=== PATIENT | female | born 1955 | race Caucasian/White ===

== ENCOUNTER → 2020-08-14 07:38 | Outpatient (REF) | payer MEDICARE, OTHER, SELFPAY ==
--- NOTE | 2020-08-14 07:44 | CA_ITS ---
Acquisition Time: 2020-08-14 08:49:56 Total Exercise Time: 00:09:52 Test Indications: cp, sob Medications: see chart Protocol: MAGO Max HR: 112 BPM 72% of Pred: 155 BPM Max BP: 184/082 mmHG Max Work Load: 4.8 METS pt unable to copmlete the test as she was SOB and her hr wup to 71% after 4min 35 sec. Will change gher test to lexiscan. Referred By: Radha Scott Overread By: Wil Sandoval
== END ==
LOC: HO.CARD 07:38
PROVIDERS: Visit Provider Internal Medicine
DX: R07.9 Chest pain, unspecified (principal); I10 Essential (primary) hypertension; R06.02 Shortness of breath; E78.00 Pure hypercholesterolemia, unspecified
CPT/HCPCS: 93016; 93017; 93018

== ENCOUNTER 2020-08-18 08:10 | Outpatient (REF) | payer MEDICARE, OTHER, SELFPAY ==
[2020-08-18 09:16] LABS: MANUAL DIFF FLAG NO
[2020-08-18 09:20] LABS: Basophils Absolute Auto 0.1 X10*3/uL (0.0-0.2); Basophils Percent Auto 0.8 % (0-2); Eosinophils Absolute Auto 0.1 X10*3/uL (0.0-0.4); Hematocrit 41.1 % (37-47); Hemoglobin 13.8 g/dl (12.0-16.0); Imm Gran Abs Auto 0.01 X10*3/uL (0.00-0.03); Imm Gran Pct Auto 0.2 % (0.0-0.4); Lymphocytes Absolute Auto 2.3 X10*3/uL (1.2-4.9); Lymphocytes Percent Auto 38.5 % (20-40); Mean Corpuscular HGB Conc 33.6 g/dl (31.0-35.0); Mean Corpuscular Hemoglobin 30.8 pg (27.0-33.0); Mean Corpuscular Volume 91.7 fL (80-98); Mean Platelet Volume 9.7 fL (9.4-12.3); Monocytes Absolute Auto 0.6 X10*3/uL (0.1-1.2); Monocytes Percent Auto 10.1 % (2-11); Neutrophils Absolute Auto 2.9 X10*3/uL (2.0-8.3); Neutrophils Percent Auto 48.4 % (45-73); Platelet Count 310 X10*3/uL (160-400); Red Blood Count 4.48 X10*6/uL (4.20-5.50); Red Cell Distribution Width 13.5 % (11.0-16.0); White Blood Count 5.9 X10*3/uL (4.8-10.8)
[2020-08-18 09:46] LABS: Alanine Aminotransferase 17 U/L (0-31); Albumin Level 4.6 g/dL (3.5-5.0); Alkaline Phosphatase 115 U/L (39-117); Anion Gap 14 (12-20); Aspartate Amino Transferase 18 U/L (5-31); Bilirubin Total 0.5 mg/dL (0.0-1.0); Blood Urea Nitrogen 20 mg/dL (9-16); Calcium 9.5 mg/dL (8.4-10.2); Carbon Dioxide 27 mmol/L (22-29); Chloride 105 mmol/L (96-108); Cholesterol 189 mg/dL; Estimated Glomerular Filt Rate 52; Glucose Fasting 83 mg/dL (60-99); HDL Cholesterol 57 mg/dL; LDL Cholesterol Calculated 100 mg/dl; Potassium 4.8 mmol/L (3.3-5.1); Sodium 141 mmol/L (135-145); Total Protein 7.2 g/dL (6.5-8.0); Triglycerides 162 mg/dL; Uric Acid 8.3 mg/dL (2.4-5.7)
[2020-08-18 10:03] LABS: Erythrocyte Sedimentation Rate 11 MM/HR (0-20)
[2020-08-18 10:15] LABS: Free T4 (Free Thyroxine) 0.86 ng/dL (0.71-1.85); Thyroid Stimulating Hormone 1.11 uIU/mL (0.32-4.0)
[2020-08-19 09:32] LABS: NT-proBNP 29 pg/mL
== END 2020-08-18 08:11 | disposition home or self-care (01) ==
LOC: HO.RESP 08:10
PROVIDERS: PCP Internal Medicine; Visit Provider Internal Medicine
DX: R06.02 Shortness of breath (principal); I10 Essential (primary) hypertension; R53.83 Other fatigue; M10.9 Gout, unspecified
CPT/HCPCS: 36415; 80053; 80061; 83880; 84439; 84443; 84550; 85025; 85652; 86140; 94060; 94727; 94729

== ENCOUNTER → 2020-08-19 07:25 | Outpatient (REF) | payer MEDICARE, OTHER, SELFPAY ==
--- NOTE | ~2020-08-19 | NM_ITS ---
Lexiscan Myocardial perfusion study Indication: Chest pain, shortness of breath, assess for coronary disease and ischemia Technique: The patient was brought in for a Lexiscan perfusion study on 08/19/2020 and was injected 0.4 mg of Lexiscan intravenously. Within a minute of this injection 35 mCi of sestamibi was given intravenously. Images were obtained using the SPECT gamma camera interlaced with the gating device. Images were obtained in supine position. Resting perfusion study was performed on 08/20/2020. Patient was administered 35 mCi of sestamibi intravenously at rest. Images were then obtained in supine position. Total DLP 123mGy-cm. Images were processed with the software and compared side to side in short axis, horizontal long axis and vertical long axis views. Findings: Raw acquisition was reviewed. The stress perfusion study showed diminished tracer uptake along the distal part of anterior/anterolateral wall. With CT attenuation correction, there seems to be improvement and hence suggestive of soft tissue attenuation artifact. The gated study shows normal LV systolic function with calculated LVEF of > 70%. LV cavity is normal in size. The gated study shows normal wall thickening and contraction of segments. Resting study shows no significant perfusion abnormality. Gating at rest reveals normal wall motion with ejection fraction at 65%. The findings are consistent with reversible distal anterior/anterolateral defect that improves with CT attenuation and hence suggestive of soft tissue attenuation. Less likely to be from true ischemia. NM/NM willie perf SPECT rest & str Impression: 1. Myocardial perfusion imaging study shows reversible distal anterior/anterolateral defect suspected to be from soft tissue attenuation. Otherwise, no definitive ischemia or infarction. 2. Gated LVEF is 73% during stress and 65% during rest. 3. Transient ischemic dilatation not present. EKG component of the test reported separately.
--- NOTE | 2020-08-19 07:28 | CA_ITS ---
Transthoracic Echocardiogram Patient (Last, First, Middle): Martha Cottrell Louise Gender: Female Date of : 1955 Age: 64 Procedure Date: 08/19/2020 Procedure Type: Transthoracic Echocardiogram Location: OP Height: 152.4 cm Weight: 93.9 kg BSA: 1.89 m2 Heart Rate: bpm Ip/Mosaic Technician: GOOD Referring MD: Radha Scott MD Composing Room Supervisor: Russell Jensen MD Symptoms: SOB CHEST PAIN Study Quality: Fair ECG Rhythm: Sinus Conclusions: - 1. Normal LV systolic function with impaired relaxation filling pattern 2. Normal cardiac valvular Doppler 3. Normal RV systolic pressure 4. No pericardial effusion Findings Left Ventricle Normal left ventricular size and systolic function. There is mildly increased left ventricular wall thickness. The visually estimated ejection fraction is between 65-70%. Spectral Doppler is indicative of an impaired relaxation filling pattern. E/E prime ratio is <8, consistent with normal filling pressures. Right Ventricle Normal right ventricular cavity size and systolic function. Atria Both atria are normal in size. There is no evidence of interatrial shunt. Aortic Valve Normal aortic valve structure and function. There is no aortic valve stenosis. There is no aortic valve regurgitation. Mitral Valve Normal mitral valve structure and function. There is trace mitral valve regurgitation. There is no mitral valve stenosis. Pulmonic Valve The pulmonic valve is likely normal. Tricuspid Valve Normal tricuspid valve structure. There is trace tricuspid valve regurgitation. The right ventricular systolic pressure is normal. The right ventricular systolic pressure is 24 mmHg. Normal right atrial pressure. There is no evidence of pulmonary hypertension. Great Vessels All visible segments of the aorta are normal in size. The pulmonary artery was not well visualized. Venous The inferior vena cava is normal in size and collapses greater than 50% with inspiration. Pericardium/Pleural There is no evidence of pericardial effusion. Prior Study Comparison No prior study available for comparison. Measurements 2D Linear Measurements IVSd: 1.21 0.6-0.9/0.6-1.0 cm LVIDd: 3.86 3.9-5.3/4.2-5.9 cm LVIDd Index: 2.04 2.4-3.2/2.2-3.1 cm/m2 LVIDs: 2.60 2.0-3.6 cm LVPWd: 1.21 0.7-1.1 cm Ao Root: 3.40 2.1-3.5 cm LA Diam: 3.50 2.7-3.8/3.0-4.0 cm LAIDs Index: 1.85 1.5-2.3 cm/m2 LV Mass: 197.77 67-162/88-224 g LV Mass Index: 104.64 43-95/49-115 g/m2 LVOT Diam: 2.00 3.0+(-)1.3 cm 2D Systolic Function EF 4C: 71.40 >55% EF 2C: 56.60 >55% EF BiP: 65.90 >55% Mitral Valve MV Pk E: 0.58 MV PK A: 1.00 MV Decel Time: 155.00 E/A: 0.60 E'Lateral: 7.64 E'Medial: 7.06 E/E' Med: 8.20 E/E' Lat: 7.60 PHT: 45.00 MVA PHT: 4.89 Decel Yates: 3.76 Aortic Valve AoV Pk Mayo: 1.38 AoV Mn Mayo: 0.91 AoV VTI: 0.32 AoV Pk Grad: 8.00 Aov Mn Grad: 4.00 DADA Cont.VTI: 2.35 LVOT LVOT Pk Mayo: 1.03 LVOT Mn Mayo: 0.65 LVOT VTI: 0.24 LVOT Pk Grad: 4.00 LVOT Mn Grad: 2.00 LVOT Diam: 2.00 LVOT Area: 3.14 Diastolic Function MV Pk E: 0.58 MV Pk A: 1.00 E/A: 0.60 E'Medial: 7.06 E/E' Med: 8.20 E' Laterial: 7.64 E/E' Lat: 7.60 Tricuspid Valve TR Pk Mayo: 2.29 TR Pk Grad: 21.00 RA Press: 3.00 RVSP: 24.00 Great Vessels Aorta Ao Root-2D: 3.40 2.0-3.7 cm Pulmonary Valve PV Pk Mayo: 0.79 Peak PV Grad: 2.00 Updated in Other Vendor System with Status of Final Russell Jensen MD electronically signed on 08/19/2020 12:13:47 PM with status of Final
--- NOTE | 2020-08-19 07:31 | CA_ITS ---
Acquisition Time: 2020-08-19 08:30:21 Total Exercise Time: 00:02:00 Test Indications: htn Medications: see chart Protocol: LEXISCAN Max HR: 112 BPM 72% of Pred: 155 BPM Max BP: 116/074 mmHG Max Work Load: 1.0 METS Pharmacological stress test using Lexiscan while sitting and kicking her feet. Pt tolerated well. Denies any anginal sx. EKG without any arrhythmias, non-diagnostic for ischemia. Nuclear images to follow. Normotensive response to test . Test reviewed with Dr. Hernández. test changed to Lexiscan as pt was unable to walk on the treadmill Referred By: Radha Scott Overread By: Wil Sandoval
== END ==
LOC: HO.CARD 07:25
PROVIDERS: Visit Provider Internal Medicine
DX: R07.9 Chest pain, unspecified (principal); R06.02 Shortness of breath; I10 Essential (primary) hypertension; E78.00 Pure hypercholesterolemia, unspecified
CPT/HCPCS: 78452; 93016; 93017; 93018; 93306; A9500; J0280; J2785

== ENCOUNTER 2020-11-06 08:47 | Outpatient (REF) | payer MEDICARE, OTHER, SELFPAY ==
[2020-11-06 10:24] LABS: Blood Urea Nitrogen 16 mg/dL (9-16); Estimated Glomerular Filt Rate 58; Uric Acid 5.6 mg/dL (2.4-5.7)
== END 2020-11-06 08:48 | disposition home or self-care (01) ==
LOC: HO.LAB 08:47
PROVIDERS: PCP Internal Medicine; Visit Provider Internal Medicine
DX: M10.9 Gout, unspecified (principal); N18.2 Chronic kidney disease, stage 2 (mild)
CPT/HCPCS: 36415; 82565; 84520; 84550

== ENCOUNTER 2021-02-03 11:10 | Outpatient (REF) | payer MEDICARE, OTHER, SELFPAY ==
--- NOTE | ~2021-02-03 | XR_ITS ---
EXAMINATION: XR KNEE, LEFT CLINICAL INFORMATION: Pain and swelling. COMPARISON: 09/13/2018 TECHNIQUE: Four views of the left knee. FINDINGS: There is increasing lateral joint space loss. Joint space loss medially is now moderate to marked. Marginal osteophytes are noted. Tibial spine spurring is seen. Patellofemoral study demonstrates increasing degeneration in the patellofemoral joint. Trace effusion is noted. The patella appears well seated on the sunrise image. XR/XR knee LT 4V IMPRESSION: Increasing degenerative change in the left knee from previous. Now moderate to marked degeneration with joint space loss in the lateral compartment and ongoing increasing degeneration at the patellofemoral compartment.
== END 2021-02-03 11:11 | disposition home or self-care (01) ==
LOC: HO.XRAY 11:10
PROVIDERS: PCP Internal Medicine; Visit Provider Internal Medicine
DX: M25.562 Pain in left knee (principal); R60.0 Localized edema
CPT/HCPCS: 73564

== ENCOUNTER 2022-08-19 01:19 | Emergency (ER) | payer MEDICARE, OTHER, SELFPAY ==
--- NOTE | ~2022-08-19 | CT_ITS ---
EXAMINATION: CT ABDOMEN AND PELVIS WITHOUT CONTRAST CLINICAL INFORMATION: Diverticulitis COMPARISON: None TECHNIQUE: Multidetector volumetric imaging was performed from the superior aspect of the liver through the pubic symphysis. Sagittal and coronal reformatted images were obtained on the technologist's workstation. This CT examination was performed using dose optimization techniques as appropriate, variously including the following: *Automated exposure control *Adjustment of mA and/or kV according to patient size (this includes techniques or standardized protocols for targeted exams where dose is matched to indication/reason for exam; i.e. extremities or head) *Use of iterative reconstruction technique DLP: 978 mGy-cm FINDINGS: LUNG BASES: The visualized lung bases are unremarkable. LIVER, GALLBLADDER, AND BILIARY TREE: The liver is normal in size, shape, and attenuation. No focal hepatic lesion or biliary ductal dilatation is identified. The gallbladder is unremarkable with no evidence of radiopaque gallstones, gallbladder wall thickening, or obvious pericholecystic inflammatory changes. PANCREAS: Unremarkable. SPLEEN: Unremarkable. ADRENAL GLANDS: Unremarkable. KIDNEYS AND URETERS: No hydronephrosis or obstructing calculus bilaterally. BLADDER: Unremarkable. GASTROINTESTINAL TRACT: Small hiatal hernia. No evidence of bowel obstruction. There is a thick-walled appearance of the colon from the distal transverse to mid descending colon with surrounding inflammation, suspicious for colitis. Scattered diverticula are noted. The appendix is unremarkable. No free fluid or free air is seen. ABDOMINAL WALL: No significant hernia is appreciated. LYMPH NODES: Normal. VASCULAR: Moderate atherosclerotic calcifications. PELVIC VISCERA: Unremarkable. OSSEOUS STRUCTURES: Degenerative changes are noted in the spine. Status post right total hip arthroplasty. CT/CT abdomen pelvis wo IV con IMPRESSION: 1. Thick-walled appearance of the colon from the distal transverse to mid descending colon with surrounding inflammation, suspicious for colitis. 2. Small hiatal hernia.
--- NOTE | ~2022-08-19 | CT_ITS ---
EXAMINATION: CT HEAD WITHOUT CONTRAST (STROKE PROTOCOL) CLINICAL INFORMATION: Slurred speech COMPARISON: None TECHNIQUE: Contiguous axial imaging was performed from the skull base to vertex without intravenous administration of contrast. This CT examination was performed using dose optimization techniques as appropriate, variously including the following: *Automated exposure control *Adjustment of mA and/or kV according to patient size (this includes techniques or standardized protocols for targeted exams where dose is matched to indication/reason for exam; i.e. extremities or head) *Use of iterative reconstruction technique DLP: 926 mGy-cm FINDINGS: There is no intra or extra-axial fluid collection or hemorrhage, mass, or mass effect. Sulci and ventricles appear normal. Please note that this study was performed at 1:29 AM on 08/19/2022 and on the reading queue and presented to me for dictation 9:27 AM on 08/19/2022. CT/CT head for stroke IMPRESSION: No acute intracranial pathology.
[2022-08-19 05:27] VITALS: BP 133/80; PULSE 80; RESP 17; TEMP 36.4; O2SAT 98; BMI 42.2
[2022-08-19 05:40] VITALS: BP 145/77; PULSE 83; RESP 30; TEMP 36.6; O2SAT 95
--- NOTE | 2022-08-19 05:40 | MHC.EDTECH ---
pt had a purewick , vitals were taken .. pt was incontinent of stool x2 pt was cleaned up and a new purewick was applied.. pt used the commode . the purewick was removed EKG was done at 0159 during downtime
--- NOTE | 2022-08-19 05:43 | MHC.EDTECH ---
stool sample was sent to lab
--- NOTE | 2022-08-19 05:52 | ED.GENADULT ---
HPI - General Adult General Chief complaint: General Medical Time Seen by Provider: 08/19/22 05:50 Source: patient Mode of arrival: EMS Limitations: no limitations History of Present Illness HPI narrative: Patient with history of hypertension depression GERD otherwise healthy had [place] for 30 pills yesterday evening with stuffed shells woke up from the sleep for abdominal cramps not feeling good with increased nausea and discomfort was slow in speech and his called the EMS for evaluation as patient was very slow in speaking. On arrival of EMS patient was normal able to speak full sentences no expressive aphasia or dysarthria . On arrival to ER patient was at baseline without any focal deficit stroke protocol was activated for the slurred speech patient was feeling cold and very weak at home no diarrhea at home Related Data Previous Rx's Medication Instructions Recorded ciprofloxacin HCl 500 mg tablet 500 mg PO BID #20 tabs 08/19/22 (Cipro) metronidazole 500 mg tablet 500 mg PO TID #30 tabs 08/19/22 ondansetron 4 mg disintegrating 4 mg PO Q6-8H PRN nausea and 08/19/22 tablet vomiting #10 tabs Allergies Allergy/AdvReac Type Severity Reaction Status Date / Time codeine [CODEINE] AdvReac Mild NAUSEA & Unverified 03/13/20 15:06 VOMITING Review of Systems Review of Systems: Yes all other systems are reviewed and are negative [facility] Social History Social History Smoked in Last 30 Days: No Use of substances other than those prescribed or required for medical reasons: No Advance Directives: No Physical Exam ED Vital Signs: Vital Signs - 24 hr 08/19/22 05:27 08/19/22 05:40 Temperature 97.6 F 97.9 F Pulse Rate 80 83 Respiratory Rate 17 30 H Blood Pressure 133/80 145/77 H Pulse Oximetry 98 95 Oxygen Delivery Method Room Air Room Air BMI result Body Mass Index 42.2 Appearance: Alert. Oriented X3. Moderate distress. Feeling cold Eyes: PERRLA, No Nystagmus ENT: Pharynx normal. Oral Mucosa moist Neck: Normal inspection. Neck supple. CVS: Normal heart rate and rhythm. Pulses normal. Respiratory: No respiratory distress. Equal air entry bilateral, no wheezing/rales/rhonchi Abdomen: Soft and nontender. Bowel sounds are present, no mass palpable, no CVA tenderness Skin: Skin warm and dry. Normal skin color. Normal skin turgor. Extremities: No lower extremity edema. No calf tenderness Neuro: Oriented X 3. No motor deficit. No sensory deficit.No cerebellar signs , cranial nerves II-XII intact Medications Administered Discontinued Medications Generic Name Dose Route Start Last Admin Trade Name Joshuaq PRN Reason Stop Dose Admin Ceftriaxone Sodium 1 gm/ 50 mls @ 100 mls/hr 08/19/22 05:54 08/19/22 07:00 Sodium Chloride IV 08/19/22 06:23 Infused ONCE ONE Infusion Metronidazole 500 mg 08/19/22 05:52 08/19/22 06:23 Metronidazole 500 Mg Tablet PO 08/19/22 05:53 500 mg ONCE ONE Administration Medical Decision Making Medical Decision Making [facility] Narrative: Patient with acute gastroenteritis with severe nausea she will bring and had 3 bowel movements in the ER stool sample was sent negative for C diff. CT scan of the abdomen showed diffuse colitis WBC count were elevated lactic acid was normal patient was given IV Rocephin and IV fluids feeling much better now taking p.o. fluids will discharge patient home Cipro and Flagyl. Differential Diagnosis CVA/metabolic encephalopathy/bacteremia/gastroenteritis Lab Data [facility] Lab Attestation statement: I reviewed the patient's lab results. 08/19/22 03:22 Labs: Lab Results 08/19/22 08/19/22 08/19/22 Range/Units 03:22 03:22 03:22 WBC (4.8-10.8) X10*3/uL RBC (4.20-5.50) X10*6/uL Hgb (12.0-16.0) g/dl Hct (37.0-47.0) % MCV (80.0-98.0) fL MCH (27.0-33.0) pg MCHC (31.0-35.0) g/dl RDW (11.0-16.0) % Plt Count (160-400) X10*3/uL MPV (9.4-12.3) fL Immature Gran % (Auto) (0.0-0.4) % Neut % (Auto) (45-73) % Lymph % (Auto) (20-40) % [place] % (Auto) (2-11) % Eos % (Auto) (0-4) % Baso % (Auto) (0-2) % Lymph # (Auto) (1.2-4.9) X10*3/uL [place] # (Auto) (0.1-1.2) X10*3/uL Eos # (Auto) (0.0-0.4) X10*3/uL Baso # (Auto) (0.0-0.2) X10*3/uL Abs Immat Gran (auto) (0.00-0.03) X10*3/uL Absolute Neuts (auto) (2.0-8.3) x10*3/uL Absolute Nucleated RBC (0.0-0.012) X10*3/uL Nucleated RBC % (auto) (0.0-0.2) /100WBC PT (10.0-13.1) SEC INR (0.9-1.1) Sodium 140 (135-145) mmol/L Potassium 5.3 H (3.3-5.1) mmol/L Chloride 111 H (96-108) mmol/L Carbon Dioxide 15 L (22-29) mmol/L Anion Gap 19 (12-20) BUN 22 H (9-16) mg/dL Creatinine 1.14 (0.5-1.4) mg/dL Estim Creat Clear Calc 52.3 Estimated GFR 48 Random Glucose 119 H (60-115) mg/dL Lactic Acid 1.5 (0.5-2.0) mmol/L Calcium 9.8 (8.4-10.2) mg/dL Total Bilirubin 0.5 (0.0-1.0) mg/dL AST 31 D (5-31) U/L ALT 26 (0-31) U/L Alkaline Phosphatase 89 D (39-117) U/L Troponin I High Sens 3.1 (<3.5-17.0) ng/L Total Protein 7.3 (6.5-8.0) g/dL Albumin 4.2 (3.5-5.0) g/dL Urine Color Urine Appearance Urine pH (5.0-9.0) Ur Specific [place] (1.005-1.025) Urine Protein (Neg-Trace) mg/dL Urine Glucose (UA) (Negative) mg/dL Urine Ketones (Negative) mg/dL Urine Blood (Negative) Urine Nitrite (Negative) Ur Leukocyte Esterase (Negative) Urine RBC (0-2) /HPF Urine WBC (0-5) /HPF Ur Squamous Epith Cells (0-2) /HPF Urine Bacteria (None Seen) Hyaline Casts (0-2) /LPF C. difficile Tox B Gene (Negative) 08/19/22 08/19/22 08/19/22 Range/Units 03:22 03:22 04:20 WBC 15.2 H (4.8-10.8) X10*3/uL RBC 4.74 (4.20-5.50) X10*6/uL Hgb 15.0 (12.0-16.0) g/dl Hct 44.3 (37.0-47.0) % MCV 93.5 (80.0-98.0) fL MCH 31.6 (27.0-33.0) pg MCHC 33.9 (31.0-35.0) g/dl RDW 13.6 (11.0-16.0) % Plt Count 327 (160-400) X10*3/uL MPV 9.7 (9.4-12.3) fL Immature Gran % (Auto) 0.5 H (0.0-0.4) % Neut % (Auto) 81.6 H (45-73) % Lymph % (Auto) 12.5 L (20-40) % [place] % (Auto) 4.7 (2-11) % Eos % (Auto) 0.3 (0-4) % Baso % (Auto) 0.4 (0-2) % Lymph # (Auto) 1.9 (1.2-4.9) X10*3/uL [place] # (Auto) 0.7 (0.1-1.2) X10*3/uL Eos # (Auto) 0.0 (0.0-0.4) X10*3/uL Baso # (Auto) 0.1 (0.0-0.2) X10*3/uL Abs Immat Gran (auto) 0.08 H (0.00-0.03) X10*3/uL Absolute Neuts (auto) 12.4 H (2.0-8.3) x10*3/uL Absolute Nucleated RBC 0.000 (0.0-0.012) X10*3/uL Nucleated RBC % (auto) 0.0 (0.0-0.2) /100WBC PT 9.9 L (10.0-13.1) SEC INR 0.9 (0.9-1.1) Sodium (135-145) mmol/L Potassium (3.3-5.1) mmol/L Chloride (96-108) mmol/L Carbon Dioxide (22-29) mmol/L Anion Gap (12-20) BUN (9-16) mg/dL Creatinine (0.5-1.4) mg/dL Estim Creat Clear Calc Estimated GFR Random Glucose (60-115) mg/dL Lactic Acid (0.5-2.0) mmol/L Calcium (8.4-10.2) mg/dL Total Bilirubin (0.0-1.0) mg/dL AST (5-31) U/L ALT (0-31) U/L Alkaline Phosphatase (39-117) U/L Troponin I High Sens (<3.5-17.0) ng/L Total Protein (6.5-8.0) g/dL Albumin (3.5-5.0) g/dL Urine Color Urine Appearance Urine pH (5.0-9.0) Ur Specific [place] (1.005-1.025) Urine Protein (Neg-Trace) mg/dL Urine Glucose (UA) (Negative) mg/dL Urine Ketones (Negative) mg/dL Urine Blood (Negative) Urine Nitrite (Negative) Ur Leukocyte Esterase (Negative) Urine RBC (0-2) /HPF Urine WBC (0-5) /HPF Ur Squamous Epith Cells (0-2) /HPF Urine Bacteria (None Seen) Hyaline Casts (0-2) /LPF C. difficile Tox B Gene NEGATIVE (Negative) 08/19/22 Range/Units 06:26 WBC (4.8-10.8) X10*3/uL RBC (4.20-5.50) X10*6/uL Hgb (12.0-16.0) g/dl Hct (37.0-47.0) % MCV (80.0-98.0) fL MCH (27.0-33.0) pg MCHC (31.0-35.0) g/dl RDW (11.0-16.0) % Plt Count (160-400) X10*3/uL MPV (9.4-12.3) fL Immature Gran % (Auto) (0.0-0.4) % Neut % (Auto) (45-73) % Lymph % (Auto) (20-40) % [place] % (Auto) (2-11) % Eos % (Auto) (0-4) % Baso % (Auto) (0-2) % Lymph # (Auto) (1.2-4.9) X10*3/uL [place] # (Auto) (0.1-1.2) X10*3/uL Eos # (Auto) (0.0-0.4) X10*3/uL Baso # (Auto) (0.0-0.2) X10*3/uL Abs Immat Gran (auto) (0.00-0.03) X10*3/uL Absolute Neuts (auto) (2.0-8.3) x10*3/uL Absolute Nucleated RBC (0.0-0.012) X10*3/uL Nucleated RBC % (auto) (0.0-0.2) /100WBC PT (10.0-13.1) SEC INR (0.9-1.1) Sodium (135-145) mmol/L Potassium (3.3-5.1) mmol/L Chloride (96-108) mmol/L Carbon Dioxide (22-29) mmol/L Anion Gap (12-20) BUN (9-16) mg/dL Creatinine (0.5-1.4) mg/dL Estim Creat Clear Calc Estimated GFR Random Glucose (60-115) mg/dL Lactic Acid (0.5-2.0) mmol/L Calcium (8.4-10.2) mg/dL Total Bilirubin (0.0-1.0) mg/dL AST (5-31) U/L ALT (0-31) U/L Alkaline Phosphatase (39-117) U/L Troponin I High Sens (<3.5-17.0) ng/L Total Protein (6.5-8.0) g/dL Albumin (3.5-5.0) g/dL Urine Color Dark Yellow Urine Appearance Clear Urine pH 5.0 (5.0-9.0) Ur Specific [place] 1.020 (1.005-1.025) Urine Protein Trace (Neg-Trace) mg/dL Urine Glucose (UA) Negative (Negative) mg/dL Urine Ketones Negative (Negative) mg/dL Urine Blood Trace H (Negative) Urine Nitrite Negative (Negative) Ur Leukocyte Esterase Moderate (2+) H (Negative) Urine RBC 11-20 H (0-2) /HPF Urine WBC 6-10 (0-5) /HPF Ur Squamous Epith Cells 3-5 (0-2) /HPF Urine Bacteria 1+ (None Seen) Hyaline Casts 6-10 (0-2) /LPF C. difficile Tox B Gene (Negative) Discharge Plan Discharge Clinical Impression: Enteritis Patient Disposition: Home, Self-Care Instructions: Colitis (ED) Additional Instructions: Drink plenty of fluids Medicine for nausea advised Antibiotic as prescribed Report to ER if worsening of the pain/diarrhea Prescriptions: New metronidazole 500 mg tablet 500 mg PO TID Qty: 30 0RF ciprofloxacin HCl [Cipro] 500 mg tablet 500 mg PO BID Qty: 20 0RF ondansetron 4 mg tablet,disintegrating 4 mg PO Q6-8H PRN (Reason: nausea and vomiting) Qty: 10 0RF
[2022-08-19 06:11] LABS: Anion Gap 19 (12-20); Blood Urea Nitrogen 22 mg/dL (9-16); Carbon Dioxide 15 mmol/L (22-29); Chloride 111 mmol/L (96-108); Creatinine Clr Calc Pharmacy 52.3; Estimated Glomerular Filt Rate 48; Glucose Random 119 mg/dL (60-115); Potassium 5.3 mmol/L (3.3-5.1); Sodium 140 mmol/L (135-145)
[2022-08-19 06:12] LABS: Alanine Aminotransferase 26 U/L (0-31); Albumin Level 4.2 g/dL (3.5-5.0); Alkaline Phosphatase 89 U/L (39-117); Aspartate Amino Transferase 31 U/L (5-31); Bilirubin Total 0.5 mg/dL (0.0-1.0); Calcium 9.8 mg/dL (8.4-10.2); Total Protein 7.3 g/dL (6.5-8.0)
[2022-08-19 06:15] LABS: Lactic Acid 1.5 mmol/L (0.5-2.0); Troponin-I High Sensitivity 3.1 ng/L (<3.5-17.0)
[2022-08-19 06:17] LABS: Basophils Absolute Auto 0.1 X10*3/uL (0.0-0.2); Basophils Percent Auto 0.4 % (0-2); Eosinophils Percent Auto 0.3 % (0-4); Hematocrit 44.3 % (37.0-47.0); Imm Gran Abs Auto 0.08 X10*3/uL (0.00-0.03); Imm Gran Pct Auto 0.5 % (0.0-0.4); Lymphocytes Absolute Auto 1.9 X10*3/uL (1.2-4.9); Lymphocytes Percent Auto 12.5 % (20-40); MANUAL DIFF FLAG NO; Mean Corpuscular HGB Conc 33.9 g/dl (31.0-35.0); Mean Corpuscular Hemoglobin 31.6 pg (27.0-33.0); Mean Corpuscular Volume 93.5 fL (80.0-98.0); Mean Platelet Volume 9.7 fL (9.4-12.3); Monocytes Absolute Auto 0.7 X10*3/uL (0.1-1.2); Monocytes Percent Auto 4.7 % (2-11); Neutrophils Absolute Auto 12.4 x10*3/uL (2.0-8.3); Neutrophils Percent Auto 81.6 % (45-73); Platelet Count 327 X10*3/uL (160-400); Red Blood Count 4.74 X10*6/uL (4.20-5.50); Red Cell Distribution Width 13.6 % (11.0-16.0); White Blood Count 15.2 X10*3/uL (4.8-10.8)
[2022-08-19 06:18] LABS: INTERNATIONAL NORM RATIO 0.9 (0.9-1.1); Prothrombin Time 9.9 SEC (10.0-13.1)
[2022-08-19] MEDS: cefTRIAXone sodium 1 GM in 0.9 % Sodium Chloride 50 ML IV (06:23)
[2022-08-19] MEDS: metroNIDAZOLE 500 MG TABLET PO (06:23)
[2022-08-19 06:28] LABS: CDiff Gene PCR NEGATIVE (Negative)
[2022-08-19 06:40] LABS: Appearance Urine Clear; Color Urine Dark Yellow; Glucose Urine UA Negative (Negative); Leukocyte Esterase Urine Moderate (2+) (Negative); Nitrite Urine Negative (Negative); UMIC TRIGGER UACC YES; Urine Blood Trace (Negative); Urine Ketones Negative (Negative); Urine Protein Trace mg/dL (Neg-Trace)
[2022-08-19 06:49] LABS: Bacteria Urine 1+ (None Seen); UACC Culture Trigger YES
== END 2022-08-19 07:33 | disposition home or self-care (01) ==
PROVIDERS: Emergency Provider Internal Medicine
DX: K52.9 Noninfective gastroenteritis and colitis, unspecified (principal); K44.9 Diaphragmatic hernia without obstruction or gangrene; R10.9 Unspecified abdominal pain; R11.0 Nausea; D72.829 Elevated white blood cell count, unspecified; I10 Essential (primary) hypertension
CPT/HCPCS: 36415; 70450; 74176; 80053; 81001; 83605; 84484; 85025; 85610; 87040; 87086; 87493; 93005; 96365; 99284; J0696

== ENCOUNTER 2022-08-26 11:10 | Outpatient (REF) | payer MEDICARE, OTHER, SELFPAY ==
[2022-08-26 13:32] LABS: MANUAL DIFF FLAG NO
[2022-08-26 13:48] LABS: Basophils Absolute Auto 0.1 X10*3/uL (0.0-0.2); Basophils Percent Auto 0.7 % (0-2); Eosinophils Absolute Auto 0.1 X10*3/uL (0.0-0.4); Eosinophils Percent Auto 1.3 % (0-4); Hemoglobin 14.2 g/dl (12.0-16.0); Imm Gran Abs Auto 0.08 X10*3/uL (0.00-0.03); Imm Gran Pct Auto 0.9 % (0.0-0.4); Lymphocytes Absolute Auto 2.8 X10*3/uL (1.2-4.9); Lymphocytes Percent Auto 31.4 % (20-40); Mean Corpuscular HGB Conc 33.8 g/dl (31.0-35.0); Mean Corpuscular Hemoglobin 30.9 pg (27.0-33.0); Mean Corpuscular Volume 91.3 fL (80.0-98.0); Mean Platelet Volume 9.6 fL (9.4-12.3); Monocytes Percent Auto 10.6 % (2-11); Neutrophils Percent Auto 55.1 % (45-73); Platelet Count 415 X10*3/uL (160-400); Red Cell Distribution Width 13.5 % (11.0-16.0)
[2022-08-26 13:54] LABS: Alanine Aminotransferase 12 U/L (0-31); Albumin Level 4.2 g/dL (3.5-5.0); Alkaline Phosphatase 67 U/L (39-117); Anion Gap 15 (12-20); Aspartate Amino Transferase 16 U/L (5-31); Bilirubin Total 0.4 mg/dL (0.0-1.0); Blood Urea Nitrogen 13 mg/dL (9-16); Calcium 9.7 mg/dL (8.4-10.2); Carbon Dioxide 28 mmol/L (22-29); Chloride 101 mmol/L (96-108); Estimated Glomerular Filt Rate > 60; Glucose Fasting 92 mg/dL (60-99); Potassium 5.3 mmol/L (3.3-5.1); Sodium 139 mmol/L (135-145); Total Protein 6.7 g/dL (6.5-8.0)
== END 2022-08-26 11:11 | disposition home or self-care (01) ==
LOC: HO.WFDLDS 11:10
PROVIDERS: Visit Provider Family Medicine
DX: Z00.00 Encounter for general adult medical examination without abnormal findings (principal); R19.7 Diarrhea, unspecified
CPT/HCPCS: 36415; 80053; 85025

== ENCOUNTER 2022-08-27 12:08 | Outpatient (REF) | payer MEDICARE, OTHER, SELFPAY ==
[2022-08-27 14:06] LABS: CDiff Gene PCR NEGATIVE (Negative)
[2022-08-27 14:56] LABS: Adenovirus F 40/41 Not Detected (Not Detect.); Astrovirus Not Detected (Not Detect.); Campylobacter Not Detected (Not Detect.); Cryptosporidium Not Detected (Not Detect.); Cyclospora cayetanensis Not Detected (Not Detect.); E. coli EAEC Not Detected (Not Detect.); E. coli EPEC Not Detected (Not Detect.); E. coli ETEC Not Detected (Not Detect.); E. coli STEC Not Detected (Not Detect.); Entamoeba histolytica Not Detected (Not Detect.); Giardia lamblia Not Detected (Not Detect.); Norovirus GI/GII Not Detected (Not Detect.); Plesiomonas shigelloides Not Detected (Not Detect.); Rotavirus A Not Detected (Not Detect.); Salmonella Not Detected (Not Detect.); Sapovirus Not Detected (Not Detect.); Shigella sp./EIEC Not Detected (Not Detect.); Vibrio Not Detected (Not Detect.); Vibrio Cholerae Not Detected (Not Detect.); Yersinia enterocolitica Not Detected (Not Detect.)
== END 2022-08-27 12:09 | disposition home or self-care (01) ==
LOC: HO.LNP 12:08
PROVIDERS: Visit Provider Family Medicine
DX: R19.7 Diarrhea, unspecified (principal)
CPT/HCPCS: 87177; 87209; 87493; 87507

== ENCOUNTER 2022-09-24 08:22 | Day surgery (SDC) | payer MEDICARE, OTHER, SELFPAY ==
--- NOTE | 2022-09-23 10:05 | HO.ANESPROP2 ---
HPI - Anesthesia Eval Consult details Narrative: 67yo F for Upper Endoscopy and Colonoscopy PMFSH Active Problems Active Problems: All Active Problems (Updated 09/23/22 @ 08:01 by Arabella Huffman RN) Diarrhea (Acute) Abdominal pain (Acute) Past Medical History Medical History CKD (chronic kidney disease) stage 3, GFR 30-59 ml/min Colitis Depression Diverticulitis Elevated cholesterol GERD (gastroesophageal reflux disease) History of angina HTN (hypertension) Hx of squamous cell carcinoma Sleep apnea TIA (transient ischemic attack) Surgical History Surgical History History of carpal tunnel release of both wrists History of hysteroscopy Hx of colonoscopy Hx of esophagogastroduodenoscopy Hx of rotator cuff surgery Hx of squamous cell carcinoma excision Hx of total hip arthroplasty Social History Social History Patient Tobacco Use Status: Former Tobacco user Quit Date: 05/1999 Use of substances other than those prescribed or required for medical reasons: No Are you DNR?: No Advance Directives: No Advance Directives Information Provided: Yes Meds Allergies Allergy/AdvReac Type Severity Reaction Status Date / Time codeine [CODEINE] AdvReac Mild NAUSEA & Verified 08/26/22 10:41 VOMITING Home Medications Medication Instructions Recorded Confirmed Last Taken Type atorvastatin 10 mg tablet 10 mg PO DAILY 08/26/22 Unknown History bupropion HCl 150 mg 24 hr tablet, 150 mg PO DAILY 08/26/22 Unknown History extended release duloxetine 60 mg capsule,delayed 60 mg PO DAILY 08/26/22 Unknown History release famotidine 20 mg tablet 20 mg PO BEDTIME 08/26/22 Unknown History isosorbide mononitrate 60 mg 60 mg PO QAM 08/26/22 Unknown History tablet,extended release 24 hr lisinopril 20 mg tablet 20 mg PO BID 08/26/22 09/24/22 07:30 History melatonin 5 mg capsule mg PO BEDTIME PRN insomnia 08/26/22 Unknown History pantoprazole 40 mg tablet,delayed 40 mg PO DAILY 08/26/22 Unknown History release Exam Exam Date and Time: September 23, 2022 1005 Pertinent Lab Results Pertinent Lab Results: Laboratory Tests 08/26/22 08/26/22 11:15 11:15 WBC 9.0 Hgb 14.2 Hct 42.0 Plt Count 415 H D Sodium 139 Potassium 5.3 H Chloride 101 Carbon Dioxide 28 BUN 13 Creatinine 0.90 Narrative Narrative: EKG 07/2022 Vent. Rate : 075 BPM ? ? Atrial Rate : 075 BPM ?? P-R Int : 150 ms? QRS Dur : 126 ms ? ? QT Int : 426 ms ? ? ? P-R-T Axes : 038 -12 036 degrees ?? QTc Int : 475 ms ? Normal sinus rhythm Right bundle branch block Abnormal ECG When compared with ECG of 14-JUN-2016 12:02, Right bundle branch block is now Present Assessment and Plan Assessment Anesthesia Assessment: Chart Reviewed
--- OUTSIDE RECORDS SUMMARY | 2022-09-24 08:24 | XMS_ITS | Continuity of Care Document ---
Author Name Unknown Organization [facility] ter Address [address] [place] [address]- Care Team Providers Care Numerical Control Lathe Operator Name Role Phone Radha Scott MD Primary Care Physician [phone] Encounter [facility] Date(s): 08/21/19 - 08/21/[address] [address]- [facility] Discharge Disposition: A-D/C Home Attending Physician: Genesis Menjivar MD Admitting Physician: Genesis Mejnivar MD Referring Physician: Genesis Menjivar MD Allergies, Adverse Reactions, Alerts Substance Reaction Severity Status codeine N/V Active Medications acetaminophen 325 mg oral tablet 650 mg, By Mouth, Every 6 hours, Refills 0, Maintenance, 01/19/19 10:16:33 EDT Start Date: 01/19/19 Status: Ordered ALPRAZolam 0.5 mg oral tablet TAKE 1 TABLET BY MOUTH EVERY 8 TO 12 HOURS NEEDED FOR ANXIETY Start Date: 01/05/19 Status: Ordered atorvastatin 10 mg oral tablet 1 tablet = 10 mg, By Mouth, Daily, # 30 tablet, 0 Refills, Maintenance Start Date: 01/05/19 Status: Ordered BuPROpion = 150 mg, By Mouth, Daily, 0 Refills, Maintenance Start Date: 10/11/09 Status: Ordered duloxetine 60 mg oral enteric coated capsule 1 capsule = 60 mg, By Mouth, Daily, # 30 capsule, 0 Refills, Maintenance, 01/05/19 14:42:04 EDT, ECCapsule Start Date: 01/05/19 Status: Ordered Isosorbide Mononitrate = 30 mg, By Mouth, 0 Refills, Maintenance, 10/11/09 17:19:11 EDT Start Date: 10/11/09 Status: Ordered Lisinopril = 20 mg, By Mouth, Daily, 0 Refills, Maintenance, 10/11/09 17:19:23 EDT Start Date: 10/11/09 Status: Ordered Protonix 40 mg oral granule = 40 mg, By Mouth, Daily, 0 Refills, Maintenance Start Date: 10/11/09 Status: Ordered Vital Signs Most recent to oldest [Reference Range]: 1 2 3 Height 154.5 cm (08/21/19 6:50 AM) 155 cm (08/13/19 4:33 PM) Weight 102.8 kg (08/21/19 6:50 AM) 100 kg (08/13/19 4:33 PM) Oxygen Saturation [94-100 %] 95 % (08/21/19 8:45 AM) 100 % (08/21/19 8:30 AM) 100 % (08/21/19 8:15 AM) Pulse Rate [55-90 bpm] 82 bpm (08/21/19 6:50 AM) Body Mass Index [18.5-24.99] 43.07 *>HHI* (08/21/19 6:50 AM) 41.62 *>HHI* (08/13/19 4:33 PM) Blood Pressure [90-138/55-84 mm Hg] 136/71mm Hg (08/21/19 8:45 AM) 139/67mm Hg *H* (08/21/19 8:30 AM) 142/79mm Hg *H* (08/21/19 8:15 AM) Respiratory Rate [16-30 br/min] 14 br/min *L* (08/21/19 8:45 AM) 21 br/min (08/21/19 8:30 AM) 17 br/min (08/21/19 8:15 AM) Temperature [96.8-100.4 DegF] 98.0 DegF (08/21/19 9:15 AM) 99.3 DegF (08/21/19 8:00 AM) 98.3 DegF (08/21/19 6:50 AM) Liters per Minute 2 L/min (08/21/19 8:30 AM) 4 L/min (08/21/19 8:15 AM) 5 L/min (08/21/19 8:00 AM) Mode of Delivery (Oxygen) Room air (08/21/19 8:45 AM) Shovel mask (08/21/19 8:30 AM) Shovel mask (08/21/19 8:15 AM) Blood pressure sites Arm, left (08/21/19 8:45 AM) Arm, left (08/21/19 8:30 AM) Arm, left (08/21/19 8:15 AM) Temperature Route Temporal (08/21/19 9:15 AM) Temporal (08/21/19 8:00 AM) Temporal (08/21/19 6:50 AM) Dry Weight 102.8 kg (08/21/19 6:50 AM) 100 kg (08/13/19 4:33 PM) Weight Obtained Via Standing scale (08/21/19 6:50 AM) Dry Weight Obtained Via Standing scale (08/21/19 6:50 AM) Patient/family stated (08/13/19 4:33 PM) Social History Social History Type Response Smoking Status Former smoker; Tobac co user in household: No entered on: 09/21/16 Sex
--- OUTSIDE RECORDS SUMMARY | 2022-09-24 08:24 | XMS_ITS | Continuity of Care Document ---
Author Name Unknown Organization [facility] Address [address] [place] [address] [address] [place] [address]- Care Team Providers Care Groover And Turner Name Role Phone Tyler TORO, Radha Primary Care Physician [phone] Encounter [facility] Date(s): 03/11/21 - 04/10/21 [facility] [address] [place], [place] [address] Attending Physician: Rayna King Admitting Physician: Rayna King Referring Physician: AdmtrRayna Allergies, Adverse Reactions, Alerts Substance Reaction Severity Status NKA Active Medications acetaminophen 325 mg oral tablet 650 mg, By Mouth, Every 6 hours, Refills 0, Maintenance, 01/19/19 10:16:33 EDT Start Date: 01/19/19 Status: Ordered Advil 200 mg oral tablet 2 tablet = 400 mg, By Mouth, Every 4 hours, PRN for fever, # 120 tablet, 0 Refills, Maintenance, 11/05/19 6:44:00 EDT, Tablet Start Date: 11/05/19 Status: Ordered Allopurinol Refills 0, Maintenance, 03/11/21 10:20:00 EDT, Partial fill upon patient request if the prescription is for a schedule II opioid drug. Start Date: 03/11/21 Status: Ordered Alprazolam By Mouth, Refills 0, Maintenance, 03/11/21 10:20:00 EDT, Partial fill upon patient request if the prescription is for a schedule II opioid drug. Start Date: 03/11/21 Status: Ordered ALPRAZolam 0.5 mg oral tablet TAKE 1 TABLET BY MOUTH EVERY 8 TO 12 HOURS NEEDED FOR ANXIETY Start Date: 01/05/19 Status: Ordered Anoro Ellipta Inhalation, Daily, 0 Refills, Maintenance, 03/11/21 10:20:00 EDT, Partial fill upon patient requestif the prescription is for a schedule II opioid drug. Start Date: 03/11/21 Status: Ordered atorvastatin 10 mg oral tablet [...] EDT, ECCapsule Start Date: 01/05/19 Status: Ordered Famotidine 0 Refills, Maintenance, 03/11/21 10:20:00 EDT, Partial fill upon patient request if the prescription is for a schedule II opioid drug. Start Date: 03/11/21 Status: Ordered Isosorbide Mononitrate = 30 mg, By Mouth, 0 Refills, Maintenance, 10/11/09 17:19:11 EDT Start Date: 10/11/09 Status: Ordered Lisinopril = 20 mg, By Mouth, Daily, 0 Refills, Maintenance, 10/11/09 17:19:23 EDT Start Date: 10/11/09 Status: Ordered Pantoprazole Daily, 0 Refills, Maintenance, 03/11/21 10:21:00 EDT Start Date: 03/11/21 Status: Ordered Protonix 40 mg oral granule = 40 mg, By Mouth, Daily, 0 Refills, Maintenance Start Date: 10/11/09 Status: Ordered Social History Social History Type Response Smoking Status Former smoker; Tobac co user in household: No entered on: 09/21/16 Sex
--- OUTSIDE RECORDS SUMMARY | 2022-09-24 08:24 | XMS_ITS | Continuity of Care Document ---
Author Name Unknown Organization [facility] [place] Address [address] [place] [address] [address] [place] [address]- Care Team Providers Care Wet Wheeler Name Role Phone Tyler TORO, Radha Primary Care Physician [id number] Date[facility]11[facility] 03/18[facility] [address] [place] [address] Drive [address] [place] [address]- Attending Physician: Titus Choudhury MD Referring Physician: Radha Scott MD Allergies, Adverse Reactions, Alerts Substance Reaction [...] Most recent to oldest [Reference Range]: 1 Height 154.94 cm (03/11/21 10:15 AM) Weight 96 kg (03/11/21 10:15 AM) Body Mass Index [18.5-24.99] 39.99 *>HHI* (03/11/21 10:15 AM) Temperature [96.8-100.4 DegF] 97.6 DegF (03/11/21 10:15 AM) Dry Weight 96 kg (03/11/21 10:15 AM) Social History Social History Type Response Smoking Status Former smoker; Tobac co user in household: No entered on: 09/21/16 Sex
--- OUTSIDE RECORDS SUMMARY | 2022-09-24 08:24 | XMS_ITS | Continuity of Care Document ---
Author Name Unknown Organization [facility] ter Address [address] [place] [id number]- Care Team Providers Care Health Care Administrator Name Role Phone Tyler TORO, Radha Primary Care Physician [place] [facility] [place] 09/05/19 - 09/05/[address] [address]- [facility] Attending Physician: Kei Dickerson MD Allergies, Adverse Reactions, Alerts Substance Reaction [...]
--- OUTSIDE RECORDS SUMMARY | 2022-09-24 08:24 | XMS_ITS | Continuity of Care Document ---
Author Name Unknown Organization [facility] [place] Address [address] [place] [address]- Care Team Providers Care Pediatric Anesthesiologist Name Role Phone Letha Peguero MD Primary Care Physician Encounter 01/05/22 - 01/12/22 [facility] [address], [address] [place] [address]- [place] Attending Physician: Letha Peguero MD Admitting Physician: Letha Peguero MD Referring Physician: Letha Peguero MD Allergies, Adverse Reactions, Alerts No Known Allergies Immunizations Given and Recorded Vaccine Date Status Refusal Reason SARS-CoV-2 (COVID-19) mRNA BNT-162b2 vac 09/25/20 Given SARS-CoV-2 (COVID-19) mRNA BNT-162b2 vac 09/04/20 Given Medications acetaminophen 325 mg oral tablet 650 mg, By Mouth, Every 6 hours, Refills 0, Maintenance, 01/19/19 10:16:33 EDT Start Date: 01/19/19 Status: Ordered Allopurinol 100 mg, By Mouth, Daily, Refills 0, Maintenance, 03/11/21 10:20:00 EDT, Partial [...] 12 HOURS NEEDED FOR ANXIETY Start Date: 7/12/19 Status: Ordered Anoro Ellipta Inhalation, Daily, 0 Refills, Maintenance, 03/11/21 10:20:00 EDT, Partial fill upon patient requestif the prescription is for a schedule II opioid drug. Start Date: 03/11/21 Status: Ordered atorvastatin 10 mg oral tablet 1 tablet = 10 mg, By Mouth, Daily, # 90 tablet, 1 Refills, Maintenance, 12/18/21 11:15:00 EDT, Tablet, [id number], Partial fill upon patient request if the prescription is for a schedule II opioid drug., 154.94, cm, 03/11/21 10:15:00 EDT, Heig... Start Date: 12/18/21 Stop Date: 06/16/22 Status: Ordered buPROPion 150 mg/24 hours (XL) oral tablet, extended release 1 tablet = 150 mg, By Mouth, Daily, # 90 tablet, 1 Refills, Maintenance, 12/18/21 11:16:00 EDT, XL Tablet, [id number], Partial fill upon patient request if the prescription is for a schedule II opioid drug., 1 tablet By Mouth Daily,x90 days, 1... Start Date: 12/18/21 Stop Date: 06/16/22 Status: Ordered duloxetine 60 mg oral enteric coated capsule 1 capsule = 60 mg, By Mouth, Daily, # 90 capsule, 1 Refills, Maintenance, 12/18/21 11:16:00 EDT, Capsule, [id number], Partial fill upon patient request if the prescription is for a schedule II opioid drug., 154.94, cm, 03/11/21 10:15:00 EDT, H... Start Date: 12/18/21 Stop Date: 06/16/22 Status: Ordered famotidine 20 mg oral tablet 20 mg, 1, tablet, By Mouth, Daily at bedtime, # 90 tablet, Refills 1, Tot. Refills 1, Maintenance, 12/18/21 11:16:00 EDT, Route to Pharmacy Electronically, [id number], Partial fill upon patient request if the prescription is for a schedule II... Start Date: 12/18/21 Stop Date: 06/16/22 Status: Ordered Isosorbide Mononitrate = 30 mg, By Mouth, 0 Refills, Maintenance, 10/11/09 17:19:11 EDT Start Date: 10/11/09 Status: Ordered isosorbide mononitrate 60 mg oral tablet, extended release 60 mg, 1, tablet, By Mouth, Daily in AM, # 90 tablet, Refills 1, Tot. Refills 1, Maintenance, 12/18/21 11:18:00 EDT, Route to Pharmacy Electronically, [facility] #[id number], Partial fill upon patient request if the prescription is for a schedule II opioi... Start Date: 12/18/21 Status: Ordered lisinopril 20 mg oral tablet 20 mg, 1, tablet, By Mouth, 2 times a day, # 180 tablet, Refills 1, Tot. Refills 1, Maintenance, 12/21/21 10:42:00 EDT, Route to Pharmacy Electronically, [facility]/pharmacy #[id number], Partial fill upon patientrequest if the prescription is for a schedule II op... Start Date: 12/21/21 Stop Date: 06/19/22 Status: Ordered melatonin 5 mg oral tablet 1 tablet = 5 mg, By Mouth, Daily at bedtime, PRN for insomnia, for 30 days, # 30 tablet, 1 Refills,Acute 02/16/22 11:22:00 EDT, 12/18/21 11:22:00 EDT, Tablet, [facility]/pharmacy #[id number], Partial fill upon patient request if the prescription is for a schedule... Start Date: 12/18/21 Stop Date: 02/16/22 Status: Ordered pantoprazole 40 mg oral delayed release tablet 1 tablet = 40 mg, By Mouth, Daily, # 90 tablet, 1 Refills, Maintenance, 12/18/21 11:20:00 EDT, EC Tablet, 154.94, cm, 03/11/21 10:15:00 EDT, Height, 96, kg, 03/11/21 10:15:00 EDT, Dry Weight Start Date: 12/18/21 Stop Date: 06/16/22 Status: Ordered Protonix 40 mg oral granule = 40 mg, By Mouth, Daily, 0 Refills, Maintenance Start Date: 10/11/09 Status: Ordered Problem List Condition Effective Dates Status Health Status Inform ant Chronic obstructive pulmonar y disease (COPD)(Confirmed) Active Depression(Confirmed) Active GERD (gastroesophageal reflu x disease)(Confirmed) Active Hyperlipidemia(Confirmed) Active HTN (hypertension)(Confirmed) Active Hyperuricemia(Confirmed) Active Knee osteoarthritis(Confirmed) Active Results Radiology Reports * Exam Date Time Procedure Performing Provider Status 01/05/22 1:56 PM Dexa Bone Density (Axial) Kay Rivera arshMelissa Moreno (Verified) Notes: (Dexa Bone Density (Axial)) Reason For Exam: Post Menopausal RESULT: DEXA BONE DENSITY (AXIAL) Bone Density Report Name: PIPPA WEAVER Age: 66 Sex: Female Ethnicity: White Date of : 1955 Indication: POSTMENOPAUSAL. Referring Provider: LETHA PEGUERO Study: Bone densitometry was performed. Exam Date: January 05, 2022 Accession number: [id number] Bone Density: Region BMD T-score Z-score Classification AP Spine (L1-L4) 0.981 -0.6 1.3 Normal Femoral Neck (Left) 0.606 -2.2 -0.5 Osteopenia Total Hip (Left) 0.820 -1.0 0.4 Normal World Health Organization criteria for BMD impression classify patients as: Normal (T-score at or above -1.0), Osteopenia (T-score between -1.0 and -2.5), or Osteoporosis (T-score at or below -2.5). 10-year Fracture Risk(1): Major Osteoporotic Fracture 18% Hip Fracture 2.6% Reported Risk Factors: [place] (), Neck BMD=0.606, BMI=40.7, parental fracture (1) FRAX(R) Version 3.08. Fracture probability calculated for an untreated patient. Fracture probability may be lower if the patient has received treatment. Previous Exams: Region Exam Age BMD T-score BMD Change BMD Change Date g/cm2 vs Baseline vs Previous Total Hip(Left) 01/05/2022 66 0.820 -1.0 -0.096(-10.5%) -0.096(-10.5%) 11/24/2012 57 0.917 -0.2 Femoral Neck(Left) 01/05/2022 66 0.606 -2.2 -0.138(-18.6%) -0.138(-18.6%) 11/24/2012 57 0.744 -0.9 *Denotes significance at 95% confidence level, LSC for Total Hip = 0.027 g/cm2 or 0.029 g/cm2 for different scan types Clinical Information Provided by Patient: Parent has had a hip fracture Has the following medical conditions: Asthma or Emphysema, Cancer Patient maximum height was 63 Menopause Age: 48 Onset of menses at age 11 Number of children 3 Impression: The patient has osteopenia as determined by WHO criteria. Reported by: Bo Prince MD on 01/12/2022 12:12:00 PM. Dictated By: Bo Prince MD Dictated Date/Time: 01/12/22 12:13 p Reviewed By: Bo Prince MD Signed By: Bo Prince MD Signed Date/Time: 01/12/22 12:13 pm Transcribed By: GOSIA Transcribed Date/Time: 01/12/22 12:13 pm Social History Social History Type Response Tobacco Other: Used to smoke 3 packs per day since age 19. Sex Female
--- OUTSIDE RECORDS SUMMARY | 2022-09-24 08:24 | XMS_ITS | Continuity of Care Document ---
Author Name Unknown Organization [facility] [place] [address] [place] [address]- Care Team Providers Care Private Branch Exchange Service Advisor Name Role Phone Sarai Peguero MD Primary Care Physician Encounter 08/06/22 - 08/13/22 [facility] [address], [address] [place] [address]- [place] Attending Physician: Sarai Peguero MD Admitting Physician: Sarai Peguero MD Referring Physician: Sarai Peguero MD Allergies, Adverse Reactions, Alerts No [...] Status: Ordered atorvastatin 10 mg oral tablet See Instructions, TAKE 1 TABLET BY MOUTH EVERY DAY, # 90 tablet, 1 Refills, Maintenance, 07/11/22 12:53:00 EST, [id number], 153.5, cm, 05/07/22 16:03:00 EST, Height, 96, kg, 03/11/21 10:15:00 EDT, Dry Weight Start Date: 07/11/22 Status: Ordered buPROPion 150 mg/24 hours (XL) [...] Status: Ordered famotidine 20 mg oral tablet 1, tablet, By Mouth, Daily at bedtime, # 90 tablet, Refills 0, Maintenance, 08/04/22 15:13:00 EST, Route to Pharmacy Electronically, [id number], 153.5, cm, 05/07/22 16:03:00 EST, Height, 96, kg,03/11/21 10:15:00 EDT, Dry Weight Start Date: 08/04/22 Status: Ordered fexofenadine 180 mg oral tablet 1 tablet = 180 mg, By Mouth, Daily, # 30 tablet, 1 Refills, Maintenance, 05/31/22 13:55:00 EST, Tablet, [facility]/pharmacy #[id number], Partial fill upon patient request if the prescription is for a schedule II opioid drug., 153.5, cm, 05/07/22 16:03:00 EST, Heig... Start Date: 05/31/22 Status: Ordered Isosorbide Mononitrate = 30 mg, By Mouth, 0 Refills, Maintenance, 10/11/09 17:19:11 EDT Start Date: 10/11/09 Status: Ordered isosorbide mononitrate 60 mg oral tablet, extended release 60 mg, 1, tablet, By Mouth, Daily in AM, # 90 tablet, Refills 1, Tot. Refills 1, Maintenance, 12/18/21 11:18:00 EDT, [id number] Partial fill upon patient request if the prescription is for a schedule II opioi... Start Date: 12/18/21 Status: Ordered lisinopril 20 mg oral tablet 20 mg, 1, tablet, By Mouth, 2 times a day, # 180 tablet, Refills 1, Tot. Refills 1, Maintenance, 12/21/21 10:42:00 EDT, Route to Pharmacy Electronically, [facility]/pharmacy #[id number], Partial fill upon patientrequest if the prescription is for a schedule II op... Start Date: 12/21/21 Stop Date: 06/19/22 Status: Ordered lisinopril 20 mg oral tablet See Instructions, TAKE 1 TABLET BY MOUTH TWICE A DAY, # 180 tablet, Refills 1, Tot. Refills 1, Maintenance, 07/13/22 9:20:00 EST, Instructions Replace Required Details, Route to Pharmacy Electronically, [id number], 153.5, cm, 05/07/22 16:03:00 ES... Start Date: 07/13/22 Status: Ordered Melatonin 5 mg oral tablet 1 tablet = 5 mg, By Mouth, Daily at bedtime, 0 Refills, Maintenance, 05/07/22 16:20:00 EST, Partialfill upon patient request if the prescription is for a schedule II opioid drug. Start Date: 05/07/22 Status: Ordered pantoprazole 40 mg oral delayed release tablet 1 tablet, By Mouth, Daily, # 90 tablet, 0 Refills, Maintenance, 08/04/22 15:13:00 EST, 153.5, cm, 05/07/22 16:03:00 EST, Height, 96, kg, 03/11/21 10:15:00 EDT, Dry Weight Start Date: 08/04/22 Status: Ordered Problem List Condition Confirmation Course Effective Dates Status H ealth Status Informant Acute sinusitis Confirmed Active Chronic obstructive pulmonary disease (COPD) Confirmed Active Depression Confirmed Active GERD (gastroesophageal reflux disease) Confirmed Active Hyperlipidemia Confirmed Active HTN (hypertension) Confirmed Active Hyperuricemia Confirmed Active Knee osteoarthritis Confirmed Active Severe obesity Confirmed Active Results Radiology Reports * Exam Date Time Procedure Performing Provider Status 08/06/22 10:01 AM MM Digital Mammo Screening Lainey Newman; Auth (Verified) Notes: (MM Digital Mammo Screening) Reason For Exam: Z12.31 ROUTINE SCREENING RESULT: MM Digital Mammo Screening PROCEDURE: MM Digital Mammo Screening INDICATION: Screening for breast cancer. No known palpable abnormalities. COMPARISON: Multiple prior studies dating back to 10/14/2016. TECHNIQUE: Full-field digital CC and MLO 3D tomosynthesis images of both breasts were acquired. Computer-aided detection (CAD) was utilized in the interpretation of this study. DENSITY: The breast tissue contains scattered areas of fibroglandular density. FINDINGS: No suspicious masses, suspicious microcalcifications, or areas of architectural distortion are seen in either breast to suggest malignancy. IMPRESSION: No mammographic evidence of malignancy. RECOMMENDATION: Annual mammographic screening BI-RADS: 1 (Negative) Lay letter mailed to patient . I have personally reviewed the images and I agree with this report. WSN: [id number] Ordering Physician: Sarai Peguero Dictated By: Matthew Ortiz DO Dictated Date/Time: 08/06/22 11:49 am Reviewed By: Nathan Tyler MD Signed By: Nathan Tyler MD Signed Date/Time: 08/06/22 11:54 am Transcribed By: GOSIA Artificial Leather Calender Operator Date/Time: 08/06/22 11:17 am Birads: Social History Social History Type Response Tobacco Other: Used to smoke 3 packs per day since age 19, quit 22 years ago. Sex Female MG Breast Screening * [facility] , CIS S: TRANSCRIBE Matthew Ortiz DO: SIGN Nathan Tyler MD: VERIFY Event Display: Result: Authored Date: [id number] PROCEDURE: MM Digital Mammo Screening INDICATION: Screening for breast cancer. No known palpable abnormalities. COMPARISON: Multiple prior studies dating back to 10/14/2016. TECHNIQUE: Full-field digital CC and MLO 3D tomosynthesis images of both breasts were acquired. Computer-aided detection (CAD) was utilized in the interpretation of this study. DENSITY: The breast tissue contains scattered areas of fibroglandular density. FINDINGS: No suspicious masses, suspicious microcalcifications, or areas of architectural distortion are seen in either breast to suggest malignancy. IMPRESSION: No mammographic evidence of malignancy. RECOMMENDATION: Annual mammographic screening BI-RADS: 1 (Negative) Lay letter mailed to patient . I have personally reviewed the images and I agree with this report. WSN: [id number] Ordering Physician: Sarai Peguero Dictated By: Matthew Ortzi DO Dictated Date/Time: 08/06/22 11:49 am Reviewed By: Nathan Tyler MD Signed By: Nathan Tyler MD Signed Date/Time: 08/06/22 11:54 am Transcribed By: GOSIA Artificial Leather Calender Operator Date/Time: 08/06/22 11:17 am Birads: Patient Care team information Care Team Personnel Name: Sarai Peguero MD Position: S Primary Care Physician Member Role: PCP Address: Address: [address] [place] [address], [address] [place] [address]- Care Team Related Persons Name: JORY WEAVER Address: [address] [place] [address] Name: MEGAN WEAVER Address: [address] [place] [address]
[2022-09-24 08:35] VITALS: BMI 40.7
[2022-09-24 08:50] VITALS: BP 116/56; PULSE 85; RESP 16; TEMP 36.3; O2SAT 96
[2022-09-24] MEDS: Lactated Ringers 1,000 ML 100 ML IVCONT (08:57)
--- NOTE | 2022-09-24 09:22 | P.HPSUR_ITS ---
Pre-Procedural Eval Section A Date of Service: 09/24/22 Section B Chief Complaint: reflux disease, screening Details of Present Illness: see H&P no changes Relevant Family History (Specify if Yes): No Relevant Social History: None Present Medications: see Short Stay Collaborative assessment Medical History: No relevant PMH History of Previous Operations: No relevant previous surgery Allergies: Allergies Allergy/AdvReac Type Severity Reaction Status Date / Time codeine [CODEINE] AdvReac Mild NAUSEA & Verified 08/26/22 10:41 VOMITING Review of Systems Sugical H&P ROS: Negative: Constitution, Cardiovascular, Respiratory, Neuro logical, Psychiatric, Hem-Onc, Allergic/Immunologic, Gastrointestinal, Genitourinary, Musculoskeletal, Integumentary, Endocrine and Eyes/Ears/Nose/Throat Exam Surgical H&P Exam: Normal: HEENT, Normal: Heart, Normal: Lungs, Normal: Extremities, Normal: Abdomen, Normal: Skin and Normal: Neurological Plan Diagnosis/Plan: Unchanged I have reviewed the history and physical and performed a pertinent physical examination on my patient. No changes have occurred unless specified. Time Spent With Patient Time: Total time managing care of this patient today ____ minutes.
--- NOTE | 2022-09-24 09:25 | P.CONAN_ITS ---
FORMERLY [facility], [facility] Active Problems Active Problems: All Active Problems (Updated 09/24/22 @ 08:32 by Arabella Huffman RN) Diarrhea (Acute) Abdominal pain (Acute) Past Medical History Medical History CKD (chronic kidney disease) stage 3, GFR 30-59 ml/min Colitis Depression Diverticulitis Elevated cholesterol GERD (gastroesophageal reflux disease) History of angina HTN (hypertension) Hx of squamous cell carcinoma Sleep apnea TIA (transient ischemic attack) Surgical History Surgical History History of carpal tunnel release of both wrists History of hysteroscopy Hx of colonoscopy Hx of esophagogastroduodenoscopy Hx of rotator cuff surgery Hx of squamous cell carcinoma excision Hx of total hip arthroplasty History of Problems with Anesthesia: No Social History Social History Patient Tobacco Use Status: Former Tobacco user Quit Date: 05/1999 Use of substances other than those prescribed or required for medical reasons: No Are you DNR?: No Advance Directives: No Advance Directives Information Provided: Yes Meds Allergies Allergy/AdvReac Type Severity Reaction Status Date / Time codeine [CODEINE] AdvReac Mild NAUSEA & Verified 08/26/22 10:41 VOMITING Active Medications: Current Medications Lactated Ringer's (Lr) 1,000 mls @ 100 mls/hr IVCONT .Q10H MIRLANDE Last Admin: 09/24/22 08:57 Dose: 100 mls/hr Home Medications Medication Instructions Recorded Confirmed Last Taken Type atorvastatin 10 mg tablet 10 mg PO DAILY 08/26/22 Unknown History bupropion HCl 150 mg 24 hr tablet, 150 mg PO DAILY 08/26/22 Unknown History extended release duloxetine 60 mg capsule,delayed 60 mg PO DAILY 08/26/22 Unknown History release famotidine 20 mg tablet 20 mg PO BEDTIME 08/26/22 Unknown History isosorbide mononitrate 60 mg 60 mg PO QAM 08/26/22 Unknown History tablet,extended release 24 hr lisinopril 20 mg tablet 20 mg PO BID 08/26/22 09/24/22 07:30 History melatonin 5 mg capsule mg PO BEDTIME PRN insomnia 08/26/22 Unknown History pantoprazole 40 mg tablet,delayed 40 mg PO DAILY 08/26/22 Unknown History release Exam Exam Date and Time: September 24, 2022 0925 Height,Weight and Vital Signs: Height 5 ft 0.5 in Weight 96.162 kg Last Vital Signs Temp 97.3 F 09/24/22 08:50 Pulse 85 09/24/22 08:50 Resp 16 09/24/22 08:50 BP 116/56 L 09/24/22 08:50 Pulse Ox 96 09/24/22 08:50 O2 Del Method Room Air 09/24/22 08:50 Airway Mallampati Class: II TM Dist: >3cm Neck ROM: Full Heart: RRR Lungs: Cta Assessment and Plan Final Anesthetic Review History of Problems with Anesthesia: No NPO: Yes ASA Class: III Final Preanesthetic Review: Meds/Allgs Chart Reviewed, Consent Obtained/Reviewed and Anes Risks/Benef Reviewed Patient Risk: Intermediate Procedure Risk: Low Anesthetic Plan Anesthetic Plan: MAC: Disposition: Standard PACU and Inp. Admit - IMC
--- NOTE | 2022-09-24 09:55 | HO.ANESPROP2 ---
REPLACED BY [facility] Active Problems Active Problems: All Active Problems (Updated 09/24/22 @ 08:32 by Arabella Huffman RN) Diarrhea (Acute) Abdominal pain (Acute) Past Medical History Medical History CKD (chronic kidney disease) stage 3, GFR 30-59 ml/min Colitis Depression Diverticulitis Elevated cholesterol GERD (gastroesophageal reflux disease) History of angina HTN (hypertension) Hx of squamous cell carcinoma Sleep apnea TIA (transient ischemic attack) Surgical History Surgical History History of carpal tunnel release of both wrists History of hysteroscopy Hx of colonoscopy Hx of esophagogastroduodenoscopy Hx of rotator cuff surgery Hx of squamous cell carcinoma excision Hx of total hip arthroplasty History of Problems with Anesthesia: No Social History Social History Patient Tobacco Use Status: Former Tobacco user Quit Date: 05/1999 Use of substances other than those prescribed or required for medical reasons: No Are you DNR?: No Advance Directives: No Advance Directives Information Provided: Yes Meds Allergies Allergy/AdvReac Type Severity Reaction Status Date / Time codeine [CODEINE] AdvReac Mild NAUSEA & Verified 08/26/22 10:41 VOMITING Active Medications: Current Medications Lactated Ringer's (Lr) 1,000 mls @ 100 mls/hr IVCONT .Q10H MIRLANDE Last Admin: 09/24/22 08:57 Dose: 100 mls/hr Home Medications Medication Instructions Recorded Confirmed Last Taken Type atorvastatin 10 mg tablet 10 mg PO DAILY 08/26/22 Unknown History bupropion HCl 150 mg 24 hr tablet, 150 mg PO DAILY 08/26/22 Unknown History extended release duloxetine 60 mg capsule,delayed 60 mg PO DAILY 08/26/22 Unknown History release famotidine 20 mg tablet 20 mg PO BEDTIME 08/26/22 Unknown History isosorbide mononitrate 60 mg 60 mg PO QAM 08/26/22 Unknown History tablet,extended release 24 hr lisinopril 20 mg tablet 20 mg PO BID 08/26/22 09/24/22 07:30 History melatonin 5 mg capsule mg PO BEDTIME PRN insomnia 08/26/22 Unknown History pantoprazole 40 mg tablet,delayed 40 mg PO DAILY 08/26/22 Unknown History release Exam Exam Date and Time: September 24, 2022 0955 Height,Weight and Vital Signs: Height 5 ft 0.5 in Weight 96.162 kg Last Vital Signs Temp 97.3 F 09/24/22 08:50 Pulse 85 09/24/22 08:50 Resp 16 09/24/22 08:50 BP 116/56 L 09/24/22 08:50 Pulse Ox 96 09/24/22 08:50 O2 Del Method Room Air 09/24/22 08:50 Airway Mallampati Class: II TM Dist: >3cm Neck ROM: Full Heart: RRR Lungs: CTA Assessment and Plan Final Anesthetic Review History of Problems with Anesthesia: No NPO: Yes ASA Class: III Final Preanesthetic Review: Meds/Allgs Chart Reviewed, Consent Obtained/Reviewed and Anes Risks/Benef Reviewed Patient Risk: Intermediate Procedure Risk: Low Anesthetic Plan Anesthetic Plan: MAC: Disposition: Standard PACU
[2022-09-24 10:25] VITALS: BP 97/59; PULSE 75; RESP 16; TEMP 36.3; O2SAT 98
--- NOTE | 2022-09-24 10:30 | PM.OP ---
Brief Operative Note Date of Service: 09/24/22 Pre-op diagnosis: gerd screening Post-op diagnosis: same Procedure: egd colonoscopy Surgeon: Amando Alba Anesthesia: MAC Was an Panel Edge Painter used for this Procedure?: No Estimated blood loss (mL): 3 Pathology: other Condition: stable Disposition: PACU
[2022-09-24 10:40] VITALS: BP 112/76; PULSE 85; RESP 16; O2SAT 99
[2022-09-24 10:54] VITALS: BP 140/68; PULSE 83; RESP 16; TEMP 36.3; O2SAT 98
--- NOTE | 2022-09-24 10:55 | HO.POSTANES ---
Post Anesthesia Evaluation Post Anesthesia Evaluation Vital Signs: Vital Signs Temp Pulse Resp BP Pulse Ox O2 Del Method 09/24/22 10:40 85 16 112/76 99 Room Air 09/24/22 10:25 97.4 F 75 16 97/59 L 98 Room Air 09/24/22 08:50 97.3 F 85 16 116/56 L 96 Room Air Anesthesia: Monitored Mental Status: Awake Pain Control: Satisfactory Nausea/Vomiting: None Hydration: Adequate Anesthesia-Related Issues: No Anes. Related Issues
--- NOTE | 2022-09-24 21:04 | OP_ITS ---
DATE OF SERVICE: 09/24/2022 SURGEON: Amando Alba MD INDICATIONS: 1. Gastroesophageal reflux disease. 2. Colon cancer screening. PREOPERATIVE DIAGNOSIS: POSTOPERATIVE DIAGNOSIS: PROCEDURE PERFORMED: Upper endoscopy with biopsy, colonoscopy to the terminal ileum with biopsy and snare polypectomy. ESTIMATED BLOOD LOSS: COMPLICATIONS: ANESTHESIA: ASSISTANTS: SPECIMENS: MEDICATIONS: Monitored anesthesia care. DESCRIPTION OF PROCEDURE: A history and physical performed. The risks and benefits of the procedure were explained to the patient. Informed consent was obtained. The patient was placed in the left lateral decubitus position. The Olympus video gastroscope was introduced into the esophagus, stomach, and duodenum. Examination was performed and the scope was removed. She was repositioned for colonoscopy. A digital rectal exam was performed and was found to be normal. The Olympus pediatric video colonoscope was introduced into the rectum and advanced to the cecum without difficulty. The cecum was identified by transillumination, palpation, and identification of ileocecal valve. Examination was performed. The scope was removed. She tolerated the procedure well and was returned to the Recovery room in stable condition. FINDINGS: Upper endoscopy: Esophagus: The esophagus was normal. There was no esophagitis. Biopsies were obtained from the EG junction. Stomach: The stomach showed multiple benign-appearing polyps in the fundus and body, consistent with fundic colon polyps. The largest measured about 12 mm. Biopsies were obtained from 2 of these and from the antrum. Duodenum: The bulb and second portion were normal. Colonoscopy: The terminal ileum was examined and appeared normal. The visualized colonic mucosa was normal. There was some liquid stool which was washed and suctioned as best possible. This limited the sensitivity examination for detection of small polyps in the right colon just above the ileocecal valve, where two less than 10 mm polyps which were biopsied and removed with a cold snare. Between 55 and approximately 40 cm, there was a focal area of colitis, suspicious for underlying ischemic colitis based on its location. There were ulceration and edema as well as loss of vascular pattern. Biopsies were obtained from the abnormal mucosa at 50 cm. There was mild sigmoid diverticulosis. The remainder of the colonic mucosa appeared within normal limits. Retroflexed examination showed moderately large internal hemorrhoids. IMPRESSION: 1. Gastroesophageal reflux disease. 2. Gastric polyps. 3. Colon polyps. 4. Colitis. RECOMMENDATION: Follow up the biopsy results. MD FANTA Molina/EVANGELINA / [id number]
== END 2022-09-24 11:43 | disposition home or self-care (01) ==
PROVIDERS: Visit Provider Internal Medicine Gastroenterology
PROC: (CPT 45385; principal; 2022-09-24 09:30)
DX: Z12.11 Encounter for screening for malignant neoplasm of colon (principal); Z86.010 Personal history of colon polyps; D12.2 Benign neoplasm of ascending colon; K52.9 Noninfective gastroenteritis and colitis, unspecified; K21.9 Gastro-esophageal reflux disease without esophagitis; K31.7 Polyp of stomach and duodenum; E78.00 Pure hypercholesterolemia, unspecified; I10 Essential (primary) hypertension; G47.33 Obstructive sleep apnea (adult) (pediatric); F32.A Depression, unspecified; Z79.899 Other long term (current) drug therapy; Z88.0 Allergy status to penicillin; Z86.73 Personal history of transient ischemic attack (TIA), and cerebral infarction without residual deficits; Z85.828 Personal history of other malignant neoplasm of skin; Z87.891 Personal history of nicotine dependence
CPT/HCPCS: 45385; 45380; 43239; 88305; 88342

== ENCOUNTER 2023-01-25 14:48 | Outpatient (AMB) | payer MEDICARE, OTHER, SELFPAY ==
--- NOTE | 2023-01-25 14:51 | A.OFFPC_ITS ---
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 Accompanied by: Self / Same As Patient Allergies codeine [CODEINE] Adverse Reaction (Mild, Verified 01/25/23 14:53) NAUSEA & VOMITING Tobacco use date assessed: 01/25/23 Fall risk assessment: No Falls in past year Last assessed Fall Risk: 01/25/23 Dental Screening Dental Screen Date: 01/25/23 Did you have a dental visit in the last 12 months?: Yes Did you have a dental problem in the last 6 months where you did not have access to dental care?: No Was dental information given to patient?: Patient has dentist 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 Diverticulitis, Colitis, GERD Hiatal Hernia, Ulcers, Diarrhea. Sees Dr Alba, OA Knees SurgHx: R Hip Arthroplasty, L Rotator Cuff. Squamous Cell CA removal R tate. FHx: Mom: DM, Cardiac Valve disease. Dad: pGF: Cancer - unknown origin mGF: Heart Disease & DM. Uncle: Leukemia SocHx: Quit 1998, EtOH Rare ly 1 , [facility] Medical History CKD (chronic kidney disease) stage 3, GFR 30-59 ml/min Colitis Depression Diverticulitis Elevated cholesterol GERD (gastroesophageal reflux disease) History of angina HTN (hypertension) Hx of squamous cell carcinoma Sleep apnea TIA (transient ischemic attack) Surgical History History of carpal tunnel release of both wrists History of hysteroscopy Hx of colonoscopy Hx of esophagogastroduodenoscopy Hx of rotator cuff surgery Hx of squamous cell carcinoma excision Hx of total hip arthroplasty Family History (Updated 01/25/23 @ 14:57 by Miko Jimenez [facility]) Father Rheumatic fever Heart attack Stroke Mother Heart problem Social History (Updated 01/25/23 @ 14:57 by Miko Jimenez [facility]) Housing: House Alcohol intake: never Patient Tobacco Use Status: Former Tobacco user Quit Date: 05/1999 e-Cigarette/Vaping Use: Never Used Use of substances other than those prescribed or required for medical reasons: No service: No Current occupational status: retired Current occupational exposures/hazards: No Cognitive needs: No Hearing needs: No Vision needs: Yes Questionnaire PHQ-9 Over the last 2 weeks, how often have you been bothered by any of the following problems? 1. Little interest or pleasure in doing things: several days 2. Feeling down, depressed, or hopeless: more than half the days 3. Trouble falling or staying asleep, or sleeping too much: more than half the days 4. Feeling tired or having little energy: nearly every day 5. Poor appetite or overeating: nearly every day 6. Feeling bad about yourself - or that you are a failure or have let yourself or your family down: several days 7. Trouble concentrating on things, such as reading the newspaper or watching television: more than half the days 8. Moving or speaking so slowly that other people could have noticed. Or the opposite - being so fidgety or restless that you have been moving around a lot more than usual: not at all 9. Thoughts that you would be better off or of hurting yourself in some way: not at all Total score: 14 Depression Screening Interpretation: Positive 03541 - PHQ-9 Billing: Yes Source: Developed by Drs. Kendrick Galeano, Lucia Stone, Mateusz Montalvo and colleagues, with an educational angie from [employer]. AUDIT C Alcohol Use Questionnaire (AUDIT-C) 1. How often do you have a drink containing alcohol?: Never 3. How often do you have six or more drinks on one occasion?: Never Total Score: 0 Score Reviewed/Action Taken: Yes JENELLE-7 AMB Questionnaire JENELLE-7 Date JENELLE - 7 assessed: 01/25/23 Feeling nervous, anxious, or on edge: 3 = Nearly every day Not being able to stop or control worryin = Nearly every day Worrying too much about different things: 3 = Nearly every day Trouble relaxin = More than half the days Being so restless that it is hard to sit still: 1 = Several days Becoming easily annoyed or irritable: 1 = Several days Feeling afraid as if something awful might happen: 0 = Not at all Total JENELLE-7 score (0-4 normal; 5-9 mild; 10-14 moderate; 15-21 severe): 13 Source: Developed by Drs. Kendrick Galeano, Lucia Stone, Mateusz Montalvo and colleagues, with an educational angie from [employer]. JENELLE-7 Assessment Billing JENELLE-7 Assessment Tool: JENELLE-7 Assessment 85108 Physical exam (Primary Care) Vital Signs: Last Vital Signs Pulse 111 H 01/25/23 14:53 BP 122/74 01/25/23 14:53 Pulse Ox 98 01/25/23 14:53 BMI result Body Mass Index 41.8 Tobacco/Smoking Status: Tobacco use Status Tobacco use date assessed 01/25/23 01/25/23 14:57 Patient Tobacco Use Status Former Tobacco user 01/25/23 14:57 e-Cigarette/Vaping Use Never Used 01/25/23 14:57 PHQ-9: PHQ-9 Score PHQ-9: Total score 14 01/25/23 15:36 Depression Screening Interpretation: Positive Assessment and Plan Assessment & Plan (1) Essential hypertension: Code(s): I10 - Essential (primary) hypertension Plan: Blood pressure is controlled Continue current medication regimen (2) Anxiety and depression: Code(s): F41.9 - Anxiety disorder, unspecified; F32.A - Depression, unspecified Plan: She is on a regimen of duloxetine and bupropion Numerous stressors Will have nurse navigator refer her for therapy (3) Colitis: Code(s): K52.9 - Noninfective gastroenteritis and colitis, unspecified Plan: 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 Panel Fast Today Z00.00 - Encounter for general adult medical examination without abnormal findings Lipid Panel Today Z00.00 - Encounter for general adult medical examination without abnormal findings TSH reflex Free T4 Today Z00.00 - Encounter for general adult medical examination without abnormal findings Microalbumin, Random (w Creat) Today I10 - Essential (primary) hypertension Complete Blood Count Auto Diff Today Z00.00 - Encounter for general adult medical examination without abnormal findings UA and rflx microscopic Today Z00.00 - Encounter for general adult medical examination without abnormal findings Coding Level of Care Code New Pt Level 3 (94404) Diagnoses Essential hypertension I10 Anxiety and depression F41.9; F32.A Colitis K52.9 Hyperlipidemia E78.5 Osteoarthritis of left knee M17.12 Additional Codes JENELLE-7 Assessment Billing - JENELLE-7 Assessment Tool: JENELLE-7 Assessment [id number] ([id number])
[2023-01-25 14:53] VITALS: BP 122/74; PULSE 111; O2SAT 98; BMI 41.8
== END 2023-01-25 16:04 | disposition home or self-care (01) ==
PROVIDERS: Visit Provider Family Medicine
DX: I10 Essential (primary) hypertension (principal); F41.9 Anxiety disorder, unspecified; F32.A Depression, unspecified; K52.9 Noninfective gastroenteritis and colitis, unspecified; E78.5 Hyperlipidemia, unspecified; M17.12 Unilateral primary osteoarthritis, left knee
CPT/HCPCS: 96127; 99213

== ENCOUNTER 2023-02-15 08:22 | Outpatient (REF) | payer MEDICARE, OTHER, SELFPAY ==
[2023-02-15 11:10] LABS: MANUAL DIFF FLAG NO
[2023-02-15 11:26] LABS: Basophils Percent Auto 0.7 % (0-2); Eosinophils Absolute Auto 0.3 X10*3/uL (0.0-0.4); Eosinophils Percent Auto 4.5 % (0-4); Hematocrit 39.3 % (37.0-47.0); Hemoglobin 12.8 g/dl (12.0-16.0); Imm Gran Abs Auto 0.01 X10*3/uL (0.00-0.03); Imm Gran Pct Auto 0.2 % (0.0-0.4); Lymphocytes Absolute Auto 2.3 X10*3/uL (1.2-4.9); Mean Corpuscular HGB Conc 32.6 g/dl (31.0-35.0); Mean Corpuscular Hemoglobin 30.7 pg (27.0-33.0); Mean Corpuscular Volume 94.2 fL (80.0-98.0); Mean Platelet Volume 10.4 fL (9.4-12.3); Monocytes Absolute Auto 0.6 X10*3/uL (0.1-1.2); Monocytes Percent Auto 9.9 % (2-11); Neutrophils Absolute Auto 2.4 x10*3/uL (2.0-8.3); Neutrophils Percent Auto 43.7 % (45-73); Platelet Count 289 X10*3/uL (160-400); Red Blood Count 4.17 X10*6/uL (4.20-5.50); Red Cell Distribution Width 13.6 % (11.0-16.0); White Blood Count 5.6 X10*3/uL (4.8-10.8)
[2023-02-15 11:54] LABS: Alanine Aminotransferase 17 U/L (0-31); Albumin Level 4.3 g/dL (3.5-5.0); Alkaline Phosphatase 80 U/L (39-117); Anion Gap 12 (12-20); Aspartate Amino Transferase 19 U/L (5-31); Bilirubin Total 0.3 mg/dL (0.0-1.0); Blood Urea Nitrogen 15 mg/dL (9-16); Calcium 9.8 mg/dL (8.4-10.2); Carbon Dioxide 27 mmol/L (22-29); Chloride 107 mmol/L (96-108); Cholesterol 180 mg/dL (<200); Estimated Glomerular Filt Rate > 60; Glucose Fasting 77 mg/dL (60-99); HDL Cholesterol 51 mg/dL (>40); LDL Cholesterol Calculated 96 mg/dL (<100); Potassium 4.4 mmol/L (3.3-5.1); Sodium 142 mmol/L (135-145); Total Protein 7.1 g/dL (6.5-8.0); Triglycerides 165 mg/dL (<150)
[2023-02-15 12:01] LABS: Appearance Urine Clear; Color Urine Yellow; Glucose Urine UA Negative (Negative); Leukocyte Esterase Urine Small (1+) (Negative); Nitrite Urine Negative (Negative); PH 5.5 (5.0-9.0); UMIC TRIGGER UA YES; Urine Blood Negative (Negative); Urine Ketones Negative (Negative); Urine Protein Negative (Neg-Trace)
[2023-02-15 12:07] LABS: Bacteria Urine None Seen (None Seen); Hyaline Casts Urine 0-2 /LPF (0-2); RBC Urine 0-2 /HPF (0-2)
[2023-02-15 12:12] LABS: TSH reflex Free T4 1.24 uIU/mL (0.32-4.0)
[2023-02-15 12:22] LABS: Creatinine Urine 106.12 mg/dL; Microalbum/Creatinine Ratio Ur 8.4 ug/mg cr (<30)
== END 2023-02-15 08:23 | disposition home or self-care (01) ==
LOC: HO.WFDLDS 08:22
PROVIDERS: Visit Provider Family Medicine
DX: Z00.00 Encounter for general adult medical examination without abnormal findings (principal); I10 Essential (primary) hypertension
CPT/HCPCS: 36415; 80053; 80061; 81001; 81003; 82043; 84443; 85025

== ENCOUNTER 2023-04-08 10:45 | Outpatient (AMB) | payer MEDICARE, OTHER, SELFPAY ==
[2023-04-08 11:00] VITALS: BP 124/76; PULSE 77; RESP 13; TEMP 36.4; O2SAT 98; BMI 41.8
--- NOTE | 2023-04-08 11:00 | MHC.PC.OV ---
Vital Signs 04/08/23 11:00 Height 5 ft 1 in Weight 221 lb 2 oz BMI 41.8 BP 124/76 Blood Pressure Location Lt brachial Position Sitting Respiration 13 Pulse 77 Pulse Source Pulse Oximeter Temp 97.5 F Temp Source Temporal Artery Scan Pulse Oximetry (%) 98 Oxygen Delivery Method Room Air Intake Visit Reasons: Extended exam with f/u labs and health maint. Intake Note: Patient would like to get ears checked. 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 HPI Details 67 y/o female presents for an extended exam with f/u labs and health maintenance. Labs were drawn 02/15/23. Reviewed labs with pt. Triglycerides 165. TC 180. LDL 96. HDL 51. She is on artovastatin 10mg daily. Blood pressure today 124/76. She is on lisinopril 20mg b.i.d. [facility] [place] Medical History Colitis CKD (chronic kidney disease) stage 3, GFR 30-59 ml/min Sleep apnea TIA (transient ischemic attack) Hx of squamous cell carcinoma HTN (hypertension) Elevated cholesterol Depression History of angina Diverticulitis GERD (gastroesophageal reflux disease) Surgical History History of knee replacement procedure of left knee Hx of squamous cell carcinoma excision Hx of total hip arthroplasty History of hysteroscopy History of carpal tunnel release of both wrists Hx of rotator cuff surgery Hx of colonoscopy Hx of esophagogastroduodenoscopy Family History Father Rheumatic fever Heart attack Stroke Mother Heart problem Social History Housing: House Alcohol intake: never Patient Tobacco Use Status: Former Tobacco user Quit Date: 05/1999 e-Cigarette/Vaping Use: Never Used service: No Current occupational status: retired Current occupational exposures/hazards: No Cognitive needs: No Hearing needs: No Vision needs: Yes Questionnaire JENELLE-7 AMB Questionnaire JENELLE-7 Date JENELLE - 7 assessed: 01/25/23 Source: Developed by Drs. Kendrick Galeano, Lucia Stone, Mateusz Montalvo and colleagues, with an educational angie from [employer]. Review of Systems Const Denies chills, Denies fatigue, Denies fever(s), Denies headache(s) and Denies weakness Eyes Denies change in vision ENT Denies dizziness, Denies headache(s), Denies hearing loss, Denies nasal congestion, Denies sinus pain, Denies sinus pressure and Denies sore throat Card Denies chest pain, Denies lightheadedness, Denies dyspnea and Denies other (palpitations) Resp Denies cough, Denies dyspnea and Denies wheezing GI Denies abdominal pain, Denies melena, Denies hematochezia, Denies change in bowel habits, Denies dyspepsia and Denies nausea Denies hematuria and Denies dysuria Musc Denies abnormal gait, Denies myalgias, Denies arthralgias, Denies numbness and Denies tingling Skin/Breast Denies rash, Denies unusual bruising and Denies wounds Neuro Denies abnormal gait, Denies dizziness, Denies headache(s), Denies memory loss, Denies numbness, Denies Sensory deficit (Neuro), Denies tingling and Denies weakness Psych Reports anxiety, Reports depression and Denies memory loss Endo Denies cold intolerance, Denies fatigue, Denies heat intolerance, Denies polydipsia and Denies polyuria Ruben/Lymph Denies easy bleeding and Denies easy bruising Aller/Immun Denies wheezing Physical exam (Primary Care) Vital Signs: Last Vital Signs Temp 97.5 F 04/08/23 11:00 Pulse 77 04/08/23 11:00 Resp 13 04/08/23 11:00 BP 124/76 04/08/23 11:00 Pulse Ox 98 04/08/23 11:00 Oxygen Delivery Method Room Air 04/08/23 11:00 BMI result Body Mass Index 41.8 Tobacco/Smoking Status: Tobacco use Status Tobacco use date assessed 01/25/23 04/08/23 11:11 Patient Tobacco Use Status Former Tobacco user 04/08/23 11:11 e-Cigarette/Vaping Use Never Used 04/08/23 11:11 Const General: no acute distress, well developed, alert and awake Nutritional Appearance: obese morbidly obese Orientation/consciousness: patient oriented x3 HENMT Head: Yes normocephalic and Yes atraumatic Ears: hearing grossly normal bilaterally and TM's normal bilaterally General nose exam: Normal external nose present and Normal nares present Mouth: Normal oral and palatal mucosa present and moist mucous membranes Teeth and gingiva: dentition normal Throat: Yes posterior oropharynx normal Eyes General: appearance normal, both eyes and all related structures Pupils: Equal, round and reactive pupils present and Pupil accommodation reflex normal EOM: EOMs intact bilaterally Neck Neck: Yes normal visual inspection, Yes no lymphadenopathy and Yes trachea midline Thyroid: Thyroid normal Carotids: no bruits Lymphatic: no lymphadenopathy noted Chest Chest palpation & inspection: normal inspection of the chest Resp Effort & Inspection: normal respiratory effort Auscultation: clear to auscultation bilaterally Cardio Rate: regular rate Rhythm: regular rhythm Heart sounds: S1 normal heart sound present, S2 normal heart sound present, no gallops, no murmurs and no rubs Bruits: no abdominal aortic bruits and no carotid bruits GI Palpation (GI): No Abdominal aortic bruit present, Soft to palpation, nontender, No hepatosplenomegaly present and No Rebound tenderness present Auscultation: normal bowel sounds General: Yes no CVA tenderness Back/Spine/Pelvis Back: no CVA tenderness Cervical Spine: cervical ROM normal and No Cervical spine tenderness Thoracic/Lumbar Spine: thoraco-lumbar ROM normal, No pain with thoraco-lumbar ROM, No thoracic spinal tenderness and No lumbar spinal tenderness Skin Lesions: no lesions Rashes: no rashes Trauma: no lacerations or abrasions Wounds: no wounds Nails: normal Neuro General: patient oriented x3 Cranial nerves: Yes Equal, round and reactive pupils present Cognition (Neuro): normal cognition Gait exam (Neuro): Normal gait present Motor exam (neuro): 5/5 motor strength present throughout Sensory Exam: No Sensory deficit (Neuro) Deep tendon reflexes (DTR's): Right patellar reflex intensity grade: 2+ and Left patellar reflex intensity grade: 2+ Extrem General: Yes normal to inspection and No edema Psych Appearance: grossly normal Affect: normal affect Attitude: cooperative Thought process: Normal thought process present Assessment and Plan Assessment & Plan (1) Hyperlipidemia: Code(s): E78.5 - Hyperlipidemia, unspecified Plan: Mildly?elevated?triglycerides.??Otherwise?lipids?are?well?controlled. Continue?atorvastatin?and?continue?diet?lower?in?saturated?fats?and?cholesterol (2) Essential hypertension: Code(s): I10 - Essential (primary) hypertension Plan: Blood?pressure?is?controlled.??Goal?is?less?than?140/90 Continue?current?medication?regimen (3) Screening for colon cancer: Code(s): Z12.11 - Encounter for screening for malignant neoplasm of colon Plan: Recent?colonoscopy?with??Parth?and?he?recommended?a?follow-up?in?about?4?years.??She?is?up-to-date Follow-up?with?Gastroenterology?as?recommended (4) Anxiety and depression: Code(s): F41.9 - Anxiety disorder, unspecified; F32.A - Depression, unspecified Plan: Ongoing?and?worsened?anxiety?depression. Now?has?a?therapist?but?has?only?just?begun?with?her. She?is?on?duloxetine?and?bupropion. Increased?duloxetine?from?60?mg?daily?to?6?mg?b.i.d.?today Ask?the?nurse?navigator?to?evaluate?for?any?other?services?as?she?is?dealing?with?high?stressors eg ?has?early-onset?dementia (5) Screening for osteoporosis: Code(s): Z13.820 - Encounter for screening for osteoporosis Plan: Due?for?bone Density?test?- ordered (6) Breast cancer screening by mammogram: Code(s): Z12.31 - Encounter for screening mammogram for malignant neoplasm of breast Plan: Mammogram?at?[facility] Will?request?report (7) Adult general medical exam: Code(s): Z00.00 - Encounter for general adult medical examination without abnormal findings Plan: 67-year-old?female?presents?for?an?extended?exam (8) Osteoporosis: Code(s): M81.0 - Age-related osteoporosis without current pathological fracture Plan: Check?bone?density Orders: Orders XR DEXA axial skeleton Today M81.0 - Age-related osteoporosis without current pathological fracture Referrals Nurse Navigator Referral F32.A - Depression, unspecified, F41.9 - Anxiety disorder, unspecified Medications: Changed From duloxetine 60 mg PO DAILY 90 days 90 caps 2RF To duloxetine 60 mg PO BID 90 days 180 caps 2RF Coding Level of Care Code Est Pt Level 4 (56749) Diagnoses Hyperlipidemia E78.5 Essential hypertension I10 Screening for colon cancer Z12.11 Anxiety and depression F41.9; F32.A Screening for osteoporosis Z13.820 Breast cancer screening by mammogram Z12.31 Adult general medical exam Z00.00 Osteoporosis M81.0
== END 2023-04-08 12:21 | disposition home or self-care (01) ==
PROVIDERS: PCP Family Medicine; Visit Provider Family Medicine
DX: E78.5 Hyperlipidemia, unspecified (principal); I10 Essential (primary) hypertension; Z12.11 Encounter for screening for malignant neoplasm of colon; F41.9 Anxiety disorder, unspecified; F32.A Depression, unspecified; Z13.820 Encounter for screening for osteoporosis; Z12.31 Encounter for screening mammogram for malignant neoplasm of breast; Z00.00 Encounter for general adult medical examination without abnormal findings; M81.0 Age-related osteoporosis without current pathological fracture
CPT/HCPCS: 99214

== ENCOUNTER 2023-04-26 13:10 | Outpatient (REF) | payer MEDICARE, OTHER, SELFPAY ==
--- NOTE | ~2023-04-26 | MM_ITS ---
EXAMINATION: BONE DENSITOMETRY CLINICAL INDICATION: Osteoporosis without current pathological fracture. COMPARISON: This is the patient's baseline examination. TECHNIQUE: Using a [employer] DXA System (software version: 13.1) manufactured by [employer], dual-energy x-ray absorptiometry was performed of the lumbar spine and left hip. The images are of good technical quality. Summary results are attached. FINDINGS: LEFT FEMUR, NECK: BMD 0.681 g/cm2, Z-score -1.7, T-score -2.6, osteoporosis. LEFT FEMUR, TOTAL: BMD 0.758 g/cm2, Z-score -1.4, T-score -2.0, osteopenia. AP SPINE L1-L4: BMD 1.099 g/cm2, Z-score -0.2, T-score -0.7, normal. IDENTIFIED RISK FACTORS: Menopause, family history (parent hip fracture), secondary osteoporosis (intestinal or bowel disease). HISTORY OF FRACTURE: None listed. MEDICATIONS: None listed. MM/XR DEXA axial skeleton IMPRESSION: 1. DIAGNOSIS: Osteoporosis based on the lowest T-score value of -2.6 in the femoral neck applying World Health Organization criteria. 2. 10-YEAR FRACTURE RISK PREDICTION, FRAX: According to the guidelines, FRAX calculation should only be performed on patients in the osteopenia bone density category. Therefore, FRAX was not performed on this patient. 3. Treatment Recommendations: NOF guidelines recommend consideration for treatment in postmenopausal women and men age 50 and older presenting with the following: -A hip or vertebral (clinical or morphometric) fracture. -T-score less than or equal to -2.5 at the femoral neck or spine after appropriate evaluation to exclude secondary causes. -Low bone mass at the hip or spine and a 10-year fracture probability by FRAX of greater than or equal to 3% for hip fracture or greater than or equal to 20% for major osteoporotic fracture based on the [place] adapted WHO algorithm. 4. Other Recommendations: All treatment decisions require clinical judgment and consideration of individual patient factors, including patient preferences, comorbidities, previous drug use, risk factors not captured in the FRAX model (e.g. frailty, falls, vitamin D deficiency, increased bone turnover, interval significant decline in bone density) and possible under or overestimation of fracture risk by FRAX. Additional medical evaluation for secondary cause of low bone mineral density may be appropriate. FUTURE SCAN RECOMMENDATION: People with diagnosed cases of osteoporosis or at high risk for fracture should have regular bone mineral density tests. For patients eligible for Medicare, routine testing is allowed once every 2 years. The testing frequency can be increased to one year for patients who have rapidly progressing disease, those who are receiving or discontinuing medical therapy to restore bone mass, or have additional risk factors.
== END 2023-04-26 13:11 | disposition home or self-care (01) ==
LOC: HO.MAMMO 13:10
PROVIDERS: PCP Family Medicine; Visit Provider Family Medicine
DX: Z13.820 Encounter for screening for osteoporosis (principal); M81.0 Age-related osteoporosis without current pathological fracture; Z78.0 Asymptomatic menopausal state
CPT/HCPCS: 77080

== ENCOUNTER 2023-05-11 10:10 | Outpatient (AMB) | payer MEDICARE, OTHER, SELFPAY ==
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
[2023-05-11 10:23] VITALS: BP 126/76; PULSE 94; O2SAT 98; BMI 41.2
== END 2023-05-11 10:56 | disposition home or self-care (01) ==
PROVIDERS: PCP Family Medicine; Visit Provider Family Medicine
DX: F41.9 Anxiety disorder, unspecified (principal); F32.A Depression, unspecified
CPT/HCPCS: 96127; 99213

== ENCOUNTER 2023-06-15 09:26 | Outpatient (AMB) | payer MEDICARE, OTHER, SELFPAY ==
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
[2023-06-15 09:39] VITALS: BP 120/72; PULSE 64; O2SAT 97; BMI 41.4
== END 2023-06-15 10:42 | disposition home or self-care (01) ==
PROVIDERS: PCP Family Medicine; Visit Provider Family Medicine
DX: F41.9 Anxiety disorder, unspecified (principal); F32.A Depression, unspecified
CPT/HCPCS: 96127; 99213

== ENCOUNTER 2023-08-11 11:24 | Outpatient (AMB) | payer MEDICARE, OTHER, SELFPAY ==
--- NOTE | 2023-08-11 11:26 | A.OFFPC_ITS ---
Vital Signs 08/11/23 11:27 Height 5 ft 1 in Weight 221 lb 2 oz BMI 41.8 BP 126/78 Blood Pressure Location Lt brachial Position Sitting Pulse 106 H Pulse Source Pulse Oximeter Pulse Oximetry (%) 97 Oxygen Delivery Method Room Air Intake Visit Reasons: ? sinus infection Intake Note: Pt presents to the office today for c/o sinus pressure, ear pain, and chest tightness. She also states she feels more run down than normal. Pt states she has been taking COVID tests every other day for a week due to her mother being in a mcc and all of those tests have come back negative. Allergies codeine [CODEINE] Adverse Reaction (Mild, Verified 08/11/23 11:29) NAUSEA & VOMITING Tobacco use date assessed: 08/11/23 Dental Screening Dental Screen Date: 08/11/23 Did you have a dental visit in the last 12 months?: Yes Did you have a dental problem in the last 6 months where you did not have access to dental care?: No Was dental information given to patient?: Patient has dentist HPI ? sinus infection HPI Details 67 y/o female presents today with ? sinu s infection. She has c/o sinus pressure, ear pain and chest tightness and also feels more run down than normal. She reports recent covid tests have tested negative. [facility] Medical History Golfers elbow Colitis CKD (chronic kidney disease) stage 3, GFR 30-59 ml/min Sleep apnea TIA (transient ischemic attack) Hx of squamous cell carcinoma HTN (hypertension) Elevated cholesterol Depression History of angina Diverticulitis GERD (gastroesophageal reflux disease) Surgical History History of knee replacement procedure of left knee Hx of squamous cell carcinoma excision Hx of total hip arthroplasty History of hysteroscopy History of carpal tunnel release of both wrists Hx of rotator cuff surgery Hx of colonoscopy Hx of esophagogastroduodenoscopy Family History Father Rheumatic fever Heart attack Stroke Mother Heart problem Social History Housing: House Alcohol intake: never Patient Tobacco Use Status: Former Tobacco user Quit Date: 05/1999 e-Cigarette/Vaping Use: Never Used service: No Current occupational status: retired Current occupational exposures/hazards: No Cognitive needs: No Hearing needs: No Vision needs: Yes Questionnaire JENELLE-7 AMB Questionnaire JENELLE-7 Date JENELLE - 7 assessed: 06/15/23 Source: Developed by Drs. Kendrick Galeano, Lucia Stone, Mateusz Montalvo and colleagues, with an educational angie from [employer]. Review of Systems Const Denies chills, Denies fatigue, Denies fever(s), Denies headache(s) and Denies weakness ENT Denies dizziness and Denies headache(s) Card Denies chest pain, Denies lightheadedness, Denies dyspnea and Denies other (Palpitations) Resp Denies cough, Denies dyspnea, Denies wheezing and Denies other ( shortness of breath) Musc Denies numbness and Denies tingling Neuro Denies dizziness, Denies headache(s), Denies numbness, Denies tingling, Denies paresthesias and Denies weakness Psych Denies anxiety and Denies depression Endo Denies fatigue Aller/Immun Denies wheezing Physical exam (Primary Care) Vital Signs: Last Vital Signs Pulse 106 H 08/11/23 11:27 BP 126/78 08/11/23 11:27 Pulse Ox 97 08/11/23 11:27 Oxygen Delivery Method Room Air 08/11/23 11:27 BMI result Body Mass Index 41.8 Tobacco/Smoking Status: Tobacco use Status Tobacco use date assessed 08/11/23 08/11/23 11:33 Patient Tobacco Use Status Former Tobacco user 08/11/23 11:27 e-Cigarette/Vaping Use Never Used 08/11/23 11:27 Const General: no acute distress and well developed Nutritional Appearance: well nourished Orientation/consciousness: patient oriented x3 HENMT Other: Moderately severe nasal congestion, inflammation, discharge, decreased maxillary transillumination, L v R Head: Yes normocephalic and Yes atraumatic Eyes General: appearance normal, both eyes and all related structures Pupils: Equal, round and reactive pupils present EOM: EOMs intact bilaterally Resp Effort & Inspection: normal respiratory effort Auscultation: clear to auscultation bilaterally Cardio Rate: regular rate Rhythm: regular rhythm Heart sounds: S1 normal heart sound present, S2 normal heart sound present, no gallops, no murmurs and no rubs Neuro General: patient oriented x3 and gait normal Cranial nerves: Yes Equal, round and reactive pupils present Psych Affect: normal affect Assessment and Plan Assessment & Plan (1) Sinusitis: Code(s): J32.9 - Chronic sinusitis, unspecified Plan: Likely?bacterial?sinusitis?and?possible?otitis?media Start?Augmentin Can?not?rule?out?underlying?viral?illness?so?checking?COVID/flu/RSV (2) Chest congestion: Code(s): R09.89 - Other specified symptoms and signs involving the circulatory and respiratory systems Plan: As?above,?ruling?out?COVID/flu/RSV Likely?reactive?secondary?to?upper?respiratory?infection Treating?underlying?cause Orders: Orders SARS-CoV2/FLU/RSV Today R09.89 - Other specified symptoms and signs involving the circulatory and respiratory systems Medications: New amoxicillin-pot clavulanate 500-125 mg (Augmentin) 1 tab PO Q12H 20 tabs 0RF 10 days Coding Level of Care Code Est Pt Level 3 (83485) Diagnoses Sinusitis J32.9 Chest congestion R09.89
[2023-08-11 11:27] VITALS: BP 126/78; PULSE 106; O2SAT 97; BMI 41.8
== END 2023-08-11 12:38 | disposition home or self-care (01) ==
PROVIDERS: PCP Family Medicine; Visit Provider Family Medicine
DX: J32.9 Chronic sinusitis, unspecified (principal); R09.89 Other specified symptoms and signs involving the circulatory and respiratory systems
CPT/HCPCS: 99213

== ENCOUNTER 2023-08-11 12:38 | Outpatient (REF) | payer MEDICARE, OTHER, SELFPAY ==
[2023-08-11 15:25] LABS: Influenza A PCR NEGATIVE (Negative); Influenza B PCR NEGATIVE (Negative); Resp Syncy Virus RNA Qual PCR NEGATIVE (Negative); SARS COV2 PCR INHOUSE NEGATIVE (Negative)
== END 2023-08-11 12:39 | disposition home or self-care (01) ==
LOC: HO.LAB 12:38
PROVIDERS: Visit Provider Family Medicine
DX: R09.89 Other specified symptoms and signs involving the circulatory and respiratory systems (principal); Z11.52 Encounter for screening for COVID-19; Z20.828 Contact with and (suspected) exposure to other viral communicable diseases
CPT/HCPCS: 0241U

== ENCOUNTER 2023-09-21 09:25 | Outpatient (AMB) | payer MEDICARE, OTHER, SELFPAY ==
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
[2023-09-21 09:33] VITALS: BP 138/78; PULSE 80; O2SAT 100; BMI 42.0
== END 2023-09-21 10:16 | disposition home or self-care (01) ==
PROVIDERS: PCP Family Medicine; Visit Provider Family Medicine
DX: I10 Essential (primary) hypertension (principal); F41.9 Anxiety disorder, unspecified; F32.A Depression, unspecified
CPT/HCPCS: 99213

== ENCOUNTER 2023-12-14 13:33 | Outpatient (AMB) | payer MEDICARE, OTHER, SELFPAY ==
--- NOTE | 2023-12-14 13:46 | A.OFFPC_ITS ---
Vital Signs 12/14/23 13:49 Height 5 ft 1 in Weight 222 lb 4 oz BMI 42.0 BP 116/72 Blood Pressure Location Lt brachial Position Sitting Respiration 16 Pulse 89 Pulse Source Pulse Oximeter Pulse Oximetry (%) 97 Oxygen Delivery Method Room Air Intake Visit Reasons: Right Reverse Total Shoulder [facility] Intake Note: Preop with [facility] Allergies codeine [CODEINE] Adverse Reaction (Mild, Verified 12/14/23 13:46) NAUSEA & VOMITING Tobacco use date assessed: 09/21/23 Dental Screening Dental Screen Date: 09/21/23 HPI Right Reverse Total Shoulder [facility] HPI Details Patient?presents?for?preoperative?clearance?prior?right shoulder?surgery Procedure: right?reverse?total?shoulder?surgery Date: 01/04/2024 Surgeon: IRENE Lyman Anesthesia:??General Cardiac?Hx: R BBB Pulmonary?Hx: None Prior?Surgical?Complications: None Prior?Anesthesia?Complications: Pt says she was told she was difficult to [facility]. Coag?Issues: None Functional?[place]: ?Patient?is?able?to?walk 2 city blocks 1 flt of stairs PFSH Medical History Golfers elbow Colitis CKD (chronic kidney disease) stage 3, GFR 30-59 ml/min Sleep apnea TIA (transient ischemic attack) Hx of squamous cell carcinoma HTN (hypertension) Elevated cholesterol Depression History of angina Diverticulitis GERD (gastroesophageal reflux disease) Surgical History History of knee replacement procedure of left knee Hx of squamous cell carcinoma excision Hx of total hip arthroplasty History of hysteroscopy History of carpal tunnel release of both wrists Hx of rotator cuff surgery Hx of colonoscopy Hx of esophagogastroduodenoscopy Family History Father Rheumatic fever Heart attack Stroke Mother Heart problem Social History Housing: House Alcohol intake: never Patient Tobacco Use Status: Former Tobacco user e-Cigarette/Vaping Use: Never Used service: No Current occupational status: retired Current occupational exposures/hazards: No Cognitive needs: No Hearing needs: No Vision needs: Yes Questionnaire Thrive Questionnaire Date Thrive assessed: 09/21/23 JENELLE-7 AMB Questionnaire JENELLE-7 Date JENELLE - 7 assessed: 09/21/23 Source: Developed by Drs. Kendrick Galeano, Lucia Stone, Mateusz Montalvo and colleagues, with an educational angie from [employer]. Review of Systems Const Denies chills, Denies fatigue, Denies fever(s), Denies headache(s) and Denies weakness ENT Denies dizziness and Denies headache(s) Card Denies chest pain, Denies lightheadedness, Denies dyspnea and Denies other (Palpitations) Resp Denies cough, Denies dyspnea, Denies wheezing and Denies other ( shortness of breath) Musc Denies numbness and Denies tingling Neuro Denies dizziness, Denies headache(s), Denies numbness, Denies tingling, Denies paresthesias and Denies weakness Psych Denies anxiety and Denies depression Endo Denies fatigue Aller/Immun Denies wheezing Physical exam (Primary Care) Vital Signs: Last Vital Signs Pulse 89 12/14/23 13:49 Resp 16 12/14/23 13:49 BP 116/72 12/14/23 13:49 Pulse Ox 97 12/14/23 13:49 Oxygen Delivery Method Room Air 12/14/23 13:49 BMI result Body Mass Index 42.0 Tobacco/Smoking Status: Tobacco use Status Tobacco use date assessed 09/21/23 12/14/23 13:47 Patient Tobacco Use Status Former Tobacco user 12/14/23 13:47 e-Cigarette/Vaping Use Never Used 12/14/23 13:47 Thrive Assessment: Date of Thrive Assessment Date Thrive assessed 09/21/23 12/14/23 13:47 Const General: no acute distress and well developed Nutritional Appearance: well nourished Orientation/consciousness: patient oriented x3 HENMT Head: Yes normocephalic and Yes atraumatic Eyes General: appearance normal, both eyes and all related structures Pupils: Equal, round and reactive pupils present EOM: EOMs intact bilaterally Resp Effort & Inspection: normal respiratory effort Auscultation: clear to auscultation bilaterally Cardio Rate: regular rate Rhythm: regular rhythm Heart sounds: S1 normal heart sound present, S2 normal heart sound present, no gallops, no murmurs and no rubs Neuro General: patient oriented x3 and gait normal Cranial nerves: Yes Equal, round and reactive pupils present Psych Affect: normal affect Assessment and Plan Assessment & Plan (1) Pre-op evaluation: Code(s): Z01.818 - Encounter for other preprocedural examination Plan: 68-year-old?female?presents?for?preoperative?clearance?prior?to?right?should er?surgery History?of?right?bundle?branch?block?and hyperlipidemia?but?no?diagnosis?of?coronary?artery?disease. Cardiac?exam?and?auscultation?today?is?normal. ?Hypertension?is?well?controlled. EKG?shows?sinus?bradycardia?with?nonspecific?ST?and?T- wave?changes.??No?ischemia?or?infarction. No?pulmonary?disease No?history?of?surgical?complications. She?notes?she?has?had?some?difficulties?with?intubation?and?anesthesia- advised?she?discuss?with?anesthesiologist No?coagulopathies Fair?functional?reserve Intermediate?risk?patient?for?intermediate?risk?procedure. Patient?is?currently?optimized ?no?contraindications?to?proceeding?with?proposed?procedure Coding Level of Care Code Est Pt Level 3 (61085) Diagnoses Pre-op evaluation Z01.818
[2023-12-14 13:49] VITALS: BP 116/72; PULSE 89; RESP 16; O2SAT 97; BMI 42.0
== END 2023-12-14 15:34 | disposition home or self-care (01) ==
PROVIDERS: PCP Family Medicine; Visit Provider Family Medicine
DX: Z01.818 Encounter for other preprocedural examination (principal)
CPT/HCPCS: 93000; 99213

== ENCOUNTER 2023-12-21 09:21 | Outpatient (AMB) | payer MEDICARE, OTHER, SELFPAY ==
[2023-12-21 09:32] VITALS: BP 118/62; PULSE 86; O2SAT 97; BMI 41.8
--- NOTE | 2023-12-21 09:32 | MHC.PC.OV ---
Vital Signs 12/21/23 09:32 Height 5 ft 1 in Weight 221 lb 8 oz BMI 41.8 BP 118/62 Blood Pressure Location Lt brachial Position Sitting Pulse 86 Pulse Source Pulse Oximeter Pulse Oximetry (%) 97 Oxygen Delivery Method Room Air Intake Visit Reasons: f/u hypertension Intake Note: Patient is here to follow up on hypertension today, and CPAP machine, and she complains of dry mouth. Allergies codeine [CODEINE] Adverse Reaction (Mild, Verified 12/21/23 09:35) NAUSEA & VOMITING Medication List - Last Reconciled 12/21/23 by Stephan Max MD alendronate 70 mg PO QWEEK 28 days atorvastatin 10 mg PO DAILY 90 days bupropion HCl SR 200 mg PO DAILY 90 days duloxetine 60 mg PO BID 90 days famotidine 20 mg PO BEDTIME 90 days isosorbide mononitrate ER 60 mg PO QAM 90 days lisinopril 20 mg PO BID 90 days melatonin 5 mg PO BEDTIME PRN 30 days pantoprazole 40 mg PO DAILY 90 days psyllium husk (Metamucil) 1.2 grams PO DAILY Tobacco use date assessed: 12/21/23 Fall risk assessment: No Falls in past year Last assessed Fall Risk: 12/21/23 Dental Screening Dental Screen Date: 09/21/23 HPI f/u hypertension HPI Details 68 y/o female presents to f/u hypertension. Blood pressure today 118/62. She is on lisinopril 20mg b.i.d., isosorbide. She is on bupropion 200mg, duloxetine for her mood. She has complaints of a dry mouth. She drinks about 48 ounces of water a day. [facility] Medical History Golfers elbow Colitis CKD (chronic kidney disease) stage 3, GFR 30-59 ml/min Sleep apnea TIA (transient ischemic attack) Hx of squamous cell carcinoma HTN (hypertension) Elevated cholesterol Depression History of angina Diverticulitis GERD (gastroesophageal reflux disease) Surgical History History of knee replacement procedure of left knee Hx of squamous cell carcinoma excision Hx of total hip arthroplasty History of hysteroscopy History of carpal tunnel release of both wrists Hx of rotator cuff surgery Hx of colonoscopy Hx of esophagogastroduodenoscopy Family History Father Rheumatic fever Heart attack Stroke Mother Heart problem Social History Housing: House Alcohol intake: never Patient Tobacco Use Status: Former Tobacco user e-Cigarette/Vaping Use: Never Used service: No Current occupational status: retired Current occupational exposures/hazards: No Cognitive needs: No Hearing needs: No Vision needs: Yes Questionnaire Thrive Questionnaire Date Thrive assessed: 09/21/23 JENELLE-7 AMB Questionnaire JENELLE-7 Date JENELLE - 7 assessed: 09/21/23 Source: Developed by Drs. Kendrick Galeano, Lucia Stone, Mateusz Montalvo and colleagues, with an educational angie from [employer]. Review of Systems Const Denies chills, Denies fatigue, Denies fever(s), Denies headache(s) and Denies weakness ENT Denies dizziness and Denies headache(s) Card Denies chest pain, Denies lightheadedness, Denies dyspnea and Denies other (Palpitations) Resp Denies cough, Denies dyspnea, Denies wheezing and Denies other ( shortness of breath) Musc Denies numbness and Denies tingling Neuro Denies dizziness, Denies headache(s), Denies numbness, Denies tingling, Denies paresthesias and Denies weakness Psych Denies anxiety and Denies depression Endo Denies fatigue Aller/Immun Denies wheezing Physical exam (Primary Care) Vital Signs: Last Vital Signs Pulse 86 12/21/23 09:32 BP 118/62 12/21/23 09:32 Pulse Ox 97 12/21/23 09:32 Oxygen Delivery Method Room Air 12/21/23 09:32 BMI result Body Mass Index 41.8 Tobacco/Smoking Status: Tobacco use Status Tobacco use date assessed 12/21/23 12/21/23 09:40 Patient Tobacco Use Status Former Tobacco user 12/21/23 09:40 e-Cigarette/Vaping Use Never Used 12/21/23 09:40 Thrive Assessment: Date of Thrive Assessment Date Thrive assessed 09/21/23 12/21/23 09:40 Const General: no acute distress and well developed Nutritional Appearance: well nourished Orientation/consciousness: patient oriented x3 [facility] Head: Yes normocephalic and Yes atraumatic Eyes General: appearance normal, both eyes and all related structures Pupils: Equal, round and reactive pupils present EOM: EOMs intact bilaterally Resp Effort & Inspection: normal respiratory effort Auscultation: clear to auscultation bilaterally Cardio Rate: regular rate Rhythm: regular rhythm Heart sounds: S1 normal heart sound present, S2 normal heart sound present, no gallops, no murmurs and no rubs Neuro General: patient oriented x3 and gait normal Cranial nerves: Yes Equal, round and reactive pupils present Psych Affect: normal affect Assessment and Plan Assessment & Plan (1) Essential hypertension: Code(s): I10 - Essential (primary) hypertension Plan: Blood?pressure?is?controlled. Goal?is?less?than?140/90 Has?not?taken?her?medication?today?but?has?been?steady?with?this?previously. No?changes?advised?today?but?will?follow (2) Anxiety and depression: Code(s): F41.9 - Anxiety disorder, unspecified; F32.A - Depression, unspecified Plan: Stable Still?has?stressors?of?taking?care?of?her?mother?and? Has?a?therapist Continue?current?medications. Has?concerns?regarding?dry?mouth?but?she?does?not?feel?this?is?associated?with?these?medications. (3) Sleep apnea: Comment: cpap Code(s): G47.30 - Sleep apnea, unspecified Plan: Longstanding?sleep?apnea?and?her?CPAP?machine?seems?to to?be?near?the?end?of?its?working?life?span Needs?new?CPAP.??Referred?to?Sleep?Medicine (4) Dry mouth: Code(s): R68.2 - Dry mouth, unspecified Plan: Increase?hydration Sour?candy Discuss?with?dentist If?still?having?difficulties?we?may?want?to?consider?that?her?medications?for?anxiety?and?depression?could?cause?dry?mouth.??Patient?does?not?feel?that?this?is?the?underlying?cause?however. She?would?like?to?investigate?for?diabetes?and?she?has?had?elevated?blood?sugar?in?the?past.??Checking?labs. Orders: Orders Hemoglobin A1c Today R73.01 - Impaired fasting glucose Comprehensive [place]. Panel Fast Today R68.2 - Dry mouth, unspecified, Z00.00 - Encounter for general adult medical examination without abnormal findings Referrals Sleep Medicine Referral G47.30 - Sleep apnea, unspecified Coding Level of Care Code Est Pt Level 4 (82018) Diagnoses Essential hypertension I10 Anxiety and depression F41.9; F32.A Sleep apnea G47.30 Dry mouth R68.2
== END 2023-12-21 10:35 | disposition home or self-care (01) ==
PROVIDERS: PCP Family Medicine; Visit Provider Family Medicine
DX: I10 Essential (primary) hypertension (principal); F41.9 Anxiety disorder, unspecified; F32.A Depression, unspecified; G47.30 Sleep apnea, unspecified; R68.2 Dry mouth, unspecified
CPT/HCPCS: 99214

== ENCOUNTER 2023-12-21 10:39 | Outpatient (REF) | payer MEDICARE, OTHER, SELFPAY ==
[2023-12-21 14:25] LABS: Estimated Average Glucose 111 mg/dL; Hemoglobin A1c % 5.5 % (<6.0)
[2023-12-21 14:43] LABS: Alanine Aminotransferase 14 U/L (0-31); Albumin Level 4.5 g/dL (3.5-5.0); Alkaline Phosphatase 77 U/L (39-117); Anion Gap 14 (12-20); Aspartate Amino Transferase 18 U/L (5-31); Bilirubin Total 0.3 mg/dL (0.0-1.0); Blood Urea Nitrogen 16 mg/dL (9-16); Carbon Dioxide 23 mmol/L (22-29); Chloride 108 mmol/L (96-108); Estimated Glomerular Filt Rate 49; Glucose Fasting 81 mg/dL (60-99); Potassium 4.6 mmol/L (3.3-5.1); Sodium 140 mmol/L (135-145); Total Protein 7.5 g/dL (6.5-8.0)
== END 2023-12-21 10:40 | disposition home or self-care (01) ==
LOC: HO.WFDLDS 10:39
PROVIDERS: Visit Provider Family Medicine
DX: Z00.00 Encounter for general adult medical examination without abnormal findings (principal); R73.01 Impaired fasting glucose; R68.2 Dry mouth, unspecified
CPT/HCPCS: 36415; 80053; 83036

== ENCOUNTER 2024-03-19 12:51 | Outpatient (AMB) | payer MEDICARE, OTHER, SELFPAY ==
[2024-03-19 13:03] VITALS: BP 130/70; PULSE 79; BMI 42.0
--- NOTE | 2024-03-19 13:03 | MHC.OFFVIS ---
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: No Accompanied by: Self / Same As Patient Allergies codeine [CODEINE] Adverse Reaction (Mild, Verified 12/21/23 09:35) NAUSEA & VOMITING Medication List - Last Reconciled 03/19/24 by Gaudencio Hoover MD alendronate 70 mg PO QWEEK 28 days atorvastatin 10 mg PO DAILY 90 days bupropion HCl SR 200 mg PO DAILY 90 days duloxetine 60 mg PO BID 90 days famotidine 20 mg PO BEDTIME 90 days isosorbide mononitrate ER 60 mg PO QAM 90 days lisinopril 20 mg PO BID 90 days melatonin 5 mg PO BEDTIME PRN 30 days pantoprazole 40 mg PO DAILY 90 days psyllium husk (Metamucil) 1.2 grams PO DAILY HPI Comments Details: Pleasant 68 year female who is here for 1st office visit. She recently went in the hospital for outpatient procedure went ECG was noted to have T-wave changes. Reviewing the EKGs she had new right bundle-branch block with V1 V2 T-wave inversion. She has no chest discomfort but has chronic dyspnea on exertion but she is noticing that she is getting more short of breath with activity. She was a smoker but quit in . She has hypertension, hyperlipidemia and strong family history of coronary artery disease. She previously had a stress test in 2020 which was felt to be abnormal due to breast artifact. Blood pressure is well controlled. EKGs repeated in the office and is showing right bundle-branch block with T-wave inversion in V1 and V2. [facility] Medical History (Updated 03/19/24 @ 13:41 by Gaudencio Hoover MD) Golfers elbow Colitis CKD (chronic kidney disease) stage 3, GFR 30-59 ml/min Sleep apnea TIA (transient ischemic attack) Hx of squamous cell carcinoma HTN (hypertension) Elevated cholesterol Depression History of angina Diverticulitis GERD (gastroesophageal reflux disease) Surgical History History of knee replacement procedure of left knee Hx of squamous cell carcinoma excision Hx of total hip arthroplasty History of hysteroscopy History of carpal tunnel release of both wrists Hx of rotator cuff surgery Hx of colonoscopy Hx of esophagogastroduodenoscopy Family History Father Rheumatic fever Heart attack Stroke Mother Heart problem Social History Housing: House Alcohol intake: never Patient Tobacco Use Status: Former Tobacco user e-Cigarette/Vaping Use: Never Used service: No Current occupational status: retired Current occupational exposures/hazards: No Cognitive needs: No Hearing needs: No Vision needs: Yes Review of Systems Const Denies chills, Denies fatigue, Denies fever(s), Denies frequent falls, Denies weakness, Denies weight gain and Denies weight loss ENT Denies dizziness Card Denies chest pain, Reports diaphoresis, Denies leg edema, Denies lightheadedness, Denies palpitations, Denies dyspnea, Denies dyspnea on exertion and Denies orthopnea Resp Denies cough, Denies dyspnea and Denies dyspnea on exertion GI Denies bloating and Denies change in bowel habits Musc Denies muscle weakness, Denies numbness and Denies tingling Neuro Denies dizziness, Denies frequent falls, Denies numbness, Denies tingling and Denies weakness Endo Denies fatigue and Denies palpitations Physical Exam Vital Signs: BMI result Body Mass Index 42.0 GENERAL APPEARANCE: in no acute distress, pleasant. NECK: no carotid bruit, no jugular venous distention. SKIN: no suspicious lesions, warm and dry. HEART: no murmurs, regular rate and rhythm. LUNGS: clear to auscultation bilaterally. ABDOMEN: soft, nontender. EXTREMITIES: no edema. PERIPHERAL PULSES: equal. NEUROLOGIC: No gross deficits, AAO X 3 Office Procedures EKG Details: Sinus rhythm 79 beats per minute, normal axis, right bundle-branch block, QRS duration 138 milliseconds, QTC 474 milliseconds. [id number], Complete Assessment & Plan Assessment & Plan (1) Essential hypertension: Code(s): I10 - Essential (primary) hypertension Category: Medical (2) RBBB: Code(s): I45.10 - Unspecified right bundle-branch block Category: Medical (3) AVALOS (dyspnea on exertion): Code(s): R06.09 - Other forms of dyspnea Category: Medical Plan Very pleasant 68 year female who is here for 1st office visit. She has new right bundle-branch block with precordial T-wave inversions in V1 and V2. I think these changes are related right bundle-branch block. We will check echocardiogram to assess LV function regional wall motion abnormality. Given chronic dyspnea, hypertension and strong family history of coronary artery disease, I have advised her to do an exercise stress test. We will arrange a modified Efrain protocol treadmill stress test. If she is unable to exercise then we will change to Lexiscan. Follow-up after the above testing. Thank you for allowing me to participate in the care of your patient. Please feel free to contact me if you have any questions. Orders: Orders CA echo transthorac w con Today I45.10 - Unspecified right bundle-branch block CA stress test Today R06.09 - Other forms of dyspnea NM cardiolite stress test Today R06.09 - Other forms of dyspnea Coding Level of Care Code New Pt Level 4 (28091) Diagnoses Essential hypertension I10 RBBB I45.10 AVALOS (dyspnea on exertion) R06.09 CPT Codes EKG - CPT: 22651-[id number], Complete ([id number])
== END 2024-03-19 13:43 | disposition home or self-care (01) ==
PROVIDERS: PCP Family Medicine; Visit Provider Internal Medicine Cardiovascular Disease
DX: I10 Essential (primary) hypertension (principal); I45.10 Unspecified right bundle-branch block; R06.09 Other forms of dyspnea
CPT/HCPCS: 93010; 99204

== ENCOUNTER → 2024-03-19 12:51 | Outpatient (BNVA) | payer MEDICARE, MEDICAID, OTHER, SELFPAY | PROVIDERS: PCP Family Medicine; Visit Provider Internal Medicine Cardiovascular Disease | DX: I10 Essential (primary) hypertension (principal); I45.10 Unspecified right bundle-branch block; R06.09 Other forms of dyspnea; E78.5 Hyperlipidemia, unspecified; Z82.49 Family history of ischemic heart disease and other diseases of the circulatory system | CPT/HCPCS: 93005; 99202 ==

== ENCOUNTER → 2024-04-18 09:39 | Outpatient (REF) | payer MEDICARE, OTHER, SELFPAY ==
--- NOTE | 2024-04-18 09:42 | CA_ITS ---
Transthoracic Echocardiogram Patient (Last, First, Middle): Martha Cottrell Louise Gender: Female Date of : 1955 Age: 68 Procedure Date: 04/18/2024 Procedure Type: Transthoracic Echocardiogram Location: OP Height: 154.94 cm Weight: 100.25 kg BSA: 1.97 m2 Heart Rate: 81 bpm BP: 132 / 68 mmHg Chief Lock Operator: SB Referring MD: Gaudencio Hoover MD Enamel Shader: Gaudencio Hoover MD Symptoms: I45.10 - Unspecified right bundle-branch block Study Quality: Fair ECG Rhythm: Sinus Conclusions: - Normal left ventricular size and systolic function. The visually estimated ejection fraction is between 60-65%. There is no evidence of regional wall motion abnormalities. - Normal right ventricular cavity size. - There is borderline right ventricular systolic function. Findings Procedure Information Contrast agent, definity, is being given per protocol without apparent complications. Left Ventricle Normal left ventricular size and systolic function. The visually estimated ejection fraction is between 60-65%. There is no evidence of regional wall motion abnormalities. Diastolic function is normal for age. There is mild septal asymmetric hypertrophy. Right Ventricle Normal right ventricular cavity size. There is borderline right ventricular systolic function. Atria The left atrium is normal in size. Aortic Valve The aortic valve was not well visualized. There is no aortic valve stenosis. There is no aortic valve regurgitation. Mitral Valve The mitral valve appears normal. There is trace mitral valve regurgitation. There is no mitral valve stenosis. Pulmonic Valve The pulmonic valve is likely normal. Tricuspid Valve Normal tricuspid valve structure. There is no tricuspid valve regurgitation. Tricuspid regurgitation envelope is inadequate for calculation of right ventricular systolic pressure. Normal right atrial pressure. Venous The inferior vena cava is normal in size and collapses greater than 50% with inspiration. Pericardium/Pleural There is no evidence of pericardial effusion. Prior Study Comparison No significant change compared to prior study. Measurements 2D Linear Measurements IVSd: 1.15 0.6-0.9/0.6-1.0 cm LVIDd: 4.93 3.9-5.3/4.2-5.9 cm LVIDd Index: 2.50 2.4-3.2/2.2-3.1 cm/m2 LVIDs: 2.89 2.0-3.6 cm LVPWd: 0.75 0.7-1.1 cm LA Diam: 3.80 2.7-3.8/3.0-4.0 cm LAIDs Index: 1.93 1.5-2.3 cm/m2 LV Mass: 207.18 67-162/88-224 g LV Mass Index: 105.17 43-95/49-115 g/m2 LVOT Diam: 2.00 3.0+(-)1.3 cm 2D Systolic Function EF 4C: 67.50 >55% EF 2C: 68.60 >55% EF BiP: 68.70 >55% Mitral Valve MV Pk E: 0.54 MV PK A: 0.89 MV Decel Time: 257.00 E/A: 0.60 E'Lateral: 6.53 E'Medial: 5.55 E/E' Med: 9.70 E/E' Lat: 8.30 PHT: 75.00 MVA PHT: 2.93 Decel Ector: 2.10 Aortic Valve AoV Pk Mayo: 1.28 AoV Pk Grad: 7.00 DADA: 2.42 LVOT LVOT Pk Mayo: 1.01 LVOT Mn Mayo: 0.71 LVOT VTI: 0.17 LVOT Pk Grad: 4.00 LVOT Mn Grad: 2.00 LVOT Diam: 2.00 LVOT Area: 3.14 Diastolic Function MV Pk E: 0.54 MV Pk A: 0.89 E/A: 0.60 E'Medial: 5.55 E/E' Med: 9.70 E' Laterial: 6.53 E/E' Lat: 8.30 Right Ventricle TAPSE (mm): 12.60 TVS' Mayo: 9.46 Tricuspid Valve RA Press: 3.00 Great Vessels Aorta Sinus of Valsalva: 3.30 2.0-3.5 cm Ao Asc: 3.80 2.1-3.4 cm Pulmonary Valve PV Pk Mayo: 0.76 Peak PV Grad: 2.00 Updated in Other Vendor System with Status of Final Gaudencio Hoover MD electronically signed on 04/20/2024 9:44:38 PM with status of Final
== END ==
LOC: HO.CARD 09:39
PROVIDERS: PCP Family Medicine; Visit Provider Internal Medicine Cardiovascular Disease
DX: I45.10 Unspecified right bundle-branch block (principal)
CPT/HCPCS: 93306; Q9957

== ENCOUNTER → 2024-04-18 09:42 | Outpatient (BNV) | payer MEDICARE, OTHER, SELFPAY | PROVIDERS: PCP Family Medicine; Visit Provider Internal Medicine Cardiovascular Disease | DX: I42.2 Other hypertrophic cardiomyopathy (principal) | CPT/HCPCS: 93306 ==

== ENCOUNTER → 2024-04-19 15:44 | Outpatient (BNVA) | payer MEDICARE, MEDICAID, OTHER, SELFPAY | PROVIDERS: PCP Family Medicine; Visit Provider Family Medicine | DX: Z00.01 Encounter for general adult medical examination with abnormal findings (principal); I10 Essential (primary) hypertension; R06.09 Other forms of dyspnea; F41.9 Anxiety disorder, unspecified; F32.A Depression, unspecified; E66.01 Morbid (severe) obesity due to excess calories; Z68.41 Body mass index [BMI] 40.0-44.9, adult; Z71.3 Dietary counseling and surveillance | CPT/HCPCS: 96127; 99212 ==

== ENCOUNTER → 2024-04-19 15:44 | Outpatient (AMB) | payer MEDICARE, OTHER, SELFPAY ==
--- NOTE | 2024-04-19 16:02 | A.OFFPC_ITS ---
Vital Signs 04/19/24 16:05 Height 5 ft 1 in Weight 220 lb 4 oz BMI 41.6 BP 116/58 L Blood Pressure Location Lt brachial Position Sitting Respiration 14 Pulse 99 Pulse Source Pulse Oximeter Temp 99.5 F Temp Source Temporal Artery Scan Pulse Oximetry (%) 99 Oxygen Delivery Method Room Air Intake Visit Reasons: annual physical-follow up labs/health maintenance Intake Note: CPE Is last menstrual period known: No Post menopausal: Yes Patient : No Allergies codeine [CODEINE] Adverse Reaction (Mild, Verified 04/19/24 16:04) NAUSEA & VOMITING Medication List - Last Reconciled 04/19/24 by Stephan Max MD alendronate 70 mg PO QWEEK 28 days atorvastatin 10 mg PO DAILY 90 days bupropion HCl SR 200 mg PO DAILY 90 days duloxetine 60 mg PO BID 90 days famotidine 20 mg PO BEDTIME 90 days isosorbide mononitrate ER 60 mg PO QAM 90 days lisinopril 20 mg PO BID 90 days melatonin 5 mg PO BEDTIME PRN 30 days pantoprazole 40 mg PO DAILY 90 days psyllium husk (Metamucil) 1.2 grams PO DAILY Tobacco use date assessed: 04/19/24 Fall risk assessment: No Falls in past year Last assessed Fall Risk: 04/19/24 Dental Screening Dental Screen Date: 04/19/24 Did you have a dental visit in the last 12 months?: Yes Did you have a dental problem in the last 6 months where you did not have access to dental care?: No Was dental information given to patient?: Patient has dentist HPI annual physical-follow up labs/health maintenance HPI Details 68 y/o female presents for an extended e xam with f/u labs and health maintenance. Following anxiety/depression. No recent labs to review. PHQ-9 6, JENELLE-7 6 today. Notes she feels her mood is okay with some good days, some bad days. Had seen Cardiology 03/19/24 for dyspnea. Per note, has RBBB with precordial T-wave inversions in V1 and V2. They plan to check echocardiogram to assess LV function regional wall motion abnormality. Had advised her to do an exercise stress test. [facility] Medical History (Updated 04/19/24 @ 17:24 by Rajeev Harris) Golfers elbow Colitis CKD (chronic kidney disease) stage 3, GFR 30-59 ml/min Sleep apnea TIA (transient ischemic attack) Hx of squamous cell carcinoma HTN (hypertension) Elevated cholesterol Depression History of angina Diverticulitis GERD (gastroesophageal reflux disease) Surgical History History of knee replacement procedure of left knee Hx of squamous cell carcinoma excision Hx of total hip arthroplasty History of hysteroscopy History of carpal tunnel release of both wrists Hx of rotator cuff surgery Hx of colonoscopy Hx of esophagogastroduodenoscopy Family History Father Rheumatic fever Heart attack Stroke Mother Heart problem Social History Housing: House Alcohol intake: never Patient Tobacco Use Status: Former Tobacco user e-Cigarette/Vaping Use: Never Used Second Hand Smoke Exposure: No Patient : No service: No Current occupational status: retired Current occupational exposures/hazards: No Cognitive needs: No Hearing needs: No Vision needs: Yes Questionnaire PHQ-9 Over the last 2 weeks, how often have you been bothered by any of the following problems? 1. Little interest or pleasure in doing things: several days 2. Feeling down, depressed, or hopeless: several days 3. Trouble falling or staying asleep, or sleeping too much: several days 4. Feeling tired or having little energy: several days 5. Poor appetite or overeating: several days 6. Feeling bad about yourself - or that you are a failure or have let yourself or your family down: not at all 7. Trouble concentrating on things, such as reading the newspaper or watching television: several days 8. Moving or speaking so slowly that other people could have noticed. Or the opposite - being so fidgety or restless that you have been moving around a lot more than usual: not at all 9. Thoughts that you would be better off or of hurting yourself in some way: not at all Total score: 6 Depression Screening Interpretation: Positive Depression Screening Done: Yes 46640 - PHQ-9 Billing: Yes Source: Developed by Drs. Kendrick Galeano, Lucia Stone, Mateusz Montalvo and colleagues, with an educational angie from [employer]. Thrive Questionnaire Date Thrive assessed: 04/19/24 I am a: Patient What is your living situation today?: I have a steady place to live Within the past 12 months, did the food you bought not last and you didn't have the money to get more?: Never true Within the past 12 months, did you worry whether your food would run out before you got money to buy more?: Never true Do you have trouble paying for medicines?: No Do you have trouble getting transportation to medical appointments?: No Do you have trouble paying your heating and electricity bill?: Yes Do you have trouble taking care of your child, family member or friend?: Yes Do you have trouble with day-to-day activities such as bathing, preparing meals, shopping, managing finances, etc.?: No Are you currently unemployed and looking for a job?: No Are you interested in more education?: No Please select the resources that you would like help with: None Currently or been in a relationship where the following occur: No concerns reported THRIVE Score: 1 AUDIT C Alcohol Use Questionnaire (AUDIT-C) 1. How often do you have a drink containing alcohol?: Monthly or less 2. How many drinks containing alcohol do you have on a typical day when you are drinking?: 1 or 2 3. How often do you have six or more drinks on one occasion?: Never Total Score: 1 JENELLE-7 AMB Questionnaire JENELLE-7 Date JENELLE - 7 assessed: 04/19/24 Feeling nervous, anxious, or on edge: 1 = Several days Not being able to stop or control worryin = Several days Worrying too much about different things: 1 = Several days Trouble relaxin = Several days Being so restless that it is hard to sit still: 0 = Not at all Becoming easily annoyed or irritable: 1 = Several days Feeling afraid as if something awful might happen: 1 = Several days Total JENELLE-7 score (0-4 normal; 5-9 mild; 10-14 moderate; 15-21 severe): 6 Source: Developed by Drs. Kendrick Galeano, Lucia Stone, Mateusz Montalvo and colleagues, with an educational angie from [employer]. JENELLE-7 Assessment Billing JENELLE-7 Assessment Tool: JENELLE-7 Assessment 36179 Review of Systems Const Denies chills, Denies fatigue, Denies fever(s), Denies headache(s) and Denies weakness Eyes Denies change in vision ENT Denies dizziness, Denies headache(s), Denies hearing loss, Denies nasal congestion, Denies sinus pain, Denies sinus pressure and Denies sore throat Card Denies chest pain, Denies lightheadedness, Denies dyspnea and Denies other (palpitations) Resp Denies cough, Denies dyspnea and Denies wheezing GI Denies abdominal pain, Denies melena, Denies hematochezia, Denies change in bowel habits, Denies dyspepsia and Denies nausea Denies hematuria and Denies dysuria Musc Denies abnormal gait, Denies myalgias, Denies arthralgias, Denies numbness and Denies tingling Skin/Breast Denies rash, Denies unusual bruising and Denies wounds Neuro Denies abnormal gait, Denies dizziness, Denies headache(s), Denies memory loss, Denies numbness, Denies Sensory deficit (Neuro), Denies tingling and Denies weakness Psych Denies anxiety, Denies depression and Denies memory loss Endo Denies cold intolerance, Denies fatigue, Denies heat intolerance, Denies polydipsia and Denies polyuria Ruben/Lymph Denies easy bleeding and Denies easy bruising Aller/Immun Denies wheezing Physical exam (Primary Care) Vital Signs: Last Vital Signs Temp 99.5 F 04/19/24 16:05 Pulse 99 04/19/24 16:05 Resp 14 04/19/24 16:05 BP 116/58 L 04/19/24 16:05 Pulse Ox 99 04/19/24 16:05 Oxygen Delivery Method Room Air 04/19/24 16:05 BMI result Body Mass Index 41.6 Tobacco/Smoking Status: Tobacco use Status Tobacco use date assessed 04/19/24 04/19/24 16:09 Patient Tobacco Use Status Former Tobacco user 04/19/24 16:09 e-Cigarette/Vaping Use Never Used 04/19/24 16:09 PHQ-9: PHQ-9 Score PHQ-9: Total score 6 04/19/24 17:31 Depression Screening Interpretation: Positive Thrive Assessment: Date of Thrive Assessment Date Thrive assessed 04/19/24 04/19/24 16:09 Currently or been in a relationship where the following occur: No concerns reported Const General: no acute distress, well developed, alert and awake Nutritional Appearance: well nourished and obese morbidly obese Orientation/consciousness: patient oriented x3 [facility] Head: Yes normocephalic and Yes atraumatic Ears: hearing grossly normal bilaterally and TM's normal bilaterally General nose exam: Normal external nose present and Normal nares present Mouth: Normal oral and palatal mucosa present and moist mucous membranes Teeth and gingiva: dentition normal Throat: Yes posterior oropharynx normal Eyes General: appearance normal, both eyes and all related structures Pupils: Equal, round and reactive pupils present and Pupil accommodation reflex normal EOM: EOMs intact bilaterally Neck Neck: Yes normal visual inspection, Yes no lymphadenopathy and Yes trachea midline Thyroid: Thyroid normal Carotids: no bruits Lymphatic: no lymphadenopathy noted Chest Chest palpation & inspection: normal inspection of the chest Resp Effort & Inspection: normal respiratory effort Auscultation: clear to auscultation bilaterally Cardio Rate: regular rate Rhythm: regular rhythm Heart sounds: S1 normal heart sound present, S2 normal heart sound present, no gallops, no murmurs and no rubs Bruits: no abdominal aortic bruits and no carotid bruits GI Palpation (GI): No Abdominal aortic bruit present, Soft to palpation, nontender, No hepatosplenomegaly present and No Rebound tenderness present Auscultation: normal bowel sounds General: Yes no CVA tenderness Back/Spine/Pelvis Back: no CVA tenderness Cervical Spine: cervical ROM normal and No Cervical spine tenderness Thoracic/Lumbar Spine: thoraco-lumbar ROM normal, No pain with thoraco-lumbar ROM, No thoracic spinal tenderness and No lumbar spinal tenderness Skin Lesions: no lesions Rashes: no rashes Trauma: no lacerations or abrasions Wounds: no wounds Nails: normal Neuro General: patient oriented x3 Cranial nerves: Yes Equal, round and reactive pupils present Cognition (Neuro): normal cognition Gait exam (Neuro): Normal gait present Motor exam (neuro): 5/5 motor strength present throughout Sensory Exam: No Sensory deficit (Neuro) Deep tendon reflexes (DTR's): Right patellar reflex intensity grade: 2+ and Left patellar reflex intensity grade: 2+ Extrem General: Yes normal to inspection and No edema Psych Appearance: grossly normal Affect: normal affect Attitude: cooperative Thought process: Normal thought process present Coding Level of Care Code Est Pt Level 4 (82472) Diagnoses Essential hypertension I10 AVALOS (dyspnea on exertion) R06.09 Anxiety and depression F41.9; F32.A Morbid obesity E66.01 Screening for colon cancer Z12.11 Breast cancer screening by mammogram Z12.31 Screening for osteoporosis Z13.820 Adult general medical exam Z00.00 Additional Codes JENELLE-7 Assessment Billing - JENELLE-7 Assessment Tool: JENELLE-7 Assessment 24897 ([id number]) Assessment & Plan Assessment & Plan (1) Essential hypertension: Code(s): I10 - Essential (primary) hypertension Category: Medical Plan: Pressure?is?controlled.??Goal?is?less?than?130/80 Continue?current?medication (2) AVALOS (dyspnea on exertion): Code(s): R06.09 - Other forms of dyspnea Category: Medical Plan: Dyspnea?on?exertion?and?EKG?showed?right?bundle-branch?block?and?inverted?T-wave s?in?V1?and?V2 She?has?workup?with?Cardiology?including?echocardiogram?and?nuclear?stress?test Follow-up?with?Cardiology?as?recommended (3) Anxiety and depression: Code(s): F41.9 - Anxiety disorder, unspecified; F32.A - Depression, unspecified Category: Medical Plan: She?is?on?duloxetine?and?bupropion Stable Continue?current?medication?regimen (4) Morbid obesity: Code(s): E66.01 - Morbid (severe) obesity due to excess calories Category: Medical Plan: Patient's??is?diabetic?and?she?wants?to?know?if?she?can?work?on?the?same? diet Reviewed?lab?work?including?renal?function Okay?for?her?to?work?on?a?diabetic?diet?as?well (5) Screening for colon cancer: Code(s): Z12.11 - Encounter for screening for malignant neoplasm of colon Category: Medical Plan: Followed?by??Parth?and?has?upcoming?appointment Up-to-date (6) Breast cancer screening by mammogram: Code(s): Z12.31 - Encounter for screening mammogram for malignant neoplasm of breast Category: Medical Plan: Last?mammogram?was?2?years?ago?and?negative Mammogram?ordered (7) Screening for osteoporosis: Code(s): Z13.820 - Encounter for screening for osteoporosis Category: Medical Plan: Bone?density?in?late?2022?showed?osteoporosis. She?has?been?prescribed?alendronate?and?was?using?it?but?has?stopped?due?to?forg etting - will?resume?this?medication Up-to-date?with?bone?density?testing?and?will?repeat?in?late?2024 (8) Adult general medical exam: Code(s): Z00.00 - Encounter for general adult medical examination without abnormal findings Category: Medical Plan: 68-year-old?female?presents?for?an?extended?exam Encouraged?healthy?diet?with?active?lifestyle?and?plenty?of?exercise She?will?get?her?labs?drawn?and?we?can?follow-up?on?these?by?telemedicine?in?a?f ew?weeks Orders: Orders MM tomosynthesis screening BI 04/19/24 Z12.31 - Encounter for screening ma mmogram for malignant neoplasm of breast
[2024-04-19 16:05] VITALS: BP 116/58; PULSE 99; RESP 14; TEMP 37.5; O2SAT 99; BMI 41.6
== END ==
PROVIDERS: PCP Family Medicine; Visit Provider Family Medicine
DX: I10 Essential (primary) hypertension (principal); E66.01 Morbid (severe) obesity due to excess calories; Z68.41 Body mass index [BMI] 40.0-44.9, adult; R06.09 Other forms of dyspnea; F41.9 Anxiety disorder, unspecified; F32.A Depression, unspecified; Z12.11 Encounter for screening for malignant neoplasm of colon; Z12.31 Encounter for screening mammogram for malignant neoplasm of breast; Z13.820 Encounter for screening for osteoporosis

== ENCOUNTER 2024-04-24 09:30 | Outpatient (REF) | payer MEDICARE, MEDICAID, OTHER, SELFPAY ==
[2024-04-24 11:30] LABS: MANUAL DIFF FLAG NO
[2024-04-24 11:53] LABS: Basophils Absolute Auto 0.1 X10*3/uL (0.0-0.2); Eosinophils Absolute Auto 0.1 X10*3/uL (0.0-0.4); Eosinophils Percent Auto 2.3 % (0-4); Hematocrit 37.9 % (37.0-47.0); Hemoglobin 12.6 g/dl (12.0-16.0); Imm Gran Abs Auto 0.02 X10*3/uL (0.00-0.03); Imm Gran Pct Auto 0.4 % (0.0-0.4); Lymphocytes Absolute Auto 1.8 X10*3/uL (1.2-4.9); Lymphocytes Percent Auto 35.2 % (20-40); Mean Corpuscular HGB Conc 33.2 g/dl (31.0-35.0); Mean Corpuscular Hemoglobin 30.9 pg (27.0-33.0); Mean Corpuscular Volume 92.9 fL (80.0-98.0); Monocytes Absolute Auto 0.5 X10*3/uL (0.1-1.2); Monocytes Percent Auto 10.4 % (2-11); Neutrophils Absolute Auto 2.6 x10*3/uL (2.0-8.3); Neutrophils Percent Auto 50.7 % (45-73); Platelet Count 317 X10*3/uL (160-400); Red Blood Count 4.08 X10*6/uL (4.20-5.50); Red Cell Distribution Width 13.2 % (11.0-16.0); White Blood Count 5.1 X10*3/uL (4.8-10.8)
[2024-04-24 12:55] LABS: Alanine Aminotransferase 18 U/L (0-31); Albumin Level 3.9 g/dL (3.5-5.0); Alkaline Phosphatase 78 U/L (39-117); Anion Gap 10 (12-20); Aspartate Amino Transferase 30 U/L (5-31); Bilirubin Total 0.3 mg/dL (0.0-1.0); Blood Urea Nitrogen 12 mg/dL (9-16); Carbon Dioxide 29 mmol/L (22-29); Chloride 107 mmol/L (96-108); Cholesterol 170 mg/dL (<200); Estimated Glomerular Filt Rate 52; Glucose Fasting 86 mg/dL (60-99); HDL Cholesterol 53 mg/dL (>40); LDL Cholesterol Calculated 88 mg/dL (<100); Potassium 4.4 mmol/L (3.3-5.1); Sodium 142 mmol/L (135-145); Total Protein 6.7 g/dL (6.5-8.0); Triglycerides 148 mg/dL (<150)
[2024-04-24 12:59] LABS: TSH reflex Free T4 0.87 uIU/mL (0.32-4.0)
== END 2024-04-24 09:31 | disposition home or self-care (01) ==
LOC: HO.WFDLDS 09:30
PROVIDERS: Visit Provider Family Medicine
DX: Z00.00 Encounter for general adult medical examination without abnormal findings (principal)
CPT/HCPCS: 36415; 80053; 80061; 84443; 85025

== ENCOUNTER 2024-05-09 11:13 | Outpatient (REF) | payer MEDICARE, OTHER, SELFPAY ==
--- NOTE | ~2024-05-09 | MM_ITS ---
EXAMINATION: MM SCREENING DIGITAL BREAST TOMOSYNTHESIS, BILATERAL CLINICAL INFORMATION: Screening. Asymptomatic. COMPARISON: Mammography: Comparison is made with available priors TECHNIQUE: Digital breast mammography with tomosynthesis is performed in both the craniocaudal and mediolateral oblique views along with computer-aided detection (CAD). FINDINGS: There are scattered areas of fibroglandular density (ACR BI-RADS breast composition Category b). Grouped coarse calcifications in the upper outer left breast stable dating back to 2018. There are no significant masses, abnormal calcifications, or other abnormalities. MM/MM tomosynthesis screening BI IMPRESSION: No mammographic evidence of malignancy. ASSESSMENT: BI-RADS BI-RADS 2 - Benign Findings RECOMMENDATION: Routine annual mammography screening. 1 year F/U This examination should not preclude the clinical evaluation of a suspicious palpable abnormality. This patient's information was entered into a reminder system with a target due date for their next mammogram. Electronically signed by: Jeannine Olivares DO 05/17/2024 06:20 PM FRANCY
== END 2024-05-09 11:14 | disposition home or self-care (01) ==
LOC: HO.MAMMO 11:13
PROVIDERS: PCP Family Medicine; Visit Provider Family Medicine
DX: Z12.31 Encounter for screening mammogram for malignant neoplasm of breast (principal)
CPT/HCPCS: 77063; 77067

== ENCOUNTER → 2024-05-09 11:30 | Outpatient (BNV) | payer MEDICARE, OTHER, SELFPAY | PROVIDERS: PCP Family Medicine; Visit Provider Internal Medicine | DX: Z12.31 Encounter for screening mammogram for malignant neoplasm of breast (principal) | CPT/HCPCS: 77063; 77067 ==

== ENCOUNTER → 2024-06-04 09:47 | Outpatient (REF) | payer MEDICARE, OTHER, SELFPAY ==
--- NOTE | ~2024-06-04 | NM_ITS ---
Lexiscan Myocardial perfusion study Indication: Shortness of breath Technique: The patient was brought in for a Lexiscan perfusion study on 06/04/2024 and was injected 0.4 mg of Lexiscan intravenously. Within a minute of this injection 35 mCi of sestamibi was given intravenously. Images were obtained using the SPECT gamma camera interlaced with the gating device. Images were obtained in supine position. Resting perfusion study was performed on 06/05/2024. Patient was administered 35 mCi of sestamibi intravenously at rest. Images were then obtained in supine position. Images obtained without without CT attenuation. Total DLP 202 mGy-cm. Images were processed with the software and compared side to side in short axis, horizontal long axis and vertical long axis views. Findings: The stress perfusion study showed nonattenuated images show small area of mildly reduced uptake in the distal lateral extending into the apical wall of the LV myocardium. Remainder of the LV myocardium is normally perfused. Attenuation corrected images show mildly reduced uptake in the apex of the LV myocardium. Remainder of the LV myocardium is normally perfused. There is suggestion of left ventricular hypertrophy. The gated study shows normal LV systolic function with calculated LVEF of 62%. LV cavity is normal in size. The gated study shows normal systolic wall thickening and contraction of segments. Resting study shows nonattenuated images show improved uptake in the distal lateral wall. Attenuated corrected images show improved uptake in the apex of the LV myocardium.. Gating at rest reveals normal systolic wall motion with ejection fraction at 54%. The findings are consistent with small area reversible defect in the apex of the LV myocardium suggestive of ischemia.. NM/NM cardiolite stress test Impression: 1. Myocardial perfusion imaging study shows mild intensity small irreversible apical ischemia 2. Gated LVEF is 62% 3. Transient ischemic dilatation not present Nondiagnostic for ischemia on EKG. Electronically signed by: Russell Jensen MD 06/05/2024 03:[address] [facility]
--- NOTE | 2024-06-04 09:50 | CA_ITS ---
Acquisition Time: 2024-06-04 11:08:46 Total Exercise Time: 00:06:31 Test Indications: Abnormal ECG RBBB Medications: SEE H Protocol: MOD MAGO Max HR: 117 BPM 77% of Pred: 151 BPM Max BP: 152/072 mmHG Max Work Load: 3.6 METS Exercise Stress Test with exercise 6 mins 21 secs of Modified Mago Protocol, achieving 74% MPHR, with moderate SOB requesting to stop, no chest discomfort, without any arrythmias, with no rmotensive response to exercise. Non diagnostic EKG for ischemia. In recovery, breathing back to baseline. Test changed to Lexiscan. Pharmacologic stress test with Lexiscan while sitting in chair, with reports of SOB, tingling and discomfort to b/l upper arm, and chest tightness, without any arrythmias, with normotensive response to injection. Nondisgnostic EKG for ischemia. In recovery, pt treated with IVP AMinophylline 75 mg to reverse Lexiscan, after which pt reports SOB, tingling in the arms and the chest tightness resolved. Nuclear images pending. Test reviewed with Dr. Jensen. Referred By: Gaudencio Hoover Overread By: JERILYN JENSEN
--- OUTSIDE RECORDS SUMMARY | 2024-06-06 14:12 | XMS_ITS | Patient Health Record ---
Author Organization [facility] Address [address] [place] [address] Care Team Providers Care Tree Marker Name Role Phone Stephan Max Primary Care Provider UnavailAmando Patel Jr Unavailable [phone] ALLERGIES Allergen (clinical drug ingredient) Drug/Non Drug Allergy documented on EMR Reaction Allergy Type Onset Date Status Codeine Phosphate Unknown Drug Allergy Active REASON FOR REFERRAL No Information MEDICATIONS Medication SIG (Take, Route, Frequency, Duration) Notes Start Date End Date Status Isosorbide Mononitrate ER 60 MG 1 tablet in the morning Orally Once a day for 30 day(s) Active Atorvastatin Calcium 10 MG 1 tablet Orally Once a day for 30 day(s) Active DULoxetine HCl 60 MG 1 capsule Orally On ce a day for 30 day(s) Active Famotidine 20 MG 1 tablet at bedtime as needed Orally Once a day for 30 day(s) Active Melatonin 5 MG 1 tablet in the even ing Orally Once a day for 30 day(s) Active buPROPion HCl 75 MG 2 tablets Orally Active Pantoprazole Sodium 40 MG 1 tablet Orall y Once a day for 30 day(s) Active Mesalamine ER 0.375 GM 4 capsules in the morning Orally Once a day for 30 day(s) 09/30/2022 Active Lisinopril 20MG x 2 a day Acti ve IMMUNIZATIONS Vaccine Route Administration Date Status Comme nts Influenza Unknown 04/08/2022 Administered Influenza Unknown 04/16/2024 Administered SOCIAL HISTORY Sex Assigned At : Social History Observation Description Sex Assigned At Unknown PROBLEMS Problem Type ICD Code Onset Dates Problem Status W/U Status Risk SNOMED Code Notes Problem Colon cancer screening (Z12.11) Active confirmed 600463130 Problem Encounter for other preprocedural examination (Z01.818) Active confirmed 96881759 Problem Gastroesophageal reflux disease (K21.9) Active confirmed Gastroesophagea l reflux disease (304943843) Problem Gastroesophageal reflux disease without esophagitis (K21.9) Active confirmed 265693174 Problem Colitis (K52.9) Active confirmed 687873 04 VITAL SIGNS Temperature 97.5 degrees Fahrenheit 04/30/2024 Blood pressure diastolic 00 mm Hg 04/30/2024 Height 61.5 in 04/30/2024 Blood pressure systolic 000 mm Hg 04/30/2024 Weight 222 lb 6 oz lbs 04/30/2024 BMI 41.33 kg/m2 04/30/2024 Encounters Encounter Location Date Provider Diagnosis [facility] [address] [place] [address] [place] [phone] 01/16/2024 Amando Alba Jr [facility] [address] [address] 04/30/2024 Amando Alba Jr Gastroesophageal reflux disease without esophagitis K21.9 and Colitis K52.9 [facility] [address] [place] [address] Drive [address] [place] [address] 01/13/2024 Amando Alba Jr ASSESSMENTS Encounter Date Diagnosis Assessment Notes Treatment Notes Treatment Clinical Notes 04/30/2024 Gastroesophageal reflux disease without esophagitis (ICD-10 - K21.9) Gastroesophageal reflux disease material was printed 04/30/2024 Colitis (ICD-10 - K52.9) PLAN OF TREATMENT Future Test Test Name Order Date UPPER GI ENDOSCOPY 08/25/2012 COLONOSCOPY 10/14/2016 UPPER GI ENDOSCOPY 07/28/2022 COLONOSCOPY 07/28/2022 Next Appt Details Provider Name:Amando pulliam Jr, 05/01/2025 09:00:00 AM, [address] [place] [address], Suite [facility], [place], [address], Insurance Providers Payer Name Payer Address Payer Phone Subscriber Number Group Number Insured Name Patient Relationship to Insured Coverage Start Date Coverage End Date MEDICARE OF [facility] [address] [place] [address] [phone] [id number] PIPPA WEAVER Self - patient is the [facility] [address] [place] [address] [id number] PIPPA WEAVER Self - patient is the insured MEDICAL (GENERAL) HISTORY Medical History History ICD Code Gastroesophageal reflux dise ase, EGD 09/16 no H. pylori or Leggett's esophagus Diverticulitis Angina Depression Hyperlipidemia Hypertension Squamous cell carcinoma TIA 2012 with no residual deficit DON/CPAP Colonoscopy 09/16, tubular ad enomas x2, 15 cm length of segmental colitis, current therapy mesalamine. Difficult intubation at time of rotator cuff surgery [facility] 11/13 Surgical History Surgery Date(Month/Year) carpal tunnel surgery in both hands 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
--- OUTSIDE RECORDS SUMMARY | 2024-06-06 14:12 | XMS_ITS ---
Author Organization [facility] Address [address] [place] [address] Care Team Providers Care Videotape Editor Name Role Phone Stephan Max Primary Care Provider UnavailAmando Patel Jr Unavailable ALLERGIES Allergen (clinical drug ingredient) Drug/Non Drug Allergy documented on EMR Reaction Allergy Type Onset Date Status Codeine Phosphate Unknown Drug Allergy Active REASON FOR VISIT Patient presents today for colitis MEDICATIONS Medication SIG (Take, Route, Frequency, Duration) Notes Start Date End Date Status Famotidine 20 MG 1 tablet at bedtime as needed Orally Once a day for 30 day(s) Active Melatonin 5 MG 1 tablet in the even ing Orally Once a day for 30 day(s) Active buPROPion HCl 75 MG 2 tablets Orally Active Pantoprazole Sodium 40 MG 1 tablet Orall y Once a day for 30 day(s) Active Lisinopril 20MG x 2 a day Acti ve Isosorbide Mononitrate ER 60 MG 1 tablet in the morning Orally Once a day for 30 day(s) Active Atorvastatin Calcium 10 MG 1 tablet Orally Once a day for 30 day(s) Active DULoxetine HCl 60 MG 1 capsule Orally On ce a day for 30 day(s) Active Mesalamine ER 0.375 GM 4 capsules in the morning Orally Once a day for 30 day(s) 09/30/2022 Active VITAL SIGNS BMI 41.33 kg/m2 04/30/2024 Blood pressure systolic 000 mm Hg 04/30/20 24 Blood pressure diastolic 00 mm Hg 024 Height 61.5 in 04/30/2024 Temperature 97.5 degrees Fahrenheit 04/30/20 24 Weight 222 lb 6 oz lbs 04/30/2024 Encounters Encounter Location Date Provider Diagnosis [facility] [address] [place] [address] 04/30/2024 Amando Alba Jr Gastroesophageal reflux disease without esophagitis K21.9 and Colitis K52.9 ASSESSMENTS Encounter Date Diagnosis Assessment Notes Treatment Notes Treatment Clinical Notes 04/30/2024 Gastroesophageal reflux disease without esophagitis (ICD-10 - K21.9) Gastroesophageal reflux disease material was printed 04/30/2024 Colitis (ICD-10 - K52.9) PLAN OF TREATMENT Treatment Notes Assessment Notes Gastroesophageal reflux dise ase without esophagitis Gastroesophageal reflux disease material was printed Next Appt Details Follow Up: 1 Year, Reason: Provider Name:Amando pulliam Jr, 05/01/2025 09:00:00 AM, [address] [place] [address], [address], [place], [address],
--- OUTSIDE RECORDS SUMMARY | 2024-06-06 14:12 | XMS_ITS ---
Author Organization [facility] Address [address] [place] [address] Care Team Providers Care Paralegal Legal Secretary Name Role Phone Stephan Max Primary Care Provider Unavailab Amando Bell Jr REASON FOR VISIT R/S OV Encounters Encounter Location Date Provider Diagnosis [facility] [address] [place] [address] 01/13/2024 Amando Alba Jr PLAN OF TREATMENT Next Appt Details Provider Name:Amando pulliam Jr, 05/01/2025 09:00:00 AM, [address], [address], [place], [address],
--- OUTSIDE RECORDS SUMMARY | 2024-06-06 14:12 | XMS_ITS ---
Author Organization [facility] Address [address] [place] [address] Care Team Providers Care Director Multimedia Name Role Phone Stephan Max Primary Care Provider Unavailab Amando Bell Jr REASON FOR VISIT Patient presents today for colitis Encounters Encounter Location Date Provider Diagnosis [facility] [address] [facility] [address] [place] [address] 01/16/2024 Amando Alba Jr PLAN OF TREATMENT Next Appt Details Provider Name:Amando pulliam Jr, 05/01/2025 09:00:00 AM, [address] [facility], [address], [place], [address],
== END ==
LOC: HO.CARD 09:47
PROVIDERS: PCP Family Medicine; Visit Provider Internal Medicine Cardiovascular Disease
DX: R06.09 Other forms of dyspnea (principal)
CPT/HCPCS: 78452; 93017; A9500; J0280; J2785

== ENCOUNTER → 2024-06-04 09:50 | Outpatient (BNV) | payer MEDICARE, OTHER, SELFPAY | PROVIDERS: PCP Family Medicine; Visit Provider Nurse Practitioner Family | DX: R06.02 Shortness of breath (principal); R07.9 Chest pain, unspecified | CPT/HCPCS: 78452; 93016; 93018 ==

== ENCOUNTER 2024-06-13 14:55 | Outpatient (AMB) | payer MEDICARE, OTHER, SELFPAY ==
[2024-06-13 15:07] VITALS: BP 130/80; PULSE 83; BMI 42.0
--- NOTE | 2024-06-13 15:07 | MHC.OFFVIS ---
Vital Signs 06/13/24 15:07 Height 5 ft 1 in Weight 222 lb 3.615 oz BMI 42.0 BP 130/80 Blood Pressure Location Lt brachial Position Sitting Pulse 83 Pulse Source Pulse Oximeter Intake Visit Reasons: f/up-testing Intake Note: f/up-after testing Record Retrieval Specialist Required: No Accompanied by: Son Allergies codeine [CODEINE] Adverse Reaction (Mild, Verified 04/19/24 16:04) NAUSEA & VOMITING Medication List - Last Reconciled 06/13/24 by Gaudencio Hoover MD alendronate 70 mg PO QWEEK 28 days atorvastatin 10 mg PO DAILY 90 days bupropion HCl SR 200 mg PO DAILY 90 days duloxetine 60 mg PO BID 90 days famotidine 20 mg PO BEDTIME 90 days isosorbide mononitrate ER 60 mg PO QAM 90 days lisinopril 20 mg PO BID 90 days melatonin 5 mg PO BEDTIME PRN 30 days pantoprazole 40 mg PO DAILY 90 days psyllium husk (Metamucil) 1.2 grams PO DAILY HPI Comments Details: Pleasant 68 year female who is here for follow-up. She recently went in the hospital for outpatient procedure went ECG was noted to have T-wave changes. Reviewing the EKGs she had new right bundle-branch block with V1 V2 T-wave inversion. She has no chest discomfort but has chronic dyspnea on exertion but she is noticing that she is getting more short of breath with activity. She was a smoker but quit in . She has hypertension, hyperlipidemia and strong family history of coronary artery disease. She previously had a stress test in 2020 which was felt to be abnormal due to breast artifact. Blood pressure is well controlled. EKGs repeated in the office and is showing right bundle-branch block with T-wave inversion in V1 and V2. 06/13/2024: On last visit we referred her for stress testing. She was able to exercise for 6 minutes and stopped due to dyspnea. She was eventually changed to Lexiscan and perfusion imaging showed mild intensity small apical perfusion defect. She continues to be short of breath with activities. She also has restless legs. She is saying she is unable to walk a block. [facility] Medical History (Updated 04/19/24 @ 17:24 by Rajeev Harris) Golfers elbow Colitis CKD (chronic kidney disease) stage 3, GFR 30-59 ml/min Sleep apnea TIA (transient ischemic attack) Hx of squamous cell carcinoma HTN (hypertension) Elevated cholesterol Depression History of angina Diverticulitis GERD (gastroesophageal reflux disease) Surgical History History of knee replacement procedure of left knee Hx of squamous cell carcinoma excision Hx of total hip arthroplasty History of hysteroscopy History of carpal tunnel release of both wrists Hx of rotator cuff surgery Hx of colonoscopy Hx of esophagogastroduodenoscopy Family History Father Rheumatic fever Heart attack Stroke Mother Heart problem Social History Housing: House Alcohol intake: never Patient Tobacco Use Status: Former Tobacco user e-Cigarette/Vaping Use: Never Used Second Hand Smoke Exposure: No service: No Current occupational status: retired Current occupational exposures/hazards: No Cognitive needs: No Hearing needs: No Vision needs: Yes Review of Systems Const Denies chills, Denies fatigue, Denies fever(s), Denies frequent falls, Denies weakness, Denies weight gain and Denies weight loss ENT Denies dizziness Card Denies chest pain, Denies leg edema, Denies lightheadedness, Denies palpitations, Denies dyspnea and Denies dyspnea on exertion Resp Denies cough, Denies dyspnea and Denies dyspnea on exertion GI Denies hematochezia Musc Denies abnormal gait, Denies muscle weakness, Denies numbness, Denies radiating pain into limb and Denies tingling Neuro Denies abnormal gait, Denies dizziness, Denies frequent falls, Denies numbness, Denies tingling and Denies weakness Endo Denies fatigue and Denies palpitations Physical Exam Vital Signs: Last Vital Signs Pulse 83 06/13/24 15:07 BP 130/80 06/13/24 15:07 BMI result Body Mass Index 42.0 GENERAL APPEARANCE: in no acute distress, pleasant. NECK: no carotid bruit, + jugular venous distention. Positive hepatojugular reflux. SKIN: no suspicious lesions, warm and dry. HEART: no murmurs, regular rate and rhythm. LUNGS: clear to auscultation bilaterally. ABDOMEN: soft, nontender. EXTREMITIES: no edema. PERIPHERAL PULSES: equal. NEUROLOGIC: No gross deficits, AAO X 3 Assessment & Plan Assessment & Plan (1) AVALOS (dyspnea on exertion): Code(s): R06.09 - Other forms of dyspnea Category: Medical (2) RBBB: Code(s): I45.10 - Unspecified right bundle-branch block Category: Medical Plan 68-year-old female who is here for follow-up. She underwent Lexiscan which showed mild intensity small apical perfusion defect. She has restless legs and dyspnea. I will check iron profile and ferritin level to make sure she does not have iron-deficiency as a cause for her symptoms. Clinically she does look volume overloaded and I will start her on Lasix 20 mg daily. She will report to us in a week about her dyspnea. We will do some basic blood workup today. If in fact dyspnea does not improve with diuretics then I think we may have to pursue diagnostic angiography. If obviously she is iron-deficiency then we will refer to Hematology for further assessment. She will see us back in few months. Thank you for allowing me to participate in the care of your patient. Please feel free to contact me if you have any questions. Orders: Orders B Type Natriuretic Peptide Today R06.09 - Other forms of dyspnea Complete Blood Count no Diff Today R06.09 - Other forms of dyspnea IRON PROFILE Today R06.09 - Other forms of dyspnea Ferritin Today R06.09 - Other forms of dyspnea Medications: New furosemide 20 mg PO DAILY 60 tabs 3RF R06.09 - Other forms of dyspnea Coding Level of Care Code Est Pt Level 4 (15736) Diagnoses AVALOS (dyspnea on exertion) R06.09 RBBB I45.10
--- OUTSIDE RECORDS SUMMARY | 2024-06-13 15:13 | XMS_ITS ---
Author Organization [facility] Address [address] [place] [address] Care Team Providers Care Tableau Report Developer Name Role Phone Stephan Max Primary Care Provider UnavailAmando aPtel Jr Unavailable ALLERGIES Allergen (clinical drug ingredient) [...] 04/30/2024 Encounters Encounter Location Date Provider Diagnosis [facility] [address] [place] [address] 04/30/2024 Amando Alba Jr Gastroesophageal reflux disease [...] Provider Name:Amando pulliam Jr, 05/01/2025 09:00:00 AM, [address] [place] [address], [address], [place], [address],
--- OUTSIDE RECORDS SUMMARY | 2024-06-13 15:14 | XMS_ITS ---
Author Organization [facility] Address [address] [place] [address] Care Team Providers Care Logging Crew Supervisor Name Role Phone Stephan Max Primary Care Provider Unavailab Amando Bell Jr [phone] REASON FOR VISIT R/S OV Encounters Encounter Location Date Provider Diagnosis [facility] [address] [place] [address] 01/13/2024 Amando Alba Jr PLAN OF TREATMENT Next Appt Details Provider Name:Amando pulliam Jr, 05/01/2025 09:00:00 AM, [address], [address], [place], [address],
--- OUTSIDE RECORDS SUMMARY | 2024-06-13 15:14 | XMS_ITS ---
Author Organization [facility] Address [address] [place] [address] Care Team Providers Care Hydrochloric Area Supervisor Name Role Phone Stephan Max Primary Care Provider Unavailab Amando Bell Jr REASON FOR VISIT Patient presents today for colitis Encounters Encounter Location Date Provider Diagnosis [facility] [address] [place] [address] 01/16/2024 Amando Alba Jr PLAN OF TREATMENT Next Appt Details Provider Name:Amando pulliam Jr, 05/01/2025 09:00:00 AM, [address], [address], [place], [address],
--- OUTSIDE RECORDS SUMMARY | 2024-06-13 15:14 | XMS_ITS | Patient Health Record ---
Author Organization [facility] Address [address] [place] [address] Care Team Providers Care Bottom Worker Name Role Phone Stephan Max Primary Care [...] Problem Colon cancer screening (Z12.11) Active confirmed 997944384 Problem Encounter for other preprocedural examination (Z01.818) Active confirmed 75544550 Problem Gastroesophageal reflux disease (K21.9) Active confirmed Gastroesophagea l reflux disease (614316574) Problem Gastroesophageal reflux disease without esophagitis (K21.9) Active confirmed 533561481 Problem Colitis (K52.9) Active confirmed 391398 04 VITAL SIGNS Temperature 97.5 degrees Fahrenheit 04/30/2024 Blood pressure diastolic 00 mm Hg 04/30/2024 Height 61.5 in 04/30/2024 Blood pressure systolic 000 mm Hg 04/30/2024 Weight 222 lb 6 oz lbs 04/30/2024 BMI 41.33 kg/m2 04/30/2024 Encounters Encounter Location Date Provider Diagnosis [facility] [address] [place] [address] [place] [address] 01/16/2024 Amando Alba Jr [facility] [address] [address] 04/30/2024 Amando Alba Jr Gastroesophageal reflux disease without esophagitis K21.9 and Colitis K52.9 [facility] [address] [place] [address] Drive [address] [place] [address] 01/13/2024 Amando Alba Jr ASSESSMENTS Encounter Date [...] Provider Name:Amando pulliam Jr, 05/01/2025 09:00:00 AM, [address] [place] [address], [address] [facility], [place], [address], Insurance Providers Payer Name Payer Address Payer Phone Subscriber Number Group Number Insured Name Patient Relationship to Insured Coverage Start Date Coverage End Date MEDICARE OF [facility] DAVID [address] [place] [address] [id number] PIPPA WEAVER Self - patient is the [facility] [address] [place] [phone] [id number] PIPPA WEAVER Self - patient is the [...] intubation at time of rotator cuff surgery [facility] 11/13 Surgical History Surgery Date(Month/Year) carpal tunnel surgery in both hands 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
== END 2024-06-13 15:44 | disposition home or self-care (01) ==
PROVIDERS: PCP Family Medicine; Visit Provider Internal Medicine Cardiovascular Disease
DX: R06.09 Other forms of dyspnea (principal); I45.10 Unspecified right bundle-branch block
CPT/HCPCS: 99214

== ENCOUNTER 2024-06-13 14:55 | Outpatient (REF) | payer MEDICARE, OTHER, SELFPAY ==
[2024-06-13 16:57] LABS: Hematocrit 37.1 % (37.0-47.0); Hemoglobin 12.6 g/dl (12.0-16.0); Mean Corpuscular Hemoglobin 30.1 pg (27.0-33.0); Mean Corpuscular Volume 88.8 fL (80.0-98.0); Mean Platelet Volume 9.7 fL (9.4-12.3); Platelet Count 315 X10*3/uL (160-400); Red Blood Count 4.18 X10*6/uL (4.20-5.50); Red Cell Distribution Width 14.2 % (11.0-16.0); White Blood Count 6.5 X10*3/uL (4.8-10.8)
[2024-06-13 17:20] LABS: B Type Natriuretic Peptide 74 pg/mL (<100)
[2024-06-13 17:56] LABS: Iron 47 mcg/dL (30-160); Percent Iron Saturation 14 % (15-50); Total Iron Binding Capacity 325 mcg/dL (228-428); Unsaturated Iron Binding 278 ug/dL
[2024-06-13 17:57] LABS: Ferritin 20 ng/mL (10-250)
== END 2024-06-13 14:56 | disposition home or self-care (01) ==
LOC: HO.LAB 14:55
PROVIDERS: PCP Family Medicine; Visit Provider Internal Medicine Cardiovascular Disease
DX: R06.09 Other forms of dyspnea (principal); I45.10 Unspecified right bundle-branch block
CPT/HCPCS: 36415; 82728; 83540; 83880; 85027; 99212

== ENCOUNTER 2024-06-14 11:27 | Outpatient (REF) | payer MEDICARE, OTHER, SELFPAY ==
--- OUTSIDE RECORDS SUMMARY | 2024-06-14 11:30 | XMS_ITS ---
Author Organization [facility] Address [address] [place] [address] Care Team Providers Care Field Technician Name Role Phone Stephan Max Primary Care Provider Unavailab Amando Bell Jr REASON FOR VISIT Patient presents today for colitis Encounters Encounter Location Date Provider Diagnosis [facility] [address] [place] [address] 01/16/2024 Amando Alba Jr PLAN OF TREATMENT Next Appt Details Provider Name:Amando pulliam Jr, 05/01/2025 09:00:00 AM, [address], [address], [place], [address],
--- OUTSIDE RECORDS SUMMARY | 2024-06-14 11:30 | XMS_ITS ---
Author Organization [facility] Address [address] [place] [address] Care Team Providers Care Business Line Manager Name Role Phone Stephan Max Primary Care [...] 04/30/2024 Encounters Encounter Location Date Provider Diagnosis [facility] [address] [place] [address] 04/30/2024 Amando Alba Jr Gastroesophageal reflux disease [...] Provider Name:Amando pulliam Jr, 05/01/2025 09:00:00 AM, [address] [place] [address], [address], [place], [address],
--- OUTSIDE RECORDS SUMMARY | 2024-06-14 11:30 | XMS_ITS | Patient Health Record ---
Author Organization [facility] Address [address] [place] [address] Care Team Providers Care Sales Agent Financial Report Service Name Role Phone Stephan Max Primary Care [...] Problem Colon cancer screening (Z12.11) Active confirmed 001264949 Problem Encounter for other preprocedural examination (Z01.818) Active confirmed [id number] Problem Gastroesophageal reflux disease (K21.9) Active confirmed Gastroesophagea l reflux disease (205578517) Problem Gastroesophageal reflux disease without esophagitis (K21.9) Active confirmed [id number] Problem Colitis (K52.9) Active confirmed 329491 04 VITAL SIGNS Temperature 97.5 degrees Fahrenheit 04/30/2024 Blood pressure diastolic 00 mm Hg 04/30/2024 Height 61.5 in 04/30/2024 Blood pressure systolic 000 mm Hg 04/30/2024 Weight 222 lb 6 oz lbs 04/30/2024 BMI 41.33 kg/m2 04/30/2024 Encounters Encounter Location Date Provider Diagnosis [facility] [address] [place] [address] [place] [phone] 01/16/2024 Amando Alba Jr [facility] [address] [address] 04/30/2024 Amando Alba Jr Gastroesophageal reflux disease without esophagitis K21.9 and Colitis K52.9 [facility] [address] [place] [address] Drive [address] [place] [address] 01/13/2024 Amando Alba Jr ASSESSMENTS Encounter Date [...] Provider Name:Amando pulliam Jr, 05/01/2025 09:00:00 AM, [address] [place] [address], Suite [facility], [place], [address], Insurance Providers Payer Name Payer Address Payer Phone Subscriber Number Group Number Insured Name Patient Relationship to Insured Coverage Start Date Coverage End Date MEDICARE OF [facility] DAVID [address] [place] [address] [phone] [id number] PIPPA WEAVER Self - patient is the [facility] [address] [place] [phone] [id number] PIPPA WEAVER Self - patient is the [...] intubation at time of rotator cuff surgery [facility] 11/13 Surgical History Surgery Date(Month/Year) carpal tunnel surgery in both hands 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
--- OUTSIDE RECORDS SUMMARY | 2024-06-14 11:30 | XMS_ITS ---
Author Organization [facility] Address [address] [place] [address] Care Team Providers Care Digital Marketing Associate Name Role Phone Stephan Max Primary Care Provider Unavailab Amando Bell Jr [phone] REASON FOR VISIT R/S OV Encounters Encounter Location Date Provider Diagnosis [facility] [address] [place] [address] 01/13/2024 Amando Alba Jr PLAN OF TREATMENT Next Appt Details Provider Name:Amando pulliam Jr, 05/01/2025 09:00:00 AM, [address], [address], [place], [address],
[2024-06-14 12:17] LABS: Appearance Urine Clear; Color Urine Yellow; Glucose Urine UA Negative (Negative); Leukocyte Esterase Urine Small (1+) (Negative); Nitrite Urine Negative (Negative); PH 5.5 (5.0-9.0); UMIC TRIGGER UA YES; Urine Blood Negative (Negative); Urine Ketones Negative (Negative); Urine Protein Negative (Neg-Trace)
[2024-06-14 12:22] LABS: Bacteria Urine None Seen (None Seen); Hyaline Casts Urine 0-2 /LPF (0-2); RBC Urine 0-2 /HPF (0-2)
[2024-06-14 13:33] LABS: Creatinine Urine 115.47 mg/dL; Microalbum/Creatinine Ratio Ur 10.3 ug/mg cr (<30)
== END 2024-06-14 11:28 | disposition home or self-care (01) ==
LOC: HO.LNP 11:27
PROVIDERS: Visit Provider Family Medicine
DX: Z00.00 Encounter for general adult medical examination without abnormal findings (principal); I10 Essential (primary) hypertension
CPT/HCPCS: 81001; 81003; 82043; 82570

== ENCOUNTER 2024-07-05 11:09 | Outpatient (AMB) | payer MEDICARE, OTHER, SELFPAY ==
--- NOTE | 2024-07-05 11:10 | MHC.OFFVIS ---
Vital Signs 07/05/24 11:11 Height 5 ft 1 in Weight 218 lb BMI 41.2 Intake Visit Reasons: INP-DON Intake Note: Patient presents for DON Allergies codeine [CODEINE] Adverse Reaction (Mild, Verified 07/05/24 11:14) NAUSEA & VOMITING HPI Comments Details: 68 year old female is here for a sleep evaluation and she is referred to us by her PCP, Dr. Max. [facility] Distributive Shock, in December 2023, she is being follow by Dr. Hoover. She used to have a machine 17 years ago after her sleep evaluation with [facility], and now needs to have a new evalution as it has been years since she has been seen for sleep. She normally sleeps restfully when she falls asleep, but has a very difficult time falling asleep, she lays in bed for hours. She has a difficult time getting up from sleep and feels exhausted, snores and gasps for air. She is a side sleeper and tosses and turns all night. Denies abnormal sleep behaviors, and memory difficulties, morning headaches vision changes. She stops breathing and doesn't know if she is just breathing shallower. 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 Her mood is good, diet is okay, she gets over whelmed with challenges of being a health care law specialist at times. She is independent in all ADLs. Denies constipation. RLS: Usually when going to bed she feels a numb, discomfort like sensation in her legs. It does wake her up from sleep, as she sleeps deeply. She has to move her legs several times to get comfortable and takes 2 Tylenol tablets daily at night. [facility] Medical History Golfers elbow Colitis CKD (chronic kidney disease) stage 3, GFR 30-59 ml/min Sleep apnea TIA (transient ischemic attack) Hx of squamous cell carcinoma HTN (hypertension) Elevated cholesterol Depression History of angina Diverticulitis GERD (gastroesophageal reflux disease) Surgical History History of knee replacement procedure of left knee Hx of squamous cell carcinoma excision Hx of total hip arthroplasty History of hysteroscopy History of carpal tunnel release of both wrists Hx of rotator cuff surgery Hx of colonoscopy Hx of esophagogastroduodenoscopy Family History Father Rheumatic fever Heart attack Stroke Mother Heart problem Social History Housing: House Alcohol intake: never Patient Tobacco Use Status: Former Tobacco user e-Cigarette/Vaping Use: Never Used Second Hand Smoke Exposure: No service: No Current occupational status: retired Current occupational exposures/hazards: No Cognitive needs: No Hearing needs: No Vision needs: Yes Review of Systems Const All systems reviewed & are unremarkable except as noted in HPI and below Physical Exam Vital Signs: BMI result Body Mass Index 41.2 Const General: cooperative, comfortable and no acute distress Nutritional Appearance: obese (41.2) Orientation/consciousness: patient oriented x3 HEENT Face and sinus: Yes normal facial exam and Yes face symmetric Teeth and gingiva: other ([place]i score of 4) Eyes Pupils: Equal, round and reactive pupils present Neck Neck: Yes full ROM and Yes supple Resp Effort & Inspection: normal respiratory effort and able to speak in complete sentences Neuro General: patient oriented x3 and moves all extremities Cranial nerves: Yes CN's II-XII intact bilaterally, Yes Facial sensation intact/muscles of mastication intact, Yes Equal, round and reactive pupils present, Yes Normal accommodation reflex present, Yes Bilaterally intact EOM present, Yes Nystagmus not present, Yes Normal facial strength present, Yes Midline tongue present, Yes Ability to bilaterally rotate head present and Yes Ability to bilaterally elevate shoulders present Cognition (Neuro): normal cognition Gait exam (Neuro): Normal gait present Motor exam (neuro): 5/5 motor strength present throughout, Pronator motor function not present, no tremor noted and Normal motor muscle tone present throughout Deep tendon reflexes (DTR's): Right triceps reflex intensity grade: 2+, Left triceps reflex intensity grade: 2+, Rt Biceps (C5, C6): 2+, Left biceps reflex intensity grade: 2+, Right brachioradialis reflex intensity grade: 2+, Left brachioradialis reflex intensity grade: 2+, Right patellar reflex intensity grade: 2+, Left patellar reflex intensity grade: 2+, Right ankle reflex intensity grade: 2+ and Left ankle reflex intensity grade: 2+ Coordination: [id number] test normal Psych Appearance: grossly normal Mental Status: mental status grossly normal Speech and movement: Normal speech and movement present Affect: normal affect Attitude: cooperative Thought process: Normal thought process present Thought content: Normal thought content present Insight: Good insight present (Psych) Judgement: Good judgement present (Psych) Results Reviewed Results Reviewed: PMH history Labs Iron low 05/2024 Assessment & Plan Assessment & Plan (1) Fatigue due to sleep pattern disturbance: Code(s): R53.83 - Other fatigue; G47.9 - Sleep disorder, unspecified Category: Medical Plan Sleep Apnea HST evaluation for Sleep disturbances, snoring, apneas. Fatigue Labs: B12 Folate/ VitD CBC/CMP/ TSH F/U in 3 months, may call or message us on the portal. Orders: Orders Vitamin D 25-OH Total Today G47.9 - Sleep disorder, unspecified, R53.83 - Other fatigue TSH reflex Free T4 Today F09 - Unspecified mental disorder due to known physiological condition RT home sleep study Today G47.9 - Sleep disorder, unspecified, R53.83 - Other fatigue Complete Blood Count no Diff Today G47.9 - Sleep disorder, unspecified, R53.83 - Other fatigue Comprehensive Met. Panel Today G47.9 - Sleep disorder, unspecified, R53.83 - Other fatigue Vitamin B12 and Folate Today G47.9 - Sleep disorder, unspecified, R53.83 - Other fatigue Coding Level of Care Code Tele New Pt Level 4 (01274) Diagnoses Fatigue due to sleep pattern disturbance R53.83; G47.9 Sleep Questionnaire Difficulty falling asleep: Yes Difficulty staying asleep?: No Number of arousals: 1x Snoring: Yes Witnessed apneas: Yes (shallow breathing doesn't get enough air in.) Gasping arousals: Yes Nocturia: No GERD: Yes (famotidine and pantrapazole) Vivid dreams: No Acting out dreams: No Abnormal behavior in sleep: No Abnormal movements in sleep: Yes (restless legs and tosses and turns) Morning headaches: Yes Excessive daytime sleepiness: Yes Daytime naps: No Restless legs: Yes Hallucinations: No Sleep paralysis: No Drop attacks: No Sleep Study: Yes (17 years ago at [facility] ) CPAP: Yes
[2024-07-05 11:11] VITALS: BMI 41.2
--- OUTSIDE RECORDS SUMMARY | 2024-07-05 11:49 | XMS_ITS ---
Author Organization [facility] Address [address] [place] [address] Care Team Providers Care Program Control Analyst Name Role Phone Stephan Max Primary Care Provider Unavailab Amando Bell Jr [phone] REASON FOR VISIT Patient presents today for colitis Encounters Encounter Location Date Provider Diagnosis [facility] [address] [facility] [address] [place] [address] 01/16/2024 Amando Alba Jr PLAN OF TREATMENT Next Appt Details Provider Name:Amando pulliam Jr, 05/01/2025 09:00:00 AM, [address] [facility] [address] [facility], [address], [place], [address],
--- OUTSIDE RECORDS SUMMARY | 2024-07-05 11:49 | XMS_ITS ---
Author Organization [facility] Address [address] [place] [address] Care Team Providers Care Project/Production Manager Imaging Name Role Phone Stephan Max Primary Care Provider UnavailAmando Patel Jr Unavailable [phone] ALLERGIES Allergen (clinical drug ingredient) Drug/Non Drug [...] [facility] [address] [facility] [address] [place] [address] 04/30/2024 Amando Alba Jr Gastroesophageal reflux disease [...] Provider Name:Amando pulliam Jr, 05/01/2025 09:00:00 AM, [address] [place] [address], [address], [place], [address],
--- OUTSIDE RECORDS SUMMARY | 2024-07-05 11:49 | XMS_ITS ---
Author Organization [facility] Address [address] [place] [address] Care Team Providers Care Managing Partner Digital Content Marketing [place] Name Role Phone Stephan Max Primary Care Provider Unavailab Amanod Bell Jr REASON FOR VISIT R/S OV Encounters Encounter Location Date Provider Diagnosis [facility] [address] [place] [address] 01/13/2024 Amando Alba Jr PLAN OF TREATMENT Next Appt Details Provider Name:Amando pulliam Jr, 05/01/2025 09:00:00 AM, [address], [address], [place], [address],
--- OUTSIDE RECORDS SUMMARY | 2024-07-05 11:49 | XMS_ITS | Patient Health Record ---
Author Organization [facility] Address [address] [place] [address] Care Team Providers Care Vamp Maker Name Role Phone Stephan Max Primary Care [...] Problem Colon cancer screening (Z12.11) Active confirmed [id number] Problem Encounter for other preprocedural examination (Z01.818) Active confirmed 28048783 Problem Gastroesophageal reflux disease (K21.9) Active confirmed Gastroesophagea l reflux disease (168642461) Problem Gastroesophageal reflux disease without esophagitis (K21.9) Active confirmed 026573787 Problem Colitis (K52.9) Active confirmed 530550 04 VITAL SIGNS Temperature 97.5 degrees Fahrenheit 04/30/2024 Blood pressure diastolic 00 mm Hg 04/30/2024 Height 61.5 in 04/30/2024 Blood pressure systolic 000 mm Hg 04/30/2024 Weight 222 lb 6 oz lbs 04/30/2024 BMI 41.33 kg/m2 04/30/2024 Encounters Encounter Location Date Provider Diagnosis [facility] [address] [place] [address] [place] [address] 01/16/2024 Amando Alba Jr [facility] [address] [address] 04/30/2024 Amando Alba Jr Gastroesophageal reflux disease without esophagitis K21.9 and Colitis K52.9 [facility] [address] [place] [address] Drive [address] [place] [address] 01/13/2024 Amando Alba Jr ASSESSMENTS Encounter Date [...] Provider Name:Amando pulliam Jr, 05/01/2025 09:00:00 AM, [address] [place] [address], Suite [facility], [place], [address], Insurance Providers Payer Name Payer Address Payer Phone Subscriber Number Group Number Insured Name Patient Relationship to Insured Coverage Start Date Coverage End Date MEDICARE OF [facility] DAVID [address] [place] [address] [id number] PIPPA WEAVER Self - patient is the [facility] [address] [place] [phone] [id number] PIPPA WEAVER Self - patient is the [...] intubation at time of rotator cuff surgery [facility] 11/13 Surgical History Surgery Date(Month/Year) carpal tunnel surgery in both hands 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
== END 2024-07-05 11:54 | disposition home or self-care (01) ==
PROVIDERS: PCP Family Medicine; Visit Provider Physician Assistant Medical
DX: R53.83 Other fatigue (principal); G47.20 Circadian rhythm sleep disorder, unspecified type
CPT/HCPCS: 99204

== ENCOUNTER → 2024-07-05 11:09 | Outpatient (BNVA) | payer MEDICARE, OTHER, SELFPAY | PROVIDERS: PCP Family Medicine; Visit Provider Physician Assistant Medical | DX: G47.9 Sleep disorder, unspecified (principal); R53.83 Other fatigue | CPT/HCPCS: 99202 ==

== ENCOUNTER → 2024-07-12 23:59 | Outpatient (BNV) | payer MEDICARE, OTHER, SELFPAY | PROVIDERS: PCP Family Medicine; Visit Provider Internal Medicine Cardiovascular Disease | DX: I21.4 Non-ST elevation (NSTEMI) myocardial infarction (principal) | CPT/HCPCS: 93458; 99152 ==

== ENCOUNTER 2024-07-25 15:12 | Outpatient (AMB) | payer MEDICARE, OTHER, SELFPAY ==
[2024-07-25 15:40] VITALS: BP 110/62; PULSE 56; BMI 41.3
--- NOTE | 2024-07-25 15:40 | A.OFFVIS_ITS ---
Vital Signs 07/25/24 15:40 Height 5 ft 1 in Weight 218 lb 11.177 oz BMI 41.3 BP 110/62 Blood Pressure Location Lt brachial Position Sitting Pulse 56 Pulse Source Monitor Intake Visit Reasons: Follow up/wound check post cardiac cath Intake Note: f/up/ wound check [employer] Required: No Accompanied by: Self / Same As Patient Allergies codeine [CODEINE] Adverse Reaction (Mild, Verified 07/05/24 11:14) NAUSEA & VOMITING Medication List - Last Reconciled 07/25/24 by Gaudencio Hoover MD alendronate 70 mg PO QWEEK 28 days aspirin (Adult Aspirin Regimen) 81 mg PO DAILY atorvastatin 10 mg PO DAILY 90 days bupropion HCl SR 200 mg PO DAILY 90 days docusate sodium (Colace) 100 mg PO BID PRN duloxetine 60 mg PO BID 90 days famotidine 20 mg PO BEDTIME 90 days ferrous sulfate 300 mg (5 mL) PO DAILY furosemide 20 mg PO DAILY isosorbide mononitrate ER 60 mg PO QAM 90 days metoprolol tartrate 25 mg PO BID pantoprazole 40 mg PO DAILY 90 days psyllium husk (Metamucil) 1.2 grams PO DAILY HPI Comments Details: Pleasant 68 year female who is here for follow-up. She recently went in the hospital for outpatient procedure went ECG was noted to have T-wave changes. Reviewing the EKGs she had new right bundle-branch block with V1 V2 T-wave inversion. She has no chest discomfort but has chronic dyspnea on exertion but she is noticing that she is getting more short of breath with activity. She was a smoker but quit in . She has hypertension, hyperlipidemia and strong family history of coronary artery disease. She previously had a stress test in 2020 which was felt to be abnormal due to breast artifact. Blood pressure is well controlled. EKGs repeated in the office and is showing right bundle-branch block with T-wave inversion in V1 and V2. 06/13/2024: On last visit we referred her for stress testing. She was able to exercise for 6 minutes and stopped due to dyspnea. She was eventually changed to Lexiscan and perfusion imaging showed mild intensity small apical perfusion defect. She continues to be short of breath with activities. She also has restless legs. She is saying she is unable to walk a block. 07/25/2024: Here for follow-up after recent admission to [facility]. She had sudden also chest pain which woke her from sleep and she was taken to [facility] and ruled in for NSTEMI. She was started on heparin drip and underwent cardiac catheterization. Cardiac catheterization did not show any significant coronary disease. Subsequently she has was started on aspirin and echocardiography was performed which showed apical dyskinesis and changes were somewhat suggestive of stress-induced myopathy. She also had diffuse T-wave inversions with QT prolongation which also goes along with takotsubo cardiomyopathy. No obvious trigger is found because there is no new stressor in her life. [facility] Medical History (Updated 07/25/24 @ 16:25 by Gaudencio Hoover MD) Golfers elbow Colitis CKD (chronic kidney disease) stage 3, GFR 30-59 ml/min Sleep apnea TIA (transient ischemic attack) Hx of squamous cell carcinoma HTN (hypertension) Elevated cholesterol Depression History of angina Diverticulitis GERD (gastroesophageal reflux disease) Surgical History (Updated 07/25/24 @ 15:48 by Niya David CMA) Hx of cardiac cath History of knee replacement procedure of left knee Hx of squamous cell carcinoma excision Hx of total hip arthroplasty History of hysteroscopy History of carpal tunnel release of both wrists Hx of rotator cuff surgery Hx of colonoscopy Hx of esophagogastroduodenoscopy Family History Father Rheumatic fever Heart attack Stroke Mother Heart problem Social History Housing: House Alcohol intake: never Patient Tobacco Use Status: Former Tobacco user e-Cigarette/Vaping Use: Never Used Second Hand Smoke Exposure: No service: No Current occupational status: retired Current occupational exposures/hazards: No Cognitive needs: No Hearing needs: No Vision needs: Yes Review of Systems Const Denies chills, Denies fatigue, Denies fever(s), Denies frequent falls, Denies weakness, Denies weight gain and Denies weight loss ENT Denies dizziness Card Denies chest pain, Reports diaphoresis, Denies leg edema, Denies lightheadedness, Denies palpitations, Reports dyspnea and Reports dyspnea on exertion Resp Denies cough, Reports dyspnea and Reports dyspnea on exertion GI Denies hematochezia Musc Denies abnormal gait, Denies muscle weakness, Denies numbness, Denies radiating pain into limb and Denies tingling Neuro Denies abnormal gait, Denies dizziness, Denies frequent falls, Denies numbness, Denies tingling and Denies weakness Endo Denies fatigue and Denies palpitations Physical Exam Vital Signs: Last Vital Signs Pulse 56 07/25/24 15:40 BP 110/62 07/25/24 15:40 BMI result Body Mass Index 41.3 GENERAL APPEARANCE: in no acute distress, pleasant. NECK: no carotid bruit. SKIN: no suspicious lesions, warm and dry. HEART: no murmurs, regular rate and rhythm. LUNGS: clear to auscultation bilaterally. ABDOMEN: soft, nontender. EXTREMITIES: no edema. PERIPHERAL PULSES: equal. NEUROLOGIC: No gross deficits, AAO X 3 Office Procedures EKG Details: Sinus bradycardia 56 beats per minute, normal axis, diffuse T-wave inversions, right bundle-branch block, QRS duration 132 milliseconds, QTC 538 milliseconds. [id number], Complete Assessment & Plan Assessment & Plan (1) Takotsubo cardiomyopathy: Code(s): I51.81 - Takotsubo syndrome Category: Medical (2) NSTEMI (non-ST elevated myocardial infarction): Code(s): I21.4 - Non-ST elevation (NSTEMI) myocardial infarction Category: Medical Plan Pleasant 68 year female who is here for follow-up. She had dyspnea on exertion and was started on diuretics without any improvement. Subsequently got admitted with NSTEMI to [facility] for cardiac catheterization list showed no significant coronary disease. She had apical wall motion abnormality on LV g which was quite limited due to equipment dysfunction. She subsequently had echocardiography which showed apical dyskinesis preserved LV function. Findings were suggestive of takotsubo cardiomyopathy. Clinically she has been doing better since he got home. EKGs still has diffuse T-wave inversions with prolonged QT interval. Avoid any antibiotics which can affect the QT like azithromycin or levofloxacin. Continue baby aspirin and rest of the medications. Repeat echocardiography in 2 months and follow up after that. Thank you for allowing me to participate in the care of your patient. Please feel free to contact me if you have any questions. Orders: Orders [facility] Today I51.81 - Takotsubo syndrome Medications: On Hold furosemide Hold Comment: Doctor's Order 20 mg PO DAILY 60 tabs 3RF R06.09 - Other forms of dyspnea Coding Level of Care Code Est Pt Level 4 (43755) Diagnoses Takotsubo cardiomyopathy I51.81 NSTEMI (non-ST elevated myocardial infarction) I21.4 CPT Codes EKG - CPT: 15832-Voebldulspumnfwwy, Complete ([id number])
--- OUTSIDE RECORDS SUMMARY | 2024-07-25 17:13 | XMS_ITS ---
Author Organization [facility] Address [address] [place] [address] Care Team Providers Care Staple Cutter Name Role Phone Stephan Max Primary Care [...] 04/30/2024 Encounters Encounter Location Date Provider Diagnosis [facility] [address] [facility] [facility] [address] [place] [address] 04/30/2024 Amando Alba Jr Gastroesophageal reflux disease [...] Provider Name:Amando pulliam Jr, 05/01/2025 09:00:00 AM, [address] [place] [address], [address], [place], [address],
--- OUTSIDE RECORDS SUMMARY | 2024-07-25 17:13 | XMS_ITS ---
Author Organization [facility] Address [address] [place] [address] Care Team Providers Care Stained Glass Glazier Helper Name Role Phone Stephan Max Primary Care Provider Unavailab Amando Bell Jr REASON FOR VISIT R/S OV Encounters Encounter Location Date Provider Diagnosis [facility] [address] [place] [address] 01/13/2024 Amando Alba Jr PLAN OF TREATMENT Next Appt Details Provider Name:Amando pulliam Jr, 05/01/2025 09:00:00 AM, [address], [address], [place], [address],
--- OUTSIDE RECORDS SUMMARY | 2024-07-25 17:13 | XMS_ITS | Patient Health Record ---
Author Organization [facility] Address [address] [place] [address] Care Team Providers Care Forest Fire Prevention Specialist Name Role Phone Stephan Max Primary Care [...] Problem Colon cancer screening (Z12.11) Active confirmed 793892307 Problem Encounter for other preprocedural examination (Z01.818) Active confirmed 55357072 Problem Gastroesophageal reflux disease (K21.9) Active confirmed Gastroesophagea l reflux disease (192211317) Problem Gastroesophageal reflux disease without esophagitis (K21.9) Active confirmed 719062073 Problem Colitis (K52.9) Active confirmed 252792 04 VITAL SIGNS Temperature 97.5 degrees Fahrenheit 04/30/2024 Blood pressure diastolic 00 mm Hg 04/30/2024 Height 61.5 in 04/30/2024 Blood pressure systolic 000 mm Hg 04/30/2024 Weight 222 lb 6 oz lbs 04/30/2024 BMI 41.33 kg/m2 04/30/2024 Encounters Encounter Location Date Provider Diagnosis [facility] [address] [place] [address] [place] [address] 01/16/2024 Amando Alba Jr [facility] [address] [address] 04/30/2024 Amando Alba Jr Gastroesophageal reflux disease without esophagitis K21.9 and Colitis K52.9 [facility] [address] [place] [address] Drive [address] [place] [address] 01/13/2024 Amando Alba Jr ASSESSMENTS Encounter Date [...] Provider Name:Amando pulliam Jr, 05/01/2025 09:00:00 AM, [address] [place] [address], Suite [facility], [place], [address], Insurance Providers Payer Name Payer Address Payer Phone Subscriber Number Group Number Insured Name Patient Relationship to Insured Coverage Start Date Coverage End Date MEDICARE OF [facility] DAVID [address] [place] [address] [id number] PIPPA WEAVER Self - patient is the [facility] [address] [place] [phone] [id number] PIPPA WEAVER Self - patient is the [...] intubation at time of rotator cuff surgery [facility] 11/13 Surgical History Surgery Date(Month/Year) carpal tunnel surgery in both hands 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
--- OUTSIDE RECORDS SUMMARY | 2024-07-25 17:13 | XMS_ITS ---
Author Organization [facility] Address [address] [place] [address] Care Team Providers Care Drag Car Racer Name Role Phone Stephan Max Primary Care Provider Unavailab Amando Bell Jr REASON FOR VISIT Patient presents today for colitis Encounters Encounter Location Date Provider Diagnosis [facility] [address] [facility] [address] [place] [address] 01/16/2024 Amadno Alba Jr PLAN OF TREATMENT Next Appt Details Provider Name:Amando pulliam Jr, 05/01/2025 09:00:00 AM, [address] [facility], [address], [place], [address],
== END 2024-07-25 16:24 | disposition home or self-care (01) ==
PROVIDERS: PCP Family Medicine; Visit Provider Internal Medicine Cardiovascular Disease
DX: I51.81 Takotsubo syndrome (principal); I21.4 Non-ST elevation (NSTEMI) myocardial infarction
CPT/HCPCS: 93010; 99214

== ENCOUNTER → 2024-07-25 15:12 | Outpatient (BNVA) | payer MEDICARE, OTHER, SELFPAY | PROVIDERS: PCP Family Medicine; Visit Provider Internal Medicine Cardiovascular Disease | DX: I51.81 Takotsubo syndrome (principal); I21.4 Non-ST elevation (NSTEMI) myocardial infarction; R06.09 Other forms of dyspnea | CPT/HCPCS: 93005; 99212 ==

== ENCOUNTER 2024-07-26 11:51 | Outpatient (AMB) | payer MEDICARE, OTHER, SELFPAY ==
--- NOTE | 2024-07-26 12:27 | A.OFFPC_ITS ---
Vital Signs 07/26/24 12:33 Height 5 ft 1 in Weight 219 lb 6 oz BMI 41.4 BP 120/70 Blood Pressure Location Lt brachial Position Sitting Respiration 16 Pulse 54 Pulse Source Pulse Oximeter Temp 97.8 F Temp Source Oral Pulse Oximetry (%) 99 Oxygen Delivery Method Room Air Intake Visit Reasons: [facility] [place] for heart issues Intake Note: hospital discharge Allergies codeine [CODEINE] Adverse Reaction (Mild, Verified 07/26/24 12:37) NAUSEA & VOMITING Medication List - Last Reconciled 07/26/24 by Stephan Max MD alendronate 70 mg PO QWEEK 28 days aspirin (Adult Aspirin Regimen) 81 mg PO DAILY atorvastatin 10 mg PO DAILY 90 days bupropion HCl SR 200 mg PO DAILY 90 days docusate sodium (Colace) 100 mg PO BID PRN duloxetine 60 mg PO BID 90 days famotidine 20 mg PO BEDTIME 90 days ferrous sulfate 200 mg PO DAILY furosemide 20 mg PO DAILY isosorbide mononitrate ER 60 mg PO QAM 90 days metoprolol tartrate 25 mg PO BID pantoprazole 40 mg PO DAILY 90 days psyllium husk (Metamucil) 1.2 grams PO DAILY Tobacco use date assessed: 04/19/24 Dental Screening Dental Screen Date: 04/19/24 HPI [facility] [place] for heart issues HPI Details 68 y/o female presents to f/u hospital d ischarge visit for sudden chest pain. Was ruled in for NSTEMI, started on heparin drip and underwent cardiac catheterization. Did not show any significant CAD. Echocardiography showed apical dyskinesis and changes were somewhat suggesstive of stress-induced myopathy. She also had diffuse T-wave inversions with QT prolongation which also goes along with takotsubo cardiomyopathy. Had followed up with Cardiology 07/25/24. Incidental pulmonary nodules seen. TCM TCM Information Date of Discharge 07/26/24 Discharged From Other ([facility] Interactive Contact Date (Reference documentation from this date) 07/26/24 [facility] Medical History (Updated 07/26/24 @ 13:21 by Rajeev Harris) Kourtney elbow Colitis CKD (chronic kidney disease) stage 3, GFR 30-59 ml/min Sleep apnea TIA (transient ischemic attack) Hx of squamous cell carcinoma HTN (hypertension) Elevated cholesterol Depression History of angina Diverticulitis GERD (gastroesophageal reflux disease) Surgical History (Updated 07/25/24 @ 15:48 by Niya David [facility]) Hx of cardiac cath History of knee replacement procedure of left knee Hx of squamous cell carcinoma excision Hx of total hip arthroplasty History of hysteroscopy History of carpal tunnel release of both wrists Hx of rotator cuff surgery Hx of colonoscopy Hx of esophagogastroduodenoscopy Family History Father Rheumatic fever Heart attack Stroke Mother Heart problem Social History Housing: House Alcohol intake: never Patient Tobacco Use Status: Former Tobacco user e-Cigarette/Vaping Use: Never Used Second Hand Smoke Exposure: No service: No Current occupational status: retired Current occupational exposures/hazards: No Cognitive needs: No Hearing needs: No Vision needs: Yes Questionnaire PHQ-9 Over the last 2 weeks, how often have you been bothered by any of the following problems? 1. Little interest or pleasure in doing things: more than half the days 2. Feeling down, depressed, or hopeless: several days 3. Trouble falling or staying asleep, or sleeping too much: more than half the days 4. Feeling tired or having little energy: more than half the days 5. Poor appetite or overeating: more than half the days 6. Feeling bad about yourself - or that you are a failure or have let yourself or your family down: several days 7. Trouble concentrating on things, such as reading the newspaper or watching television: more than half the days 8. Moving or speaking so slowly that other people could have noticed. Or the opposite - being so fidgety or restless that you have been moving around a lot more than usual: not at all 9. Thoughts that you would be better off or of hurting yourself in some way: not at all Total score: 12 Source: Developed by Drs. Kendrick Galeano, Lucia Stone, Mateusz Montalvo and colleagues, with an educational angie from [employer]. Thrive Questionnaire Date Thrive assessed: 07/19/24 I am a: Patient What is your living situation today?: I have a steady place to live Within the past 12 months, did the food you bought not last and you didn't have the money to get more?: Never true Within the past 12 months, did you worry whether your food would run out before you got money to buy more?: Never true Do you have trouble paying for medicines?: No Do you have trouble getting transportation to medical appointments?: No Do you have trouble paying your heating and electricity bill?: Yes Do you have trouble taking care of your child, family member or friend?: No Do you have trouble with day-to-day activities such as bathing, preparing meals, shopping, managing finances, etc.?: No Are you currently unemployed and looking for a job?: No Are you interested in more education?: No Please select the resources that you would like help with: Care for elder or disabled Currently or been in a relationship where the following occur: No concerns reported THRIVE Score: 1 AUDIT C Alcohol Use Questionnaire (AUDIT-C) 1. How often do you have a drink containing alcohol?: Monthly or less 2. How many drinks containing alcohol do you have on a typical day when you are drinking?: 1 or 2 3. How often do you have six or more drinks on one occasion?: Never Total Score: 1 JENELLE-7 AMB Questionnaire JENELLE-7 Date JENELLE - 7 assessed: 04/19/24 Feeling nervous, anxious, or on edge: 2 = More than half the days Not being able to stop or control worryin = More than half the days Worrying too much about different things: 2 = More than half the days Trouble relaxin = Several days Being so restless that it is hard to sit still: 1 = Several days Becoming easily annoyed or irritable: 3 = Nearly every day Feeling afraid as if something awful might happen: 1 = Several days Total JENELLE-7 score (0-4 normal; 5-9 mild; 10-14 moderate; 15-21 severe): 12 Source: Developed by Drs. Kendrick Galeano, Lucia Stone, Mateusz Montalvo and colleagues, with an educational angie from [employer]. Physical exam (Primary Care) Vital Signs: Last Vital Signs Temp 97.8 F 07/26/24 12:33 Pulse 54 07/26/24 12:33 Resp 16 07/26/24 12:33 BP 120/70 07/26/24 12:33 Pulse Ox 99 07/26/24 12:33 Oxygen Delivery Method Room Air 07/26/24 12:33 BMI result Body Mass Index 41.4 Tobacco/Smoking Status: Tobacco use Status Tobacco use date assessed 04/19/24 07/26/24 12:28 Patient Tobacco Use Status Former Tobacco user 07/26/24 12:28 e-Cigarette/Vaping Use Never Used 07/26/24 12:28 PHQ-9: PHQ-9 Score PHQ-9: Total score 12 07/26/24 13:12 Thrive Assessment: Date of Thrive Assessment Date Thrive assessed 07/19/24 07/26/24 12:28 Currently or been in a relationship where the following occur: No concerns reported Coding Level of Care Code Est Pt Level 4 (73773) Diagnoses Takotsubo cardiomyopathy I51.81 Chest pain R07.9 Pulmonary nodule R91.1 Anxiety and depression F41.9; F32.A Assessment & Plan Assessment & Plan (1) Takotsubo cardiomyopathy: Code(s): I51.81 - Takotsubo syndrome Category: Medical (2) Chest pain: Code(s): R07.9 - Chest pain, unspecified Category: Medical (3) Pulmonary nodule: Code(s): R91.1 - Solitary pulmonary nodule Category: Medical (4) Anxiety and depression: Code(s): F41.9 - Anxiety disorder, unspecified; F32.A - Depression, unspecified Category: Medical Plan Follow-up after recent admission to [facility]. She had sudden also chest pain which woke her from sleep and she was taken to [facility] and ruled in for NSTEMI. She was started on heparin drip and underwent cardiac catheterization. Cardiac catheterization did not show any significant coronary disease. Subsequently she has was started on aspirin and echocardiography was performed which showed apical dyskinesis and changes were suggestive of stress-induced myopathy (Takatsubo). She also had diffuse T-wave inversions with QT prolongation which also goes along with takotsubo cardiomyopathy. No obvious trigger is found because there is no new stressor in her life however?patient?has?rather?severe?chronic?stressors?taking?care?of?chronically?i ll?spouse. Imaging did show incidental 1.1 x 1.0 subpleural left upper lobe pulmonary nodule. Was seen by her manager professional development yesterday. EKGs still has diffuse T-wave inversions with prolonged QT interval. Cardiology recommended avoiding any antibiotics/meds which can affect the QT like azithromycin or levofloxacin. Continue baby aspirin and rest of the medications. Repeat echocardiography in 2 months and follow up after that. f/u on Pulm Nodule: ?CT?with?contrast?ordere. Patient?is?referred?to?pulmonology Anxiety/depression: ?Patient?is?referred?to?[facility]?outpatient?psychiatric?consult?team. Orders: Orders CT chest w IV con Today Stephan Max MD R91.1 - Solitary pulmonary nodule Referrals Pulmonology Referral Stephan Max MD R91.1 - Solitary pulmonary nodule Psychiatry Outpatient Consultation Service Stephan Max MD F32.A - Depress ion, unspecified, F41.9 - Anxiety disorder, unspecified Medications: Changed From ferrous sulfate 300 mg (5 mL) PO DAILY 500 mL 0RF To ferrous sulfate 200 mg PO DAILY Gaudencio Hoover MD
[2024-07-26 12:33] VITALS: BP 120/70; PULSE 54; RESP 16; TEMP 36.6; O2SAT 99; BMI 41.4
--- OUTSIDE RECORDS SUMMARY | 2024-07-26 15:40 | XMS_ITS ---
Author Organization [facility] Address [address] [place] [address] Care Team Providers Care Audiovisual Equipment Operator Name Role Phone Stephan Max Primary Care Provider Unavailab Amando Bell Jr REASON FOR VISIT Patient presents today for colitis Encounters Encounter Location Date Provider Diagnosis [facility] [address] [place] [address] 01/16/2024 Amando Alba Jr PLAN OF TREATMENT Next Appt Details Provider Name:Amando pulliam Jr, 05/01/2025 09:00:00 AM, [address], [address], [place], [address],
--- OUTSIDE RECORDS SUMMARY | 2024-07-26 15:40 | XMS_ITS ---
Author Organization [facility] Address [address] [place] [address] Care Team Providers Care Pad Cutter Name Role Phone Stephan Max Primary Care Provider Unavailab Amando Bell Jr REASON FOR VISIT R/S OV Encounters Encounter Location Date Provider Diagnosis [facility] [address] [place] [address] 01/13/2024 Amando Alba Jr PLAN OF TREATMENT Next Appt Details Provider Name:Amando pulliam Jr, 05/01/2025 09:00:00 AM, [address], [address], [place], [address],
--- OUTSIDE RECORDS SUMMARY | 2024-07-26 15:41 | XMS_ITS | Patient Health Record ---
Author Organization [facility] Address [address] [place] [address] Care Team Providers Care Bench Mover Name Role Phone Stephan Max Primary Care [...] Problem Colon cancer screening (Z12.11) Active confirmed 465464700 Problem Encounter for other preprocedural examination (Z01.818) Active confirmed 06995063 Problem Gastroesophageal reflux disease (K21.9) Active confirmed Gastroesophagea l reflux disease (532518517) Problem Gastroesophageal reflux disease without esophagitis (K21.9) Active confirmed 543725941 Problem Colitis (K52.9) Active confirmed 822713 04 VITAL SIGNS Temperature 97.5 degrees Fahrenheit 04/30/2024 Blood pressure diastolic 00 mm Hg 04/30/2024 Height 61.5 in 04/30/2024 Blood pressure systolic 000 mm Hg 04/30/2024 Weight 222 lb 6 oz lbs 04/30/2024 BMI 41.33 kg/m2 04/30/2024 Encounters Encounter Location Date Provider Diagnosis [facility] [address] [place] [address] [place] [address] 01/16/2024 Amando Alba Jr [facility] [address] [address] 04/30/2024 Amando Alba Jr Gastroesophageal reflux disease without esophagitis K21.9 and Colitis K52.9 [facility] [address] [place] [address] Drive [address] [place] [address] 01/13/2024 Amando Alba Jr ASSESSMENTS Encounter Date [...] Provider Name:Amando pulliam Jr, 05/01/2025 09:00:00 AM, [address] [place] [address], Suite [facility], [place], [address], Insurance Providers Payer Name Payer Address Payer Phone Subscriber Number Group Number Insured Name Patient Relationship to Insured Coverage Start Date Coverage End Date MEDICARE OF [facility] [address] [place] [address] [id number] PIPPA WEAVER Self - [facility] the [facility] [address] [place] [phone] [id number] PIPPA WEAVER Self - patient is the [...] intubation at time of rotator cuff surgery [facility] 11/13 Surgical History Surgery Date(Month/Year) carpal tunnel surgery in both hands 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
--- OUTSIDE RECORDS SUMMARY | 2024-07-26 15:41 | XMS_ITS ---
Author Organization [facility] Address [address] [place] [address] Care Team Providers Care Digital Press Operator Name Role Phone Stephan Max Primary Care Provider UnavailAmando Patel Jr Unavailable [phone] ALLERGIES Allergen (clinical drug ingredient) Drug/Non Drug [...] 04/30/2024 Encounters Encounter Location Date Provider Diagnosis [facility] [address] [facility] [address] [facility] [address] [place] [address] 04/30/2024 Amando Alba Jr Gastroesophageal reflux disease [...] Provider Name:Amando pulliam Jr, 05/01/2025 09:00:00 AM, [address] [place] [address], [address], [place], [address],
== END 2024-07-26 13:27 | disposition home or self-care (01) ==
PROVIDERS: PCP Family Medicine; Visit Provider Family Medicine
DX: I51.81 Takotsubo syndrome (principal); R07.9 Chest pain, unspecified; R91.1 Solitary pulmonary nodule; F41.9 Anxiety disorder, unspecified; F32.A Depression, unspecified

== ENCOUNTER → 2024-07-26 11:51 | Outpatient (BNVA) | payer MEDICARE, OTHER, SELFPAY | PROVIDERS: PCP Family Medicine; Visit Provider Family Medicine | DX: I51.81 Takotsubo syndrome (principal); R07.9 Chest pain, unspecified; R91.1 Solitary pulmonary nodule; F41.9 Anxiety disorder, unspecified; F32.A Depression, unspecified | CPT/HCPCS: 99212 ==

== ENCOUNTER → 2024-07-31 14:39 | Outpatient (BNV) | payer MEDICARE, OTHER, SELFPAY | PROVIDERS: PCP Family Medicine; Visit Provider Internal Medicine Cardiovascular Disease | DX: I42.2 Other hypertrophic cardiomyopathy (principal); I51.81 Takotsubo syndrome | CPT/HCPCS: 93308 ==

== ENCOUNTER → 2024-08-01 09:14 | Outpatient (BNVA) | payer MEDICARE, OTHER, SELFPAY | PROVIDERS: PCP Family Medicine; Visit Provider Nurse Practitioner Family | DX: R91.1 Solitary pulmonary nodule (principal); J45.909 Unspecified asthma, uncomplicated | CPT/HCPCS: 99202 ==

== ENCOUNTER 2024-08-10 15:15 | Outpatient (AMB) | payer MEDICARE, OTHER, SELFPAY ==
--- OUTSIDE RECORDS SUMMARY | 2024-08-10 15:18 | XMS_ITS ---
Author Organization [facility] Address [address] [place] [address] Care Team Providers Care Shirt Cleaner Name Role Phone Stephan Max Primary Care [...] 04/30/2024 Encounters Encounter Location Date Provider Diagnosis [facility] [address] [facility] [address] [place] [address] 04/30/2024 Amando Alba Jr Gastroesophageal reflux disease [...] Provider Name:Amando pulliam Jr, 05/01/2025 09:00:00 AM, [address] [place] [address], [address], [place], [address],
--- OUTSIDE RECORDS SUMMARY | 2024-08-10 15:18 | XMS_ITS | Clinical Summary ---
Author Organization [facility] Address [address] [place] [address] Phone Care Team Providers Care Personal Banking Assistant Name Role Phone Unavailable Primary Care Provider Unavailabl e Encounters Date Type Department Care Team Description 08/09/2024 9:30 AM EST Hospital Encounter [facility] PET Scan [address] [place] [address] Pulmonary nodule from Last 3 Months Social History Tobacco Use Types Packs/Day Years Used Date Smoking Tobacco: Never Assessed Comments Unknown Sex and Gender Information Value Date Recorded Sex Assigned at Not on file Legal Sex Female 1:07 AM EST Gender Identity Not on file Sexual Orientation Not on file Plan of Treatment Health Maintenance Due Date Last Done Comments Breast Cancer Screening 1955 Pneumococcal Vaccine: 50+ Years (1 of 1 - PCV) 2004 Zoster Vaccines (1 of 2) 2004 RSV Immunization Patients 60+ Years Old (1 - Risk 60-74 years 1-dose series) 2014 Colorectal Cancer Screening: Colonoscopy 08/08/2024 Depression Screening 08/08/2024 Falls Risk Assessment 08/08/2024 Hepatitis C Screening 08/08/2024 Medicare Annual Wellness Visit 08/08/2024 Osteoporosis Screening (Bone Density Screening) 08/08/2024 Social Influencers of Health Screening 08/08/2024 DTaP,Tdap,and Td Vaccines (2 - Td or Tdap) 07/10/2030 07/10/2020 COVID-19 Vaccine Completed 04/06/2024, , 04/06/2021, Additional history exists Influenza Vaccine Completed 04/06/2024, , 04/10/2022, Additional history exists HIB Vaccines Aged Out No longer eligi ble based on patient's age to complete this topic HPV Vaccines Aged Out No longer eligi ble based on patient's age to complete this topic Hepatitis A Vaccines Aged Out No long er eligible based on patient's age to complete this topic Hepatitis B Vaccines Aged Out No long er eligible based on patient's age to complete this topic IPV Vaccines Aged Out No longer eligi ble based on patient's age to complete this topic MMR Vaccines Aged Out No longer eligi ble based on patient's age to complete this topic Meningococcal ACWY Vaccine Aged Out N o longer eligible based on patient's age to complete this topic Meningococcal B Vacine Aged Out No lo nger eligible based on patient's age to complete this topic RSV Immunization Patients Under 20 months Aged Out No longer eligible based on patient's age to complete this topic Varicella Vaccines Aged Out No longer eligible based on patient's age to complete this topic Insurance MEDICARE
--- OUTSIDE RECORDS SUMMARY | 2024-08-10 15:18 | XMS_ITS ---
Author Organization [facility] Address [address] [place] [address] Care Team Providers Care Washing Machine Operator Name Role Phone Stephan Max Primary Care Provider Unavailab Amando Bell Jr REASON FOR VISIT R/S OV Encounters Encounter Location Date Provider Diagnosis [facility] [address] [place] [address] 01/13/2024 Amando Alba Jr PLAN OF TREATMENT Next Appt Details Provider Name:Amando pulliam Jr, 05/01/2025 09:00:00 AM, [address], [address], [place], [address],
--- OUTSIDE RECORDS SUMMARY | 2024-08-10 15:18 | XMS_ITS | Patient Health Record ---
Author Organization [facility] Address [address] [place] [address] Care Team Providers Care Electrical Line Worker Name Role Phone Stephan Max Primary Care Provider UnavailAmando Patel Jr Unavailable [phone] ALLERGIES Allergen (clinical drug ingredient) Drug/Non Drug [...] Problem Colon cancer screening (Z12.11) Active confirmed 636536954 Problem Encounter for other preprocedural examination (Z01.818) Active confirmed 18448710 Problem Gastroesophageal reflux disease (K21.9) Active confirmed Gastroesophagea l reflux disease (343979542) Problem Gastroesophageal reflux disease without esophagitis (K21.9) Active confirmed 241927742 Problem Colitis (K52.9) Active confirmed 867353 04 VITAL SIGNS Temperature 97.5 degrees Fahrenheit 04/30/2024 Blood pressure diastolic 00 mm Hg 04/30/2024 Height 61.5 in 04/30/2024 Blood pressure systolic 000 mm Hg 04/30/2024 Weight 222 lb 6 oz lbs 04/30/2024 BMI 41.33 kg/m2 04/30/2024 Encounters Encounter Location Date Provider Diagnosis [facility] [address] [place] [address] [place] [address] 01/16/2024 Amando Alba Jr [facility] [address] [address] 04/30/2024 Amando Alba Jr Gastroesophageal reflux disease without esophagitis K21.9 and Colitis K52.9 [facility] [address] [place] [address] Drive [address] [place] [address] 01/13/2024 Amando Alba Jr ASSESSMENTS Encounter Date [...] Provider Name:Amando pulliam Jr, 05/01/2025 09:00:00 AM, [address] [place] [address], Suite [facility], [place], [address], Insurance Providers Payer Name Payer Address Payer Phone Subscriber Number Group Number Insured Name Patient Relationship to Insured Coverage Start Date Coverage End Date MEDICARE OF [facility] [address] [place] [address] [id number] PIPPA WEAVER Self - patient is the [facility] [address] [place] [address] [id number] PIPPA WEAVER Self - patient is the [...] intubation at time of rotator cuff surgery [facility] 11/13 Surgical History Surgery Date(Month/Year) carpal tunnel surgery in both hands 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
--- OUTSIDE RECORDS SUMMARY | 2024-08-10 15:18 | XMS_ITS ---
Author Organization [facility] Address [address] [place] [address] Care Team Providers Care Compensation Associate Name Role Phone Stephan Max Primary Care Provider Unavailab Amando Bell Jr REASON FOR VISIT Patient presents today for colitis Encounters Encounter Location Date Provider Diagnosis [facility] [address] [place] [address] 01/16/2024 Amando Alba Jr PLAN OF TREATMENT Next Appt Details Provider Name:Amando pulliam Jr, 05/01/2025 09:00:00 AM, [address], [address], [place], [address],
--- OUTSIDE RECORDS SUMMARY | 2024-08-10 15:18 | XMS_ITS | Encounter Summary ---
Author Organization [facility] Address [address] [place] [address] Care Team Providers Care News Clipping Cutter Name Role Phone Unavailable Primary Care Provider Unavailabl e Reason for Referral * Imaging (Routine) - Authorized Specialty Diagnoses / Procedures Referred By Mely balderas Referred To Contact Radiology Diagnoses Pulmonary nodule Procedures PET CT Skull to Mid Thigh Initial Yonis Holt MD [address] [place] [address] Phone: tel: fax: [facility] Referral ID Status Reason Start Date Expiration Date V isits Requested Visits Authorized [id number] Authorized 08/08/2024 08/08/2025 1 1 Reason for Visit * Imaging (Routine) - Authorized Specialty Diagnoses / Procedures Referred By Mely balderas Referred To Contact Radiology Diagnoses Pulmonary nodule Procedures PET CT Skull to Mid Thigh Initial Yonis Holt MD [address] [place] [address] Phone: tel: fax: [facility] Referral ID Status Reason Start Date Expiration Date V isits Requested Visits Authorized [id number] Authorized 08/08/2024 08/08/2025 1 1 Encounter Details Date Type Department Care Team (Latest Contact Info) Description 08/09/2024 9:30 AM EST Hospital Encounter [facility] PET Scan [address] [place] [address] Pulmonary nodule Social History Tobacco Use Types Packs/Day Years Used Date Smoking Tobacco: Never Assessed Comments Unknown Sex and Gender Information Value Date Recorded Sex Assigned at Not on file Legal Sex Female 1:07 AM EST Gender Identity Not on file Sexual Orientation Not on file documented as of this encounter Plan of Treatment Pending Results Name Type Priority Associated Diagnoses Date /Time PET CT Skull to Mid Thigh Initial Imaging Routine Pulmonary nodule 08/09/2024 10:30 AM EST Scheduled Orders Name Type Priority Associated Diagnoses Orde r Schedule PET CT Skull to Mid Thigh Initial Imaging Routine Pulmonary nodule Once for 1 Occurrences starting 08/08/2024 until 08/08/2024 documented as of this encounter Visit Diagnoses Diagnosis Pulmonary nodule Other diseases of lung, not elsewhere classified documented in this encounter Administered Medications Inactive Administered Medications - up to 3 most recent administrations Medication Order MAR Action Action Date Dose Rate Site F-18 FDG pet diag radio-isotope injection 12.8 millicurie 12.8 millicurie, intravenous, Once in imaging, Starting on Juliann 08/09/24 at 0915, For 1 dose Given 08/09/2024 9:15 AM EST 12.8 millicuries Right Antecubital documented in this encounter Orders Medications Ordered That Jose Rafael ht Not Have Been Administered Count Last Ordered Date First Ordered Date F-18 FDG pet diag radio-isot ope injection 12.8 millicurie 1 08/09/2024 documented in this encounter
--- NOTE | 2024-08-10 15:48 | MHC.OFFVISPS ---
Intake Intake Visit Reasons: consultation Other Spatial Scientist Required: No Allergies codeine [CODEINE] Adverse Reaction (Mild, Verified 08/31/24 09:46) NAUSEA & VOMITING Medication List - Last Reconciled 08/10/24 by Trinity Liriano APRN alendronate 70 mg PO QWEEK 28 days aspirin (Adult Aspirin Regimen) 81 mg PO DAILY atorvastatin 10 mg PO DAILY 90 days bupropion HCl SR 200 mg PO DAILY 90 days docusate sodium (Colace) 100 mg PO BID PRN duloxetine 60 mg PO BID 90 days famotidine 20 mg PO BEDTIME 90 days ferrous sulfate 200 mg PO DAILY fluticasone furoate-vilanterol 100-25 mcg/dose (Breo Ellipta) 1 inh inhalation DAILY furosemide 20 mg PO DAILY isosorbide mononitrate ER 60 mg PO QAM 90 days metoprolol tartrate 25 mg PO BID pantoprazole 40 mg PO DAILY 90 days psyllium husk (Metamucil) 1.2 grams PO DAILY HPI- Psychiatric Chief Complaint: consultation HPI Narrative: referred by pcp for evaluation of mood symptoms; pt reports she is on cymbalta and wellbutrin; she is tearful; she reports she is very sad and has high stress taking care of her disabled ; 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 has early onset dementia . He had depression in 2003 and stopped working. Pts mother is in a senior living and age 92. Pt lost her sister in law who committed suicide 2 years . PHQ9=15 and GAD7=14. Pt is also dealing with her own medical issues including a lung nodule that is currently being evaluated. Past Psychiatric History: prozac rx 30 yrs ago buproprion for tobacco cessation 1999 cymbalta currently No [facility] Subjective Subjective Subjective Medication Compliance: Yes Side effects from medications: No Review of Systems Medical Review of Systems: unchanged Mental Status Exam Mental Status Exam Patient Appearance: Well Grooomed and Appropriate Patient Orientation: Person, Place, Time and Situation Level of Consciousness: Awake, Appropriate and Alert Patient Behavior: Appropriate, Cooperative, Anxious and Crying Mood Description: Anxious and Sad Affect Description: Anxious and Sad Patient Cognition Impaired: No Ability to Follow Directions: Good Speech Pattern: Clear, Appropriate and Coherent Memory Description: Intact Hallucinations: None Delusions: Not Present Thought Process: Intact Thought Content: positive for Intact Judgement: Good Assessment and Plan Assessment & Plan (1) Major depressive disorder, recurrent, moderate: Status: Acute Code(s): F33.1 - Major depressive disorder, recurrent, moderate (2) JENELLE (generalized anxiety disorder): Status: Acute Code(s): F41.1 - Generalized anxiety disorder Plan reduce duloxetine to 90mg daily start magnesium glycinate 150-200mg once a day x 10 days then increase to twice a day continue wellbutrin sr 200mg am pt interested in ongoing therapy Medications: New duloxetine take one 30 mg capsule in addition to one 60 mg capsule for total daily dose of 90mg 30 mg PO DAILY 90 caps 1RF Changed From duloxetine 60 mg PO BID 90 days 180 caps 2RF To duloxetine 60 mg PO DAILY 90 caps 2RF 90 days Counseling and coordination of Care Pt. Self Management counseling: Maintenance-social rhythm, Mod caffeine/ETOH intake, Sleep hygiene, Behavior activation and General coping skills Medication management counseling: Effectiveness, Side effects, Dosing range, Duration, Drug interaction and Adherence Diagnosis and Prognosis Counseling: Accuracy of diagnosis, Prognosis over time, Impact of diagnosis on life functions, Impact of family relationship, Problematic behaviors secondary to diagnosis and Adequacy of current interventions Details: I spent 70 minutes reviewing the record, seeing the patient and documenting in the medical record. Counseling provided to the patient/caregiver as outlined below. Addressed patient/caregiver concerns regarding current medication regime including effective adherence. Addressed patient/caregiver concerns regarding diagnosis and prognosis including accuracy of diagnosis, prognosis over time, impact of diagnosis. Addressed patient/caregiver concerns regarding impact of recent stressors. [facility] Medical History (Updated 08/31/24 @ 10:12 by Taya Morse NP) Golfers elbow Colitis CKD (chronic kidney disease) stage 3, GFR 30-59 ml/min Sleep apnea TIA (transient ischemic attack) Hx of squamous cell carcinoma HTN (hypertension) Elevated cholesterol Depression History of angina Diverticulitis GERD (gastroesophageal reflux disease) Surgical History (Updated 07/25/24 @ 15:48 by Niya David CMA) Hx of cardiac cath History of knee replacement procedure of left knee Hx of squamous cell carcinoma excision Hx of total hip arthroplasty History of hysteroscopy History of carpal tunnel release of both wrists Hx of rotator cuff surgery Hx of colonoscopy Hx of esophagogastroduodenoscopy Family History Father Rheumatic fever Heart attack Stroke Mother Heart problem Social History (Updated 08/01/24 @ 09:25 by Dede León LPN) Housing: House Alcohol intake: never Patient Tobacco Use Status: Former Tobacco user Cigarette Packs Per Day: 2 Years Smoked: 25 e-Cigarette/Vaping Use: Never Used Second Hand Smoke Exposure: No service: No Current occupational status: retired Current occupational exposures/hazards: No Cognitive needs: No Hearing needs: No Vision needs: Yes Social History: lives w who was just dx early onset dementia; grew up in [place] lived with M&F and one brother Substance History: ETOH 1-2 drink every 3 months or less no THC tobacco none Coding Level of Care Code Psych Diag Eval w/Med (51342) Diagnoses Major depressive disorder, recurrent, moderate F33.1 JENELLE (generalized anxiety disorder) F41.1
== END 2024-08-10 22:24 | disposition home or self-care (01) ==
LOC: HO.HOP 15:15
PROVIDERS: PCP Family Medicine; Visit Provider Clinical Nurse Specialist Psychiatric/Mental Health
DX: F33.1 Major depressive disorder, recurrent, moderate (principal); F41.1 Generalized anxiety disorder
CPT/HCPCS: 90792

== ENCOUNTER → 2024-08-10 15:15 | Outpatient (BNVA) | payer MEDICARE, OTHER, SELFPAY | PROVIDERS: PCP Family Medicine; Visit Provider Clinical Nurse Specialist Psychiatric/Mental Health | DX: F33.1 Major depressive disorder, recurrent, moderate (principal); F41.1 Generalized anxiety disorder; Z71.89 Other specified counseling | CPT/HCPCS: 90792 ==

== ENCOUNTER → 2024-08-20 10:45 | Outpatient (REF) | payer MEDICARE, OTHER, SELFPAY ==
--- OUTSIDE RECORDS SUMMARY | 2024-08-20 12:09 | XMS_ITS | Encounter Summary ---
Author Organization [facility] Address [address] [place] [address] Care Team Providers Care Shoe Repairer Helper Name Role Phone Unavailable Primary Care Provider Unavailabl e Reason for Referral * Imaging (Routine) - Closed Specialty Diagnoses / Procedures Referred By Mely balderas Referred To Contact Radiology Diagnoses Pulmonary nodule Procedures PET CT Skull to Mid Thigh Initial Yonis Holt MD [address] [place] [address] Phone: tel: fax: [facility] Referral ID Status Reason Start Date Expiration Date Visits Re quested Visits Authorized [id number] Closed 08/08/2024 08/08/2025 1 1 Reason for Visit * Imaging (Routine) - Closed Specialty Diagnoses / Procedures Referred By Mely balderas Referred To Contact Radiology Diagnoses Pulmonary nodule Procedures PET CT Skull to Mid Thigh Initial Yonis Holt MD [address] [place] [address] Phone: tel: fax: [facility] Referral ID Status Reason Start Date Expiration Date Visits Re quested Visits Authorized [id number] Closed 08/08/2024 08/08/2025 1 1 Encounter Details Date Type Department Care Team (Latest Contact Info) Description 08/09/2024 9:30 AM EST - 08/09/2024 11:59 PM EST Hospital Encounter [facility] PET Scan [address] [place] [address] Pulmonary nodule Discharge Disposition: Home or Self Care Social History Tobacco Use Types Packs/Day Years Used Date Smoking Tobacco: Never Assessed Comments Unknown Sex and Gender Information Value Date Recorded Sex Assigned at Not on file Legal Sex Female 1:07 AM EST Gender Identity Not on file Sexual Orientation Not on file documented as of this encounter Discharge Disposition Disposition Code Departure Means Destination Home or Self Care documented in this encounter Plan of Treatment Not on file documented as of this encounter Procedures Procedure Name Priority Date/Time Associated Diagnosis Comments PET CT SKULL TO MID THIGH INITIAL Routine 08/09/2024 10:30 AM EST Pulmonary nodule documented in this encounter Results * PET CT Skull to Mid Thigh Initial (08/09/2024 10:30 AM EST) Anatomical Region Laterality Modality Body Radiographic Elizabeth ging 08/13/2024 10:2 7 AM EST Impressions 08/14/2024 4:31 AM EST 1. ??Indeterminant left upper lobe nodule demonstrating mild FDG activity; nonspecific. ?? 2. ??No FDG avid lymphadenopathy 3. ??Focal FDG activity within the rectosigmoid junction with surrounding diverticula and mild stranding. ??These findings may represent diverticulitis. 4. ??Nonspecific focal FDG activity in the right hepatic lobe centrally without an underlying correlate seen on nondiagnostic CT. ??Consider further evaluation with contrast-enhanced MRI of the abdomen for better characterization. ??This may represent liver heterogeneity or an underlying lesion. Please note: The CT was acquired at a low radiation dose settings. ??The images are of nondiagnostic quality and used solely for purposes of attenuation correction and slice localization for the PET scan. ??If a diagnostic CT study is desired it must be ordered separately. -------- FINAL REPORT -------- Dictated By: Natalya Villalobos Dictated Date: 08/13/2024 10:27 ET Assigned Physician: Natalya Villalobos Reviewed and Electronically Signed By: Natalya Villalobos Signed Date: 08/14/2024 04:31 ET Workstation ID: [id number] Transcribed By: Self Edit Transcribed Date: 08/13/2024 11:27 ET Narrative 08/14/2024 4:31 AM EST INDICATION: PI/DIAGNOSING PULMONARY NODULE. ??Outside CT demonstrating 1.0 x 1.1 cm left upper lobe pulmonary nodule. TECHNIQUE: FDG PET-CT imaging was performed from the skull bases through the thighs in a single acquisition with data set reconstructed in axial, coronal, and sagittal planes at the computer workstation with fused data from both the PET imaging study and attenuation correction CT. The CT portion of the examination was done strictly for attenuation correction and is not a true diagnostic CT examination. DLP: ??1423 mGy-cm Radiopharmaceutical: 12.8 mCi of F-18 FDG IV. Blood glucose: 80 mg/dl. COMPARISON: None. FINDINGS: HEAD AND NECK: No abnormal FDG activity. ??Bilateral symmetric FDG activity within the base of the tongue/tonsillar region SUV max 4.7 on the left and 4.2 on the right. THORAX: Left upper lobe nodule SUV max 1.7. ??Other scattered sub-5 mm pulmonary nodules without significant FDG activity SUV max 1.022 small size. ??3 mm nodule in the medial aspect of the left lower lobe which is difficult to accurately assess due to small size and subjacent activity from the descending thoracic aorta. No significant FDG avid thoracic or axillary lymphadenopathy. Mild coronary artery calcifications. Small hiatal hernia SUV max 3.9. ABDOMEN/PELVIS: Nonspecific focal FDG activity in the right hepatic lobe centrally SUV Max 5.4 (background liver activity SUV max 4.2). ??Low-attenuation lesion in the right hepatic lobe slightly more inferiorly without significant FDG activity in comparison to background SUV max 4.2. Focal FDG activity involving the rectosigmoid junction SUV max 14.3 with surrounding diverticula and mild surrounding inflammatory stranding. ??Scattered bowel activity, likely physiologic. ??Diverticulosis. MUSCULOSKELETAL: No abnormal FDG activity. ??Physiologic activity within the muscles of the head and neck including the masseters as well as the right longus coli and capitis muscles. Degenerative changes with associated FDG activity surrounding the left shoulder SUV Max 6.5. ??Right shoulder arthroplasty with surrounding FDG activity SUV max 5.3. Right hip arthroplasty. Procedure Note Natalya Villalobos MD - 08/14/2024 INDICATION: PI/DIAGNOSING PULMONARY NODULE. Outside CT demonstrating 1.0x 1.1 cm left upper lobe pulmonary nodule. TECHNIQUE: FDG PET-CT imaging was performed from the skull bases throughthe thighs in a single acquisition with data set reconstructed in axial,coronal, and sagittal planes at the computer workstation with fused datafrom both the PET imaging study and attenuation correction CT. The CTportion of the examination was done strictly for attenuation correctionand is not a true diagnostic CT examination. DLP: 1423 mGy-cm Radiopharmaceutical: 12.8 mCi of F-18 FDG IV. Blood glucose: 80 mg/dl. COMPARISON: None. FINDINGS: HEAD AND NECK: No abnormal FDG activity. Bilateral symmetric FDG activitywithin the base of the tongue/tonsillar region SUV max 4.7 on the left and4.2 on the right. THORAX: Left upper lobe nodule SUV max 1.7. Other scattered sub-5 mmpulmonary nodules without significant FDG activity SUV max 1.022 smallsize. 3 mm nodule in the medial aspect of the left lower lobe which isdifficult to accurately assess due to small size and subjacent activityfrom the descending thoracic aorta. No significant FDG avid thoracic or axillary lymphadenopathy. Mild coronary artery calcifications. Small hiatal hernia SUV max 3.9. ABDOMEN/PELVIS: Nonspecific focal FDG activity in the right hepatic lobecentrally SUV Max 5.4 (background liver activity SUV max 4.2).Low-attenuation lesion in the right hepatic lobe slightly more inferiorlywithout significant FDG activity in comparison to background SUV max4.2. Focal FDG activity involving the rectosigmoid junction SUV max 14.3 withsurrounding diverticula and mild surrounding inflammatory stranding.Scattered bowel activity, likely physiologic. Diverticulosis. MUSCULOSKELETAL: No abnormal FDG activity. Physiologic activity withinthe muscles of the head and neck including the masseters as well as theright longus coli and capitis muscles. Degenerative changes with associated FDG activity surrounding the leftshoulder SUV Max 6.5. Right shoulder arthroplasty with surrounding FDGactivity SUV max 5.3. Right hip arthroplasty. IMPRESSION: 1. Indeterminant left upper lobe nodule demonstrating mild FDG activity;nonspecific. 2. No FDG avid lymphadenopathy 3. Focal FDG activity within the rectosigmoid junction with surroundingdiverticula and mild stranding. These findings may representdiverticulitis. 4. Nonspecific focal FDG activity in the right hepatic lobe centrallywithout an underlying correlate seen on nondiagnostic CT. Considerfurther evaluation with contrast-enhanced MRI of the abdomen for bettercharacterization. This may represent liver heterogeneity or an underlyinglesion. Please note: The CT was acquired at a low radiation dose settings. The images are ofnondiagnostic quality and used solely for purposes of attenuationcorrection and slice localization for the PET scan. If a diagnostic CTstudy is desired it must be ordered separately. -------- FINAL REPORT -------- Dictated By: Natalya Villalobos Dictated Date: 08/13/2024 10:27 ET Assigned Physician: Natalya Villalobos Reviewed and Electronically Signed By: Natalya Villalobos Signed Date: 08/14/2024 04:31 ET Workstation ID: [id number] Transcribed By: Self Edit Transcribed Date: 08/13/2024 11:27 ET us [facility] Final Result documented in this encounter Visit Diagnoses Diagnosis Pulmonary nodule [...]
--- OUTSIDE RECORDS SUMMARY | 2024-08-20 12:09 | XMS_ITS | Clinical Summary ---
Author Organization [facility] Address [address] [place] [address] Phone Care Team Providers Care Brewery Worker Name Role Phone Unavailable Primary Care Provider Unavailabl e Encounters Date Type Department Care Team Description 08/09/2024 9:30 AM EST - 08/09/2024 11:59 PM EST Hospital Encounter [facility] PET Scan [address] [place] [address] Pulmonary nodule Discharge Disposition: Home or Self Care from Last 3 Months Social History Tobacco [...] on patient's age to complete this topic Procedures Procedure Name Priority Date/Time Associated Diagnosis Comments PET CT SKULL TO MID THIGH INITIAL Routine 08/09/2024 10:30 AM EST Pulmonary nodule from Last 3 Months Results * PET CT Skull to Mid [...] Signed Date: 08/14/2024 04:31 ET Workstation ID: [id number] Transcribed By: Self Edit Transcribed Date: 08/13/2024 [...] Signed Date: 08/14/2024 04:31 ET Workstation ID: [id number] Transcribed By: Self Edit Transcribed Date: 08/13/2024 11:27 ET Yonis Holt MD [facility] PROCEDURES Final Result from Last 3 Months Insurance MEDICARE
--- OUTSIDE RECORDS SUMMARY | 2024-08-20 12:10 | XMS_ITS ---
Author Organization [facility] Address [address] [place] [address] Care Team Providers Care Windows Application Administrator Name Role Phone Stephan Max Primary Care [...] for 30 day(s) 09/30/2022 Active VITAL SIGNS Temperature 97.5 degrees Fahrenheit 04/30/20 24 Blood pressure systolic 000 mm Hg 04/30/20 24 Blood pressure diastolic 00 mm Hg 024 Height 61.5 in 04/30/2024 Weight 222 lb 6 oz lbs 04/30/2024 BMI 41.33 kg/m2 04/30/2024 Encounters Encounter Location Date Provider Diagnosis [facility] [address] [place] [address] 04/30/2024 Amando Alba Jr Gastroesophageal reflux disease [...] Provider Name:Amando pulliam Jr, 05/01/2025 09:00:00 AM, [address] [place] [address], [address], [place], [address],
--- OUTSIDE RECORDS SUMMARY | 2024-08-20 12:10 | XMS_ITS ---
Author Organization [facility] Address [address] [place] [address] Care Team Providers Care Convex Grinder Operator Name Role Phone Stephan Max Primary Care Provider Unavailab Amando Bell Jr [phone] REASON FOR VISIT R/S OV Encounters Encounter Location Date Provider Diagnosis [facility] [address] [place] [address] 01/13/2024 Amando Alba Jr PLAN OF TREATMENT Next Appt Details Provider Name:Amando pulliam Jr, 05/01/2025 09:00:00 AM, [address], [address], [place], [address],
--- OUTSIDE RECORDS SUMMARY | 2024-08-20 12:10 | XMS_ITS | Patient Health Record ---
Author Organization [facility] Address [address] [place] [address] Care Team Providers Care Lapel Padder Blindstitch Name Role Phone Stephan Max Primary Care Provider UnavailAmando Patel Jr Unavailable [phone] ALLERGIES Allergen (clinical drug ingredient) Drug/Non Drug [...] Problem Colon cancer screening (Z12.11) Active confirmed 098067903 Problem Encounter for other preprocedural examination (Z01.818) Active confirmed 54176411 Problem Gastroesophageal reflux disease (K21.9) Active confirmed Gastroesophagea l reflux disease (233550391) Problem Gastroesophageal reflux disease without esophagitis (K21.9) Active confirmed 339916794 Problem Colitis (K52.9) Active confirmed 132090 04 VITAL SIGNS Temperature 97.5 degrees Fahrenheit 04/30/2024 Blood pressure diastolic 00 mm Hg 04/30/2024 Height 61.5 in 04/30/2024 Blood pressure systolic 000 mm Hg 04/30/2024 Weight 222 lb 6 oz lbs 04/30/2024 BMI 41.33 kg/m2 04/30/2024 Encounters Encounter Location Date Provider Diagnosis [facility] [address] [place] [address] [place] [phone] 01/16/2024 Amando Alba Jr [facility] [address] [address] 04/30/2024 Amando Abla Jr Gastroesophageal reflux disease without esophagitis K21.9 and Colitis K52.9 [facility] [address] [place] [address] Drive [address] [place] [phone] 01/13/2024 Amando Alba Jr ASSESSMENTS Encounter Date [...] Provider Name:Amando pulliam Jr, 05/01/2025 09:00:00 AM, [address] [place] [address], [address] [facility], [place], [address], Insurance Providers Payer Name Payer Address Payer Phone Subscriber Number Group Number Insured Name Patient Relationship to Insured Coverage Start Date Coverage End Date MEDICARE OF [place] [address] [place] [address] [id number] PIPPA WEAVER Self - patient is the [facility] [address] [place] [address] [id number] PIPPA WEAVER Self - patient is the [...] intubation at time of rotator cuff surgery [facility] 11/13 Surgical History Surgery Date(Month/Year) carpal tunnel surgery in both hands 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
--- OUTSIDE RECORDS SUMMARY | 2024-08-20 12:10 | XMS_ITS ---
Author Organization [facility] Address [address] [place] [address] Care Team Providers Care Gas Pump Attendant Name Role Phone Stephan Max Primary Care Provider Unavailab Amando Bell Jr REASON FOR VISIT Patient presents today for colitis Encounters Encounter Location Date Provider Diagnosis [facility] [address] [place] [address] 01/16/2024 Amando Alba Jr PLAN OF TREATMENT Next Appt Details Provider Name:Amando pulliam Jr, 05/01/2025 09:00:00 AM, [address], [address], [place], [address],
== END ==
LOC: HO.SL 10:45
PROVIDERS: PCP Family Medicine; Visit Provider Physician Assistant Medical
DX: G47.30 Sleep apnea, unspecified (principal); R53.83 Other fatigue; G47.9 Sleep disorder, unspecified
CPT/HCPCS: 95806

== ENCOUNTER → 2024-08-20 10:54 | Outpatient (BNV) | payer MEDICARE, OTHER, SELFPAY | PROVIDERS: PCP Family Medicine; Visit Provider Psychiatry & Neurology Neurology | DX: G47.33 Obstructive sleep apnea (adult) (pediatric) (principal) | CPT/HCPCS: 95806 ==

== ENCOUNTER 2024-08-29 09:33 | Outpatient (AMB) | payer MEDICARE, OTHER, SELFPAY ==
--- NOTE | 2024-08-29 09:56 | MHC.PC.OV ---
Vital Signs 08/29/24 10:04 Height 5 ft 1 in Weight 219 lb 6 oz BMI 41.4 BP 110/70 Blood Pressure Location Rt brachial Position Sitting Respiration 14 Pulse 53 Pulse Source Pulse Oximeter Temp 98.2 F Temp Source Oral Pulse Oximetry (%) 97 Oxygen Delivery Method Room Air Intake Visit Reasons: 1 Month fu Intake Note: follow up to review ct scan Master Police Detective Required: No Allergies codeine [CODEINE] Adverse Reaction (Mild, Verified 08/29/24 10:02) NAUSEA & VOMITING Tobacco use date assessed: 04/19/24 Dental Screening Dental Screen Date: 04/19/24 HPI 1 Month fu HPI Details 69 y/o female presents to f/u chronic conditions. Reviewing CT scan for pulmonary nodule. Had referred her to [facility] outpatient psychiatric consult team for significant chronic stressors. They reduced duloxetine to 90mg daily, started her on magnesium glycinate. Continued her wellbutrin. Had followed up with pulmonology 08/01/24. Recent incidental finding of 1cm XANDER pulmonary nodule. They had started her on Breo due to prior h/o asthma. She states she is unsure if Breo is working. PET scan 08/09/24 shows: 1. Indeterminant L upper lobe nodule demonstrating mild FDG activity; nonspecific. 2. No FDG avid lymphadenopathy. 3. Focal FDG activity within the rectosigmoid junction with surrounding diverticula and mild stranding. These findings may represent diverticulitis. 4. Nonspecific focal FDG activity in the R hepatic lobe centrally without an underlying correlate seen on nondiagnostic CT. Consider further evaluation with contrast-enhanced MRI of the abdomen for better characterization. This may represent liver heterogeneity or an underlying lesion. Pt's mother has . Has a f/u with her psychiatric consult team this week Tuesday. Blood pressure today 110/70, 53p. She is on metoprolol 25mg b.i.d, isosorbide 60mg. Follows up with cardiology and sees them again in October. HPI Comments History of Present Illness Details Documentation assistance for Stephan Max MD, was provided by Rajeev Harris,? Lapidarist on 08/29/2024 at 10:45 AM EST. I, Dr. Max, have read, observed, and verified documentation. ?? [facility] Medical History (Updated 08/10/24 @ 17:00 by Trinity Liriano APRN) Golfers elbow Colitis CKD (chronic kidney disease) stage 3, GFR 30-59 ml/min Sleep apnea TIA (transient ischemic attack) Hx of squamous cell carcinoma HTN (hypertension) Elevated cholesterol Depression History of angina Diverticulitis GERD (gastroesophageal reflux disease) Surgical History (Updated 07/25/24 @ 15:48 by Niya David CMA) Hx of cardiac cath History of knee replacement procedure of left knee Hx of squamous cell carcinoma excision Hx of total hip arthroplasty History of hysteroscopy History of carpal tunnel release of both wrists Hx of rotator cuff surgery Hx of colonoscopy Hx of esophagogastroduodenoscopy Family History Father Rheumatic fever Heart attack Stroke Mother Heart problem Social History (Updated 08/01/24 @ 09:25 by Dede León LPN) Housing: House Alcohol intake: never Patient Tobacco Use Status: Former Tobacco user Cigarette Packs Per Day: 2 Years Smoked: 25 e-Cigarette/Vaping Use: Never Used Second Hand Smoke Exposure: No service: No Current occupational status: retired Current occupational exposures/hazards: No Cognitive needs: No Hearing needs: No Vision needs: Yes Questionnaire Thrive Questionnaire Date Thrive assessed: 07/19/24 I am a: Patient What is your living situation today?: I have a steady place to live Within the past 12 months, did the food you bought not last and you didn't have the money to get more?: Never true Within the past 12 months, did you worry whether your food would run out before you got money to buy more?: Never true Do you have trouble paying for medicines?: No Do you have trouble getting transportation to medical appointments?: No Do you have trouble paying your heating and electricity bill?: Yes Do you have trouble taking care of your child, family member or friend?: No Do you have trouble with day-to-day activities such as bathing, preparing meals, shopping, managing finances, etc.?: No Are you currently unemployed and looking for a job?: No Are you interested in more education?: No Please select the resources that you would like help with: Care for elder or disabled Currently or been in a relationship where the following occur: No concerns reported THRIVE Score: 1 JENELLE-7 AMB Questionnaire JENELLE-7 Date JENELLE - 7 assessed: 04/19/24 Source: Developed by Drs. Kendrick Galeano, Lucia Stone, Mateusz Montalvo and colleagues, with an educational angie from [employer]. Review of Systems Const Denies chills, Denies fatigue, Denies fever(s), Denies headache(s) and Denies weakness ENT Denies dizziness and Denies headache(s) Card Denies dyspnea Resp Denies cough, Denies dyspnea, Denies wheezing and Denies other (shortness of breath) Musc Denies numbness and Denies tingling Neuro Denies dizziness, Denies headache(s), Denies numbness, Denies tingling and Denies weakness Psych Denies anxiety and Denies depression Endo Denies fatigue Aller/Immun Denies wheezing Physical exam (Primary Care) Vital Signs: Last Vital Signs Temp 98.2 F 08/29/24 10:04 Pulse 53 08/29/24 10:04 Resp 14 08/29/24 10:04 BP 110/70 08/29/24 10:04 Pulse Ox 97 08/29/24 10:04 Oxygen Delivery Method Room Air 08/29/24 10:04 BMI result Body Mass Index 41.4 Tobacco/Smoking Status: Tobacco use Status Tobacco use date assessed 04/19/24 08/29/24 09:56 Patient Tobacco Use Status Former Tobacco user 08/29/24 09:56 e-Cigarette/Vaping Use Never Used 08/29/24 09:56 Thrive Assessment: Date of Thrive Assessment Date Thrive assessed 07/19/24 08/29/24 09:56 Currently or been in a relationship where the following occur: No concerns reported Const General: well developed; No acute distress Nutritional Appearance: well nourished and obese morbidly obese Orientation/consciousness: patient oriented x3 HENMT Head: Yes normocephalic and Yes atraumatic Eyes General: appearance normal, both eyes and all related structures Pupils: Equal, round and reactive pupils present EOM: EOMs intact bilaterally Resp Effort & Inspection: normal respiratory effort Auscultation: clear to auscultation bilaterally Cardio Rate: regular rate Rhythm: regular rhythm Heart sounds: S1 normal heart sound present, S2 normal heart sound present, no gallops, no murmurs and no rubs Neuro General: patient oriented x3 and gait normal Cranial nerves: Yes Equal, round and reactive pupils present Psych Affect: normal affect Coding Level of Care Code Est Pt Level 4 (78836) Diagnoses Anxiety and depression F41.9; F32.A Pulmonary nodule 1 cm or greater in diameter R91.1 Asthma J45.909 Essential hypertension I10 Takotsubo cardiomyopathy I51.81 Assessment & Plan Assessment & Plan (1) Anxiety and depression: Code(s): F41.9 - Anxiety disorder, unspecified; F32.A - Depression, unspecified Category: Medical Plan: Ongoing?anxiety?and?depression. Recent?stressor;?her?mom?passed?away?recently?and?she?is?dealing?with??arrangements?today. Now?followed?by?[facility]?outpatient?psychiatric?consult?team Duloxetine?adjusted Follow-up?with?psych?team?as?recommended (2) Pulmonary nodule 1 cm or greater in diameter: Code(s): R91.1 - Solitary pulmonary nodule Category: Medical Plan: 1?cm?pulmonary?nodule?in?patient?with?a?history?of?smoking. PET?scan?imaging?appears?somewhat?equivocal; there?is?some?faint?uptake. Faint?uptake?in?other?areas?appears?physiologic?in?or?does?not?correspond?with?anatomical?imaging Follow-up?pulmonology?as?recommended (3) Asthma: Code(s): J45.909 - Unspecified asthma, uncomplicated Category: Medical Plan: History?of?smoking?and?asthma Recently?started?on?Breo?and?she?says?she?has?begun?to?notice?improvements?in?breathing?and?functional?reserve. Continue?Breo Follow-up?with?Pulmonary?Medicine?as?recommended (4) Essential hypertension: Code(s): I10 - Essential (primary) hypertension Category: Medical Plan: Blood?pressure?is?controlled.??Goal?is?less?than?130/80 Continue?current?medications (5) Takotsubo cardiomyopathy: Code(s): I51.81 - Takotsubo syndrome Category: Medical Plan: Recent?echocardiogram?shows?improvement?of?apical?movement?though?not?completely?resolved Follow-up?with?Cardiology - has appt in May
[2024-08-29 10:04] VITALS: BP 110/70; PULSE 53; RESP 14; TEMP 36.8; O2SAT 97; BMI 41.4
--- OUTSIDE RECORDS SUMMARY | 2024-08-29 10:53 | XMS_ITS | Clinical Summary ---
Author Organization [facility] Address [address] [place] [address] Phone Care Team Providers Care Sound Technician Name Role Phone Unavailable Primary Care Provider Unavailabl e Encounters Date Type Department Care Team Description 08/09/2024 9:30 AM EST - 08/09/2024 11:59 PM EST Hospital Encounter [facility] PET Scan [address] [place] [address] Pulmonary nodule Discharge Disposition: Home [...] Signed Date: 08/14/2024 04:31 ET Workstation ID: [id number] Transcribed By: Self Edit Transcribed Date: 08/13/2024 [...] Signed Date: 08/14/2024 04:31 ET Workstation ID: [id number] Transcribed By: Self Edit Transcribed Date: 08/13/2024 11:27 ET Yonis Holt MD IM [facility] PROCEDURES Final Result from Last 3 Months Insurance MEDICARE
--- OUTSIDE RECORDS SUMMARY | 2024-08-29 10:53 | XMS_ITS | Encounter Summary ---
Author Organization [facility] Address [address] [place] [address] Care Team Providers Care Shipping Inspector Name Role Phone Unavailable Primary Care Provider Unavailabl e Reason for Referral * Imaging (Routine) - Closed Specialty Diagnoses / Procedures Referred By Mely balderas Referred To Contact Radiology Diagnoses Pulmonary nodule Procedures PET CT Skull to Mid Thigh Initial Yonis Holt MD [address] [place] [address] Phone: tel: fax: [facility] Referral ID Status Reason Start Date Expiration Date Visits Re quested Visits Authorized [id number] Closed 08/08/2024 08/08/2025 1 1 Reason for Visit * Imaging (Routine) - Closed Specialty Diagnoses / Procedures Referred By Mely balderas Referred To Contact Radiology Diagnoses Pulmonary nodule Procedures PET CT Skull to Mid Thigh Initial Yonis Holt MD [address] [place] [address] Phone: tel: fax: [facility] Referral ID Status Reason Start Date Expiration Date Visits Re quested Visits Authorized [id number] Closed 08/08/2024 08/08/2025 1 1 Encounter Details Date Type Department Care Team (Latest Contact Info) Description 08/09/2024 9:30 AM EST - 08/09/2024 11:59 PM EST Hospital Encounter [facility] PET Scan [address] [place] [address] Pulmonary nodule Discharge Disposition: Home or Self [...] Signed Date: 08/14/2024 04:31 ET Workstation ID: [id number] Transcribed By: Self Edit Transcribed Date: 08/13/2024 [...] Signed Date: 08/14/2024 04:31 ET Workstation ID: [id number] Transcribed By: Self Edit Transcribed Date: 08/13/2024 11:27 ET us Yonis Holt MD [facility]ED[facility] Final Result documented in this encounter [...]
--- OUTSIDE RECORDS SUMMARY | 2024-08-29 10:53 | XMS_ITS ---
Author Organization [facility] Address [address] [place] [address] Care Team Providers Care Assembly Machine Tender Name Role Phone Stephan Max Primary Care Provider Unavailab Amando Bell Jr REASON FOR VISIT R/S OV Encounters Encounter Location Date Provider Diagnosis [facility] [address] [place] [address] 01/13/2024 Amando Alba Jr Plan Of Treatment Next Appt Details Provider Name:Amando pulliam Jr, 05/01/2025 09:00:00 AM, [address], [address], [place], [address], Progress Notes * PIPPA WEAVER LDOB:1955 (68 yo F)Acc No.[id number]:01/13/2024 Patient:?PIPPA WEAVER :1955???Age:68 Y???Sex:Female Address[address], [place] [address] * true * Date:? Generated for Printi jeremie/Kash/eTransmitting on:?08/29/2024 10:53 AM EST
--- OUTSIDE RECORDS SUMMARY | 2024-08-29 10:54 | XMS_ITS | Patient Health Record ---
Author Organization [facility] Address [address] [place] [address] Care Team Providers Care Ostomy Nurse Name Role Phone Stephan Max Primary Care Provider UnavailAmando Patel Jr Unavailable [phone] Allergies Allergen (clinical drug ingredient) Drug/Non Drug Allergy documented on EMR Reaction Allergy Type Onset Date Status Codeine Phosphate Unknown Drug Allergy Active Reason For Referral No Information Medications Medication SIG (Take, Route, Frequency, Duration) Notes [...] 20MG x 2 a day Acti ve Immunizations Vaccine Route Administration Date Status Comme nts Influenza Unknown 04/08/2022 Administered Influenza Unknown 04/16/2024 Administered Problems Problem Type SNOMED Code ICD Code Onset Dates Problem Status W/U Status Risk Notes Problem 076393384 Colon cancer screening (Z12.11) Active confirmed Problem 14865614 Encounter for other preprocedural examination (Z01.818) Active confirmed Problem Gastroesophageal reflux disease (644635192) Gastroesophageal reflux disease (K21.9) Active confirmed Problem 974387403 Gastroesophageal reflux disease without esophagitis (K21.9) Active confirmed Problem 99634546 Colitis (K52.9) Active confirmed Vital Signs Temperature 97.5 degrees Fahrenheit 04/30/2024 Blood pressure diastolic 00 mm Hg 04/30/2024 Height 61.5 in 04/30/2024 Blood pressure systolic 000 mm Hg 04/30/2024 Weight 222 lb 6 oz lbs 04/30/2024 BMI 41.33 kg/m2 04/30/2024 Encounters Encounter Location Date Provider Diagnosis [facility] [address] [place] [address] 04/30/2024 Amando Alba Jr Gastroesophageal reflux disease without esophagitis K21.9 and Colitis K52.9 [facility] [address] [place] [address] 01/13/2024 Amando Alba Jr Assessments Encounter Date Diagnosis (ICD Code) Assessment Notes Treatment Notes Treatment Clinical Notes Section Notes 04/30/2024 Gastroesophageal reflux disease without esophagitis (ICD-10 - K21.9) Gastroesophageal reflux disease material was printed At this time, Pippa appears to be doing well. We discussed gastroesophageal reflux disease today. She can continue to use aevs-vhh-zxweshw antacids for breakthrough symptoms as she is doing. She continues on fiber for her bowel movements. She does not need mesalamine at this time. Followup will be in 12 months. 04/30/2024 Colitis (ICD-10 - K52.9) At this time, Pippa appears to be doing well. We discussed gastroesophageal reflux disease today. She can continue to use igfx-wsz-szpttar antacids for breakthrough symptoms as she is doing. She continues on fiber for her bowel movements. She does not need mesalamine at this time. Followup will be in 12 months. Plan Of Treatment Future Test Test Name Order Date UPPER GI ENDOSCOPY 08/25/2012 COLONOSCOPY 10/14/2016 UPPER GI ENDOSCOPY 07/28/2022 COLONOSCOPY 07/28/2022 Next Appt Details Provider Name:Amando pulliam Jr, 05/01/2025 09:00:00 AM, [address], [address], [place], [address], Insurance Providers Payer Name Payer Address Payer Phone Subscriber Number Group Number Insured Name Patient Relationship to Insured Coverage Start Date Coverage End Date MEDICARE OF [employer] [address] [place] [address] [id number] PIPPA WEAVER Self - patient is the insured [facility] [address] [facility] [id number] PIPPA WEAVER Self - patient is the insured Medical (General) History Medical History History ICD Code Gastroesophageal reflux dise ase, EGD 09/16 no H. pylori or Leggett's esophagus Diverticulitis Angina Depression Hyperlipidemia Hypertension Squamous cell carcinoma TIA 2012 with no residual deficit DON/CPAP Colonoscopy 09/16, tubular ad enomas x2, 15 cm length of segmental colitis, current therapy mesalamine. 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
--- OUTSIDE RECORDS SUMMARY | 2024-08-29 10:54 | XMS_ITS ---
Author Organization [facility] Address [address] [place] [address] Care Team Providers Care Certified Physical Therapist Assistant Name Role Phone Stephan Max Primary Care Provider UnavailAmando Patel Jr [phone] REASON FOR VISIT Patient presents today for colitis Encounters Encounter Location Date Provider Diagnosis [facility] [address] [place] [address] 01/16/2024 Amando Alba Jr Plan Of Treatment Next Appt Details Provider Name:Amando pulliam Jr, 05/01/2025 09:00:00 AM, [address], [address], [place], [address], Progress Notes * PIPPA WEAVER LDOB:1955 (69 yo F)Acc No.[id number]:01/16/2024 Progress Notes Patient:?PIPPA WEAVER Provider:?Amando Alba MD :1955???Age:68 Y???Sex:Female D ate:01/16/2024 Address:[address] [place] [address] [address], [id number] Pcp:Stephan Max Subjective: * Chief Complaints: * ???1. Patient presents today for colitis. * Medical History:? Objective: * Vitals:? Assessment: Plan: * Treatment: * * The named appointment provid er may or may not be the originator of this progress note, and it is not deemed complete until electronically signed by the appointment provider. Sign off status: Pending * Provider:?Amando Alba MD Date:?0 01/16/2024 Generated for Carly chao/Kash/Cristhian on:?08/29/2024 10:53 AM EST
--- OUTSIDE RECORDS SUMMARY | 2024-08-29 10:54 | XMS_ITS ---
Author Organization [facility] Address [address] [place] [address] Care Team Providers Care Display Fabrication Supervisor Name Role Phone Stephan Max Primary Care Provider UnavailAmando Patel Jr Unavailable [phone] Allergies Allergen (clinical drug ingredient) Drug/Non Drug Allergy documented on EMR Reaction Allergy Type Onset Date Status Codeine Phosphate Unknown Drug Allergy Active REASON FOR VISIT Patient presents today for colitis Medications Medication SIG (Take, Route, Frequency, Duration) [...] a day for 30 day(s) 09/30/2022 Active Vital Signs Temperature 97.5 degrees Fahrenheit 04/30/20 24 Blood pressure systolic 000 mm Hg 04/30/20 24 Blood pressure diastolic 00 mm Hg 024 Height 61.5 in 04/30/2024 Weight 222 lb 6 oz lbs 04/30/2024 BMI 41.33 kg/m2 04/30/2024 Encounters Encounter Location Date Provider Diagnosis [facility] [address] [place] [address] 04/30/2024 Amando Alba Jr Gastroesophageal reflux disease without esophagitis K21.9 and Colitis K52.9 Assessments Encounter Date Diagnosis (ICD Code) Assessment Notes Treatment Notes Treatment Clinical Notes Section Notes 04/30/2024 Gastroesophageal reflux disease without esophagitis (ICD-10 - K21.9) Gastroesophageal reflux disease material was printed At this time, Pippa appears to be doing well. We discussed gastroesophageal reflux disease today. She can continue to use cjpm-kis-lhfrdjd antacids for breakthrough symptoms as she is doing. She continues on fiber for her bowel movements. She does not need mesalamine at this time. Followup will be in 12 months. 04/30/2024 Colitis (ICD-10 - K52.9) At this time, Pippa appears to be doing well. We discussed gastroesophageal reflux disease today. She can continue to use vgzg-nus-ebahxwm antacids for breakthrough symptoms as she is doing. She continues on fiber for her bowel movements. She does not need mesalamine at this time. Followup will be in 12 months. Plan Of Treatment Treatment Notes Assessment Notes Gastroesophageal reflux dise ase without esophagitis Gastroesophageal reflux disease material was printed Next Appt Details Follow Up: 1 Year, Reason: Provider Name:Amando pulliam Jr, 05/01/2025 09:00:00 AM, [address] [place] [address], [address], [place], [address], Progress Notes * PIPPA WEAVER LDOB:1955 (68 yo F)Acc No.[id number]:04/30/2024 Progress Notes Patient:?PIPPA WEAVER Provider:?Amando Alba MD :1955???Age:68 Y???Sex:Female D ate:04/30/2024 Address:[address] [place] [address] [address], [place], [place] Pcp:Stephan Max Subjective: * Chief Complaints: * ???1. Patient presents today for colitis. * HPI: ???New symptom(s):? Pippa is a pleasant 68-year-old woman seen today in followup of gastroesophageal reflux disease and colitis. She reports reflux symptoms are under good control. She continues on pantoprazole 40 mg daily. She has no complaints of dysphagia, hematemesis, or melena. Weight and appetite have been stable. ?Bowel movements are occurring about one to 2 times per day without rectal bleeding. She has not needed mesalamine for an exacerbation of her symptoms. She has no complaints of abdominal rectal pain. * Medical History:?Gastroesoph ageal reflux disease, EGD 09/16 no H. pylori or Leggett's esophagus, Diverticulitis, Angina, Depression, Hyperlipidemia, Hypertension, Squamous cell carcinoma, TIA 2012 with no residual deficit, DON/CPAP, Colonoscopy 09/16, tubular adenomas x2, 15 cm length of segmental colitis, current therapy mesalamine., Difficult intubation at time of rotator cuff surgery [facility] 11/13. * Surgical History:?carpal [place] surgery in both hands , basal cell removed on chin , new hip right , rotator cuff surgery left , hysteroscopy 08/16, new knee left , new shoulder right . * Hospitalization/Major Diagno stic Procedure:?distributed shock after surgery . * Family History:?Father: dece ased, diagnosed with HTN (hypertension).?Mother: alive, diagnosed with HTN (hypertension).? No family history of liver cancer. Paternal 1st cousin, lower intestine cancer. Paternal grandfather stomach cancer. * Social History:?Tobacco Use:?Tobacco Use/Smoking?Patient is a: former smoker , How long has it been since you last smoked?: > 10 years.?Drugs/Alcohol:?Alcohol Screen?Points: 0, Interpretation: Negative.?Miscellaneous:?Marital status: . 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 * Medications:?Taking Isosorbi de Mononitrate ER 60 MG Tablet Extended Release 24 Hour 1 tablet in the morning Orally Once a day, Taking DULoxetine HCl 60 MG Capsule Delayed Release Particles 1 capsule Orally Once a day, Taking Atorvastatin Calcium 10 MG Tablet 1 tablet Orally Once a day, Taking Melatonin 5 MG Tablet 1 tablet in the evening Orally Once a day, Taking Famotidine 20 MG Tablet 1 tablet at bedtime as needed Orally Once a day, Taking Pantoprazole Sodium 40 MG Tablet Delayed Release 1 tablet Orally Once a day, Taking buPROPion HCl 75 MG Tablet 2 tablets Orally , Taking Lisinopril 20MG , Notes: x 2 a day, Taking Mesalamine ER 0.375 GM Capsule Extended Release 24 Hour 4 capsules in the morning Orally Once a day, Medication List reviewed and reconciled with the patient * Allergies:?Codeine Phosphate . Objective: * Vitals:?Wt: 222 lb 6 oz, Ht: 61.5 in, BMI:41.33 Index, BP: 000/00 mm Hg, Temp: 97.5. * Examination: ???General Examination: ???On examination today she presents as a well-appearing female no acute distress. Skin is anicteric. Lungs are clear. Heart shows regular rate and rhythm. Abdomen is soft without focal masses or tenderness. Assessment: * Assessment: 1.?Gastroesophageal reflux d isease without esophagitis - K21.9 (Primary)?2.?Colitis - K52.9? At this time, Pippa appears t o be doing well. We discussed gastroesophageal reflux disease today. She can continue to use fewl-ujh-ndlicek antacids for breakthrough symptoms as she is doing. She continues on fiber for her bowel movements. She does not need mesalamine at this time. Followup will be in 12 months. Plan: * Treatment: * Procedure Codes:?3017F COLOR ECTAL CA SCREEN DOC REV, G9903 Pt scrn tbco id as non user, G9744 PATIENT NOT ELIG D/T ACTIVE DX HTN * Preventive Medicine:? ??Counseling:?Care goal follow-up plan:?Above Normal BMI Follow-up?Giving encouragement to exercise,?BMI management provided?Yes.? ??Urinary Incontinence:?Urinary Incontinence?Assessment:?Absent,?Plan of care documented:?No, reason not specified.? ??Screenings:?Fall Risk Screening?Fall Risk Assessment:?No falls in the past year,?Screening:?No falls in the past year,?Assessment:?Not performed, no reason specified,?Plan of Care:?Not documented, no reason specified.? * Follow Up:?1 Year * * Sign off status: Completed true * Provider:?Amando Alba MD Date:?1 06/30/2023 Generated for Printi ng/Kash/eTransmitting on:?08/29/2024 10:53 AM EST History and Physical Notes * HPI (History of Present Illness) Category Sub-Category Detail Notes Category Not es New symptom(s) Pippa is a pleasant 68-year-old woman seen today in followup of gastroesophageal reflux disease and colitis. She reports reflux symptoms are under good control. She continues on pantoprazole 40 mg daily. She has no complaints of dysphagia, hematemesis, or melena. Weight and appetite have been stable. Bowel movements are occurring about one to 2 times per day without rectal bleeding. She has not needed mesalamine for an exacerbation of her symptoms. She has no complaints of abdominal rectal pain. Examination Category Sub-Category Detail Notes Category Not es General Examination On exami nation today she presents as a well-appearing female no acute distress. Skin is anicteric. Lungs are clear. Heart shows regular rate and rhythm. Abdomen is soft without focal masses or tenderness.
== END 2024-08-29 10:46 | disposition home or self-care (01) ==
PROVIDERS: PCP Family Medicine; Visit Provider Family Medicine
DX: F41.9 Anxiety disorder, unspecified (principal); F32.A Depression, unspecified; R91.1 Solitary pulmonary nodule; J45.909 Unspecified asthma, uncomplicated; I10 Essential (primary) hypertension; I51.81 Takotsubo syndrome

== ENCOUNTER → 2024-08-29 09:33 | Outpatient (BNVA) | payer MEDICARE, OTHER, SELFPAY | PROVIDERS: PCP Family Medicine; Visit Provider Family Medicine | DX: F41.9 Anxiety disorder, unspecified (principal); F32.A Depression, unspecified; R91.1 Solitary pulmonary nodule; J45.909 Unspecified asthma, uncomplicated; I10 Essential (primary) hypertension; I51.81 Takotsubo syndrome | CPT/HCPCS: 99212 ==

== ENCOUNTER 2024-08-31 09:34 | Outpatient (AMB) | payer MEDICARE, OTHER, SELFPAY ==
--- NOTE | 2024-08-31 09:37 | A.OFFVIS_ITS ---
Vital Signs 3 08/31/24 09:41 Height 5 ft 1 in Weight 220 lb BMI 41.6 BP 128/74 Blood Pressure Location Lt brachial Position Sitting Pulse 80 Pulse Source Pulse Oximeter Pulse Oximetry (%) 98 Oxygen Delivery Method Room Air Intake Visit Reasons: Pulmonary Nodule Plater Supervisor Required: No Automobile Repossessor: Automobile Repossessor offered & declined Accompanied by: Self / Same As Patient Allergies codeine [CODEINE] Adverse Reaction (Mild, Verified 08/31/24 09:46) NAUSEA & VOMITING Medication List - Last Reconciled 08/31/24 by Dede León LPN alendronate 70 mg PO QWEEK 28 days aspirin (Adult Aspirin Regimen) 81 mg PO DAILY atorvastatin 10 mg PO DAILY 90 days bupropion HCl SR 200 mg PO DAILY 90 days docusate sodium (Colace) 100 mg PO BID PRN duloxetine 60 mg PO DAILY 90 days duloxetine 30 mg PO DAILY famotidine 20 mg PO BEDTIME 90 days ferrous sulfate 200 mg PO DAILY fluticasone furoate-vilanterol 100-25 mcg/dose (Breo Ellipta) 1 inh inhalation DAILY furosemide 20 mg PO DAILY isosorbide mononitrate ER 60 mg PO QAM 90 days metoprolol tartrate 25 mg PO BID pantoprazole 40 mg PO DAILY 90 days psyllium husk (Metamucil) 1.2 grams PO DAILY HPI HPI Pulmonary Nodule: Details: Martha Clark is pleasant 68 year old, former smoker, quit with approximately 50+ pyh with underlying asthma, recent NSTEMI,Takotsubo cardiomyopathy, HTN, HLD, TIA, h/o sqaumous cell carcinoma s/p excision, and DON on CPAP therapy (managed by sleep medicine). She was initially referred by PCP after incidental finding of XANDER 1.0x 1.1 cm pulmonary nodule on CTA from June 2023. She denies prior abnormal imaging and h/o pulmonary nodules. She was sent for PET scan and presents to review results today. At the last visit she also reported reports progressively worsening dyspnea on exertion, with intermittent wheezing and dry cough over the last few months and was started on Breo. She denies any visits to urgent care or hospitalizations related to respiratory distress since the last visit. [facility] Medical History (Updated 08/31/24 @ 10:12 by Taya Morse NP) Golfers elbow Colitis CKD (chronic kidney disease) stage 3, GFR 30-59 ml/min Sleep apnea TIA (transient ischemic attack) Hx of squamous cell carcinoma HTN (hypertension) Elevated cholesterol Depression History of angina Diverticulitis GERD (gastroesophageal reflux disease) Surgical History (Updated 07/25/24 @ 15:48 by Niya David [facility]) Hx of cardiac cath History of knee replacement procedure of left knee Hx of squamous cell carcinoma excision Hx of total hip arthroplasty History of hysteroscopy History of carpal tunnel release of both wrists Hx of rotator cuff surgery Hx of colonoscopy Hx of esophagogastroduodenoscopy Family History Father Rheumatic fever Heart attack Stroke Mother Heart problem Social History (Updated 08/01/24 @ 09:25 by Dede León LPN) Housing: House Alcohol intake: never Patient Tobacco Use Status: Former Tobacco user Cigarette Packs Per Day: 2 Years Smoked: 25 e-Cigarette/Vaping Use: Never Used Second Hand Smoke Exposure: No service: No Current occupational status: retired Current occupational exposures/hazards: No Cognitive needs: No Hearing needs: No Vision needs: Yes Results Reviewed Results Reviewed: Assessment & Plan Assessment & Plan (1) Pulmonary nodule 1 cm or greater in diameter: Code(s): R91.1 - Solitary pulmonary nodule Category: Medical (2) Asthma: Code(s): J45.909 - Unspecified asthma, uncomplicated Category: Medical Plan Prior CTA revealed 1 cm XANDER solid pulmonary nodule, sent for PET which revealed minimal FDG activity of XANDER, SUV 1.7. Will repeat chest CT in 3 months from initial CTA to assess stability of nodule, 09/2024. There was also note of FDG activity in right hepatic lobe , suggestive of possible lesion vs liver heterogeneity, with recommendation for further evaluation with abdominal MRI. Will enter referral to GI, patient already established with Dr. Alba. In regards to respiratory symptoms patient noted some improvement in dyspnea with initiating Breo however continues with dyspnea on exertion and dry cough. Will increase to Breo 200 mcg. All questions were answered and patient is in agreement of plan. Will follow up to review results or sooner if needed. Orders: Orders 2 CT chest wo IV con 6 Weeks R91.1 - Solitary pulmonary nodule Referrals 2 Gastroenterology Referral R93.2 - Abnormal findings on diagnostic imaging of liver and biliary tract Medications: New 2 fluticasone furoate-vilanterol 200-25 mcg/dose (Breo Ellipta) 1 inh inhalation DAILY 60 ea 6RF Discontinued 2 fluticasone furoate-vilanterol 100-25 mcg/dose (Breo Ellipta) Discontinued Reason: Patient Completed Course 1 inh inhalation DAILY 60 ea 3RF Coding Level of Care Code Est Pt Level 4 (67518) Diagnoses Pulmonary nodule 1 cm or greater in diameter R91.1 Asthma J45.909
[2024-08-31 09:41] VITALS: BP 128/74; PULSE 80; O2SAT 98; BMI 41.6
--- OUTSIDE RECORDS SUMMARY | 2024-08-31 10:26 | XMS_ITS ---
Author Organization [facility] Address [address] [place] [address] Care Team Providers Care Java Core Developer Name Role Phone Stephan Max Primary Care Provider Unavailab Amando Bell Jr [phone] REASON FOR VISIT R/S OV Encounters Encounter Location Date Provider Diagnosis [facility] [address] [place] [address] 01/13/2024 Amando Alba Jr Plan Of Treatment Next Appt Details Provider Name:Amando pulliam Jr, 05/01/2025 09:00:00 AM, [address], [address], [place], [address], Progress Notes * PIPPA WEAVER LDOB:1955 (68 yo F)Acc No.[id number]:01/13/2024 Patient:?PIPPA WEAVER :1955???Age:68 Y???Sex:Female Address:[address], [place] [address] * true * Date:? Generated for Printi jeremie/Kash/eTransmitting on:?08/31/2024 10:25 AM EST
--- OUTSIDE RECORDS SUMMARY | 2024-08-31 10:26 | XMS_ITS | Clinical Summary ---
Author Organization [facility] Address [address] [place] [address] Phone Care Team Providers Care Junior Analyst Name Role Phone Unavailable Primary Care Provider Unavailabl e Encounters Date Type Department Care Team Description 08/09/2024 9:30 AM EST - 08/09/2024 11:59 PM EST Hospital Encounter [facility] PET Scan [address] [place] [address] Pulmonary nodule Discharge Disposition: Home [...] Signed Date: 08/14/2024 04:31 ET Workstation ID: [id number] Transcribed By: Self Edit Transcribed Date: 08/13/2024 [...] Signed Date: 08/14/2024 04:31 ET Workstation ID: [id number] Transcribed By: Self Edit Transcribed Date: 08/13/2024 11:27 ET Yonis Holt MD IM [place] PROCEDURES Final Result from Last 3 Months Insurance MEDICARE
--- OUTSIDE RECORDS SUMMARY | 2024-08-31 10:26 | XMS_ITS | Encounter Summary ---
Author Organization [facility] Address [address] [place] [address] Care Team Providers Care Funeral Director/Embalmer/Owner Name Role Phone Unavailable Primary Care Provider Unavailabl e Reason for Referral * Imaging (Routine) - Closed Specialty Diagnoses / Procedures Referred By Mely balderas Referred To Contact Radiology Diagnoses Pulmonary nodule Procedures PET CT Skull to Mid Thigh Initial Yonis Holt MD [address] [place] [address] Phone: tel: fax: [facility] Referral ID Status Reason Start Date Expiration Date Visits Re quested Visits Authorized [id number] Closed 08/08/2024 08/08/2025 1 1 Reason for Visit * Imaging (Routine) - Closed Specialty Diagnoses / Procedures Referred By Mely balderas Referred To Contact Radiology Diagnoses Pulmonary nodule Procedures PET CT Skull to Mid Thigh Initial Yonis Holt MD [address] [place] [address] Phone: tel: fax: [facility] Referral ID Status Reason Start Date Expiration Date Visits Re quested Visits Authorized [id number] Closed 08/08/2024 08/08/2025 1 1 Encounter Details Date Type Department Care Team (Latest Contact Info) Description 08/09/2024 9:30 AM EST - 08/09/2024 11:59 PM EST Hospital Encounter [facility] PET Scan [address] [place] [address] Pulmonary nodule Discharge Disposition: Home or Self [...] Signed Date: 08/14/2024 04:31 ET Workstation ID: [id number] Transcribed By: Self Edit Transcribed Date: 08/13/2024 [...] Signed Date: 08/14/2024 04:31 ET Workstation ID: [id number] Transcribed By: Self Edit Transcribed Date: 08/13/2024 11:27 ET us Yonis Hotl MD [facility] Final Result documented in this [...]
--- OUTSIDE RECORDS SUMMARY | 2024-08-31 10:26 | XMS_ITS | Patient Health Record ---
Author Organization [facility] Address [address] [place] [address] Care Team Providers Care Mica Plate Layer Hand Name Role Phone Stephan Max Primary Care Provider UnavailAmando Patel Jr Unavailable Allergies Allergen (clinical drug ingredient) Drug/Non Drug [...] Problem Status W/U Status Risk Notes Problem [id number] Colon cancer screening (Z12.11) Active confirmed Problem 78548495 Encounter for other preprocedural examination (Z01.818) Active confirmed Problem Gastroesophageal reflux disease (925923558) Gastroesophageal reflux disease (K21.9) Active confirmed Problem 669242414 Gastroesophageal reflux disease without esophagitis (K21.9) Active confirmed Problem 31785145 Colitis (K52.9) Active confirmed Vital Signs Temperature 97.5 degrees Fahrenheit 04/30/2024 Blood pressure diastolic 00 mm Hg 04/30/2024 Height 61.5 in 04/30/2024 Blood pressure systolic 000 mm Hg 04/30/2024 Weight 222 lb 6 oz lbs 04/30/2024 BMI 41.33 kg/m2 04/30/2024 Encounters Encounter Location Date Provider Diagnosis [facility] [address] [place] [address] 04/30/2024 Amando Alba Jr Gastroesophageal reflux disease without esophagitis K21.9 and Colitis K52.9 [facility] [address] [place] [address] 01/13/2024 Amando Alba Jr Assessments Encounter Date Diagnosis (ICD Code) Assessment Notes Treatment Notes Treatment Clinical Notes Section Notes 04/30/2024 Gastroesophageal reflux disease without esophagitis (ICD-10 - K21.9) Gastroesophageal reflux disease material was printed At this time, Pippa appears to be doing well. We discussed gastroesophageal reflux disease today. She can continue to use fybe-ghf-jnvyszm antacids for breakthrough symptoms as she is doing. She continues on fiber for her bowel movements. She does not need mesalamine at this time. Followup will be in 12 months. 04/30/2024 Colitis (ICD-10 - K52.9) At this time, Pippa appears to be doing well. We discussed gastroesophageal reflux disease today. She can continue to use pgbz-vln-wcgyxua antacids for breakthrough symptoms as she is doing. She continues on fiber for her bowel movements. She does not need mesalamine at this time. Followup will be in 12 months. Plan Of Treatment Future Test Test Name Order Date UPPER GI ENDOSCOPY 08/25/2012 COLONOSCOPY 10/14/2016 UPPER GI ENDOSCOPY 07/28/2022 COLONOSCOPY 07/28/2022 Next Appt Details Provider Name:Amando pulliam Jr, 05/01/2025 09:00:00 AM, [address], [address], [place], [address], Insurance Providers Payer Name Payer Address Payer Phone Subscriber Number Group Number Insured Name Patient Relationship to Insured Coverage Start Date Coverage End Date MEDICARE OF [place] [address] [place] [address] [id number] PIPPA WEAVER Self - patient is the insured [facility] [address] [facility] [phone] [id number] PIPPA WEAVER Self - patient is the [...] intubation at time of rotator cuff surgery [facility] 11/13 Surgical History Surgery Date(Month/Year) carpal tunnel surgery in both hands 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
--- OUTSIDE RECORDS SUMMARY | 2024-08-31 10:26 | XMS_ITS ---
Author Organization [facility] Address [address] [place] [address] Care Team Providers Care Refractory Mixer Name Role Phone Stephan Max Primary Care [...] 04/30/2024 Encounters Encounter Location Date Provider Diagnosis [facility] [address] [place] [address] 04/30/2024 Amando Alba Jr Gastroesophageal reflux disease without esophagitis K21.9 and Colitis K52.9 Assessments Encounter Date Diagnosis (ICD Code) Assessment Notes Treatment Notes Treatment Clinical Notes Section Notes 04/30/2024 Gastroesophageal reflux disease without esophagitis (ICD-10 - K21.9) Gastroesophageal reflux disease material was printed At this time, Pippa appears to be doing well. We discussed gastroesophageal reflux disease today. She can continue to use oksy-xjn-xygjqim antacids for breakthrough symptoms as she is doing. She continues on fiber for her bowel movements. She does not need mesalamine at this time. Followup will be in 12 months. 04/30/2024 Colitis (ICD-10 - K52.9) At this time, Pippa appears to be doing well. We discussed gastroesophageal reflux disease today. She can continue to use owcy-jmt-ghakjwe antacids for breakthrough symptoms as she is [...] Provider Name:Amando pulliam Jr, 05/01/2025 09:00:00 AM, [address] [place] [address], [address], [place], [address], Progress Notes * PIPPA WEAVER LDOB:1955 (68 yo F)Acc No.[id number]:04/30/2024 Progress Notes Patient:?PIPPA WEAVER Provider:?Amando Alba MD :1955???Age:68 Y???Sex:Female D ate:04/30/2024 Address:[address] [place] [address] [address], [place], [place] Pcp:Stephan Max Subjective: * Chief Complaints: * [...] intubation at time of rotator cuff surgery [facility] 11/13. * Surgical History:?carpal [place] surgery [...] disease today. She can continue to use uxxg-usk-bmbxlbr antacids for breakthrough symptoms as she is [...] MD Date:?1 06/30/2023 Generated for Printi ng/Kash/eTransmitting on:?08/31/2024 10:26 AM EST History and Physical Notes * [...]
--- OUTSIDE RECORDS SUMMARY | 2024-08-31 10:26 | XMS_ITS ---
Author Organization [facility] Address [address] [place] [address] Care Team Providers Care Senior Asset Manager Name Role Phone Stephan Max Primary Care Provider UnavailAmando Patel Jr REASON FOR VISIT Patient presents today for colitis Encounters Encounter Location Date Provider Diagnosis [facility] [address] [place] [address] 01/16/2024 Amando Alba Jr Plan Of Treatment Next Appt Details Provider Name:Amando pulliam Jr, 05/01/2025 09:00:00 AM, [address], [address], [place], [address], Progress Notes * PIPPA WEAVER LDOB:1955 (69 yo F)Acc No.[id number]:01/16/2024 Progress Notes Patient:?PIPPA WEAVER Provider:?Amando Alba MD :1955???Age:68 Y???Sex:Female D ate:01/16/2024 Address:[address] [place] [address] [address], [id number] Pcp:Stephan Max Subjective: * Chief Complaints: * [...] MD Date:?0 01/16/2024 Generated for Carly chao/Kash/Cristhian on:?08/31/2024 10:25 AM EST
== END 2024-08-31 10:11 | disposition home or self-care (01) ==
PROVIDERS: PCP Family Medicine; Visit Provider Nurse Practitioner Family
DX: R91.1 Solitary pulmonary nodule (principal); J45.909 Unspecified asthma, uncomplicated
CPT/HCPCS: 99214

== ENCOUNTER → 2024-08-31 09:34 | Outpatient (BNVA) | payer MEDICARE, OTHER, SELFPAY | PROVIDERS: PCP Family Medicine; Visit Provider Nurse Practitioner Family | DX: F33.1 Major depressive disorder, recurrent, moderate (principal); F41.1 Generalized anxiety disorder; Z63.4 Disappearance and death of family member; R91.1 Solitary pulmonary nodule; J45.909 Unspecified asthma, uncomplicated; R93.2 Abnormal findings on diagnostic imaging of liver and biliary tract | CPT/HCPCS: 99212 ==

== ENCOUNTER 2024-08-31 14:53 | Outpatient (AMB) | payer MEDICARE, OTHER, SELFPAY ==
--- NOTE | 2024-08-31 15:16 | MHC.OFFVISPS ---
Intake Intake Visit Reasons: follow up Blanket Inspector Required: No Allergies codeine [CODEINE] Adverse Reaction (Mild, Verified 08/31/24 09:46) NAUSEA & VOMITING Medication List - Last Reconciled 10/02/24 by Trinity Liriano APRN alendronate 70 mg PO QWEEK 28 days aspirin (Adult Aspirin Regimen) 81 mg PO DAILY atorvastatin 10 mg PO DAILY 90 days bupropion HCl SR 200 mg PO DAILY 90 days docusate sodium (Colace) 100 mg PO BID PRN duloxetine 60 mg PO DAILY 90 days duloxetine 30 mg PO DAILY famotidine 20 mg PO BEDTIME 90 days ferrous sulfate 200 mg PO DAILY fluticasone furoate-vilanterol 200-25 mcg/dose (Breo Ellipta) 1 inh inhalation DAILY furosemide 20 mg PO DAILY isosorbide mononitrate ER 60 mg PO QAM 90 days metoprolol tartrate 25 mg PO BID pantoprazole 40 mg PO DAILY 90 days psyllium husk (Metamucil) 1.2 grams PO DAILY HPI- Psychiatric Chief Complaint: follow up HPI Narrative: pt reports her mother ; she is grieving; she is tearful; Her PHQ9=18 and GAD7=15. She continues to struggle with grief and sadness; taking care of has been difficult; she is hoping to get some help from elder servies. no change with medications and no reported side effects. Subjective Subjective Subjective Medication Compliance: Yes Side effects from medications: No Review of Systems Medical Review of Systems: unchanged Mental Status Exam Mental Status Exam Patient Appearance: Well Grooomed and Appropriate Patient Orientation: Person, Place, Time and Situation Level of Consciousness: Awake, Appropriate and Alert Patient Behavior: Appropriate, Cooperative, Anxious, Distractible and Crying Mood Description: Anxious and Sad Affect Description: Anxious and Sad Patient Cognition Impaired: No Ability to Follow Directions: Good Speech Pattern: Clear Memory Description: Intact Hallucinations: None Delusions: Not Present Thought Process: Intact Thought Content: positive for Intact Judgement: Good Assessment and Plan Assessment & Plan (1) JENELLE (generalized anxiety disorder): Status: Acute Code(s): F41.1 - Generalized anxiety disorder (2) Major depressive disorder, recurrent, moderate: Status: Acute Code(s): F33.1 - Major depressive disorder, recurrent, moderate (3) Bereavement: Status: Acute Code(s): Z63.4 - Disappearance and of family member Plan continue medication as is return in 4 weeks Counseling and coordination of Care Pt. Self Management counseling: General coping skills and Greif counseling Medication management counseling: Effectiveness, Side effects, Dosing range, Duration, Drug interaction and Adherence Diagnosis and Prognosis Counseling: Accuracy of diagnosis, Prognosis over time and Adequacy of current interventions Details: I spent 40 minutes reviewing the record, seeing the patient and documenting in the medical record. Counseling provided to the patient/caregiver as outlined below. Addressed patient/caregiver concerns regarding current medication regime including effective adherence. Addressed patient/caregiver concerns regarding diagnosis and prognosis including accuracy of diagnosis, prognosis over time, impact of diagnosis. Addressed patient/caregiver concerns regarding impact of recent stressors. [facility] Medical History (Updated 08/31/24 @ 10:12 by Taya Morse NP) Golfers elbow Colitis CKD (chronic kidney disease) stage 3, GFR 30-59 ml/min Sleep apnea TIA (transient ischemic attack) Hx of squamous cell carcinoma HTN (hypertension) Elevated cholesterol Depression History of angina Diverticulitis GERD (gastroesophageal reflux disease) Surgical History (Updated 07/25/24 @ 15:48 by Niya David CMA) Hx of cardiac cath History of knee replacement procedure of left knee Hx of squamous cell carcinoma excision Hx of total hip arthroplasty History of hysteroscopy History of carpal tunnel release of both wrists Hx of rotator cuff surgery Hx of colonoscopy Hx of esophagogastroduodenoscopy Family History Father Rheumatic fever Heart attack Stroke Mother Heart problem Social History (Updated 08/01/24 @ 09:25 by Dede León LPN) Housing: House Alcohol intake: never Patient Tobacco Use Status: Former Tobacco user Cigarette Packs Per Day: 2 Years Smoked: 25 e-Cigarette/Vaping Use: Never Used Second Hand Smoke Exposure: No service: No Current occupational status: retired Current occupational exposures/hazards: No Cognitive needs: No Hearing needs: No Vision needs: Yes Coding Level of Care Code Est Pt Level 4 (53049) Diagnoses JENELLE (generalized anxiety disorder) F41.1 Major depressive disorder, recurrent, moderate F33.1 Bereavement Z63.4
--- OUTSIDE RECORDS SUMMARY | 2024-08-31 16:35 | XMS_ITS | Encounter Summary ---
Author Organization [facility] Address [address] [place] [address] Care Team Providers Care Chairman & Ceo Name Role Phone Unavailable Primary Care Provider Unavailabl e Reason for Referral * Imaging (Routine) - Closed Specialty Diagnoses / Procedures Referred By Mely balderas Referred To Contact Radiology Diagnoses Pulmonary nodule Procedures PET CT Skull to Mid Thigh Initial Yonis Holt MD [address] [place] [address] Phone: tel: fax: [facility] Referral ID Status Reason Start Date Expiration Date Visits Re quested Visits Authorized [id number] Closed 08/08/2024 08/08/2025 1 1 Reason for Visit * Imaging (Routine) - Closed Specialty Diagnoses / Procedures Referred By Mely balderas Referred To Contact Radiology Diagnoses Pulmonary nodule Procedures PET CT Skull to Mid Thigh Initial Yonis Holt MD [address] [place] [address] Phone: tel: fax: [facility] Referral ID Status Reason Start Date Expiration Date Visits Re quested Visits Authorized [id number] Closed 08/08/2024 08/08/2025 1 1 Encounter Details Date Type Department Care Team (Latest Contact Info) Description 08/09/2024 9:30 AM EST - 08/09/2024 11:59 PM EST Hospital Encounter [facility] PET Scan [address] [place] [address] Pulmonary nodule Discharge Disposition: Home or Self [...] Date: 08/13/2024 10:27 ET Assigned Physician: Natalya Vlilalobos Reviewed and Electronically Signed By: Natalya Villalobos Signed Date: 08/14/2024 04:31 ET Workstation ID: [id number] Transcribed By: Self Edit Transcribed Date: 08/13/2024 [...] Signed Date: 08/14/2024 04:31 ET Workstation ID: [id number] Transcribed By: Self Edit Transcribed Date: 08/13/2024 11:27 ET us Yonis Holt MD [facility] PROCEDURES Final Result documented in this [...]
--- OUTSIDE RECORDS SUMMARY | 2024-08-31 16:35 | XMS_ITS | Clinical Summary ---
Author Organization [facility] Address [address] [place] [address] Phone Care Team Providers Care Compensation Agent Name Role Phone Unavailable Primary Care Provider Unavailabl e Encounters Date Type Department Care Team Description 08/09/2024 9:30 AM EST - 08/09/2024 11:59 PM EST Hospital Encounter [facility] PET Scan [address] [place] [address] Pulmonary nodule Discharge Disposition: Home [...] Signed Date: 08/14/2024 04:31 ET Workstation ID: [id number] Transcribed By: Self Edit Transcribed Date: 08/13/2024 [...] Signed Date: 08/14/2024 04:31 ET Workstation ID: [id number] Transcribed By: Self Edit Transcribed Date: 08/13/2024 11:27 ET Yonis Holt MD IM [facility] PROCEDURES Final Result from Last 3 Months Insurance MEDICARE
== END 2024-08-31 15:50 | disposition home or self-care (01) ==
LOC: HO.HOP 14:53
PROVIDERS: PCP Family Medicine; Visit Provider Clinical Nurse Specialist Psychiatric/Mental Health
DX: F41.1 Generalized anxiety disorder (principal); F33.1 Major depressive disorder, recurrent, moderate; Z63.4 Disappearance and death of family member
CPT/HCPCS: 99214

== ENCOUNTER 2024-09-11 12:12 | Outpatient (REF) | payer MEDICARE, OTHER, SELFPAY ==
[2024-09-11 14:12] LABS: Alanine Aminotransferase 16 U/L (0-31); Albumin Level 4.1 g/dL (3.5-5.0); Alkaline Phosphatase 70 U/L (39-117); Aspartate Amino Transferase 20 U/L (5-31); Bilirubin Direct 0.1 mg/dL (0.0-0.5); Bilirubin Total 0.3 mg/dL (0.0-1.0); Blood Urea Nitrogen 16 mg/dL (9-16); Estimated Glomerular Filt Rate 57; Total Protein 7.3 g/dL (6.5-8.0)
== END 2024-09-11 12:13 | disposition home or self-care (01) ==
LOC: HO.LAB 12:12
PROVIDERS: PCP Family Medicine; Visit Provider Internal Medicine Gastroenterology
DX: R94.5 Abnormal results of liver function studies (principal)
CPT/HCPCS: 36415; 80076; 82565; 84520

== ENCOUNTER → 2024-09-18 19:30 | Outpatient (REF) | payer MEDICARE, OTHER, SELFPAY | LOC: HO.SL 19:30 | PROVIDERS: PCP Family Medicine; Visit Provider Physician Assistant Medical | DX: G47.33 Obstructive sleep apnea (adult) (pediatric) (principal) | CPT/HCPCS: 95811 ==

== ENCOUNTER → 2024-09-18 19:30 | Outpatient (BNV) | payer MEDICARE, OTHER, SELFPAY | PROVIDERS: PCP Family Medicine; Visit Provider Psychiatry & Neurology Neurology | DX: G47.33 Obstructive sleep apnea (adult) (pediatric) (principal); G47.61 Periodic limb movement disorder | CPT/HCPCS: 95811 ==

== ENCOUNTER 2024-09-19 15:43 | Outpatient (REF) | payer MEDICARE, OTHER, SELFPAY ==
--- NOTE | ~2024-09-19 | MR_ITS ---
EXAMINATION: MRI Abdomen without and with contrast HISTORY: Abnormal PET scan, possible lesion vs. liver heterogeneity COMPARISON: Correlation is made with a PET/scan from [facility] dated 08/09/2024. TECHNIQUE: Axial in and out of phase T1-weighted gradient echo, axial diffusion weighted, and axial and coronal HASTE T2 with fat saturation images were obtained through the abdomen. Subsequently, fat suppressed axial and coronal T1-weighted images were obtained after the intravenous administration of 10 mL Gadavist. FINDINGS: There is no significant signal loss within the liver on opposed phase imaging to suggest steatosis. No liver mass is identified. There is no abnormal enhancement. There is no intra or extrahepatic biliary ductal dilatation. The hepatic and portal veins are patent. The gallbladder, spleen, pancreas, adrenals, and kidneys are unremarkable. No retroperitoneal lymphadenopathy or ascites is identified in the upper abdomen. There is a small hiatal hernia. The visualized bones demonstrate normal marrow signal intensity. MR/MR abdomen wo/w con IMPRESSION: 1. No evidence of a liver mass. 2. Small hiatal hernia. Electronically signed by: Kendrick Hall MD 09/20/2024 07:11 AM EDT
[2024-09-19] MEDS: gadobutroL 10 ML VIAL IVPUSH (16:35)
--- OUTSIDE RECORDS SUMMARY | 2024-09-19 18:43 | XMS_ITS ---
Author Organization [facility] Address [address] [place] [address] Care Team Providers Care Guest Relations Agent Name Role Phone Stephan Max Primary Care Provider Unavailab Amando Bell Jr REASON FOR VISIT Labs Encounters Encounter Location Date Provider Diagnosis [facility] [address] [place] [address] 09/11/2024 Amando Alba Jr Plan Of Treatment Next Appt Details Provider Name:Amando pulliam Jr, 05/01/2025 09:00:00 AM, [address], [address], [place], [address], Progress Notes * PIPPA WEAVER LDOB:1955 (69 yo F)Acc No.[id number]:09/11/2024 Patient:?PIPPA WEAVER :1955???Age:69 Y???Sex:Female Address:[address], [place] [address] * true * Date:? Generated for Printi jeremie/Kash/eTransmitting on:?09/19/2024 06:43 PM EDT
--- OUTSIDE RECORDS SUMMARY | 2024-09-19 18:43 | XMS_ITS | Clinical Summary ---
Author Organization [facility] Address [address] [place] [address] Phone Care Team Providers Care Police Officer Name Role Phone Unavailable Primary Care Provider Unavailabl e Encounters Date Type Department Care Team Description 08/09/2024 9:30 AM EST - 08/09/2024 11:59 PM EST Hospital Encounter [facility] PET Scan [address] [place] [address] Pulmonary nodule Discharge Disposition: Home [...] Signed Date: 08/14/2024 04:31 ET Workstation ID: [id number] Transcribed By: Self Edit Transcribed Date: 08/13/2024 [...] Signed Date: 08/14/2024 04:31 ET Workstation ID: [id number] Transcribed By: Self Edit Transcribed Date: 08/13/2024 11:27 ET Yonis Holt MD IM NM PROCEDURES Final Result from Last 3 Months Insurance MEDICARE
--- OUTSIDE RECORDS SUMMARY | 2024-09-19 18:43 | XMS_ITS ---
Author Organization [facility] Address [address] [place] [address] Care Team Providers Care Blade Groover Name Role Phone Stephan Max Primary Care Provider Amando Leslie Jr Encounters Encounter Location Date Provider Diagnosis [facility] [address] [place] [address] 09/12/2024 Amando Alba Jr Abnormal PET scan, liver R94.5 Assessments Encounter Date Diagnosis (ICD Code) Assessment Notes Treatment Notes Treatment Clinical Notes Section Notes 09/12/2024 Abnormal PET scan, liver (ICD-10 - R94.5) Plan Of Treatment Pending Test Test Name Order Date MRI ABD W&WO CONTRAST 09/12/2024 Next Appt Details Provider Name:Amando pulliam Jr, 05/01/2025 09:00:00 AM, [address] [facility], [address], [place], [address], Progress Notes * PIPPA WEAVER LDOB:1955 (69 yo F)Acc No.[id number]:09/12/2024 Patient:?PIPPA WEAVER :1955???Age:69 Y???Sex:Female Address:[address], [place] [address] Subjective: * Chief Complaints: * ??? * Medical History:? * Surgical History:? * Hospitalization/Major Diagno stic Procedure:? * Medications:? Objective: * Vitals:? * Physical Examination:? Assessment: * Assessment: 1.?Abnormal PET scan, liver - R94.5 (Primary)??? Plan: * Treatment: * * Procedure Codes:? * true * Date:? Generated for Carly chao/Kash/Cristhian on:?09/19/2024 06:42 PM EDT
--- OUTSIDE RECORDS SUMMARY | 2024-09-19 18:43 | XMS_ITS | Patient Health Record ---
Author Organization [facility] Address [address] [place] [address] Care Team Providers Care Evp Operations Name Role Phone Stephan Max Primary Care Provider UnavailAmando Patel Jr Unavailable Allergies Allergen (clinical drug ingredient) Drug/Non Drug Allergy documented on EMR Reaction Allergy Type Onset Date Status Codeine Phosphate Unknown Drug Allergy Active Results Component Value Reference Range Notes Liver Panel Reviewed date:09/11/2024 02:47:21 PM Interpretation: Performing Lab:[facility], [address] [place] [phone] Notes/Report: Bilirubin Total 0.3 0.0-1.0 mg/dL Bilirubin Direct 0.1 0.0-0.5 mg/dL Aspartate Amino Transferase 20 5-31 U/L Alanine Aminotransferase 16 0-31 U/L Total Protein 7.3 6.5-8.0 g/dL Albumin Level 4.1 3.5-5.0 g/dL Alkaline Phosphatase 70 39-117 U/L Blood Urea Nitrogen Reviewed date:09/11/2024 02:45:35 PM Interpretation: Performing Lab:[facility], [address] [place] [phone] Notes/Report: Blood Urea Nitrogen 16 9-16 mg/dL Creatinine Reviewed date:09/11/2024 02:45:33 PM Interpretation: Performing Lab:[facility], [address] [place] [phone] Notes/Report: Creatinine 0.96 0.5-1.4 mg/dL Estimated Glomerular Filt Rate 57 Chronic Kidney Disease: Estimated GFR < 60 mL/min/1.73m2 Severe Kidney Disease: Estimated GFR < 15 mL/min/1.73m2 Reason For Referral No Information Medications Medication SIG (Take, Route, Frequency, Duration) Notes Start Date End Date Status buPROPion HCl 100 MG 2 tablets Orally on ce a day Active Pantoprazole Sodium 40 MG 1 tablet Orall y Once a day for 30 day(s) Active Famotidine 20 MG 1 tablet at bedtime as needed Orally Once a day for 30 day(s) Active Atorvastatin Calcium 10 MG 1 tablet Oral ly Once a day for 30 day(s) Active DULoxetine HCl 60 MG 1 capsule Orally On ce a day for 30 day(s) Active Isosorbide Mononitrate ER 60 MG 1 tablet in the morning Orally Once a day for 30 day(s) Active Immunizations Vaccine Route Administration Date Status Comme nts Influenza Unknown 04/08/2022 Administered Influenza Unknown 04/16/2024 Administered Problems Problem Type SNOMED Code ICD Code Onset Dates Problem Status W/U Status Risk Notes Problem 436143735 Colon cancer screening (Z12.11) Active confirmed Problem 74117004 Encounter for other preprocedural examination (Z01.818) Active confirmed Problem Gastroesophageal reflux disease (394795515) Gastroesophageal reflux disease (K21.9) Active confirmed Problem 226147782 Gastroesophageal reflux disease without esophagitis (K21.9) Active confirmed Problem 26968056 Colitis (K52.9) Active confirmed Vital Signs Temperature 97.5 degrees Fahrenheit 04/30/2024 Blood pressure diastolic 111 mm Hg 09/06/2024 Height 61.5 in 09/06/2024 Blood pressure systolic 111 mm Hg 09/06/2024 Weight 222 lbs 09/06/2024 BMI 41.26 kg/m2 09/06/2024 Encounters Encounter Location Date Provider Diagnosis [facility] [address] [place] [address] 04/30/2024 Amando Alba Jr Gastroesophageal reflux disease without esophagitis K21.9 and Colitis K52.9 [facility] [address] [place] [address] 09/06/2024 Amando Alba Jr Abnormal PET scan, liver R94.5 [facility] [address] [place] [address] 01/13/2024 Amando Alba Jr [facility] [address] [place] [address] 09/07/2024 Amando Alba Jr Abnormal PET scan of liver R94.5 [facility] [address] [place] [address] 09/11/2024 Amando Alba Jr [facility] [address] [place] [address] 09/12/2024 Amando Alba Jr Abnormal PET scan, liver R94.5 Assessments Encounter Date Diagnosis (ICD Code) Assessment Notes Treatment Notes Treatment Clinical Notes Section Notes 04/30/2024 Gastroesophageal reflux disease without esophagitis (ICD-10 - K21.9) Gastroesophageal reflux disease material was printed At this time, Pippa appears to be doing well. We discussed gastroesophageal reflux disease today. She can continue to use [id number] antacids for breakthrough symptoms as she is doing. She continues on fiber for her bowel movements. She does not need mesalamine at this time. Followup will be in 12 months. 04/30/2024 Colitis (ICD-10 - K52.9) At this time, Pippa appears to be doing well. We discussed gastroesophageal reflux disease today. She can continue to use [id number] antacids for breakthrough symptoms as she is doing. She continues on fiber for her bowel movements. She does not need mesalamine at this time. Followup will be in 12 months. 09/06/2024 Abnormal PET scan, liver (ICD-10 - R94.5) We discussed her clinical course, and findings on MRI imaging today. I do not think the findings in her sigmoid colon are of any clinical significance and we discussed this. We have elected not to repeat colonoscopy at this time. This likely represents some mild residual inflammation from her colitis which was located in this area and she will continue mesalamine. The liver findings on MR imaging are of doubtful clinical significance as well but I did recommend further evaluation with MRI imaging and laboratory studies. This will be obtained. Follow-up will be in 1 year pending these results. Today's visit was 35 minutes. 09/07/2024 Abnormal PET scan of liver (ICD-10 - R94.5) 09/12/2024 Abnormal PET scan, liver (ICD-10 - R94.5) Plan Of Treatment Pending Test Test Name Order Date BUN 09/06/2024 CREATININE 09/06/2024 LIVER PROFILE 09/06/2024 MRI ABD W&WO CONTRAST 09/07/2024 MRI ABD W&WO CONTRAST 09/12/2024 MRI ABD W&WO CONTRAST 09/06/2024 Future Test Test Name Order Date UPPER GI ENDOSCOPY 08/25/2012 COLONOSCOPY 10/14/2016 UPPER GI ENDOSCOPY 07/28/2022 COLONOSCOPY 07/28/2022 Next Appt Details Provider Name:Amando Shabazz Chris pulliam , 05/01/2025 09:00:00 AM, [address], [address], [place], [address], Insurance Providers Payer Name Payer Address Payer Phone Subscriber Number Group Number Insured Name Patient Relationship to Insured Coverage Start Date Coverage End Date MEDICARE OF [place] [address] [place] [address] [phone] [id number] PIPPA WEAVER Self - patient is the insured [facility] [address] [place] [address] [phone] [id number] PIPPA WEAVER Self - patient is the [...] intubation at time of rotator cuff surgery [facility] 11/13 Surgical History Surgery Date(Month/Year) new shoulder right new knee left hysteroscopy 08/16 rotator cuff surgery left new hip right basal cell removed on chin carpal tunnel surgery in both hands Hospitalization History Reason Date(Month/Year) distributed shock after surgery
--- OUTSIDE RECORDS SUMMARY | 2024-09-19 18:43 | XMS_ITS ---
Author Organization [facility] Address [address] [place] [address] Care Team Providers Care Occupational Health Physician Name Role Phone Stephan Max Primary Care Provider UnavailAmando Patel Jr REASON FOR VISIT orders Encounters Encounter Location Date Provider Diagnosis [facility] [address] [place] [address] 09/07/2024 Amando Alba Jr Abnormal PET scan of liver R94.5 Assessments Encounter Date Diagnosis (ICD Code) Assessment Notes Treatment Notes Treatment Clinical Notes Section Notes 09/07/2024 Abnormal PET scan of liver (ICD-10 - R94.5) Plan Of Treatment Pending Test Test Name Order Date MRI ABD W&WO CONTRAST 09/07/2024 Next Appt Details Provider Name:Amando pulliam Jr, 05/01/2025 09:00:00 AM, [address], [address], [place], [address], Progress Notes * PIPPA WEAVER LDOB:1955 (69 yo F)Acc No.[id number]:09/07/2024 Patient:?PIPPA WEAVER :1955???Age:69 Y???Sex:Female Address:[address], [place] [address] Subjective: * Chief Complaints: * ???Orders * Medical History:? * Surgical History:? * Hospitalization/Major Diagno stic Procedure:? * Medications:? Objective: * Vitals:? * Physical Examination:? Assessment: * Assessment: 1.?Abnormal PET scan of live r - R94.5 (Primary)??? Plan: * Treatment: * Procedure Codes:? * true * Date:? Generated for Carly chao/Kash/Cristhian on:?09/19/2024 06:42 PM EDT
== END 2024-09-19 15:44 | disposition home or self-care (01) ==
LOC: HO.MRI 15:43
PROVIDERS: PCP Family Medicine; Visit Provider Internal Medicine Gastroenterology
DX: R94.5 Abnormal results of liver function studies (principal)
CPT/HCPCS: 74183; A9585

== ENCOUNTER → 2024-09-19 16:07 | Outpatient (BNV) | payer MEDICARE, OTHER, SELFPAY | PROVIDERS: PCP Family Medicine; Visit Provider Radiology Diagnostic Radiology | DX: K44.9 Diaphragmatic hernia without obstruction or gangrene (principal) | CPT/HCPCS: 74183 ==

== ENCOUNTER 2024-09-27 08:43 | Outpatient (REF) | payer MEDICARE, OTHER, SELFPAY ==
--- OUTSIDE RECORDS SUMMARY | 2024-09-27 08:51 | XMS_ITS ---
Author Organization [facility] Address [address] [place] [address] Care Team Providers Care Oven Equipment Repairer Name Role Phone Stephan Max Primary Care Provider Amando Leslie Jr Encounters Encounter Location Date Provider Diagnosis [facility] [address] [place] [address] 09/12/2024 Amando Alba Jr Abnormal PET scan, liver R94.5 Assessments Encounter Date Diagnosis (ICD Code) Assessment Notes Treatment Notes Treatment Clinical Notes Section Notes 09/12/2024 Abnormal PET scan, liver (ICD-10 - R94.5) Plan Of Treatment Pending Test Test Name Order Date MRI ABD W&WO CONTRAST 09/12/2024 Next Appt Details Provider Name:Amando pulliam Jr, 05/01/2025 09:00:00 AM, [address] [facility], [address], [place], [address], Progress Notes * PIPPA WEAVER LDOB:1955 (69 yo F)Acc No.[id number]:09/12/2024 Patient:?PIPPA WEAVER :1955???Age:69 Y???Sex:Female Address:[address] [place] [address] [address], [place] [address] Subjective: * Chief Complaints: * ??? * Medical History:? * Surgical History:? * Hospitalization/Major Diagno stic Procedure:? * Medications:? Objective: * Vitals:? * Physical Examination:? Assessment: * Assessment: 1.?Abnormal PET scan, liver - R94.5 (Primary)??? Plan: * Treatment: * * Procedure Codes:? * true * Date:? Generated for Carly chao/Kash/Cristhian on:?09/27/2024 08:51 AM EDT
--- OUTSIDE RECORDS SUMMARY | 2024-09-27 08:51 | XMS_ITS ---
Author Organization [facility] Address [address] [place] [address] Care Team Providers Care Calender Let Off Operator Name Role Phone Stephan Max Primary Care Provider Unavailab Amando Bell Jr REASON FOR VISIT Labs Encounters Encounter Location Date Provider Diagnosis [facility] [address] [place] [address] 09/11/2024 Amando Alba Jr Plan Of Treatment Next Appt Details Provider Name:Amando pulliam Jr, 05/01/2025 09:00:00 AM, [address], [address], [place], [address], Progress Notes * PIPPA WEAVER LDOB:1955 (69 yo F)Acc No.[id number]:09/11/2024 Patient:?PIPPA WEAVER :1955???Age:69 Y???Sex:Female Address:[address], [place] [address] * true * Date:? Generated for Arnaldoi jeremie/Kash/eTransmitting on:?09/27/2024 08:51 AM EDT
--- OUTSIDE RECORDS SUMMARY | 2024-09-27 08:51 | XMS_ITS | Clinical Summary ---
Author Organization [facility] Address [address] [place] [address] Phone Care Team Providers Care Regional Medical Director Name Role Phone Unavailable Primary Care Provider Unavailabl e Encounters Date Type Department Care Team Description 08/09/2024 9:30 AM EST - 08/09/2024 11:59 PM EST Hospital Encounter [facility] PET Scan [address] [place] [address] Pulmonary nodule Discharge Disposition: Home [...] Vaccines (1 of 2) 2004 RSV Immunization Adult Patients (1 - Risk 60-74 years 1-dose series) 2014 Colorectal Cancer Screening: Colonoscopy 08/08/2024 Depression Screening 08/08/2024 Falls Risk Assessment 08/08/2024 Hepatitis C Screening 08/08/2024 Medicare Annual Wellness Visit 08/08/2024 Osteoporosis Screening (Bone Density Screening) 08/08/2024 Social Influencers of Health Screening 08/08/2024 DTaP,Tdap,and Td Vaccines (2 - Td or Tdap) 07/10/2030 07/10/2020 COVID-19 Vaccine Completed 04/06/2024, , 04/06/2021, Additional history exists Influenza Vaccine Completed 04/16/2024, , 04/20/2023, Additional history exists HIB Vaccines Aged Out [...] Signed Date: 08/14/2024 04:31 ET Workstation ID: [id number] Transcribed By: Self Edit Transcribed Date: 08/13/2024 [...] Signed Date: 08/14/2024 04:31 ET Workstation ID: [id number] Transcribed By: Self Edit Transcribed Date: 08/13/2024 11:27 ET Yonis Holt MD [facility] [place] Final Result from Last 3 Months Insurance MEDICARE
--- OUTSIDE RECORDS SUMMARY | 2024-09-27 08:51 | XMS_ITS ---
Author Organization [facility] Address [address] [place] [address] Care Team Providers Care Commercial Project Manager Name Role Phone Stephan Max Primary Care Provider Unavailab Amando Bell Jr REASON FOR VISIT MRI Encounters Encounter Location Date Provider Diagnosis [facility] [address] [place] [address] 09/20/2024 Amando Alba Jr Plan Of Treatment Next Appt Details Provider Name:Amando pulliam Jr, 05/01/2025 09:00:00 AM, [address], [address], [place], [address], Progress Notes * PIPPA WEAVER LDOB:1955 (69 yo F)Acc No.[id number]:09/20/2024 Patient:?PIPPA WEAVER :1955???Age:69 Y???Sex:Female Address:[address], [place] [address] * true * Date:? Generated for Arnaldoi jeremie/Kash/eTransmitting on:?09/27/2024 08:51 AM EDT
--- OUTSIDE RECORDS SUMMARY | 2024-09-27 08:52 | XMS_ITS | Patient Health Record ---
Author Organization [facility] Address [address] [place] [address] Care Team Providers Care Principal Architectural Firm Name Role Phone Stephan Max Primary Care Provider UnavailAmando Patel Jr Unavailable [phone] Allergies Allergen (clinical drug ingredient) Drug/Non Drug Allergy documented on EMR Reaction Allergy Type Onset Date Status Codeine Phosphate Unknown Drug Allergy Active Results Component Value Reference Range Notes Liver Panel Reviewed date:09/11/2024 02:47:21 PM Interpretation: Performing Lab:[facility], [address] [place] [phone] Notes/Report: Bilirubin Total 0.3 0.0-1.0 mg/dL Bilirubin Direct 0.1 0.0-0.5 mg/dL Aspartate Amino Transferase 20 5-31 U/L Alanine Aminotransferase 16 0-31 U/L Total Protein 7.3 6.5-8.0 g/dL Albumin Level 4.1 3.5-5.0 g/dL Alkaline Phosphatase 70 39-117 U/L Blood Urea Nitrogen Reviewed date:09/11/2024 02:45:35 PM Interpretation: Performing Lab:[facility], [address] [place] [phone] Notes/Report: Blood Urea Nitrogen 16 9-16 mg/dL Creatinine Reviewed date:09/11/2024 02:45:33 PM Interpretation: Performing Lab:[facility], [address] [place] [phone] Notes/Report: Creatinine 0.96 0.5-1.4 mg/dL Estimated Glomerular Filt Rate 57 Chronic Kidney Disease: Estimated GFR < 60 mL/min/1.73m2 Severe Kidney Disease: Estimated GFR < 15 mL/min/1.73m2 MR abdomen wo/w con Reviewed date:09/20/2024 11:26:48 AM Interpretation: Performing Lab: Notes/Report: [address] [address] Magnetic Resonance Report Signed Patient: Pippa Cottrell MR#: [id number] : 1955 Acct:[id number] Age/Sex: 69 / F ADM Date: 09/19/24 Loc: HO.MRI Attending Dr: Amando Alba MD Ordering Physician: Amando Alba MD Date of Service: 09/19/24 Procedure(s): MR abdomen wo/w con Accession Number(s): [id number] cc: Amando Alba MD; Stephan Max MD EXAMINATION: MRI Abdomen without and with contrast HISTORY: Abnormal PET scan, possible lesion vs. liver heterogeneity COMPARISON: Correlation is made with a PET/scan from [facility] dated 08/09/2024. TECHNIQUE: Axial in and out of phase T1-weighted gradient echo, axial diffusion weighted, and axial and coronal HASTE T2 with fat saturation images were obtained through the abdomen. Subsequently, fat suppressed axial and coronal T1-weighted images were obtained after the intravenous administration of 10 mL Gadavist. FINDINGS: There is no significant signal loss within the liver on opposed phase imaging to suggest steatosis. No liver mass is identified. There is no abnormal enhancement. There is no intra or extrahepatic biliary ductal dilatation. The hepatic and portal veins are patent. The gallbladder, spleen, pancreas, adrenals, and kidneys are unremarkable. No retroperitoneal lymphadenopathy or ascites is identified in the upper abdomen. There is a small hiatal hernia. The visualized bones demonstrate normal marrow signal intensity. MR/MR abdomen wo/w con IMPRESSION: 1. No evidence of a liver mass. 2. Small hiatal hernia. Electronically signed by: Kendrick Hall MD 09/20/2024 07:11 AM EDT Dictated By: Kendrick Hall MD Signed By: <Electronically signed by Kendrick Hall MD in OV> 09/20/24 0711 DD/ 1607 TD/TT: 09/19/24 1637 Care Information Associate: [address] [address] Magnetic Resonance Report Signed Patient: Pippa Cottrell MR#: [id number] : 1955 Acct:[id number] Age/Sex: 69 / F ADM Date: 09/19/24 Loc: HO.MRI Attending Dr: Mikki Alba MD Ordering Physician: Amando Alba MD Date of Service: 09/19/24 Procedure(s): MR abd omen wo/w con Accession Number(s): [id number] cc: Amando Alba MD; Stephan Max MD EXAMINATION: MRI Abd omen without and with contrast HISTORY: Abnormal PE T scan, possible lesion vs. liver heterogeneity COMPARISON: Correlat ion is made with a PET/scan from [facility] dated 08/09/2024. TECHNIQUE: Axial in and out of phase T1-weighted gradient echo, axial diffusion weighted, and axial and coronal HASTE T2 with fat saturation images were obtained through the abdomen. Subsequently, fat suppressed axial and coronal T1-weighted images were obtained after the intravenous administration of 10 mL Gadavist. FINDINGS: There is n o significant signal loss within the liver on opposed phase imagin g to suggest steatosis. No liver mass is identified. There is no abnormal enhancement. There is no intra or extrahepatic biliary ductal dilatation. The hepatic and portal veins are patent. The gallbladder, spl een, pancreas, adrenals, and kidneys are unremarkable. No retroperitoneal lymphadenopathy or ascites is identified in the up per abdomen. There is a small hiatal hernia. The visualized bones demonstrate normal marrow signal intensity. M R/MR abdomen wo/w con IMPRESSION: 1. No evidence of a liver mass. 2. Small hiatal hernia. Electronically robby d by: Kendrick Hall MD 09/20/2024 07:11 AM EDT Dictated By: Kendrick Hall MD Signed By: <Electronically signed by Kendrick Hall MD in OV> 09/20/24 0711 DD/ 1607 TD/TT: 09/19/24 1637 Care Information Associate: Reason For Referral No Information Medications Medication [...] Problem Status W/U Status Risk Notes Problem 716927862 Colon cancer screening (Z12.11) Active confirmed Problem 24132617 Encounter for other preprocedural examination (Z01.818) Active confirmed Problem Gastroesophageal reflux disease (329197042) Gastroesophageal reflux disease (K21.9) Active confirmed Problem 397854489 Gastroesophageal reflux disease without esophagitis (K21.9) Active confirmed Problem 30536421 Colitis (K52.9) Active confirmed Vital Signs Temperature 97.5 degrees Fahrenheit 04/30/2024 Blood pressure diastolic 111 mm Hg 09/06/2024 Height 61.5 in 09/06/2024 Blood pressure systolic 111 mm Hg 09/06/2024 Weight 222 lbs 09/06/2024 BMI 41.26 kg/m2 09/06/2024 Encounters Encounter Location Date Provider Diagnosis [facility] [address] [place] [address] 04/30/2024 Amando Alba Jr Gastroesophageal reflux disease without esophagitis K21.9 and Colitis K52.9 [facility] [address] [place] [address] 09/06/2024 Amando Alba Jr Abnormal PET scan, liver R94.5 [facility] [address] [place] [address] 01/13/2024 Amandoelsie Alba Jr [facility] [address] [place] [address] 09/07/2024 Amandoelsie Alba Jr Abnormal PET scan of liver R94.5 [facility] [address] [place], [place] [address] 09/11/2024 Amandoelsie Alba Jr [facility] [address] [place], [place] [address] 09/12/2024 Amando Michaellenny Huerta Abnormal PET scan, liver R94.5 [facility] [address] [place], [place] [address] 09/20/2024 Amando Parthlenny Huerta Assessments Encounter Date Diagnosis (ICD Code) Assessment Notes Treatment Notes Treatment Clinical Notes Section Notes 04/30/2024 Gastroesophageal reflux disease without esophagitis (ICD-10 - K21.9) Gastroesophageal reflux disease material was printed At this time, Pippa appears to be doing well. We discussed gastroesophageal reflux disease today. She can continue to use stuu-wtm-abzeipk antacids for breakthrough symptoms as she is doing. She continues on fiber for her bowel movements. She does not need mesalamine at this time. Followup will be in 12 months. 04/30/2024 Colitis (ICD-10 - K52.9) At this time, Pippa appears to be doing well. We discussed gastroesophageal reflux disease today. She can continue to use hyms-uor-jlksqsy antacids for breakthrough symptoms as she is [...] pulliam Jr, 05/01/2025 09:00:00 AM, [address], [address], [place], [address], Insurance Providers Payer Name Payer Address Payer Phone Subscriber Number Group Number Insured Name Patient Relationship to Insured Coverage Start Date Coverage End Date MEDICARE OF [place] [address] [place] [address] [phone] [id number] PIPPA COTTRELL Self - patient is the insured [facility] [address] [place] [address] [id number] PIPPA COTTRELL Self - patient is the insured Medical [...] intubation at time of rotator cuff surgery [facility] 11/13 Surgical History Surgery Date(Month/Year) new shoulder right new knee left hysteroscopy 08/16 rotator cuff surgery left new hip right basal cell removed on chin carpal tunnel surgery in both hands Hospitalization History Reason Date(Month/Year) distributed shock after surgery
== END 2024-09-27 08:44 | disposition home or self-care (01) ==
LOC: HO.CT 08:43
PROVIDERS: PCP Family Medicine; Visit Provider Nurse Practitioner Family
DX: R91.1 Solitary pulmonary nodule (principal)
CPT/HCPCS: 71250

== ENCOUNTER → 2024-09-27 08:45 | Outpatient (BNV) | payer MEDICARE, OTHER, SELFPAY | PROVIDERS: PCP Family Medicine; Visit Provider Radiology Vascular & Interventional Radiology | DX: R91.1 Solitary pulmonary nodule (principal) | CPT/HCPCS: 71250 ==

== ENCOUNTER → 2024-09-28 09:30 | Outpatient (REF) | payer MEDICARE, OTHER, SELFPAY ==
--- NOTE | 2024-09-28 09:33 | CA_ITS ---
Transthoracic Echocardiogram Patient (Last, First, Middle): Martha Cottrell Louise Gender: Female Date of : 1955 Age: 69 Procedure Date: 09/28/2024 Procedure Type: Transthoracic Echocardiogram Location: OP Height: 154. cm Weight: 98.89 kg BSA: 1.95 m2 Heart Rate: 51 bpm BP: 110 / 70 mmHg Wire Threader: PARESH Referring MD: Gaudencio Hoover MD Symptoms: I51.81 - Takotsubo syndrome Study Quality: Adequate. Limited per order ECG Rhythm: Bradycardia Conclusions: - The left ventricular systolic function is normal. The calculated ejection fraction is 61% by biplane method. - Possibly mild hypokinesis in the basal anterolateral/inferolateral pino versus artifactual. Findings Left Ventricle Normal left ventricular cavity size. The left ventricular systolic function is normal. The calculated ejection fraction is 61% by biplane method. Possibly mild hypokinesis in the basal anterolateral/inferolateral pino versus artifactual. LV peak GLS -18.5%. Prior Study Comparison Changes noted compared to prior study dated: 07/31/2024. Improved wall motion. Measurements 2D Linear Measurements IVSd: 1.03 0.6-0.9/0.6-1.0 cm LVIDd: 4.98 3.9-5.3/4.2-5.9 cm LVIDd Index: 2.55 2.4-3.2/2.2-3.1 cm/m2 LVIDs: 2.98 2.0-3.6 cm LVPWd: 1.00 0.7-1.1 cm LA Diam: 4.00 2.7-3.8/3.0-4.0 cm LAIDs Index: 2.05 1.5-2.3 cm/m2 LV Mass: 229.80 67-162/88-224 g LV Mass Index: 117.85 43-95/49-115 g/m2 LVOT Diam: 2.00 3.0+(-)1.3 cm 2D Systolic Function EF 4C: 65.10 >55% EF 2C: 57.90 >55% EF BiP: 60.80 >55% LVOT LVOT Pk Mayo: 1.19 LVOT Mn Myao: 0.78 LVOT VTI: 0.27 LVOT Pk Grad: 6.00 LVOT Mn Grad: 3.00 LVOT Diam: 2.00 LVOT Area: 3.14 Updated in Other Vendor System with Status of Final Paul Hernández MD electronically signed on 09/29/2024 1:22:33 PM with status of Final
--- OUTSIDE RECORDS SUMMARY | 2024-09-28 10:24 | XMS_ITS ---
Author Organization [facility] Address [address] [place] [address] Care Team Providers Care Dry Cell Tester Name Role Phone Stephan Max Primary Care Provider Amando Leslie Jr Encounters Encounter Location Date Provider Diagnosis [facility] [address] [place] [address] 09/12/2024 Amando Alba Jr Abnormal PET scan, liver R94.5 Assessments Encounter Date Diagnosis (ICD Code) Assessment Notes Treatment Notes Treatment Clinical Notes Section Notes 09/12/2024 Abnormal PET scan, liver (ICD-10 - R94.5) Plan Of Treatment Pending Test Test Name Order Date MRI ABD W&WO CONTRAST 09/12/2024 Next Appt Details Provider Name:Amando pulliam Jr, 05/01/2025 09:00:00 AM, [address], [address], [place], [address], Progress Notes * PIPPA WEAVER LDOB:1955 (69 yo F)Acc No.[id number]:09/12/2024 Patient:?PIPPA WEAVER :1955???Age:69 Y???Sex:Female Address:[address] [place] [address] [address], [place] [address] Subjective: * Chief Complaints: * ??? * Medical History:? * Surgical History:? * Hospitalization/Major Diagno stic Procedure:? * Medications:? Objective: * Vitals:? * Physical Examination:? Assessment: * Assessment: 1.?Abnormal PET scan, liver - R94.5 (Primary)??? Plan: * Treatment: * * Procedure Codes:? * true * Date:? Generated for Carly chao/Kash/Cristhian on:?09/28/2024 10:24 AM EDT
--- OUTSIDE RECORDS SUMMARY | 2024-09-28 10:24 | XMS_ITS | Clinical Summary ---
Author Organization [facility] Address [address] [place] [address] Phone Care Team Providers Care Glass Installer Technician Name Role Phone Unavailable Primary Care Provider Unavailabl e Encounters Date Type Department Care Team Description 08/09/2024 9:30 AM EST - 08/09/2024 11:59 PM EST Hospital Encounter [facility] PET Scan [address] [place] [address] Pulmonary nodule Discharge Disposition: Home [...] Signed Date: 08/14/2024 04:31 ET Workstation ID: [id number] Transcribed By: Self Edit Transcribed Date: 08/13/2024 [...] Signed Date: 08/14/2024 04:31 ET Workstation ID: [id number] Transcribed By: Self Edit Transcribed Date: 08/13/2024 11:27 ET Yonis Holt MD [facility] [place]ED[place] Final Result from Last 3 Months Insurance MEDICARE
--- OUTSIDE RECORDS SUMMARY | 2024-09-28 10:25 | XMS_ITS ---
Author Organization [facility] Address [address] [place] [address] Care Team Providers Care Web Press Jogger Name Role Phone Stephan Max Primary Care Provider Unavailab Amando Bell Jr [phone] REASON FOR VISIT MRI Encounters Encounter Location Date Provider Diagnosis [facility] [address] [place] [address] 09/20/2024 Amando Alba Jr Plan Of Treatment Next Appt Details Provider Name:Amando pulliam Jr, 05/01/2025 09:00:00 AM, [address], [address], [place], [address], Progress Notes * PIPPA WEAVER LDOB:1955 (69 yo F)Acc No.[id number]:09/20/2024 Patient:?PIPPA WEAVER :1955???Age:69 Y???Sex:Female Address:[address], [place] [address] * true * Date:? Generated for Arnaldoi jeremie/Kash/eTransmitting on:?09/28/2024 10:24 AM EDT
--- OUTSIDE RECORDS SUMMARY | 2024-09-28 10:25 | XMS_ITS ---
Author Organization [facility] Address [address] [place] [address] Care Team Providers Care Credit Portfolio Advisor Name Role Phone Stephan Max Primary Care Provider Unavailab Amando Bell Jr REASON FOR VISIT Labs Encounters Encounter Location Date Provider Diagnosis [facility] [address] [place] [address] 09/11/2024 Amando Alba Jr Plan Of Treatment Next Appt Details Provider Name:Amando pulliam Jr, 05/01/2025 09:00:00 AM, [address], [address], [place], [address], Progress Notes * PIPPA WEAVER LDOB:1955 (69 yo F)Acc No.[id number]:09/11/2024 Patient:?PIPPA WEAVER :1955???Age:69 Y???Sex:Female Address:[address], [place] [address] * true * Date:? Generated for Arnaldoi jeremie/Kash/eTransmitting on:?09/28/2024 10:24 AM EDT
--- OUTSIDE RECORDS SUMMARY | 2024-09-28 10:25 | XMS_ITS | Patient Health Record ---
Author Organization [facility] Address [address] [place] [address] Care Team Providers Care Hotel Maintenance Technician Name Role Phone Stephan Max Primary Care Provider UnavailAmando Patel Jr Unavailable [phone] Allergies Allergen (clinical drug ingredient) Drug/Non Drug Allergy documented on EMR Reaction Allergy Type Onset Date Status Codeine Phosphate Unknown Drug Allergy Active Results Component Value Reference Range Notes Liver Panel Reviewed date:09/11/2024 02:47:21 PM Interpretation: Performing Lab:[facility], [address] [place] [phone] Notes/Report: Bilirubin Total 0.3 0.0-1.0 mg/dL Bilirubin Direct 0.1 0.0-0.5 mg/dL Aspartate Amino Transferase 20 5-31 U/L Alanine Aminotransferase 16 0-31 U/L Total Protein 7.3 6.5-8.0 g/dL Albumin Level 4.1 3.5-5.0 g/dL Alkaline Phosphatase 70 39-117 U/L Blood Urea Nitrogen Reviewed date:09/11/2024 02:45:35 PM Interpretation: Performing Lab:[facility], [address] [place] [phone] Notes/Report: Blood Urea Nitrogen 16 9-16 mg/dL Creatinine Reviewed date:09/11/2024 02:45:33 PM Interpretation: Performing Lab:[facility], [address] [place] [phone] Notes/Report: Creatinine 0.96 0.5-1.4 mg/dL Estimated Glomerular Filt Rate 57 Chronic Kidney Disease: Estimated GFR < 60 mL/min/1.73m2 Severe Kidney Disease: Estimated GFR < 15 mL/min/1.73m2 MR abdomen wo/w con Reviewed date:09/20/2024 11:26:48 AM Interpretation: Performing Lab: Notes/Report: [address] [address] Magnetic Resonance Report Signed Patient: Pippa Cottrell MR#: [id number] : 1955 Acct:[id number] Age/Sex: 69 / F ADM Date: 09/19/24 Loc: HO.MRI Attending Dr: Amando Alba MD Ordering Physician: Amando Alba MD Date of Service: 09/19/24 Procedure(s): MR abdomen wo/w con Accession Number(s): [id number] cc: Amando Alba MD; Stephan Max MD EXAMINATION: MRI Abdomen without and with contrast HISTORY: Abnormal PET scan, possible lesion vs. liver heterogeneity COMPARISON: Correlation is made with a PET/scan from dated 08/09/2024. TECHNIQUE: Axial in and out [...] 09/20/24 0711 DD/ 1607 TD/TT: 09/19/24 1637 Alternative Dispute Resolution Mediator: [address] [address] Magnetic Resonance Report Signed Patient: Pippa Cottrell MR#: [id number] : 1955 Acct:[id number] Age/Sex: 69 / F ADM Date: 09/19/24 Loc: HO.MRI Attending Dr: Mikki Alba MD Ordering Physician: Amando Alba MD Date of Service: 09/19/24 Procedure(s): MR abd omen wo/w con Accession Number(s): [id number] cc: Amando Alba MD; Stephan Max MD EXAMINATION: MRI Abd omen without and with contrast HISTORY: Abnormal PE T scan, possible lesion vs. liver heterogeneity COMPARISON: Correlat ion is made with a PET/scan from dated 08/09/2024. TECHNIQUE: Axial in and out [...] 09/20/24 0711 DD/ 1607 TD/TT: 09/19/24 1637 Alternative Dispute Resolution Mediator: Reason For Referral No Information Medications Medication [...] Problem Status W/U Status Risk Notes Problem 079504200 Colon cancer screening (Z12.11) Active confirmed Problem 75909476 Encounter for other preprocedural examination (Z01.818) Active confirmed Problem Gastroesophageal reflux disease (018292969) Gastroesophageal reflux disease (K21.9) Active confirmed Problem 240380994 Gastroesophageal reflux disease without esophagitis (K21.9) Active confirmed Problem 72099558 Colitis (K52.9) Active confirmed Vital Signs Temperature 97.5 degrees Fahrenheit 04/30/2024 Blood pressure diastolic 111 mm Hg 09/06/2024 Height 61.5 in 09/06/2024 Blood pressure systolic 111 mm Hg 09/06/2024 Weight 222 lbs 09/06/2024 BMI 41.26 kg/m2 09/06/2024 Encounters Encounter Location Date Provider Diagnosis [facility] [address] [place] [address] 04/30/2024 Amando Alba Jr Gastroesophageal reflux disease without esophagitis K21.9 and Colitis K52.9 [facility] [address] [place] [address] 09/06/2024 Amando Alba Jr Abnormal PET scan, liver R94.5 [facility] [address] [place] [address] 01/13/2024 Amandoelsie Alba Jr [facility] [address] [place] [address] 09/07/2024 Amandoelsie Alba Jr Abnormal PET scan of liver R94.5 [facility] [address] [place], [place] [address] 09/11/2024 Amandoelsie Alba Jr [facility] [address] [place], [place] [address] 09/12/2024 Amando Michaellenny Huerta Abnormal PET scan, liver R94.5 [facility] [address] [place], [place] [address] 09/20/2024 Amando Parthlenny Huerta Assessments Encounter Date Diagnosis (ICD Code) Assessment Notes Treatment Notes Treatment Clinical Notes Section Notes 04/30/2024 Gastroesophageal reflux disease without esophagitis (ICD-10 - K21.9) Gastroesophageal reflux disease material was printed At this time, Pippa appears to be doing well. We discussed gastroesophageal reflux disease today. She can continue to use xnfq-qiv-fywrudx antacids for breakthrough symptoms as she is doing. She continues on fiber for her bowel movements. She does not need mesalamine at this time. Followup will be in 12 months. 04/30/2024 Colitis (ICD-10 - K52.9) At this time, Pippa appears to be doing well. We discussed gastroesophageal reflux disease today. She can continue to use xpmi-qqv-zzwdaso antacids for breakthrough symptoms as she is [...] AM, [address] [facility], [address], [place], [address], Insurance Providers Payer Name Payer Address Payer Phone Subscriber Number Group Number Insured Name Patient Relationship to Insured Coverage Start Date Coverage End Date MEDICARE OF [place] [address] [place] [address] [phone] [id number] PIPPA COTTRELL Self - patient is the insured [facility] [address] [place] [address] [id number] PIPPA COTTRELL Self - patient is the [...] intubation at time of rotator cuff surgery [facility] 11/13 Surgical History Surgery Date(Month/Year) new shoulder right new knee left hysteroscopy 08/16 rotator cuff surgery left new hip right basal cell removed on chin carpal tunnel surgery in both hands Hospitalization History Reason Date(Month/Year) distributed shock after surgery
== END ==
LOC: HO.CARD 09:30
PROVIDERS: PCP Family Medicine; Visit Provider Internal Medicine Cardiovascular Disease
DX: I51.81 Takotsubo syndrome (principal)
CPT/HCPCS: 93308

== ENCOUNTER → 2024-09-28 09:33 | Outpatient (BNV) | payer MEDICARE, OTHER, SELFPAY | PROVIDERS: PCP Family Medicine; Visit Provider Internal Medicine | DX: I51.81 Takotsubo syndrome (principal) | CPT/HCPCS: 93308; 93321; 93356 ==

== ENCOUNTER 2024-10-01 12:59 | Outpatient (AMB) | payer MEDICARE, OTHER, SELFPAY ==
--- OUTSIDE RECORDS SUMMARY | 2024-10-01 15:24 | XMS_ITS | Clinical Summary ---
Author Organization [facility] Address [address] [place] [address] Phone Care Team Providers Care Fisher Name Role Phone Unavailable Primary Care Provider Unavailabl e Encounters Date Type Department Care Team Description 08/09/2024 9:30 AM EST - 08/09/2024 11:59 PM EST Hospital Encounter [facility] PET Scan [address] [place] [address] Pulmonary nodule Discharge Disposition: Home [...] age to complete this topic Meningococcal B Vaccine Aged Out No l onger eligible based on patient's age to complete [...] Signed Date: 08/14/2024 04:31 ET Workstation ID: [id number] Transcribed By: Self Edit Transcribed Date: 08/13/2024 [...] Signed Date: 08/14/2024 04:31 ET Workstation ID: [id number] Transcribed By: Self Edit Transcribed Date: 08/13/2024 11:27 ET Yonis Holt MD [facility] [place] PROCEDURES Final Result from Last 3 Months Insurance MEDICARE
--- OUTSIDE RECORDS SUMMARY | 2024-10-01 15:24 | XMS_ITS ---
Author Organization [facility] Address [address] [place] [address] Care Team Providers Care Shoe Polisher Name Role Phone Stephan Max Primary Care Provider Amando Leslie Jr [phone] Encounters Encounter Location Date Provider Diagnosis [facility] [address] [place] [address] 09/12/2024 Amando Alba Jr Abnormal PET scan, liver R94.5 Assessments Encounter Date Diagnosis (ICD Code) Assessment Notes Treatment Notes Treatment Clinical Notes Section Notes 09/12/2024 Abnormal PET scan, liver (ICD-10 - R94.5) Plan Of Treatment Pending Test Test Name Order Date MRI ABD W&WO CONTRAST 09/12/2024 Next Appt Details Provider Name:Amando pulliam Jr, 05/01/2025 09:00:00 AM, [address] [facility], [address], [place], [address], Progress Notes * PIPPA WEAVER LDOB:1955 (69 yo F)Acc No.[id number]:09/12/2024 Patient:?PIPPA WEAVER :1955???Age:69 Y???Sex:Female Address:[address], [place] [address] Subjective: * Chief Complaints: * ??? * Medical History:? * Surgical History:? * Hospitalization/Major Diagno stic Procedure:? * Medications:? Objective: * Vitals:? * Physical Examination:? Assessment: * Assessment: 1.?Abnormal PET scan, liver - R94.5 (Primary)??? Plan: * Treatment: * * Procedure Codes:? * true * Date:? Generated for Carly chao/Kash/Cristhian on:?10/01/2024 03:23 PM EDT
--- OUTSIDE RECORDS SUMMARY | 2024-10-01 15:24 | XMS_ITS ---
Author Organization [facility] Address [address] [place] [address] Care Team Providers Care Enamel Dipper Name Role Phone Stephan Max Primary Care Provider Unavailab Amando Bell Jr REASON FOR VISIT MRI Encounters Encounter Location Date Provider Diagnosis [facility] [address] [facility] [address] [place] [address] 09/20/2024 Amando Alba Jr Plan Of Treatment Next Appt Details Provider Name:Amando pulliam Jr, 05/01/2025 09:00:00 AM, [address], [address], [place], [address], Progress Notes * PIPPA WEAVER LDOB:1955 (69 yo F)Acc No.[id number]:09/20/2024 Patient:?PIPPA WEAVER :1955???Age:69 Y???Sex:Female Address:[address], [place] [address] * true * Date:? Generated for Arnaldoi jeremie/Kash/eTransmitting on:?10/01/2024 03:23 PM EDT
--- OUTSIDE RECORDS SUMMARY | 2024-10-01 15:24 | XMS_ITS ---
Author Organization [facility] Address [address] [place] [address] Care Team Providers Care Poundmaster Name Role Phone Stephan Max Primary Care Provider Unavailab Amando Bell Jr REASON FOR VISIT Labs Encounters Encounter Location Date Provider Diagnosis [facility] [address] [facility] [address] [place] [address] 09/11/2024 Amando Alba Jr Plan Of Treatment Next Appt Details Provider Name:Amando pulliam Jr, 05/01/2025 09:00:00 AM, [address], [address], [place], [address], Progress Notes * PIPPA WEAVER LDOB:1955 (69 yo F)Acc No.[id number]:09/11/2024 Patient:?PIPPA WEAVER :1955???Age:69 Y???Sex:Female Address:[address], [place] [address] * true * Date:? Generated for Arnaldoi jeremie/Kash/eTransmitting on:?10/01/2024 03:23 PM EDT
--- OUTSIDE RECORDS SUMMARY | 2024-10-01 15:24 | XMS_ITS | Patient Health Record ---
Author Organization [facility] Address [address] [place] [address] Care Team Providers Care Envelope Fold Operator Name Role Phone Stephan Max Primary Care Provider UnavailAmando Patel Jr Unavailable Allergies Allergen (clinical drug ingredient) Drug/Non Drug Allergy documented on EMR Reaction Allergy Type Onset Date Status Codeine Phosphate Unknown Drug Allergy Active Results Component Value Reference Range Notes Liver Panel Reviewed date:09/11/2024 02:47:21 PM Interpretation: Performing Lab:[facility], [address] [place] [phone] Notes/Report: Bilirubin Total 0.3 0.0-1.0 mg/dL Bilirubin Direct 0.1 0.0-0.5 mg/dL Aspartate Amino Transferase 20 5-31 U/L Alanine Aminotransferase 16 0-31 U/L Total Protein 7.3 6.5-8.0 g/dL Albumin Level 4.1 3.5-5.0 g/dL Alkaline Phosphatase 70 39-117 U/L Blood Urea Nitrogen Reviewed date:09/11/2024 02:45:35 PM Interpretation: Performing Lab:[facility], [address] [place] [phone] Notes/Report: Blood Urea Nitrogen 16 9-16 mg/dL Creatinine Reviewed date:09/11/2024 02:45:33 PM Interpretation: Performing Lab:[facility], [address] [place] [phone] Notes/Report: Creatinine 0.96 0.5-1.4 mg/dL Estimated Glomerular Filt Rate 57 Chronic Kidney Disease: Estimated GFR < 60 mL/min/1.73m2 Severe Kidney Disease: Estimated GFR < 15 mL/min/1.73m2 MR abdomen wo/w con Reviewed date:09/20/2024 11:26:48 AM Interpretation: Performing Lab: Notes/Report: [address] [address] Magnetic Resonance Report Signed Patient: Pippa Cottrell MR#: [id number] : 1955 Acct:[id number] Age/Sex: 69 / F ADM Date: 09/19/24 Loc: HO.MRI Attending Dr: Amando Alba MD Ordering Physician: Amando Alba MD Date of Service: 09/19/24 Procedure(s): MR abdomen wo/w con Accession Number(s): [id number] cc: Amando Alba MD; Stephan Max MD [...] 09/20/24 0711 DD/ 1607 TD/TT: 09/19/24 1637 Reinforcing Steel Erector: [address] [address] Magnetic Resonance Report Signed Patient: Pippa Cottrell MR#: [id number] : 1955 Acct:[id number] Age/Sex: 69 / F ADM Date: 09/19/24 Loc: HO.MRI Attending Dr: Mikki Alba MD Ordering Physician: Amando Alba MD Date of Service: 09/19/24 Procedure(s): MR abd omen wo/w con Accession Number(s): [id number] cc: Amando Alba MD; Stephan Max MD [...] 09/20/24 0711 DD/ 1607 TD/TT: 09/19/24 1637 Reinforcing Steel Erector: Reason For Referral No Information Medications Medication [...] Problem Status W/U Status Risk Notes Problem 498486075 Colon cancer screening (Z12.11) Active confirmed Problem 95463984 Encounter for other preprocedural examination (Z01.818) Active confirmed Problem Gastroesophageal reflux disease (782982965) Gastroesophageal reflux disease (K21.9) Active confirmed Problem 803785010 Gastroesophageal reflux disease without esophagitis (K21.9) Active confirmed Problem 90409216 Colitis (K52.9) Active confirmed Vital Signs Temperature 97.5 degrees Fahrenheit 04/30/2024 Blood pressure diastolic 111 mm Hg 09/06/2024 Height 61.5 in 09/06/2024 Blood pressure systolic 111 mm Hg 09/06/2024 Weight 222 lbs 09/06/2024 BMI 41.26 kg/m2 09/06/2024 Encounters Encounter Location Date Provider Diagnosis [facility] [address] [place] [address] 04/30/2024 Amando Alba Jr Gastroesophageal reflux disease without esophagitis K21.9 and Colitis K52.9 [facility] [address] [place] [address] 09/06/2024 Amando Alba Jr Abnormal PET scan, liver R94.5 [facility] [address] [place] [address] 01/13/2024 Amandoelsie Alba Jr [facility] [address] [place] [address] 09/07/2024 Amandoelsie Alba Jr Abnormal PET scan of liver R94.5 [facility] [address] [place], [place] [address] 09/11/2024 Amandoelsie Alba Jr [facility] [address] [place], [place] [address] 09/12/2024 Amando Michaellenny Huerta Abnormal PET scan, liver R94.5 [facility] [address] [place], [place] [address] 09/20/2024 Amando Parthlenny Huerta Assessments Encounter Date Diagnosis (ICD Code) Assessment Notes Treatment Notes Treatment Clinical Notes Section Notes 04/30/2024 Gastroesophageal reflux disease without esophagitis (ICD-10 - K21.9) Gastroesophageal reflux disease material was printed At this time, Pippa appears to be doing well. We discussed gastroesophageal reflux disease today. She can continue to use ejmz-flz-xtsksxd antacids for breakthrough symptoms as she is doing. She continues on fiber for her bowel movements. She does not need mesalamine at this time. Followup will be in 12 months. 04/30/2024 Colitis (ICD-10 - K52.9) At this time, Pippa appears to be doing well. We discussed gastroesophageal reflux disease today. She can continue to use yade-hin-bfkepxl antacids for breakthrough symptoms as she is [...] Name:Amando pulliam Jr, 05/01/2025 09:00:00 AM, [address] [facility], [address], [place], [address], Insurance Providers Payer Name Payer Address Payer Phone Subscriber Number Group Number Insured Name Patient Relationship to Insured Coverage Start Date Coverage End Date MEDICARE OF [place] [address] [place] [address] [id number] PIPPA COTTRELL Self - patient is the insured [facility] [address] [place] [address] [id number] PIPPA COTTRELL Self - patient is the [...] intubation at time of rotator cuff surgery [facility] 11/13 Surgical History Surgery Date(Month/Year) new shoulder right new knee left hysteroscopy 08/16 rotator cuff surgery left new hip right basal cell removed on chin carpal tunnel surgery in both hands Hospitalization History Reason Date(Month/Year) distributed shock after surgery
--- NOTE | 2024-10-01 16:01 | A.OFFPSYCH_ITS ---
Intake Intake Visit Reasons: depression Health Care Assistant Required: No Allergies codeine [CODEINE] Adverse Reaction (Mild, Verified 08/31/24 09:46) NAUSEA & VOMITING Medication List - Last Reconciled 10/01/24 by Trinity Liriano APRN alendronate 70 mg PO QWEEK 28 days aspirin (Adult Aspirin Regimen) 81 mg PO DAILY atorvastatin 10 mg PO DAILY 90 days bupropion HCl SR 200 mg PO DAILY 90 days docusate sodium (Colace) 100 mg PO BID PRN duloxetine 60 mg PO DAILY 90 days duloxetine 30 mg PO DAILY famotidine 20 mg PO BEDTIME 90 days ferrous sulfate 200 mg PO DAILY fluticasone furoate-vilanterol 200-25 mcg/dose (Breo Ellipta) 1 inh inhalation DAILY furosemide 20 mg PO DAILY isosorbide mononitrate ER 60 mg PO QAM 90 days metoprolol tartrate 25 mg PO BID pantoprazole 40 mg PO DAILY 90 days psyllium husk (Metamucil) 1.2 grams PO DAILY HPI- Psychiatric Chief Complaint: depression HPI Narrative: pt continues to struggle with depression, anxiety, grief. she is having a work up for possible mass on liver and also having a sleep study as the home sleep study showed significant apnea. Pt reports she is getting more help at home with abut at times he can be demanding. She does not get much support from him as its hard for him billy empathic likely given early dementia. PHQ(=15 and GAD7= 15. Past Psychiatric History: outpt tx w prozac x 30 yrs. No IPLOC Subjective Subjective Subjective Medication Compliance: Yes Side effects from medications: No Review of Systems Medical Review of Systems: unchanged Mental Status Exam Mental Status Exam Patient Appearance: Well Grooomed and Appropriate Patient Orientation: Person, Place, Time and Situation Level of Consciousness: Awake and Appropriate Patient Behavior: Appropriate Mood Description: Sad Affect Description: Sad Patient Cognition Impaired: No Ability to Follow Directions: Good Speech Pattern: Clear and Appropriate Memory Description: Intact Hallucinations: None Delusions: Not Present Thought Process: Intact Thought Content: positive for Intact Judgement: Fair Assessment and Plan Assessment & Plan (1) Bereavement: Status: Acute Code(s): Z63.4 - Disappearance and of family member (2) JENELLE (generalized anxiety disorder): Status: Acute Code(s): F41.1 - Generalized anxiety disorder (3) Major depressive disorder, recurrent, moderate: Status: Acute Code(s): F33.1 - Major depressive disorder, recurrent, moderate Plan continue medications per below recommend continued psychotherapy Medications: Refilled duloxetine take one 30 mg capsule in addition to one 60 mg capsule for total daily dose of 90mg 30 mg PO DAILY 90 caps 1RF bupropion HCl SR 200 mg PO DAILY 90 days 90 tabs 2RF duloxetine 60 mg PO DAILY 90 days 90 caps 2RF Counseling and coordination of Care Pt. Self Management counseling: Maintenance-social rhythm, Behavior activation and General coping skills Medication management counseling: Effectiveness, Side effects, Dosing range, Duration, Drug interaction and Adherence Diagnosis and Prognosis Counseling: Accuracy of diagnosis, Prognosis over time, Impact of diagnosis on life functions, Impact of family relationship, Problematic behaviors secondary to diagnosis and Adequacy of current interventions Details: I spent 35 minutes reviewing the record, seeing the patient and documenting in the medical record. Counseling provided to the patient/caregiver as outlined below. Addressed patient/caregiver concerns regarding current medication regime including effective adherence. Addressed patient/caregiver concerns regarding diagnosis and prognosis including accuracy of diagnosis, prognosis over time, impact of diagnosis. Addressed patient/caregiver concerns regarding impact of recent stressors. [facility] Medical History (Updated 08/31/24 @ 10:12 by Taya Morse NP) Golfers elbow Colitis CKD (chronic kidney disease) stage 3, GFR 30-59 ml/min Sleep apnea TIA (transient ischemic attack) Hx of squamous cell carcinoma HTN (hypertension) Elevated cholesterol Depression History of angina Diverticulitis GERD (gastroesophageal reflux disease) Surgical History (Updated 07/25/24 @ 15:48 by Niya David CMA) Hx of cardiac cath History of knee replacement procedure of left knee Hx of squamous cell carcinoma excision Hx of total hip arthroplasty History of hysteroscopy History of carpal tunnel release of both wrists Hx of rotator cuff surgery Hx of colonoscopy Hx of esophagogastroduodenoscopy Family History Father Rheumatic fever Heart attack Stroke Mother Heart problem Social History (Updated 08/01/24 @ 09:25 by Dede León LPN) Housing: House Alcohol intake: never Patient Tobacco Use Status: Former Tobacco user Cigarette Packs Per Day: 2 Years Smoked: 25 e-Cigarette/Vaping Use: Never Used Second Hand Smoke Exposure: No service: No Current occupational status: retired Current occupational exposures/hazards: No Cognitive needs: No Hearing needs: No Vision needs: Yes Social History: lives w Substance History: none Coding Level of Care Code Est Pt Level 4 (06746) Diagnoses Bereavement Z63.4 JENELLE (generalized anxiety disorder) F41.1 Major depressive disorder, recurrent, moderate F33.1
== END 2024-10-01 13:42 | disposition home or self-care (01) ==
LOC: HO.HOP 12:59
PROVIDERS: PCP Family Medicine; Visit Provider Clinical Nurse Specialist Psychiatric/Mental Health
DX: F33.1 Major depressive disorder, recurrent, moderate (principal); F41.1 Generalized anxiety disorder; Z63.4 Disappearance and death of family member
CPT/HCPCS: 99214

== ENCOUNTER → 2024-10-01 12:59 | Outpatient (BNVA) | payer MEDICARE, OTHER, SELFPAY | PROVIDERS: PCP Family Medicine; Visit Provider Clinical Nurse Specialist Psychiatric/Mental Health | DX: F33.1 Major depressive disorder, recurrent, moderate (principal); F41.1 Generalized anxiety disorder; Z63.4 Disappearance and death of family member; Z71.89 Other specified counseling | CPT/HCPCS: 99212 ==

== ENCOUNTER 2024-10-19 13:17 | Outpatient (AMB) | payer MEDICARE, OTHER, SELFPAY ==
--- NOTE | 2024-10-19 13:39 | A.OFFVIS_ITS ---
Vital Signs 3 10/19/24 13:40 Height 5 ft 1 in Weight 223 lb BMI 42.1 BP 122/76 Blood Pressure Location Lt brachial Position Sitting Pulse 53 Pulse Source Pulse Oximeter Pulse Oximetry (%) 96 Oxygen Delivery Method Room Air Intake Visit Reasons: Follow up DON Intake Note: Patient presents follow up DON. HST in chart /No labs. Allergies codeine [CODEINE] Adverse Reaction (Mild, Verified 10/19/24 13:46) NAUSEA & VOMITING HPI Comments Details: 69 year old female is here for a sleep evaluation referred to us by her PCP, Dr. Max. [facility] Distributive Shock, in December 2023, she is being follow by Dr. Hoover. October [address] imaging for Pulmonary Nodule Titration study completed on September 2024 O2 and Apneas improved on [id number] She continues to have PLMD and declines dopamine agonist today. She normally sleeps restfully when she falls asleep, but has a very difficult time falling asleep, she lays in bed for hours. She has a difficult time getting up from sleep and feels exhausted, snores and gasps for air, she is a side sleeper, tosses and turns all night long. She denies abnormal sleep behaviors, and memory difficulties, morning headaches vision changes. 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 Her mood is stable denies constipation, diet is okay, she gets over whelmed with challenges of being a caregiver burden. She is independent in all ADLs. Her ferritin was 20, she started Femiron pills 325mg daily, instructed today to take with orange juice. TSH and CMP is normal, she takes Magnesium 400mg daily at bedtime for her legs. RLS: Usually when going to bed she feels a numb, discomfort like sensation in her legs, denies cramps. She has to move her legs several times to get comfortable and takes 2 Tylenol tablets daily at night. REPLACED BY [facility] Medical History Golfers elbow Colitis CKD (chronic kidney disease) stage 3, GFR 30-59 ml/min Sleep apnea TIA (transient ischemic attack) Hx of squamous cell carcinoma HTN (hypertension) Elevated cholesterol Depression History of angina Diverticulitis GERD (gastroesophageal reflux disease) Surgical History Hx of cardiac cath History of knee replacement procedure of left knee Hx of squamous cell carcinoma excision Hx of total hip arthroplasty History of hysteroscopy History of carpal tunnel release of both wrists Hx of rotator cuff surgery Hx of colonoscopy Hx of esophagogastroduodenoscopy Family History Father Rheumatic fever Heart attack Stroke Mother Heart problem Social History Housing: House Alcohol intake: never Patient Tobacco Use Status: Former Tobacco user Cigarette Packs Per Day: 2 Years Smoked: 25 e-Cigarette/Vaping Use: Never Used Second Hand Smoke Exposure: No service: No Current occupational status: retired Current occupational exposures/hazards: No Cognitive needs: No Hearing needs: No Vision needs: Yes Physical Exam Vital Signs: Last Vital Signs Pulse 53 10/19/24 13:40 BP 122/76 10/19/24 13:40 Pulse Ox 96 10/19/24 13:40 Oxygen Delivery Method Room Air 10/19/24 13:40 BMI result Body Mass Index 42.1 Const General: cooperative, comfortable and no acute distress Nutritional Appearance: obese (41.2) Orientation/consciousness: patient oriented x3 HEENT Face and sinus: Yes normal facial exam and Yes face symmetric Teeth and gingiva: other ([place] score of 4) Eyes Pupils: Equal, round and reactive pupils present Neck Neck: Yes full ROM and Yes supple Resp Effort & Inspection: normal respiratory effort and able to speak in complete sentences Neuro General: patient oriented x3 and moves all extremities Cranial nerves: Yes CN's II-XII intact bilaterally, Yes Facial sensation intact/muscles of mastication intact, Yes Equal, round and reactive pupils present, Yes Normal accommodation reflex present, Yes Bilaterally intact EOM present, Yes Nystagmus not present, Yes Normal facial strength present, Yes Midline tongue present, Yes Ability to bilaterally rotate head present and Yes Ability to bilaterally elevate shoulders present Cognition (Neuro): normal cognition Gait exam (Neuro): Normal gait present Motor exam (neuro): 5/5 motor strength present throughout, Pronator motor function not present, no tremor noted and Normal motor muscle tone present throughout Deep tendon reflexes (DTR's): Right triceps reflex intensity grade: 2+, Left triceps reflex intensity grade: 2+, Rt Biceps (C5, C6): 2+, Left biceps reflex intensity grade: 2+, Right brachioradialis reflex intensity grade: 2+, Left brachioradialis reflex intensity grade: 2+, Right patellar reflex intensity grade: 2+, Left patellar reflex intensity grade: 2+, Right ankle reflex intensity grade: 2+ and Left ankle reflex intensity grade: 2+ Coordination: [id number] test normal Psych Appearance: grossly normal Mental Status: mental status grossly normal Speech and movement: Normal speech and movement present Affect: normal affect Attitude: cooperative Thought process: Normal thought process present Thought content: Normal thought content present Insight: Good insight present (Psych) Judgement: Good judgement present (Psych) Results Reviewed Results Reviewed: HST 08/28/2027 AHI was 54 and oxygen desaturation to 78%. CPAP Titration study patient's breathing and oxygen stabilized at [id number]. Will f/u for compliance. Assessment & Plan Assessment & Plan (1) Sleep apnea: Comment: cpap/ and patient is interested in Inspire EVAl Code(s): G47.30 - Sleep apnea, unspecified Category: Medical Qualifiers: Sleep apnea type: obstructive Qualified Code(s): G47.33 - Obstructive sleep apnea (adult) (pediatric) (2) Fatigue due to sleep pattern disturbance: Code(s): R53.83 - Other fatigue; G47.9 - Sleep disorder, unspecified Category: Medical Plan Sleep Apnea will start therapy at [id number], sleep hygiene provided. Referral for ENT Inspire therapy. PLMD: declined Dopamine agonist today, will f/u and monitor, she wants to try otc magnilife, or restless leg cream, bengay, ice packs. Labs: are normal, Ferritin was low she started taking 325mg of iron daily w/orange juice for absorbtion. F/U in 3 months, may call or message us on the portal. Orders: Referrals 2 Ear/Nose/Throat Referral G47.30 - Sleep apnea, unspecified Patient Instructions: Sleep Hygiene provided: set a scheduled bedtime and wake time to help regulate the circadian rhythm and balance the release of pituitary hormones. Sleep in a dark room, temperatures below 68 degrees, and no devices n bed. Limit caffeinated products 6 hours prior to bed, and limit fluids 2-4 hours prior to bed. Gentle night yoga, diffusing essential oils, and playing soft music can be relaxing. PLMD/ RLS Take 325mg ferrous sulfate daily with orange juice may hold for constipation. Take 400mg magnesium may hold for loose stools. Compliance is emphasized and more than >4-6 hours per night. Wash mask, change filters and replace water in reservoir as needed. Coding Level of Care Code Est Pt Level 4 (96574) Diagnoses Obstructive sleep apnea syndrome G47.33 Sleep apnea type: obstructive Fatigue due to sleep pattern disturbance R53.83; G47.9 Time Spent (min) 30 Comment Patient Education on Sleep and PLMD
[2024-10-19 13:40] VITALS: BP 122/76; PULSE 53; O2SAT 96; BMI 42.1
--- OUTSIDE RECORDS SUMMARY | 2024-10-19 14:00 | XMS_ITS | Clinical Summary ---
Author Organization [facility] Address [address] [place] [address] Phone Care Team Providers Care Business Process Consultant Name Role Phone Unavailable Primary Care Provider Unavailabl e Encounters Date Type Department Care Team Description 08/09/2024 9:30 AM EST - 08/09/2024 11:59 PM EST Hospital Encounter [facility] PET Scan [address] [place] [address] Pulmonary nodule Discharge Disposition: Home [...] 08/08/2024 Social Influencers of Health Screening 08/08/2024 COVID-19 Vaccine ( season) 2024 04/06/2024, 10/07/2021, 04/06/2021, Additional history exists DTaP,Tdap,and Td Vaccines (2 - Td or Tdap) 07/10/2030 07/10/2020 Influenza Vaccine Completed 04/16/2024, , 04/20/2023, Additional [...] Signed Date: 08/14/2024 04:31 ET Workstation ID: [id number] Transcribed By: Self Edit Transcribed Date: 08/13/2024 [...] Signed Date: 08/14/2024 04:31 ET Workstation ID: [id number] Transcribed By: Self Edit Transcribed Date: 08/13/2024 11:27 ET Yonis Holt MD IM NM PROCEDURES Final Result from Last 3 Months Insurance MEDICARE
== END 2024-10-19 14:26 | disposition home or self-care (01) ==
LOC: HO.HSMS 13:18
PROVIDERS: PCP Family Medicine; Visit Provider Physician Assistant Medical
DX: G47.33 Obstructive sleep apnea (adult) (pediatric) (principal); R53.83 Other fatigue; G47.9 Sleep disorder, unspecified
CPT/HCPCS: 99214

== ENCOUNTER → 2024-10-19 13:17 | Outpatient (BNVA) | payer MEDICARE, OTHER, SELFPAY | PROVIDERS: PCP Family Medicine; Visit Provider Physician Assistant Medical | DX: G47.33 Obstructive sleep apnea (adult) (pediatric) (principal); R53.83 Other fatigue; Z99.89 Dependence on other enabling machines and devices | CPT/HCPCS: 99212 ==

== ENCOUNTER 2024-10-24 09:01 | Outpatient (AMB) | payer MEDICARE, OTHER, SELFPAY ==
--- NOTE | 2024-10-24 08:48 | MHC.OFFVIS ---
Vital Signs 10/24/24 09:04 Height 5 ft 1 in Weight 223 lb BMI 42.1 Pulse 64 Pulse Source Pulse Oximeter Pulse Oximetry (%) 97 Oxygen Delivery Method Room Air Intake Visit Reasons: Pulmonary Nodule Parole Supervisor Required: No Group Counselor: Group Counselor offered & declined Accompanied by: Self / Same As Patient Allergies codeine [CODEINE] Adverse Reaction (Mild, Verified 10/24/24 09:08) NAUSEA & VOMITING Medication List - Last Reconciled 10/24/24 by Dede León LPN alendronate 70 mg PO QWEEK 28 days aspirin (Adult Aspirin Regimen) 81 mg PO DAILY atorvastatin 10 mg PO DAILY 90 days bupropion HCl SR 200 mg PO DAILY 90 days docusate sodium (Colace) 100 mg PO BID PRN duloxetine 30 mg PO DAILY duloxetine 60 mg PO DAILY 90 days famotidine 20 mg PO BEDTIME 90 days ferrous sulfate 200 mg PO DAILY fluticasone furoate-vilanterol 200-25 mcg/dose (Breo Ellipta) 1 inh inhalation DAILY furosemide 20 mg PO DAILY isosorbide mononitrate ER 60 mg PO QAM 90 days metoprolol tartrate 25 mg PO BID pantoprazole 40 mg PO DAILY 90 days psyllium husk (Metamucil) 1.2 grams PO DAILY HPI HPI Pulmonary Nodule: Details: Martha Clark is pleasant 69 year old, former smoker, quit with approximately 50+ pyh with underlying asthma, recent NSTEMI,Takotsubo cardiomyopathy, HTN, HLD, TIA, h/o sqaumous cell carcinoma s/p excision, and DON on CPAP therapy (managed by sleep medicine). She was initially referred by PCP after incidental finding of XANDER 1.0x 1.1 cm pulmonary nodule on CTA from June 2023. PET scan revealed minimal FDG activity and was sent for [address] to assess stability. She also reported reported progressively worsening dyspnea on exertion, with intermittent wheezing and dry cough over the last few months and was started on Breo with significant improvements in respiratory symptoms. Today she presents to review results of CT. She denies any visits to urgent care or hospitalizations related to respiratory distress since the last visit. [facility] Medical History Golfers elbow Colitis CKD (chronic kidney disease) stage 3, GFR 30-59 ml/min Sleep apnea TIA (transient ischemic attack) Hx of squamous cell carcinoma HTN (hypertension) Elevated cholesterol Depression History of angina Diverticulitis GERD (gastroesophageal reflux disease) Surgical History Hx of cardiac cath History of knee replacement procedure of left knee Hx of squamous cell carcinoma excision Hx of total hip arthroplasty History of hysteroscopy History of carpal tunnel release of both wrists Hx of rotator cuff surgery Hx of colonoscopy Hx of esophagogastroduodenoscopy Family History Father Rheumatic fever Heart attack Stroke Mother Heart problem Social History Housing: House Alcohol intake: never Patient Tobacco Use Status: Former Tobacco user Cigarette Packs Per Day: 2 Years Smoked: 25 e-Cigarette/Vaping Use: Never Used Second Hand Smoke Exposure: No service: No Current occupational status: retired Current occupational exposures/hazards: No Cognitive needs: No Hearing needs: No Vision needs: Yes Review of Systems Const Denies chills, Denies excessive sweating, Denies fever(s), Denies headache(s) and Denies night sweats Eyes Denies dry eyes, Denies irritation and Denies itchy eyes ENT Reports Normal hearing present, Denies headache(s), Denies nasal congestion, Denies nasal discharge, Denies post nasal drip and Denies sore throat Card Denies chest pain, Denies chest pain at rest, Denies chest pain with activity, Denies claudication, Denies leg edema, Denies dyspnea, Denies dyspnea on exertion, Denies orthopnea and Denies paroxysmal nocturnal dyspnea Resp Denies chest congestion, Denies cough, Denies excessive phlegm production, Denies pain on inspiration, Denies pain with cough, Denies dyspnea, Denies dyspnea on exertion, Denies stridor and Denies wheezing Musc Denies myalgias Neuro Reports Normal hearing present and Denies headache(s) Endo Denies excessive sweating Ruben/Lymph Denies lymphadenopathy Aller/Immun Denies itchy eyes, Denies seasonal rhinorrhea and Denies wheezing Physical Exam Vital Signs: Last Vital Signs Pulse 64 10/24/24 09:04 Pulse Ox 97 10/24/24 09:04 Oxygen Delivery Method Room Air 10/24/24 09:04 BMI result Body Mass Index 42.1 Const General: cooperative, healthy appearing, comfortable, no acute distress, well developed and alert Nutritional Appearance: obese Orientation/consciousness: patient oriented x3 Limitations: no limitations HEENT Head: Yes normal to inspection, Yes normocephalic and Yes atraumatic Ears: hearing grossly normal bilaterally and external ears normal Eyes General: appearance normal, both eyes and all related structures Eyelids: Yes eyelids normal Sclerae: sclerae normal EOM: EOMs intact bilaterally Neck Neck: Yes normal visual inspection and Yes no lymphadenopathy Lymphatic: no lymphadenopathy noted Chest Chest palpation & inspection: normal inspection of the chest Resp Effort & Inspection: normal respiratory effort, able to speak in complete sentences, no audible wheezes, no cough, no stridor, not tachypneic, no tripod positioning and no use of accessory muscles Auscultation: clear to auscultation bilaterally Cardio Jugular venous distension: no JVD Rate: regular rate Rhythm: regular rhythm Skin Other: warm, dry General skin exam: no rashes or lesions noted Neuro General: patient oriented x3 Cranial nerves: Yes Normal hearing present Cognition (Neuro): normal cognition Gait exam (Neuro): Normal gait present Extrem General: Yes normal to inspection, Yes capillary refill normal, Yes no clubbing, cyanosis or edema and Yes no pedal edema Psych Appearance: grossly normal and well kempt Speech and movement: Normal speech and movement present and Clear speech present Affect: normal affect Attitude: cooperative Thought process: Normal thought process present Thought content: Normal thought content present Insight: Good insight present (Psych) Judgement: Good judgement present (Psych) Results Reviewed Results Reviewed: [address] [address] [address] Scan Report Signed Patient: Martha Cottrell MR#: [id number] : 1955 Acct:[id number] Age/Sex: 69 / F ADM Date: 09/27/24 Loc: HO.CT Attending Dr: Taya Morse NP Ordering Physician: Taya Mrose NP Date of Service: 09/27/24 Procedure(s): CT chest wo IV con Accession Number(s): [id number] cc: Stephan Max MD; Taya Morse NP~ Report Number: [id number]: Total DLP = 270.00 mGy-cm CLINICAL HISTORY: R91.1 - Solitary pulmonary nodule CT chest without contrast Comparison: 07/11/2024 Findings: The heart size is normal. The visualized thyroid and mediastinum are unremarkable. Mild atherosclerotic disease of the coronary arteries. The left upper lobe nodule measures 11 x 10 mm, unchanged. No new or increasing nodule. No effusion. No pneumothorax. Visualized upper abdomen demonstrates a small hiatal hernia. No acute osseous finding. Impression: Stable 11 mm x 10 mm left upper lobe nodule. Six-month follow-up recommended versus the previously recommended PET This document has been electronically signed by: Howie Galarza MD on 10/04/2024 09:27:07 Dictated By: Howie Galarza MD Signed By: <Electronically signed by Howie Galarza MD in [place]> 10/04/24926 DD/ 6 TD/TT: 10/04/24926 Sleeve Setter Safety Stitch: Assessment & Plan Assessment & Plan (1) Pulmonary nodule 1 cm or greater in diameter: Code(s): R91.1 - Solitary pulmonary nodule Category: Medical (2) Asthma: Code(s): J45.909 - Unspecified asthma, uncomplicated Category: Medical Plan Prior CTA revealed 1 cm XANDER solid pulmonary nodule, sent for PET which revealed minimal FDG activity of XANDER, SUV 1.7. Repeat chest CT 09/2024 revealed stability of XANDER nodule. Will repeat chest CT in 6 months. We did discuss referral to thoracic however she would like to defer at this time. There was also note of FDG activity in right hepatic lobe , suggestive of possible lesion vs liver heterogeneity, with recommendation for further evaluation with abdominal MRI. She was evaluated by Dr. Alba without concern and will have follow up in January. At this time she feels respiratory symptoms are controlled on Breo, advised to continue and will send in albuterol MDI to use PRN. All questions were answered and patient is in agreement of plan. Will follow up in 3-6 months or sooner if needed. Orders: Orders CT chest wo IV con 6 Months R91.1 - Solitary pulmonary nodule Medications: New albuterol sulfate 90 mcg/actuation 2 puffs inhalation Q4-6H PRN 1 ea 3RF shortness of breath or wheezing Coding Level of Care Code Est Pt Level 4 (58895) Diagnoses Pulmonary nodule 1 cm or greater in diameter R91.1 Asthma J45.909
[2024-10-24 09:04] VITALS: PULSE 64; O2SAT 97; BMI 42.1
--- OUTSIDE RECORDS SUMMARY | 2024-10-24 09:29 | XMS_ITS | Clinical Summary ---
Author Organization [facility] Address [address] [place] [address] Phone Care Team Providers Care Process Manager Name Role Phone Unavailable Primary Care Provider Unavailabl e Encounters Date Type Department Care Team Description 08/09/2024 9:30 AM EST - 08/09/2024 11:59 PM EST Hospital Encounter [facility] PET Scan [address] [place] [address] Pulmonary nodule Discharge Disposition: Home [...] Signed Date: 08/14/2024 04:31 ET Workstation ID: [id number] Transcribed By: Self Edit Transcribed Date: 08/13/2024 [...] Signed Date: 08/14/2024 04:31 ET Workstation ID: [id number] Transcribed By: Self Edit Transcribed Date: 08/13/2024 11:27 ET Yonis Holt MD IM NM PROCEDURES Final Result from Last 3 Months Insurance MEDICARE
== END 2024-10-24 09:35 | disposition home or self-care (01) ==
LOC: HO.HPSW 09:01
PROVIDERS: PCP Family Medicine; Visit Provider Nurse Practitioner Family
DX: R91.1 Solitary pulmonary nodule (principal); J45.909 Unspecified asthma, uncomplicated
CPT/HCPCS: 99214

== ENCOUNTER → 2024-10-24 09:01 | Outpatient (BNVA) | payer MEDICARE, OTHER, SELFPAY | PROVIDERS: PCP Family Medicine; Visit Provider Nurse Practitioner Family | DX: R91.1 Solitary pulmonary nodule (principal); J45.909 Unspecified asthma, uncomplicated; Z86.73 Personal history of transient ischemic attack (TIA), and cerebral infarction without residual deficits; Z87.891 Personal history of nicotine dependence | CPT/HCPCS: 99212 ==

== ENCOUNTER 2024-10-29 14:59 | Outpatient (AMB) | payer MEDICARE, OTHER, SELFPAY ==
--- NOTE | 2024-10-29 15:06 | MHC.OFFVIS ---
Vital Signs 10/29/24 15:07 Height 5 ft 1 in Weight 220 lb 7.396 oz BMI 41.7 BP 130/62 Blood Pressure Location Lt brachial Position Sitting Pulse 56 Pulse Source Pulse Oximeter Intake Visit Reasons: follow up after echo Intake Note: f/up-echo Turning Sander Tender Required: No Accompanied by: Self / Same As Patient Allergies codeine [CODEINE] Adverse Reaction (Mild, Verified 10/24/24 09:08) NAUSEA & VOMITING HPI Comments Details: Pleasant 69 year female who is here for follow-up. She recently went in the hospital for outpatient procedure went ECG was noted to have T-wave changes. Reviewing the EKGs she had new right bundle-branch block with V1 V2 T-wave inversion. She has no chest discomfort but has chronic dyspnea on exertion but she is noticing that she is getting more short of breath with activity. She was a smoker but quit in . She has hypertension, hyperlipidemia and strong family history of coronary artery disease. She previously had a stress test in 2020 which was felt to be abnormal due to breast artifact. Blood pressure is well controlled. EKGs repeated in the office and is showing right bundle-branch block with T-wave inversion in V1 and V2. 06/13/2024: On last visit we referred her for stress testing. She was able to exercise for 6 minutes and stopped due to dyspnea. She was eventually changed to Lexiscan and perfusion imaging showed mild intensity small apical perfusion defect. She continues to be short of breath with activities. She also has restless legs. She is saying she is unable to walk a block. 07/25/2024: Here for follow-up after recent admission to [facility]. She had sudden also chest pain which woke her from sleep and she was taken to [facility] and ruled in for NSTEMI. She was started on heparin drip and underwent cardiac catheterization. Cardiac catheterization did not show any significant coronary disease. Subsequently she has was started on aspirin and echocardiography was performed which showed apical dyskinesis and changes were somewhat suggestive of stress-induced myopathy. She also had diffuse T-wave inversions with QT prolongation which also goes along with takotsubo cardiomyopathy. No obvious trigger is found because there is no new stressor in her life. 10/29/2024: Returns for follow-up. She has seen pulmonology and is on some inhalers and feeling better. Repeat echocardiography has shown improvement in ejection fraction. Diagnosis is takotsubo cardiomyopathy. FORMERLY [facility], [facility] Medical History Golfers elbow Colitis CKD (chronic kidney disease) stage 3, GFR 30-59 ml/min Sleep apnea TIA (transient ischemic attack) Hx of squamous cell carcinoma HTN (hypertension) Elevated cholesterol Depression History of angina Diverticulitis GERD (gastroesophageal reflux disease) Surgical History Hx of cardiac cath History of knee replacement procedure of left knee Hx of squamous cell carcinoma excision Hx of total hip arthroplasty History of hysteroscopy History of carpal tunnel release of both wrists Hx of rotator cuff surgery Hx of colonoscopy Hx of esophagogastroduodenoscopy Family History Father Rheumatic fever Heart attack Stroke Mother Heart problem Social History Housing: House Alcohol intake: never Patient Tobacco Use Status: Former Tobacco user Cigarette Packs Per Day: 2 Years Smoked: 25 e-Cigarette/Vaping Use: Never Used Second Hand Smoke Exposure: No service: No Current occupational status: retired Current occupational exposures/hazards: No Cognitive needs: No Hearing needs: No Vision needs: Yes Review of Systems Const Denies chills, Denies fatigue, Denies fever(s), Denies frequent falls, Denies weakness, Denies weight gain and Denies weight loss ENT Denies dizziness Card Denies chest pain, Denies leg edema, Denies lightheadedness, Denies palpitations, Denies dyspnea and Denies dyspnea on exertion Resp Denies cough, Denies dyspnea and Denies dyspnea on exertion GI Denies hematochezia Musc Denies abnormal gait, Denies muscle weakness, Denies numbness, Denies radiating pain into limb and Denies tingling Neuro Denies abnormal gait, Denies dizziness, Denies frequent falls, Denies numbness, Denies tingling and Denies weakness Endo Denies fatigue and Denies palpitations Physical Exam Vital Signs: Last Vital Signs Pulse 56 10/29/24 15:07 BP 130/62 10/29/24 15:07 BMI result Body Mass Index 41.7 GENERAL APPEARANCE: in no acute distress, pleasant. NECK: no carotid bruit. SKIN: no suspicious lesions, warm and dry. HEART: no murmurs, regular rate and rhythm. LUNGS: clear to auscultation bilaterally. ABDOMEN: soft, nontender. EXTREMITIES: no edema. PERIPHERAL PULSES: equal. NEUROLOGIC: No gross deficits, AAO X 3 Assessment & Plan Assessment & Plan (1) Takotsubo cardiomyopathy: Code(s): I51.81 - Takotsubo syndrome Category: Medical (2) RBBB: Code(s): I45.10 - Unspecified right bundle-branch block Category: Medical (3) Essential hypertension: Code(s): I10 - Essential (primary) hypertension Category: Medical (4) NSTEMI (non-ST elevated myocardial infarction): Code(s): I21.4 - Non-ST elevation (NSTEMI) myocardial infarction Category: Medical Plan Pleasant 68 year female who is here for follow-up. She had dyspnea on exertion and was started on diuretics without any improvement. Subsequently got admitted with NSTEMI to [facility] for cardiac catheterization list showed no significant coronary disease. She had apical wall motion abnormality on left ventriculography which was quite limited due to equipment dysfunction. She subsequently had echocardiography which showed apical dyskinesis preserved LV function. Findings were suggestive of takotsubo cardiomyopathy. Repeat echocardiography has shown improvement in ejection fraction. She had another echo in between which showed interestingly reversal of the takotsubo with basal akinesis and normal apical segments. It appears this has been reported in the literature. Stable clinically. She will see us back in few months. Thank you for allowing me to participate in the care of your patient. Please feel free to contact me if you have any questions. Coding Level of Care Code Est Pt Level 4 (85876) Diagnoses Takotsubo cardiomyopathy I51.81 RBBB I45.10 Essential hypertension I10 NSTEMI (non-ST elevated myocardial infarction) I21.4
[2024-10-29 15:07] VITALS: BP 130/62; PULSE 56; BMI 41.7
--- OUTSIDE RECORDS SUMMARY | 2024-10-29 16:35 | XMS_ITS ---
Author Organization [facility] Address [address] [place] [address] Care Team Providers Care Refueling Ramp Attendant Name Role Phone Stephan Max Primary Care Provider Amando Leslie Jr [phone] Encounters Encounter Location Date Provider Diagnosis [facility] [address] [place] [address] 09/12/2024 Amando Alba Jr Abnormal PET scan, liver R94.5 Assessments Encounter Date Diagnosis (ICD Code) Assessment Notes Treatment Notes Treatment Clinical Notes Section Notes 09/12/2024 Abnormal PET scan, liver (ICD-10 - R94.5) Plan Of Treatment Pending Test Test Name Order Date MRI ABD W&WO CONTRAST 09/12/2024 Next Appt Details Provider Name:Amando pulliam Jr, 05/01/2025 09:00:00 AM, [address], [address], [place], [address], Progress Notes * PIPPA WEAVER LDOB:1955 (69 yo F)Acc No.[id number]:09/12/2024 Patient:?PIPPA WEAVER :1955???Age:69 Y???Sex:Female Address:[address] [place] [address] [address], [place] [address] Subjective: * Chief Complaints: * ??? * Medical History:? * Surgical History:? * Hospitalization/Major Diagno stic Procedure:? * Medications:? Objective: * Vitals:? * Physical Examination:? Assessment: * Assessment: 1.?Abnormal PET scan, liver - R94.5 (Primary)??? Plan: * Treatment: * * Procedure Codes:? * true * Date:? Generated for Carly chao/Kash/Cristhian on:?10/29/2024 04:35 PM EDT
--- OUTSIDE RECORDS SUMMARY | 2024-10-29 16:35 | XMS_ITS ---
Author Organization [facility] Address [address] [place] [address] Care Team Providers Care Panelboard Operator Name Role Phone Stephan Max Primary Care Provider Unavailab Amando Bell Jr [phone] REASON FOR VISIT MRI Encounters Encounter Location Date Provider Diagnosis [facility] [address] [place] [address] 09/20/2024 Amando Alba Jr Plan Of Treatment Next Appt Details Provider Name:Amando pulliam Jr, 05/01/2025 09:00:00 AM, [address], [address], [place], [address], Progress Notes * PIPPA WEAVER LDOB:1955 (69 yo F)Acc No.[id number]:09/20/2024 Patient:?PIPPA WEAVER :1955???Age:69 Y???Sex:Female Address:[address], [place] [address] * true * Date:? Generated for Arnaldoi jeremie/Kash/eTransmitting on:?10/29/2024 04:35 PM EDT
--- OUTSIDE RECORDS SUMMARY | 2024-10-29 16:35 | XMS_ITS ---
Author Organization [facility] Address [address] [place] [address] Care Team Providers Care Product Handler Name Role Phone Stephan Max Primary Care Provider Unavailab Amando Bell Jr REASON FOR VISIT Labs Encounters Encounter Location Date Provider Diagnosis [facility] [address] [place] [address] 09/11/2024 Amando Alba Jr Plan Of Treatment Next Appt Details Provider Name:Amando pulliam Jr, 05/01/2025 09:00:00 AM, [address], [address], [place], [address], Progress Notes * PIPPA WEAVER LDOB:1955 (69 yo F)Acc No.[id number]:09/11/2024 Patient:?PIPPA WEAVER :1955???Age:69 Y???Sex:Female Address:[address], [place] [address] * true * Date:? Generated for Arnaldoi jeremie/Kash/eTransmitting on:?10/29/2024 04:35 PM EDT
--- OUTSIDE RECORDS SUMMARY | 2024-10-29 16:35 | XMS_ITS | Clinical Summary ---
Author Organization [facility] Address [address] [place] [address] Phone Care Team Providers Care Route Sales Trainee Name Role Phone Unavailable Primary Care Provider Unavailabl e Encounters Date Type Department Care Team Description 08/09/2024 9:30 AM EST - 08/09/2024 11:59 PM EST Hospital Encounter [facility] PET Scan [address] [place] [address] Pulmonary nodule Discharge Disposition: Home [...] Signed Date: 08/14/2024 04:31 ET Workstation ID: [id number] Transcribed By: Self Edit Transcribed Date: 08/13/2024 [...] Villalobos Reviewed and Electronically Signed By: Natalya Villalboos Signed Date: 08/14/2024 04:31 ET Workstation ID: [id number] Transcribed By: Self Edit Transcribed Date: 08/13/2024 11:27 ET Yonis Holt MD IM NM PROCEDURES Final Result from Last 3 Months Insurance MEDICARE
--- OUTSIDE RECORDS SUMMARY | 2024-10-29 16:36 | XMS_ITS | Patient Health Record ---
Author Organization [facility] Address [address] [place] [address] Care Team Providers Care Quality Control Checker Name Role Phone Stephan Max Primary Care Provider UnavailAmando Patel Jr Unavailable [phone] Allergies Allergen (clinical drug ingredient) Drug/Non Drug Allergy documented on EMR Reaction Allergy Type Onset Date Status Codeine Phosphate Unknown Drug Allergy Active Results Component Value Reference Range Notes Liver Panel Reviewed date:09/11/2024 02:47:21 PM Interpretation: Performing Lab:[facility], [address] [place] [address] Notes/Report: Bilirubin Total 0.3 0.0-1.0 mg/dL Bilirubin Direct 0.1 0.0-0.5 mg/dL Aspartate Amino Transferase 20 5-31 U/L Alanine Aminotransferase 16 0-31 U/L Total Protein 7.3 6.5-8.0 g/dL Albumin Level 4.1 3.5-5.0 g/dL Alkaline Phosphatase 70 39-117 U/L Blood Urea Nitrogen Reviewed date:09/11/2024 02:45:35 PM Interpretation: Performing Lab:[facility], [address] [place] [address] Notes/Report: Blood Urea Nitrogen 16 9-16 mg/dL Creatinine Reviewed date:09/11/2024 02:45:33 PM Interpretation: Performing Lab:[facility], [address] [place] [address] Notes/Report: Creatinine 0.96 0.5-1.4 mg/dL Estimated Glomerular Filt Rate 57 Chronic Kidney Disease: Estimated GFR < 60 mL/min/1.73m2 Severe Kidney Disease: Estimated GFR < 15 mL/min/1.73m2 MR abdomen wo/w con Reviewed date:09/20/2024 11:26:48 AM Interpretation: Performing Lab: Notes/Report: [address] [address] Magnetic Resonance Report Signed Patient: Pippa Cottrell MR#: [id number] : 1955 Acct:[id number] Age/Sex: 69 / F ADM Date: 09/19/24 Loc: HO.MRI Attending Dr: Amando Alba MD Ordering Physician: Amando Alba MD Date of Service: 09/19/24 Procedure(s): MR abdomen wo/w con Accession Number(s): [id number] cc: Amando Alba MD; Stephan Max MD EXAMINATION: MRI Abdomen without and with contrast HISTORY: Abnormal PET scan, possible lesion vs. liver heterogeneity COMPARISON: Correlation is made with a PET/scan from [facility] dated 08/09/2024. TECHNIQUE: Axial in and out [...] 09/20/24 0711 DD/ 1607 TD/TT: 09/19/24 1637 User Experience Analyst: [address] [address] Magnetic Resonance Report Signed Patient: Pippa Cottrell MR#: [id number] : 1955 Acct:[id number] Age/Sex: 69 / F ADM Date: 09/19/24 Loc: HO.MRI Attending Dr: Mikki Alba MD Ordering Physician: Amando Alba MD Date of Service: 09/19/24 Procedure(s): MR abd omen wo/w con Accession Number(s): [id number] cc: Amando Alba MD; Stephan Max MD EXAMINATION: MRI Abd omen without and with contrast HISTORY: Abnormal PE T scan, possible lesion vs. liver heterogeneity COMPARISON: Correlat ion is made with a PET/scan from [facility] dated 08/09/2024. TECHNIQUE: Axial in and out [...] 09/20/24 0711 DD/ 1607 TD/TT: 09/19/24 1637 User Experience Analyst: Reason For Referral No Information Medications Medication [...] Problem Status W/U Status Risk Notes Problem 785060489 Colon cancer screening (Z12.11) Active confirmed Problem 86108269 Encounter for ot her preprocedural examination (Z01.818) Active confirmed Problem Gastroesophageal reflux disease (K21.9) Active confirmed Problem 503600744 Gastroesophageal reflux disease without esophagitis (K21.9) Active confirmed Problem 13945073 Colitis (K52.9) Active confirmed Vital Signs Temperature 97.5 degrees Fahrenheit 04/30/2024 Blood pressure diastolic 111 mm Hg 09/06/2024 Height 61.5 in 09/06/2024 Blood pressure systolic 111 mm Hg 09/06/2024 Weight 222 lbs 09/06/2024 BMI 41.26 kg/m2 09/06/2024 Encounters Encounter Location Date Provider Diagnosis [facility] [address] [place] [address] 04/30/2024 Amando Alba Jr Gastroesophageal reflux disease without esophagitis K21.9 and Colitis K52.9 [facility] [address] [place] [address] 09/06/2024 Amando Alba Jr Abnormal PET scan, liver R94.5 [facility] [address] [place] [address] 01/13/2024 Amando Alba Jr [facility] [address] [place] [address] 09/07/2024 Amando Alba Jr Abnormal PET scan of liver R94.5 [facility] [address] [place] [address] 09/11/2024 Amando Alba Jr [facility] [address] [place], [place] [address] 09/12/2024 Amandoelsie Alba Jr Abnormal PET scan, liver R94.5 [facility] [address] [place], [place] [address] 09/20/2024 Amando Alba Jr Assessments Encounter Date Diagnosis (ICD Code) Assessment Notes Treatment Notes Treatment Clinical Notes Section Notes 04/30/2024 Gastroesophageal reflux disease without esophagitis (ICD-10 - K21.9) Gastroesophageal reflux disease material was printed At this time, Pippa appears to be doing well. We discussed gastroesophageal reflux disease today. She can continue to use [id number] antacids for breakthrough symptoms as she is doing. She continues on fiber for her bowel movements. She does not need mesalamine at this time. Followup will be in 12 months. 04/30/2024 Colitis (ICD-10 - K52.9) At this time, Pippa appears to be doing well. We discussed gastroesophageal reflux disease today. She can continue to use [id number] antacids for breakthrough symptoms as she is [...] LIVER PROFILE 09/06/2024 MRI ABD W&WO CONTRAST 09/06/2024 MRI ABD W&WO CONTRAST 09/07/2024 MRI ABD W&WO CONTRAST 09/12/2024 Future Test Test Name Order Date UPPER GI ENDOSCOPY 08/25/2012 COLONOSCOPY 10/14/2016 UPPER GI ENDOSCOPY 07/28/2022 COLONOSCOPY 07/28/2022 Next Appt Details Provider Name:Amando pulliam , 05/01/2025 09:00:00 AM, [address] [facility], [address], [place], [address], Insurance Providers Payer Name Payer Address Payer Phone Subscriber Number Group Number Insured Name Patient Relationship to Insured Coverage Start Date Coverage End Date MEDICARE OF [place] [address] [place] [address] [id number] PIPPA COTTRELL Self - patient is the insured [facility] [address] [place] [phone] [id number] [employer] Self - patient is the insured Medical [...] intubation at time of rotator cuff surgery [facility] 11/13 Surgical History Surgery Date(Month/Year) new shoulder right new knee left hysteroscopy 08/16 rotator cuff surgery left new hip right basal cell removed on chin carpal tunnel surgery in both hands Hospitalization History Reason Date(Month/Year) distributed shock after surgery
== END 2024-10-29 15:42 | disposition home or self-care (01) ==
LOC: HO.HCS 15:00
PROVIDERS: PCP Family Medicine; Visit Provider Internal Medicine Cardiovascular Disease
DX: I51.81 Takotsubo syndrome (principal); I45.10 Unspecified right bundle-branch block; I10 Essential (primary) hypertension; I21.4 Non-ST elevation (NSTEMI) myocardial infarction
CPT/HCPCS: 99214

== ENCOUNTER → 2024-10-29 14:59 | Outpatient (BNVA) | payer MEDICARE, OTHER, SELFPAY | PROVIDERS: PCP Family Medicine; Visit Provider Internal Medicine Cardiovascular Disease | DX: I51.81 Takotsubo syndrome (principal); I45.10 Unspecified right bundle-branch block; I10 Essential (primary) hypertension; I25.2 Old myocardial infarction | CPT/HCPCS: 99212 ==

== ENCOUNTER 2024-11-05 15:55 | Outpatient (AMB) | payer MEDICARE, OTHER, SELFPAY ==
--- NOTE | 2024-11-05 15:57 | MHC.OFFVISPS ---
Intake Intake Visit Reasons: follow up Tanning Salon Attendant Required: No Allergies codeine (CODEINE) Adverse Reaction (Mild, Verified 12/10/24 12:09) NAUSEA & VOMITING Medication List - Last Reconciled 11/05/24 by Trinity Liriano APRN albuterol sulfate 90 mcg/actuation 2 puffs inhalation Q4-6H PRN alendronate 70 mg PO QWEEK 28 days aspirin (Adult Aspirin Regimen) 81 mg PO DAILY atorvastatin 10 mg PO DAILY 90 days bupropion HCl SR 200 mg PO DAILY 90 days docusate sodium (Colace) 100 mg PO BID PRN duloxetine 30 mg PO DAILY duloxetine 60 mg PO DAILY 90 days famotidine 20 mg PO BEDTIME 90 days ferrous sulfate 200 mg PO DAILY fluticasone furoate-vilanterol 200-25 mcg/dose (Breo Ellipta) 1 inh inhalation DAILY furosemide 20 mg PO DAILY isosorbide mononitrate ER 60 mg PO QAM 90 days lisinopril 20 mg PO BID metoprolol tartrate 25 mg PO BID pantoprazole 40 mg PO DAILY 90 days psyllium husk (Metamucil) 1.2 grams PO DAILY HPI- Psychiatric Chief Complaint: follow up HPI Narrative: pt reports continued sadness and anxiety; she is grieving; she is coping well despite symptoms; tolerating the cymbalta well; sleep and appetite intact; she denies SI or HI Past Psychiatric History: outpt tx w prozac x 30 yrs. No IPLOC Subjective Subjective Subjective Medication Compliance: Yes Side effects from medications: No Review of Systems Medical Review of Systems: unchanged Mental Status Exam Mental Status Exam Patient Appearance: Well Grooomed Patient Orientation: Person, Place, Time and Situation Level of Consciousness: Awake and Appropriate Patient Behavior: Appropriate and Cooperative Mood Description: Anxious and Sad Affect Description: Anxious and Sad Patient Cognition Impaired: No Ability to Follow Directions: Good Speech Pattern: Clear and Appropriate Hallucinations: None Delusions: Not Present Thought Process: Intact and Goal Oriented Thought Content: positive for Intact and positive for Goal Oriented Judgement: Good Assessment and Plan Assessment & Plan (1) Bereavement: Status: Acute Code(s): Z63.4 - Disappearance and of family member (2) JENELLE (generalized anxiety disorder): Status: Acute Code(s): F41.1 - Generalized anxiety disorder (3) Major depressive disorder, recurrent, moderate: Status: Acute Code(s): F33.1 - Major depressive disorder, recurrent, moderate Plan no changes to meds'pt has appt tomorrow with [facility] for therapy Counseling and coordination of Care Details: I spent [] minutes reviewing the record, seeing the patient and documenting in the medical record. Counseling provided to the patient/caregiver as outlined below. Addressed patient/caregiver concerns regarding current medication regime including effective adherence. Addressed patient/caregiver concerns regarding diagnosis and prognosis including accuracy of diagnosis, prognosis over time, impact of diagnosis. Addressed patient/caregiver concerns regarding impact of recent stressors. [facility] Medical History Golfers elbow Colitis CKD (chronic kidney disease) stage 3, GFR 30-59 ml/min Sleep apnea TIA (transient ischemic attack) Hx of squamous cell carcinoma HTN (hypertension) Elevated cholesterol Depression History of angina Diverticulitis GERD (gastroesophageal reflux disease) Surgical History Hx of cardiac cath History of knee replacement procedure of left knee Hx of squamous cell carcinoma excision Hx of total hip arthroplasty History of hysteroscopy History of carpal tunnel release of both wrists Hx of rotator cuff surgery Hx of colonoscopy Hx of esophagogastroduodenoscopy Family History Father Rheumatic fever Heart attack Stroke Mother Heart problem Social History (Updated 12/10/24 @ 12:12 by Domonique Guallpa [place]) Housing: House Alcohol intake: never Patient Tobacco Use Status: Former Tobacco user Cigarette Packs Per Day: 2 Years Smoked: 25 e-Cigarette/Vaping Use: Never Used Second Hand Smoke Exposure: No service: No Current occupational status: retired Current occupational exposures/hazards: No Cognitive needs: No Hearing needs: No Vision needs: Yes Social History: lives w Substance History: none Coding Level of Care Code Est Pt Level 4 (91446) Diagnoses Bereavement Z63.4 JENELLE (generalized anxiety disorder) F41.1 Major depressive disorder, recurrent, moderate F33.1
--- OUTSIDE RECORDS SUMMARY | 2024-11-05 15:57 | XMS_ITS | Clinical Summary ---
Author Organization [facility] Address [address] [place] [address] Phone Care Team Providers Care Yoghurt Maker Name Role Phone Unavailable Primary Care Provider Unavailabl e Encounters Date Type Department Care Team Description 08/09/2024 9:30 AM EST - 08/09/2024 11:59 PM EST Hospital Encounter [facility] PET Scan [address] [place] [address] Pulmonary nodule Discharge Disposition: Home [...] Signed Date: 08/14/2024 04:31 ET Workstation ID: [id number] Transcribed By: Self Edit Transcribed Date: 08/13/2024 [...] Signed Date: 08/14/2024 04:31 ET Workstation ID: [id number] Transcribed By: Self Edit Transcribed Date: 08/13/2024 11:27 ET Yonis Holt MD IM NM PROCEDURES Final Result from Last 3 Months Insurance MEDICARE
--- OUTSIDE RECORDS SUMMARY | 2024-11-05 15:57 | XMS_ITS ---
Author Organization [facility] Address [address] [place] [address] Care Team Providers Care Mussel Farmer Name Role Phone Stephan Max Primary Care Provider Unavailab Amando Bell Jr REASON FOR VISIT Labs Encounters Encounter Location Date Provider Diagnosis [facility] [address] [place] [address] 09/11/2024 Amando Alba Jr Plan Of Treatment Next Appt Details Provider Name:Amando pulliam Jr, 05/01/2025 09:00:00 AM, [address], [address], [place], [address], Progress Notes * PIPPA WEAVER LDOB:1955 (69 yo F)Acc No.[id number]:09/11/2024 Patient:?PIPPA WEAVER :1955???Age:69 Y???Sex:Female Address:[address], [place] [address] * true * Date:? Generated for Printi jeremie/Kash/eTransmitting on:?11/05/2024 03:57 PM EDT
--- OUTSIDE RECORDS SUMMARY | 2024-11-05 15:57 | XMS_ITS ---
Author Organization [facility] Address [address] [place] [address] Care Team Providers Care Signal Maintainer Name Role Phone Stephan Max Primary Care Provider Unavailab Amando Bell Jr [phone] REASON FOR VISIT MRI Encounters Encounter Location Date Provider Diagnosis [facility] [address] [facility] [address] [place] [address] 09/20/2024 Amando Alba Jr Plan Of Treatment Next Appt Details Provider Name:Amando pulliam Jr, 05/01/2025 09:00:00 AM, [address] [facility], [address], [place], [address], Progress Notes * PIPPA WEAVER LDOB:1955 (69 yo F)Acc No.[id number]:09/20/2024 Patient:?PIPPA WEAVER :1955???Age:69 Y???Sex:Female Address:[address], [place] [address] * true * Date:? Generated for Printi jeremie/Kash/eTransmitting on:?11/05/2024 03:57 PM EDT
--- OUTSIDE RECORDS SUMMARY | 2024-11-05 15:57 | XMS_ITS | Patient Health Record ---
Author Organization [facility] Address [address] [place] [address] Care Team Providers Care Rn Acls Name Role Phone Stephan Max Primary Care Provider UnavailAmando Patel Jr Unavailable [phone] Allergies Allergen (clinical drug ingredient) Drug/Non Drug Allergy documented on EMR Reaction Allergy Type Onset Date Status Codeine Phosphate Unknown Drug Allergy Active Results Component Value Reference Range Notes Liver Panel Reviewed date:09/11/2024 02:47:21 PM Interpretation: Performing Lab:[facility], [address] [place] [id number] Notes/Report: Bilirubin Total 0.3 0.0-1.0 mg/dL Bilirubin Direct 0.1 0.0-0.5 mg/dL Aspartate Amino Transferase 20 5-31 U/L Alanine Aminotransferase 16 0-31 U/L Total Protein 7.3 6.5-8.0 g/dL Albumin Level 4.1 3.5-5.0 g/dL Alkaline Phosphatase 70 39-117 U/L Blood Urea Nitrogen Reviewed date:09/11/2024 02:45:35 PM Interpretation: Performing Lab:[facility], [address] [place] [id number] Notes/Report: Blood Urea Nitrogen 16 9-16 mg/dL Creatinine Reviewed date:09/11/2024 02:45:33 PM Interpretation: Performing Lab:[facility], [address] [place] [id number] Notes/Report: Creatinine 0.96 0.5-1.4 mg/dL Estimated Glomerular Filt Rate 57 Chronic Kidney Disease: Estimated GFR < 60 mL/min/1.73m2 Severe Kidney Disease: Estimated GFR < 15 mL/min/1.73m2 MR abdomen wo/w con Reviewed date:09/20/2024 11:26:48 AM Interpretation: Performing Lab: Notes/Report: [address] [address] Magnetic Resonance Report Signed Patient: Pippa Cottrell MR#: [id number] : 1955 Acct:[id number] Age/Sex: 69 / F ADM Date: 09/19/24 Loc: HO.MRI Attending Dr: Amando Alba MD Ordering Physician: Amando Alba MD Date of Service: 09/19/24 Procedure(s): MR abdomen wo/w con Accession Number(s): [id number] cc: Amando Alba MD; Stephan Max MD EXAMINATION: MRI Abdomen without and with contrast HISTORY: Abnormal PET scan, possible lesion vs. liver heterogeneity COMPARISON: Correlation is made with a PET/scan from [facility] dated 08/09/2024. TECHNIQUE: Axial in and out [...] 09/20/24 0711 DD/ 1607 TD/TT: 09/19/24 1637 [employer]: [address] [address] Magnetic Resonance Report Signed Patient: Pippa Cottrell MR#: [id number] : 1955 Acct:[id number] Age/Sex: 69 / F ADM Date: 09/19/24 Loc: HO.MRI Attending Dr: Mikki Alba MD Ordering Physician: Amando Alba MD Date of Service: 09/19/24 Procedure(s): MR abd omen wo/w con Accession Number(s): [id number] cc: Amando Alba MD; Stephan Max MD EXAMINATION: MRI Abd omen without and with contrast HISTORY: Abnormal PE T scan, possible lesion vs. liver heterogeneity COMPARISON: Correlat ion is made with a PET/scan from [facility] dated 08/09/2024. TECHNIQUE: Axial in and out [...] 09/20/24 0711 DD/ 1607 TD/TT: 09/19/24 1637 [employer]: Reason For Referral No Information Medications Medication [...] Problem Status W/U Status Risk Notes Problem 135795874 Colon cancer screening (Z12.11) Active confirmed Problem 69823722 Encounter for other preprocedural examination (Z01.818) Active confirmed Problem Gastroesophageal reflux disease (570734613) Gastroesophageal reflux disease (K21.9) Active confirmed Problem 384979706 Gastroesophageal reflux disease without esophagitis (K21.9) Active confirmed Problem 53608619 Colitis (K52.9) Active confirmed Vital Signs Temperature 97.5 degrees Fahrenheit 04/30/2024 Blood pressure diastolic 111 mm Hg 09/06/2024 Height 61.5 in 09/06/2024 Blood pressure systolic 111 mm Hg 09/06/2024 Weight 222 lbs 09/06/2024 BMI 41.26 kg/m2 09/06/2024 Encounters Encounter Location Date Provider Diagnosis [facility] [address] [place] [address] 04/30/2024 Amando Alba Jr Gastroesophageal reflux disease without esophagitis K21.9 and Colitis K52.9 [facility] [address] [place] [address] 09/06/2024 Amando Alba Jr Abnormal PET scan, liver R94.5 [facility] [address] [place] [address] 01/13/2024 Amandoelsie Alba Jr [facility] [address] [place] [address] 09/07/2024 Amandoelsie Alba Jr Abnormal PET scan of liver R94.5 [facility] [address] [place], [place] [address] 09/11/2024 Amandoelsie Alba Jr [facility] [address] [place], [place] [address] 09/12/2024 Amando Michaellenny Huerta Abnormal PET scan, liver R94.5 [facility] [address] [place], [place] [address] 09/20/2024 Amando Parthlenny Huerta Assessments Encounter Date Diagnosis (ICD Code) Assessment Notes Treatment Notes Treatment Clinical Notes Section Notes 04/30/2024 Gastroesophageal reflux disease without esophagitis (ICD-10 - K21.9) Gastroesophageal reflux disease material was printed At this time, Pippa appears to be doing well. We discussed gastroesophageal reflux disease today. She can continue to use dymx-zft-itzendm antacids for breakthrough symptoms as she is doing. She continues on fiber for her bowel movements. She does not need mesalamine at this time. Followup will be in 12 months. 04/30/2024 Colitis (ICD-10 - K52.9) At this time, Pippa appears to be doing well. We discussed gastroesophageal reflux disease today. She can continue to use yakp-ugd-kafnlxy antacids for breakthrough symptoms as she is [...] [facility], [address], [place], [address], Insurance Providers Payer Name Payer Address Payer Phone Subscriber Number Group Number Insured Name Patient Relationship to Insured Coverage Start Date Coverage End Date MEDICARE OF [place] [address] [place] [address] [id number] PIPPA COTTRELL Self - patient is the insured [facility] [address] [place] [address] [phone] [id number] PIPPA COTTRELL Self - patient is the [...]
--- OUTSIDE RECORDS SUMMARY | 2024-11-05 15:57 | XMS_ITS ---
Author Organization [facility] Address [address] [place] [address] Care Team Providers Care Label Stitcher Name Role Phone Stephan Max Primary Care Provider Amando Leslie Jr Encounters Encounter Location Date Provider Diagnosis [facility] [address] [place] [address] 09/12/2024 Amando Alba Jr Abnormal PET scan, liver R94.5 Assessments Encounter Date Diagnosis (ICD Code) Assessment Notes Treatment Notes Treatment Clinical Notes Section Notes 09/12/2024 Abnormal PET scan, liver (ICD-10 - R94.5) Plan Of Treatment Pending Test Test Name Order Date MRI ABD W&WO CONTRAST 09/12/2024 Next Appt Details Provider Name:Amando pulliam Jr, 05/01/2025 09:00:00 AM, [address] [facility], [address], [place], [address], Progress Notes * PIPPA WEAVER LDOB:1955 (69 yo F)Acc No.[id number]:09/12/2024 Patient:?PIPPA WEAVER :1955???Age:69 Y???Sex:Female Address:[address] [place] [address] [address], [place] [address] Subjective: * Chief Complaints: * ??? * Medical History:? * Surgical History:? * Hospitalization/Major Diagno stic Procedure:? * Medications:? Objective: * Vitals:? * Physical Examination:? Assessment: * Assessment: 1.?Abnormal PET scan, liver - R94.5 (Primary)??? Plan: * Treatment: * * Procedure Codes:? * true * Date:? Generated for Carly chao/Kash/Cristhian on:?11/05/2024 03:57 PM EDT
== END 2024-11-05 17:01 | disposition home or self-care (01) ==
LOC: HO.HOP 15:55
PROVIDERS: PCP Family Medicine; Visit Provider Clinical Nurse Specialist Psychiatric/Mental Health
DX: F33.1 Major depressive disorder, recurrent, moderate (principal); F41.1 Generalized anxiety disorder; Z63.4 Disappearance and death of family member
CPT/HCPCS: 99214

== ENCOUNTER → 2024-11-05 15:55 | Outpatient (BNVA) | payer MEDICARE, OTHER, SELFPAY | PROVIDERS: PCP Family Medicine; Visit Provider Clinical Nurse Specialist Psychiatric/Mental Health | DX: F41.1 Generalized anxiety disorder (principal); F33.1 Major depressive disorder, recurrent, moderate; Z63.4 Disappearance and death of family member; Z71.89 Other specified counseling | CPT/HCPCS: 99212 ==

== ENCOUNTER 2024-11-22 09:14 | Outpatient (AMB) | payer MEDICARE, OTHER, SELFPAY ==
--- OUTSIDE RECORDS SUMMARY | 2024-11-22 09:39 | XMS_ITS ---
Author Organization [facility] Address [address] [place] [address] Care Team Providers Care Roofing Layer Name Role Phone Stephan Max Primary Care Provider Amando Leslie Jr Encounters Encounter Location Date Provider Diagnosis [facility] [address] [place] [address] 09/12/2024 Amando Alba Jr Abnormal PET scan, liver R94.5 Assessments Encounter Date Diagnosis (ICD Code) Assessment Notes Treatment Notes Treatment Clinical Notes Section Notes 09/12/2024 Abnormal PET scan, liver (ICD-10 - R94.5) Plan Of Treatment Pending Test Test Name Order Date MRI ABD W&WO CONTRAST 09/12/2024 Next Appt Details Provider Name:Amando pulliam Jr, 05/01/2025 09:00:00 AM, [address] [facility], [address], [place], [address], Progress Notes * PIPPA WEAVER LDOB:1955 (69 yo F)Acc No.[id number]:09/12/2024 Patient:?PIPPA WEAVER :1955???Age:69 Y???Sex:Female Address:[address] [place] [address] [address], [place] [address] Subjective: * Chief Complaints: * ??? * Medical History:? * Surgical History:? * Hospitalization/Major Diagno stic Procedure:? * Medications:? Objective: * Vitals:? * Physical Examination:? Assessment: * Assessment: 1.?Abnormal PET scan, liver - R94.5 (Primary)??? Plan: * Treatment: * * Procedure Codes:? * true * Date:? Generated for Carly chao/Kash/Cristhian on:?11/22/2024 09:38 AM EDT
--- NOTE | 2024-11-22 09:46 | MHC.PC.OV ---
Vital Signs 11/22/24 09:53 Height 5 ft 1 in Weight 222 lb 8 oz BMI 42.0 BP 124/64 Blood Pressure Location Lt brachial Position Sitting Respiration 16 Pulse 53 Pulse Source Pulse Oximeter Temp 97.7 F Temp Source Oral Pulse Oximetry (%) 96 Oxygen Delivery Method Room Air Intake Visit Reasons: f/u chronic conditions Intake Note: patient is scheduled for chronic condition and want a referral for weight loss program Allergies codeine [CODEINE] Adverse Reaction (Mild, Verified 11/22/24 09:48) NAUSEA & VOMITING Medication List - Last Reconciled 11/22/24 by Stephan Max MD albuterol sulfate 90 mcg/actuation 2 puffs inhalation Q4-6H PRN alendronate 70 mg PO QWEEK 28 days aspirin (Adult Aspirin Regimen) 81 mg PO DAILY atorvastatin 10 mg PO DAILY 90 days bupropion HCl SR 200 mg PO DAILY 90 days docusate sodium (Colace) 100 mg PO BID PRN duloxetine 30 mg PO DAILY duloxetine 60 mg PO DAILY 90 days famotidine 20 mg PO BEDTIME 90 days ferrous sulfate 200 mg PO DAILY fluticasone furoate-vilanterol 200-25 mcg/dose (Breo Ellipta) 1 inh inhalation DAILY furosemide 20 mg PO DAILY isosorbide mononitrate ER 60 mg PO QAM 90 days lisinopril 20 mg PO BID metoprolol tartrate 25 mg PO BID pantoprazole 40 mg PO DAILY 90 days psyllium husk (Metamucil) 1.2 grams PO DAILY Tobacco use date assessed: 11/22/24 Fall risk assessment: No Falls in past year Dental Screening Dental Screen Date: 11/22/24 Did you have a dental visit in the last 12 months?: Yes Did you have a dental problem in the last 6 months where you did not have access to dental care?: No Was dental information given to patient?: No HPI f/u chronic conditions HPI Details 69 y/o female presents to f/u chronic conditions. Has been following up with psychiatry for depression/anxiety. Blood pressure today 124/64, 53p. She is on lisinopril 20mg b.i.d, metoprolol 25mg b.i.d, isosorbide 60mg. Pt notes she has a new CPAP machine which has been helping significantly. Followed by pulmonology as well for pulmonary nodules. HPI Comments History of Present Illness Details Documentation assistance for Stephan Max MD, was provided by Rajeev Harris,? Horse Groomer on 11/22/2024 at 10:29 AM FRANCY. I, Dr. Max, have read, observed, and verified documentation. ?? PFSH Medical History Golfers elbow Colitis CKD (chronic kidney disease) stage 3, GFR 30-59 ml/min Sleep apnea TIA (transient ischemic attack) Hx of squamous cell carcinoma HTN (hypertension) Elevated cholesterol Depression History of angina Diverticulitis GERD (gastroesophageal reflux disease) Surgical History (Reviewed 10/29/24 @ 15:11 by Niya David [facility]) Hx of cardiac cath History of knee replacement procedure of left knee Hx of squamous cell carcinoma excision Hx of total hip arthroplasty History of hysteroscopy History of carpal tunnel release of both wrists Hx of rotator cuff surgery Hx of colonoscopy Hx of esophagogastroduodenoscopy Family History (Reviewed 10/29/24 @ 15:11 by Niya David [facility]) Father Rheumatic fever Heart attack Stroke Mother Heart problem Social History (Reviewed 10/29/24 @ 15:11 by Niya David [facility]) Housing: House Alcohol intake: never Patient Tobacco Use Status: Former Tobacco user Cigarette Packs Per Day: 2 Years Smoked: 25 e-Cigarette/Vaping Use: Never Used Second Hand Smoke Exposure: No service: No Current occupational status: retired Current occupational exposures/hazards: No Cognitive needs: No Hearing needs: No Vision needs: Yes Questionnaire Thrive Questionnaire Date Thrive assessed: 11/22/24 I am a: Patient What is your living situation today?: I have a steady place to live Within the past 12 months, did the food you bought not last and you didn't have the money to get more?: Never true Within the past 12 months, did you worry whether your food would run out before you got money to buy more?: Never true Do you have trouble paying for medicines?: No Do you have trouble getting transportation to medical appointments?: No Do you have trouble paying your heating and electricity bill?: Yes Do you have trouble taking care of your child, family member or friend?: No Do you have trouble with day-to-day activities such as bathing, preparing meals, shopping, managing finances, etc.?: No Are you currently unemployed and looking for a job?: No Are you interested in more education?: No Please select the resources that you would like help with: Care for elder or disabled Currently or been in a relationship where the following occur: No concerns reported THRIVE Score: 1 JENELLE-7 AMB Questionnaire JENELLE-7 Date JENELLE - 7 assessed: 04/19/24 Source: Developed by Drs. Kendrick Galeano, Lucia Stone, Mateusz Montalvo and colleagues, with an educational angie from [employer]. Review of Systems Const Denies chills, Denies fatigue, Denies fever(s), Denies headache(s) and Denies weakness ENT Denies dizziness and Denies headache(s) Card Denies dyspnea Resp Denies cough, Denies dyspnea, Denies wheezing and Denies other (shortness of breath) Musc Denies numbness and Denies tingling Neuro Denies dizziness, Denies headache(s), Denies numbness, Denies tingling and Denies weakness Psych Denies anxiety and Denies depression Endo Denies fatigue Aller/Immun Denies wheezing Physical exam (Primary Care) Vital Signs: Last Vital Signs Temp 97.7 F 11/22/24 09:53 Pulse 53 11/22/24 09:53 Resp 16 11/22/24 09:53 BP 124/64 11/22/24 09:53 Pulse Ox 96 11/22/24 09:53 Oxygen Delivery Method Room Air 11/22/24 09:53 BMI result Body Mass Index 42.0 Tobacco/Smoking Status: Tobacco use Status Tobacco use date assessed 11/22/24 11/22/24 09:51 Patient Tobacco Use Status Former Tobacco user 11/22/24 09:47 e-Cigarette/Vaping Use Never Used 11/22/24 09:47 Thrive Assessment: Date of Thrive Assessment Date Thrive assessed 11/22/24 11/22/24 09:51 Currently or been in a relationship where the following occur: No concerns reported Const General: well developed; No acute distress Nutritional Appearance: well nourished and obese morbidly obese Orientation/consciousness: patient oriented x3 HENMT Head: Yes normocephalic and Yes atraumatic Eyes General: appearance normal, both eyes and all related structures Pupils: Equal, round and reactive pupils present EOM: EOMs intact bilaterally Resp Effort & Inspection: normal respiratory effort Neuro General: patient oriented x3 and gait normal Cranial nerves: Yes Equal, round and reactive pupils present Psych Affect: normal affect Coding Level of Care Code Est Pt Level 5 (60742) Diagnoses Essential hypertension I10 Anxiety and depression F41.9; F32.A Morbid obesity E66.01 Obstructive sleep apnea syndrome G47.33 Sleep apnea type: obstructive Pulmonary nodule R91.1 NSTEMI (non-ST elevated myocardial infarction) I21.4 Assessment & Plan Assessment & Plan (1) Essential hypertension: Code(s): I10 - Essential (primary) hypertension Category: Medical Plan: Blood?pressure?is?well?controlled.??Goal?is?less?than?130/80 Continue?current?medications (2) Anxiety and depression: Code(s): F41.9 - Anxiety disorder, unspecified; F32.A - Depression, unspecified Category: Medical Plan: Fairly?well?controlled?on?current?medication?regimen?and?she?is?followed?by?the?outpatient?psychiatric?consult?team Continue?to?follow-up?as?recommended (3) Morbid obesity: Code(s): E66.01 - Morbid (severe) obesity due to excess calories Category: Medical Plan: Patient?would?like?to?try?a?GLP?1?medication She?also?has?sleep?apnea Will?send?script?for?Ozempic Advised?her?to?check?with?her?insurance?to?ensure?coverage (4) Sleep apnea: Code(s): G47.30 - Sleep apnea, unspecified Category: Medical Qualifiers: Sleep apnea type: obstructive Qualified Code(s): G47.33 - Obstructive sleep apnea (adult) (pediatric) Plan: Now?has?new?CPAP Working?well (5) Pulmonary nodule: Code(s): R91.1 - Solitary pulmonary nodule Category: Medical Plan: Pulmonary?nodule?which?had?minimal?FDG?activity Followed?by?pulmonary?medicine?and?they?will follow-up?with?additional?imaging?in?about?3?months. (6) NSTEMI (non-ST elevated myocardial infarction): Code(s): I21.4 - Non-ST elevation (NSTEMI) myocardial infarction Category: Medical Plan: NSTEMI/takotsubo Stable?and?preserved?left?ventricular?function Follow-up?with?Cardiology?in?a?few?months. Plan Patient?also?had?some?FDG?activity?in?her?liver.??She?has?already?followed?up?with??Parth He?plans?follow-up?in?about?6?months Medications: New semaglutide (Ozempic) for 4 weeks 0.25 mg (0.368 mL) subcut QWEEK 28 days 1.472 mL 3RF E66.01 - Morbid (severe) obesity due to excess calories, G47.33 - Obstructive sleep apnea (adult) (pediatric), Z68.41 - Body mass index [BMI] 40.0-44.9, adult
[2024-11-22 09:53] VITALS: BP 124/64; PULSE 53; RESP 16; TEMP 36.5; O2SAT 96; BMI 42.0
== END 2024-11-22 10:33 | disposition home or self-care (01) ==
LOC: HO.HMCFM 09:15
PROVIDERS: PCP Family Medicine; Visit Provider Family Medicine
DX: I10 Essential (primary) hypertension (principal); E66.01 Morbid (severe) obesity due to excess calories; I25.2 Old myocardial infarction; Z68.41 Body mass index [BMI] 40.0-44.9, adult; F41.9 Anxiety disorder, unspecified; F32.A Depression, unspecified; G47.33 Obstructive sleep apnea (adult) (pediatric); R91.1 Solitary pulmonary nodule

== ENCOUNTER → 2024-11-22 09:14 | Outpatient (BNVA) | payer MEDICARE, OTHER, SELFPAY | PROVIDERS: PCP Family Medicine; Visit Provider Family Medicine | DX: I10 Essential (primary) hypertension (principal); F41.9 Anxiety disorder, unspecified; F32.A Depression, unspecified; E66.01 Morbid (severe) obesity due to excess calories; G47.33 Obstructive sleep apnea (adult) (pediatric); R91.1 Solitary pulmonary nodule; I21.4 Non-ST elevation (NSTEMI) myocardial infarction | CPT/HCPCS: 99212 ==

== ENCOUNTER 2024-12-10 11:37 | Outpatient (AMB) | payer MEDICARE, OTHER, SELFPAY ==
--- NOTE | 2024-12-10 12:03 | A.OFFPC_ITS ---
Vital Signs 12/10/24 12:12 Height 5 ft 1 in Weight 221 lb 6 oz BMI 41.8 BP 102/68 Blood Pressure Location Rt brachial Position Sitting Respiration 16 Pulse 58 Pulse Source Pulse Oximeter Temp 97.1 F Pulse Oximetry (%) 96 Oxygen Delivery Method Room Air Intake Visit Reasons: [facility]14 Intake Note: Martha presents in the office today for a pre-op for her Lasik surgery on 12/14/2024. Allergies codeine [CODEINE] Adverse Reaction (Mild, Verified 12/10/24 12:09) NAUSEA & VOMITING Tobacco use date assessed: 12/10/24 Dental Screening Dental Screen Date: 12/10/24 Did you have a dental visit in the last 12 months?: Yes Did you have a dental problem in the last 6 months where you did not have access to dental care?: No Was dental information given to patient?: Patient has dentist HPI HPI Comments History of Present Illness Details This is a 69-year-old female with a past medical history of anxiety, depression, asthma, CAD, Takotsubo's cardiomyopathy, hypertension and hype rlipidemia presenting for a preop exam. Her primary care provider is Dr. Max. Patient is having left cataract surgery 12/14/24 and right cataract surgery 01/04/2025 with [facility]. She has a history of cardiovascular disease. Her blood pressure is well- controlled. She is compliant with her medications. Patient has a history of NSTEMI, Takotsubo's cardiomyopathy and also reports experiencing distributive shock following shoulder surgery last year resulting in ICU stay. She is followed by Dr. Hoover. She has been given a clearance letter from her captain's assistant dated 10/29/2024. She denies chest pain, palpitations, dizziness or syncope. Patient takes baby aspirin, atorvastatin, furosemide, isosorbide mononitrate, lisinopril and metoprolol for cardiovascular disease. She has a history of asthma. She uses albuterol about twice per week for exertional activities. She takes Breo. Denies cough, wheezing or shortness of breath increased from baseline. Denies recent infections. She is a former smoker. She is not diabetic. ROS: Constitutional: No unexplained weight loss, fever, chills, fatigue or night sweats. ENT: No hearing loss, sneezing, congestion, runny nose or sore throat. Respiratory: Denies hemoptysis, sputum production, cough or wheezing. +AVALOS, chronic. Cardiovascular: No chest pain, chest pressure or chest discomfort. No palpitations or pedal edema. Gastrointestinal: No anorexia, nausea, vomiting or diarrhea. No abdominal pain or blood in stool. Genitourinary: No dysuria, hematuria, urinary frequency. Neurologic: No headache, dizziness, syncope, unilateral weakness, ataxia, numbness or tingling in the extremities. Hematologic/Lymphatics: No bleeding or bruising. Skin: No rash Physical exam: Constitutional: Alert, in no distress. Eyes: Pupils are equal, round and reactive to light. Extraocular muscles intact. Ear, Nose and Throat: Canals clear. TMs normal. Normal nasal mucosa. No nasal discharge. No oral lesions. Neck: Supple, Full range of motion. No lymphadenopathy. Respiratory: Clear to auscultation. Cardiovascular: S1 S2 regular. No murmurs. Gastrointestinal: Abdomen soft, non-tender, non-distended. Normal bowel sounds. No palpable masses. Genitourinary: No costovertebral angle tenderness. Neurologic: No focal neurological deficits. Extremities: Warm and well perfused. No clubbing, cyanosis or edema. Intact peripheral pulses bilaterally. Psychiatric: Normal mood and affect [facility] Medical History Golfers elbow Colitis CKD (chronic kidney disease) stage 3, GFR 30-59 ml/min Sleep apnea TIA (transient ischemic attack) Hx of squamous cell carcinoma HTN (hypertension) Elevated cholesterol Depression History of angina Diverticulitis GERD (gastroesophageal reflux disease) Surgical History Hx of cardiac cath History of knee replacement procedure of left knee Hx of squamous cell carcinoma excision Hx of total hip arthroplasty History of hysteroscopy History of carpal tunnel release of both wrists Hx of rotator cuff surgery Hx of colonoscopy Hx of esophagogastroduodenoscopy Family History Father Rheumatic fever Heart attack Stroke Mother Heart problem Social History (Updated 12/10/24 @ 12:12 by Domonique Guallpa MA) Housing: House Alcohol intake: never Patient Tobacco Use Status: Former Tobacco user Cigarette Packs Per Day: 2 Years Smoked: 25 e-Cigarette/Vaping Use: Never Used Second Hand Smoke Exposure: No service: No Current occupational status: retired Current occupational exposures/hazards: No Cognitive needs: No Hearing needs: No Vision needs: Yes Questionnaire Thrive Questionnaire Date Thrive assessed: 07/19/24 I am a: Patient What is your living situation today?: I have a steady place to live Within the past 12 months, did the food you bought not last and you didn't have the money to get more?: Never true Within the past 12 months, did you worry whether your food would run out before you got money to buy more?: Never true Do you have trouble paying for medicines?: No Do you have trouble getting transportation to medical appointments?: No Do you have trouble paying your heating and electricity bill?: Yes Do you have trouble taking care of your child, family member or friend?: No Do you have trouble with day-to-day activities such as bathing, preparing meals, shopping, managing finances, etc.?: No Are you currently unemployed and looking for a job?: No Are you interested in more education?: No Please select the resources that you would like help with: Care for elder or disabled Currently or been in a relationship where the following occur: No concerns reported THRIVE Score: 1 JENELLE-7 AMB Questionnaire JENELLE-7 Date JENELLE - 7 assessed: 04/19/24 Source: Developed by Drs. Kendrick Galeano, Lucia Stone, Mateusz Montalvo and colleagues, with an educational angie from [employer]. Physical exam (Primary Care) Vital Signs: Last Vital Signs Temp 97.1 F 12/10/24 12:12 Pulse 58 12/10/24 12:12 Resp 16 12/10/24 12:12 BP 102/68 12/10/24 12:12 Pulse Ox 96 12/10/24 12:12 Oxygen Delivery Method Room Air 12/10/24 12:12 BMI result Body Mass Index 41.8 Tobacco/Smoking Status: Tobacco use Status Tobacco use date assessed 12/10/24 12/10/24 12:18 Patient Tobacco Use Status Former Tobacco user 12/10/24 12:12 e-Cigarette/Vaping Use Never Used 12/10/24 12:12 Thrive Assessment: Date of Thrive Assessment Date Thrive assessed 07/19/24 12/10/24 12:05 Currently or been in a relationship where the following occur: No concerns reported Office Procedures EKG Details: EKG shows sinus bradycardia and right bundle branch block. Ventricular rate 54 beats per minute. Reviewed with Dr. Ocampo. [id number], Complete Coding Level of Care Code Est Pt Level 4 (81279) Complex EM visit Add On G2211 Diagnoses Pre-op evaluation Z01.818 CPT Codes EKG - CPT: 15292-[id number], Complete ([id number]) Assessment & Plan Assessment & Plan (1) Pre-op evaluation: Code(s): Z01.818 - Encounter for other preprocedural examination Category: Medical Plan In summary this is a 69-year-old female with a past medical history of cardiovascular disease and asthma and obesity presenting for preoperative examination. She will continue all of her current medications. She does not take other NSAIDs aside from baby aspirin and given her history of cardiovascular disease and low risk of bleeding with this procedure she will continue baby aspirin perioperatively. METS score 4. She has been given a clearance letter by Cardiology and is able to proceed with this low risk procedure pending lab results. Labs will be drawn today. Orders: Orders Prothrombin Time INR Today Z01.818 - Encounter for other preprocedural examination AMB EKG-In Office Today Z01.818 - Encounter for other preprocedural examination Complete Blood Count no Diff Today Z01.818 - Encounter for other preprocedural examination Comprehensive Met. Panel Today Z01.818 - Encounter for other preprocedural examination
[2024-12-10 12:12] VITALS: BP 102/68; PULSE 58; RESP 16; TEMP 36.2; O2SAT 96; BMI 41.8
--- OUTSIDE RECORDS SUMMARY | 2024-12-10 13:11 | XMS_ITS ---
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 Name Role Phone Stephan Max Primary Care Provider Amando Leslie Jr Encounters Encounter Location Date Provider Diagnosis [facility] [address] [place] [address] 09/12/2024 Amando Alba Jr Abnormal PET scan, liver R94.5 Assessments Encounter Date Diagnosis (ICD Code) Assessment Notes Treatment Notes Treatment Clinical Notes Section Notes 09/12/2024 Abnormal PET scan, liver (ICD-10 - R94.5) Plan Of Treatment Pending Test Test Name Order Date MRI ABD W&WO CONTRAST 09/12/2024 Next Appt Details Provider Name:Amando pulliam Jr, 05/01/2025 09:00:00 AM, [address], [address], [place], [address], Progress Notes * PIPPA WEAVER LDOB:1955 (69 yo F)Acc No.[id number]:09/12/2024 Patient:?PIPPA WEAVER :1955???Age:69 Y???Sex:Female Address:[address] [place] [address] [address], [place] [address] Subjective: * Chief Complaints: * ??? * Medical History:? * Surgical History:? * Hospitalization/Major Diagno stic Procedure:? * Medications:? Objective: * Vitals:? * Physical Examination:? Assessment: * Assessment: 1.?Abnormal PET scan, liver - R94.5 (Primary)??? Plan: * Treatment: * * Procedure Codes:? * true * Date:? Generated for Carly chao/Kash/Cristhian on:?12/10/2024 01:11 PM EDT
== END 2024-12-10 12:48 | disposition home or self-care (01) ==
LOC: HO.HMCFM 11:38
PROVIDERS: PCP Family Medicine; Visit Provider Physician Assistant Medical
DX: Z01.818 Encounter for other preprocedural examination (principal)

== ENCOUNTER → 2024-12-10 11:37 | Outpatient (BNVA) | payer MEDICARE, OTHER, SELFPAY | PROVIDERS: PCP Family Medicine; Visit Provider Physician Assistant Medical | DX: Z01.818 Encounter for other preprocedural examination (principal); J45.909 Unspecified asthma, uncomplicated; E66.9 Obesity, unspecified; Z68.41 Body mass index [BMI] 40.0-44.9, adult; I25.10 Atherosclerotic heart disease of native coronary artery without angina pectoris; I51.81 Takotsubo syndrome; I10 Essential (primary) hypertension; E78.5 Hyperlipidemia, unspecified; I25.2 Old myocardial infarction; Z79.82 Long term (current) use of aspirin | CPT/HCPCS: 93005; 99212 ==

== ENCOUNTER 2024-12-10 13:17 | Outpatient (REF) | payer MEDICARE, OTHER, SELFPAY ==
[2024-12-10 17:47] LABS: Appearance Urine Clear; Color Urine Yellow; Glucose Urine UA Negative (Negative); Leukocyte Esterase Urine Negative (Negative); Nitrite Urine Negative (Negative); PH 5.5 (5.0-9.0); Urine Blood Negative (Negative); Urine Ketones Negative (Negative); Urine Protein Negative (Neg-Trace)
[2024-12-10 17:49] LABS: Hematocrit 37.1 % (37.0-47.0); Hemoglobin 12.8 g/dl (12.0-16.0); Mean Corpuscular HGB Conc 34.5 g/dl (31.0-35.0); Mean Corpuscular Hemoglobin 31.3 pg (27.0-33.0); Mean Corpuscular Volume 90.7 fL (80.0-98.0); Mean Platelet Volume 9.9 fL (9.4-12.3); Platelet Count 321 X10*3/uL (160-400); Red Blood Count 4.09 X10*6/uL (4.20-5.50); Red Cell Distribution Width 15.8 % (11.0-16.0); White Blood Count 7.8 X10*3/uL (4.8-10.8)
[2024-12-10 17:54] LABS: INTERNATIONAL NORM RATIO 0.9 (0.9-1.1); Prothrombin Time 9.9 SEC (10.9-12.4)
[2024-12-10 18:18] LABS: Alanine Aminotransferase 21 U/L (0-31); Albumin Level 4.7 g/dL (3.5-5.0); Alkaline Phosphatase 60 U/L (39-117); Anion Gap 14 (12-20); Aspartate Amino Transferase 27 U/L (5-31); Bilirubin Total 0.3 mg/dL (0.0-1.0); Blood Urea Nitrogen 26 mg/dL (9-16); Calcium 9.7 mg/dL (8.4-10.2); Carbon Dioxide 26 mmol/L (22-29); Chloride 104 mmol/L (96-108); Estimated Glomerular Filt Rate 43; Glucose Random 82 mg/dL (60-115); Potassium 4.6 mmol/L (3.3-5.1); Sodium 139 mmol/L (135-145); Total Protein 7.6 g/dL (6.5-8.0)
[2024-12-10 18:19] LABS: Vitamin D 25-OH Total 34.4 ng/mL (>30)
[2024-12-10 18:31] LABS: Folate 8.7 ng/mL (> or = 4.0); Vitamin B12 327 pg/mL (200-900)
== END 2024-12-10 13:18 | disposition home or self-care (01) ==
LOC: HO.WFDLDS 13:17
PROVIDERS: Family Medicine; Physician Assistant Medical; Referring Provider Internal Medicine Cardiovascular Disease; Visit Provider Physician Assistant Medical
DX: Z01.818 Encounter for other preprocedural examination (principal); R53.83 Other fatigue; G47.9 Sleep disorder, unspecified; F09 Unspecified mental disorder due to known physiological condition
CPT/HCPCS: 36415; 80053; 81003; 82306; 82607; 82746; 84443; 85027; 85610

== ENCOUNTER 2024-12-13 12:47 | Outpatient (AMB) | payer MEDICARE, OTHER, SELFPAY ==
--- OUTSIDE RECORDS SUMMARY | 2024-09-12 06:56 | XMS_ITS ---
Author Organization [facility] Address [address] [place] [address] Care Team Providers Care Museum Educator Name Role Phone Stephan Max Primary Care Provider UnavailAmando Patel Jr [phone] Encounters Encounter Location Date Provider Diagnosis [facility] [address] [place] [address] 09/12/2024 Amando Alba Jr Abnormal PET scan, liver R94.5 Assessments Encounter Date Diagnosis (ICD Code) Assessment Notes Treatment Notes Treatment Clinical Notes Section Notes 09/12/2024 Abnormal PET scan, liver (ICD-10 - R94.5) Plan Of Treatment Pending Test Test Name Order Date MRI ABD W&WO CONTRAST 09/12/2024 Next Appt Details Provider Name:Amando pulliam Jr, 05/01/2025 09:00:00 AM, [address], [address], [place], [address], Progress Notes * PIPPA WEAVER LDOB:1955 (69 yo F)Acc No.[id number]:09/12/2024 Patient: PIPPA VALDES :1955 A ge:69 Y S ex:Female Address:[address], [place] [address] Subjective: * Chief Complaints: * * Medical History: * Surgical History: * Hospitalization/Major Diagno stic Procedure: * Medications: Objective: * Vitals: * Physical Examination: Assessment: * Assessment: 1. A bnormal PET scan, liver - R94.5 (Primary) Plan: * Treatment: * * Procedure Codes: * true * Date: Generated for Carly chao/Kash/Cristhian on: 0 12/13/2024 01:50 PM EDT
--- NOTE | 2024-12-13 13:08 | A.OFFPSYCH_ITS ---
Intake Intake Visit Reasons: follow up International Account Representative Required: No Allergies codeine (CODEINE) Adverse Reaction (Mild, Verified 12/10/24 12:09) NAUSEA & VOMITING Medication List - Last Reconciled 12/13/24 by Trinity Liriano APRN albuterol sulfate 90 mcg/actuation 2 puffs inhalation Q4-6H PRN alendronate 70 mg PO QWEEK 28 days aspirin (Adult Aspirin Regimen) 81 mg PO DAILY atorvastatin 10 mg PO DAILY 90 days bupropion HCl SR 200 mg PO DAILY 90 days docusate sodium (Colace) 100 mg PO BID PRN duloxetine 30 mg PO DAILY duloxetine 60 mg PO DAILY 90 days famotidine 20 mg PO BEDTIME 90 days ferrous sulfate 200 mg PO DAILY fluticasone furoate-vilanterol 200-25 mcg/dose (Breo Ellipta) 1 inh inhalation DAILY furosemide 20 mg PO DAILY Held on 07/25/24. Instructions: Doctor's Order isosorbide mononitrate ER 60 mg PO QAM 90 days lisinopril 20 mg PO BID magnesium oxide 200 mg PO DAILY metoprolol tartrate 25 mg PO BID pantoprazole 40 mg PO DAILY 90 days psyllium husk (Metamucil) 1.2 grams PO DAILY HPI- Psychiatric Chief Complaint: follow up HPI Narrative: pt seen for follow up of depression and anxiety; pt continues tohave some depression and anxiety but she reports both improved. She still worries at times and can become irritable. She has low energy, difficulty falling asleep and overearing. She is stating with a new CPAP machine. She is working on self care; she is saying no more often when needed. she denies SI or HI. she expresses hope for future. Past Psychiatric History: outpt tx w prozac x 30 yrs. No IPLOC Subjective Subjective Subjective Medication Compliance: Yes Side effects from medications: No Review of Systems Medical Review of Systems: unchanged Mental Status Exam Mental Status Exam Patient Appearance: Well Grooomed and Appropriate Patient Orientation: Person, Place, Time and Situation Level of Consciousness: Awake and Alert Patient Behavior: Appropriate and Cooperative Mood Description: Anxious and Sad Affect Description: Anxious and Sad Patient Cognition Impaired: No Ability to Follow Directions: Good Speech Pattern: Clear and Appropriate Memory Description: Intact Hallucinations: None Delusions: Not Present Thought Process: Intact and Goal Oriented Thought Content: positive for Intact and positive for Goal Oriented Judgement: Good Assessment and Plan Assessment & Plan (1) Major depressive disorder, recurrent, moderate: Status: Acute Code(s): F33.1 - Major depressive disorder, recurrent, moderate (2) JENELLE (generalized anxiety disorder): Status: Acute Code(s): F41.1 - Generalized anxiety disorder Plan continue meds as per below pt is on wait list for therapy discussed with patient referring her back to PCP and she is agreeable. Medications: Refilled duloxetine take one 30 mg capsule in addition to one 60 mg capsule for total daily dose of 90mg 30 mg PO DAILY 90 caps 1RF duloxetine 60 mg PO DAILY 90 caps 2RF 90 days bupropion HCl SR 200 mg PO DAILY 90 tabs 2RF 90 days Counseling and coordination of Care Pt. Self Management counseling: Maintenance-social rhythm, Mod caffeine/ETOH intake, Sleep hygiene and Behavior activation Medication management counseling: Effectiveness, Side effects, Dosing range, Duration, Drug interaction and Adherence Diagnosis and Prognosis Counseling: Accuracy of diagnosis, Prognosis over time, Impact of diagnosis on life functions and Adequacy of current interventions Details: I spent 40 minutes reviewing the record, seeing the patient and documenting in the medical record. Counseling provided to the patient/caregiver as outlined below. Addressed patient/caregiver concerns regarding current medication regime including effective adherence. Addressed patient/caregiver concerns regarding diagnosis and prognosis including accuracy of diagnosis, prognosis over time, impact of diagnosis. Addressed patient/caregiver concerns regarding impact of recent stressors. REPLACED BY [facility] Medical History Golfers elbow Colitis CKD (chronic kidney disease) stage 3, GFR 30-59 ml/min Sleep apnea TIA (transient ischemic attack) Hx of squamous cell carcinoma HTN (hypertension) Elevated cholesterol Depression History of angina Diverticulitis GERD (gastroesophageal reflux disease) Surgical History Hx of cardiac cath History of knee replacement procedure of left knee Hx of squamous cell carcinoma excision Hx of total hip arthroplasty History of hysteroscopy History of carpal tunnel release of both wrists Hx of rotator cuff surgery Hx of colonoscopy Hx of esophagogastroduodenoscopy Family History Father Rheumatic fever Heart attack Stroke Mother Heart problem Social History (Updated 12/10/24 @ 12:12 by Domonique Guallpa MA) Housing: House Alcohol intake: never Patient Tobacco Use Status: Former Tobacco user Cigarette Packs Per Day: 2 Years Smoked: 25 e-Cigarette/Vaping Use: Never Used Second Hand Smoke Exposure: No service: No Current occupational status: retired Current occupational exposures/hazards: No Cognitive needs: No Hearing needs: No Vision needs: Yes Social History: lives w Substance History: none Coding Level of Care Code Est Pt Level 4 (77765) Diagnoses Major depressive disorder, recurrent, moderate F33.1 JENELLE (generalized anxiety disorder) F41.1
== END 2024-12-13 15:18 | disposition home or self-care (01) ==
LOC: HO.HOP 12:47
PROVIDERS: PCP Family Medicine; Visit Provider Clinical Nurse Specialist Psychiatric/Mental Health
DX: F33.1 Major depressive disorder, recurrent, moderate (principal); F41.1 Generalized anxiety disorder
CPT/HCPCS: 99214

== ENCOUNTER → 2024-12-13 12:47 | Outpatient (BNVA) | payer MEDICARE, OTHER, SELFPAY | PROVIDERS: PCP Family Medicine; Visit Provider Clinical Nurse Specialist Psychiatric/Mental Health | DX: F33.1 Major depressive disorder, recurrent, moderate (principal); F41.1 Generalized anxiety disorder | CPT/HCPCS: 99212 ==

== ENCOUNTER 2025-02-18 08:40 | Outpatient (AMB) | payer MEDICARE, OTHER, SELFPAY ==
[2025-02-18 09:00] VITALS: BP 110/64; PULSE 54; O2SAT 94; BMI 42.5
--- NOTE | 2025-02-18 09:00 | MHC.OFFVIS ---
Vital Signs 02/18/25 09:00 Height 5 ft 1 in Weight 225 lb 2 oz BMI 42.5 BP 110/64 Blood Pressure Location Rt brachial Position Sitting Pulse 54 Pulse Source Pulse Oximeter Pulse Oximetry (%) 94 Oxygen Delivery Method Room Air Intake Visit Reasons: 4 mnth Follow up Intake Note: Patient presents follow up DON. Compliance in chart(90/90 days, >=4hrs-100%, Average Usage- 9hrs 13min, Pressure-11cm, Med Leaks-0.5, AHI-5.8). Accompanied by: Self / Same As Patient Allergies codeine (CODEINE) Adverse Reaction (Mild, Verified 02/18/25 09:05) NAUSEA & VOMITING HPI Comments Details: 69 year old female is here for a f/u of DON and RLS symptoms. DON Compliance Report 10/2024-01/2025 Total use is 90/90 days, >=4hrs-100%, Avg use 9hrs 13min Median Pressure-11cm, Med Leaks-0.5, AHI-5.8 She washes her mask, rinses hoses, changes filters and fills her reservoir with water as needed. She is followed by her liner man Dr. Hoover. December 2024 Recent h/o of cataract surgery, procedure went well no complications. Since starting her cpap therapy she feels more refreshed sleep, sometimes she is still having trouble staying asleep due to the rls symptoms.Denies abnormal sleep behaviors, and memory difficulties, morning headaches vision changes. 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 Her mood is good, diet is okay, she gets over whelmed with challenges of being a hospice spiritual care coordinator at times.She is independent in all ADLs. Denies constipation. RLS symptoms usually when going to bed she feels a tingling like discomfort, with bilateral paresthesias and radiation, which wakes her up from her sleep. She has to move her legs several times to get comfortable, will get out of bed and stretch them and takes 2 tylenol tablets 325mg daily at night. [facility] Medical History Decreased renal function Golfers elbow Colitis CKD (chronic kidney disease) stage 3, GFR 30-59 ml/min Sleep apnea TIA (transient ischemic attack) Hx of squamous cell carcinoma HTN (hypertension) Elevated cholesterol Depression History of angina Diverticulitis GERD (gastroesophageal reflux disease) Surgical History Hx of cardiac cath History of knee replacement procedure of left knee Hx of squamous cell carcinoma excision Hx of total hip arthroplasty History of hysteroscopy History of carpal tunnel release of both wrists Hx of rotator cuff surgery Hx of colonoscopy Hx of esophagogastroduodenoscopy Family History Father Rheumatic fever Heart attack Stroke Mother Heart problem Social History Housing: House Alcohol intake: never Patient Tobacco Use Status: Former Tobacco user Cigarette Packs Per Day: 2 Years Smoked: 25 e-Cigarette/Vaping Use: Never Used Second Hand Smoke Exposure: No service: No Current occupational status: retired Current occupational exposures/hazards: No Cognitive needs: No Hearing needs: No Vision needs: Yes Physical Exam Vital Signs: Last Vital Signs Pulse 54 02/18/25 09:00 BP 110/64 02/18/25 09:00 Pulse Ox 94 02/18/25 09:00 Oxygen Delivery Method Room Air 02/18/25 09:00 BMI result Body Mass Index 42.5 Const General: cooperative, comfortable and no acute distress Nutritional Appearance: obese (41.2) Orientation/consciousness: patient oriented x3 HEENT Face and sinus: Yes normal facial exam and Yes face symmetric Teeth and gingiva: other ([place] score of 4) Eyes Pupils: Equal, round and reactive pupils present Neck Neck: Yes full ROM and Yes supple Resp Effort & Inspection: normal respiratory effort and able to speak in complete sentences Neuro General: patient oriented x3 and moves all extremities Cranial nerves: Yes CN's II-XII intact bilaterally, Yes Facial sensation intact/muscles of mastication intact, Yes Equal, round and reactive pupils present, Yes Normal accommodation reflex present, Yes Bilaterally intact EOM present, Yes Nystagmus not present, Yes Normal facial strength present, Yes Midline tongue present, Yes Ability to bilaterally rotate head present and Yes Ability to bilaterally elevate shoulders present Cognition (Neuro): normal cognition Gait exam (Neuro): Normal gait present Motor exam (neuro): 5/5 motor strength present throughout, Pronator motor function not present, no tremor noted and Normal motor muscle tone present throughout Coordination: [id number] test normal Psych Appearance: grossly normal Mental Status: mental status grossly normal Speech and movement: Normal speech and movement present Affect: normal affect Attitude: cooperative Thought process: Normal thought process present Thought content: Normal thought content present Insight: Good insight present (Psych) Judgement: Good judgement present (Psych) Results Reviewed Results Reviewed: DON Compliance Report 10/2024-01/2025 Total use is 90/90 days, >=4hrs-100%, Avg use 9hrs 13min Median Pressure-11cm, Med Leaks-0.5, AHI-5.8 Assessment & Plan Assessment & Plan (1) RLS (restless legs syndrome): Code(s): G25.81 - Restless legs syndrome Category: Medical (2) Fatigue: Code(s): R53.83 - Other fatigue Category: Medical Qualifiers: Fatigue type: chronic, unspecified Qualified Code(s): R53.82 - Chronic fatigue, unspecified Plan DON on cpap therapy and compliant, has refreshing sleep, AHI is elevated will adjust her settings lower by 1-2cmH20 with her cpap mentor as she knows how to get into her cpap settings. Currently at 16hhF16 Fatigue will f/u with labs. RLS will start 300mg po daily gabapentin at night- time and monitor GFR. Orders: Orders IRON PROFILE Today G25.81 - Restless legs syndrome, G47.9 - Sleep disorder, unspecified, R53.83 - Other fatigue Homocysteine Today G25.81 - Restless legs syndrome, G47.9 - Sleep disorder, unspecified, R53.83 - Other fatigue Methylmalonic Acid Today G25.81 - Restless legs syndrome, G47.9 - Sleep disorder, unspecified, R53.83 - Other fatigue Medications: New gabapentin take 300mg po daily at bedtime for RlS 300 mg (3 x 100 mg) PO BEDTIME 270 caps 0RF 3 months MDD 300mg G25.81 - Restless legs syndrome Patient Instructions: Sleep Hygiene provided: set a scheduled bedtime and wake time to help regulate the circadian rhythm and balance the release of pituitary hormones. Sleep in a dark room, temperatures below 68 degrees, and no devices n bed. Limit caffeinated products 6 hours prior to bed, and limit fluids 2-4 hours prior to bed. Gentle night yoga, diffusing essential oils, and playing soft music can be relaxing. RLS start Gabapentin 100-300mg po daily at bedtime do not drive while taking this medication. Coding Level of Care Code Est Pt Level 4 (61301) Diagnoses RLS (restless legs syndrome) G25.81 Chronic fatigue R53.82 Fatigue type: chronic, unspecified
--- OUTSIDE RECORDS SUMMARY | 2025-02-18 09:10 | XMS_ITS | Clinical Summary ---
Author Organization [facility] Address [address] [place] [phone] Phone Care Team Providers Care Motor Vehicle Escort Driver Name Role Phone Radha Scott MD Primary Care Provider Allergies No known active allergies Medications umeclidinium-vi lanteroL (ANORO ELLIPTA) 62.5-25 mcg/actuation diskus inhaler Inhale 1 puff into the lungs daily. Active atorvastatin (LIPITOR) 10 MG tablet Take 10 mg by mouth daily. Active buPROPion (WELLBUTRIN XL) 150 MG ER 24 hr tablet Take 150 mg by mouth daily. Active DULoxetine (CYMBALTA) 60 MG capsule Take 60 mg by mouth daily. Active famotidine (PEPCID) 20 MG tablet Take 20 mg by mouth daily. Active isosorbide mononitrate (IMDUR) 60 MG 24 hr tablet Take 60 mg by mouth daily. Active lisinopril (PRINIVIL,ZESTR IL) 20 MG tablet Take 20 mg by mouth 2 (two) times a day. Active pantoprazole (PROTONIX) 40 MG tablet Take 40 mg by mouth daily. Active ALPRAZolam (XANAX) 0.5 MG tablet Take 0.5 mg by mouth daily as needed. Active allopurinol (ZYLOPRIM) 100 MG tablet Take 100 mg by mouth daily. Active ciclopirox (PENLAC) 8 % solutionIndicat ions:Onychomyco sis Apply topically nightly at bedtime. Apply over nail and surrounding skin. Apply daily over previous coat. After seven (7) days, may remove with nail urdu remover and continue cycle. 6.6 mL 3 1 Active ketoconazole 2 % creamIndication s:Tinea pedis of both feet Apply topically 2 (two) times a day. Apply a thin coat to the skin of both feet twice daily. 30 g 3 1 Active chlorhexidine (HIBICLENS) 4 % external liquidIndicatio ns:Onychomycosi s,Tinea pedis of both feet Apply topically daily as needed. Use topically as a wash to the skin of both feet. Use daily. 473 mL 3 1 Active naproxen (NAPROSYN) 500 MG tablet Take 1 tablet (500 mg total) by mouth 2 (two) times a day for 3 days. Then twice daily as needed for pain, inflammation 20 tablet 1 Active Active Problems No known active problems Immunizations Immunization Administration Dates Next Due Influenza Quadrivalent Adjuvanted Preservative F ree IM 03/25/2020 Influenza Quadrivalent MDCK Preservative Free IM 07/02/2018 Influenza Quadrivalent Preservative Free IM 03/27 Tdap 07/10/2020 Social History Tobacco Use Types Packs/Day Years [...] PM EDT Sexual Orientation Not on file Last Filed Vital Signs Vital Sign Reading Time Taken Comments Blood Pressure 102/77 03/23/2021 2:47 PM EDT Pulse 108 03/23/2021 2:47 PM EDT Temperature 36.7 C (98 F) 03/23/2021 2:47 PM EDT Respiratory Rate 18 03/23/2021 2:47 PM EDT Oxygen Saturation 95% 03/23/2021 2:47 PM EDT Inhaled Oxygen Concentration - - Weight 98.4 kg (217 lb) 10/28/2020 8:58 AM EDT p t reported Height 154.9 cm (5' 1 ) 10/28/2020 8:58 AM EDT p t reported Body Mass Index 41 10/28/2020 8:58 AM EDT Plan of Treatment Health Maintenance Due Date Last Done Comments CREATININE LEVEL 1955 LIPID PANEL 1954 POTASSIUM LEVEL 1955 DEPRESSION SCREENING 1966 SMOKING Hx and SMOKELESS TOB ACCO SCREENING 08/27/1967 HEPATITIS C SCREENING 1972 MAMMOGRAM 1994 COLOGUARD 08/27/1999 COLONOSCOPY 08/27/1999 COLORECTAL CANCER SCREENING 08/27/1999 FIT TEST 08/27/1999 FOBT 08/27/1999 SIGMOIDOSCOPY 08/27/1999 VIRTUAL COLONOSCOPY 08/27/1999 ZOSTER VACCINES (1 of 2) 2004 OSTEOPOROSIS SCREENING INITI AL (ONE-TIME) 08/27/2019 PNEUMOCOCCAL VACCINES (50+ y ears) (2 of 2 - PPSV23) 05/07/2022 05/07/2021 COVID-19 VACCINE (1 - 2023-2 5 season) 2024 RSV VACCINE (1 - 1-dose 75+ series) 2029 Adult Td,Tdap Booster 07/10/2030 07/10/2020 HEPATITIS A VACCINES Aged Out No long er eligible based on patient's age to complete this topic HIB VACCINES Aged Out No longer eligi ble based on patient's age to complete this topic MENINGOCOCCAL VACCINES (ACWY) Aged Out No longer eligible based on patient's age to complete this topic MENINGOCOCCAL VACCINES (B) Aged Out N o longer eligible based on patient's age to complete this topic Medical Devices Not on file Insurance MEDICARE PART A & B MEDICARE SUPPLEMENT Member Subscriber Plan / Payer (Ef fective 2019-Present) Name:Martha Cottrell Relation to Subscriber:Self Name:Martha Cottrell Payer ID:Not on file Type:Indemnity Address: [place] [id number] MEDICARE PART A & B MEDICARE SUPPLEMENT MEDICARE PART A & B MEDICARE SUPPLEMENT Member Subscriber Plan / Payer (Ef fective 2019-Present) Name:Martha Cottrell Relation to Subscriber:Self Name:Martha Cottrell Payer ID:Not on file Type:Indemnity Address: [place] [id number] MEDICARE PART A & B MEDICARE SUPPLEMENT MEDICARE PART A & B MEDICARE SUPPLEMENT Member Subscriber Plan / Payer (Ef fective 2019-Present) Name:Martha Cottrell Relation to Subscriber:Self Name:Martha Cottrell Payer ID:Not on file Type:Indemnity Address: [place] [id number] MEDICARE PART A & B MEDICARE SUPPLEMENT MEDICARE PART A & B MEDICARE SUPPLEMENT Member Subscriber Plan / Payer (Ef fective 2019-Present) Name:Martha Cottrell Relation to Subscriber:Self Name:Martha Cottrell Payer ID:Not on file Type:Indemnity Address: [place] [id number] MEDICARE PART A & B [facility] MEDICARE SUPPLEMENT MEDICARE PART A & B [facility] MEDICARE SUPPLEMENT Care Teams Motor Vehicle Escort Driver Relationship Specialty Start Date End Date Radha Scott MD [address] [place] [id number] PCP - General Internal Medicine 05/29/20 Additional Source Comments The information contained in this document represents components of the legal health record. It is not the complete legal health record.[facility]
--- OUTSIDE RECORDS SUMMARY | 2025-02-18 09:10 | XMS_ITS | Clinical Summary ---
Author Organization [facility] Address [address] [place] [phone] Phone Care Team Providers Care Authorization Rep Name Role Phone Unavailable Primary Care Provider Unavailabl e Social History Tobacco Use Types Packs/Day Years [...] - Risk 60-74 years 1-dose series) 2014 Depression Screening 06/27/2024 Colorectal Cancer Screening: Colonoscopy 08/08/2024 Falls Risk Assessment 08/08/2024 Hepatitis C Screening 08/08/2024 Medicare Annual Wellness Visit 08/08/2024 Osteoporosis Screening (Bone Density Screening) 08/08/2024 Social Influencers of Health Screening 08/08/2024 COVID-19 Vaccine ( season) 2024 04/06/2024, 10/07/2021, 04/06/2021, Additional history exists Influenza Vaccine (#1) 2025 , 04/06/2024, 04/20/2023, Additional history exists DTaP,Tdap,and Td Vaccines (2 - Td or Tdap) 07/10/2030 07/10/2020 HIB Vaccines Aged Out No longer eligi [...]
--- OUTSIDE RECORDS SUMMARY | 2025-02-18 09:11 | XMS_ITS | Patient Health Record ---
Author Organization [facility] Address [address] [place] [address] Care Team Providers Care Medical Insurance Claims Processor Name Role Phone Stephan Max Primary Care Provider UnavailAmando Patel Jr Unavailable Allergies Allergen (clinical drug ingredient) Drug/Non Drug Allergy documented on EMR Reaction Allergy Type Onset Date Status Codeine Phosphate Unknown Drug Allergy Active Results Component Value Reference Range Notes Liver Panel Reviewed date:09/11/2024 02:47:21 PM Interpretation: Performing Lab:[facility], [address] [place] [phone] Notes/Report: Bilirubin Total 0.3 0.0-1.0 mg/dL Bilirubin Direct 0.1 0.0-0.5 mg/dL Aspartate Amino Transferase 20 5-31 U/L Alanine Aminotransferase 16 0-31 U/L Total Protein 7.3 6.5-8.0 g/dL Albumin Level 4.1 3.5-5.0 g/dL Alkaline Phosphatase 70 39-117 U/L Blood Urea Nitrogen Reviewed date:09/11/2024 02:45:35 PM Interpretation: Performing Lab:[facility], [address] [place] [phone] Notes/Report: Blood Urea Nitrogen 16 9-16 mg/dL Creatinine Reviewed date:09/11/2024 02:45:33 PM Interpretation: Performing Lab:[facility], [address] [place] [phone] Notes/Report: Creatinine 0.96 0.5-1.4 mg/dL Estimated Glomerular Filt Rate 57 Chronic Kidney Disease: Estimated GFR < 60 mL/min/1.73m2 Severe Kidney Disease: Estimated GFR < 15 mL/min/1.73m2 MR abdomen wo/w con Reviewed date:09/20/2024 11:26:48 AM Interpretation: Performing Lab: Notes/Report: [address] [address] Magnetic Resonance Report Signed Patient: Pippa Cottrell MR#: [id number] : 1955 Acct:[id number] Age/Sex: 69 / F ADM Date: 09/19/24 Loc: HO.MRI Attending Dr: Amando Alba MD Ordering Physician: Amando Alba MD Date of Service: 09/19/24 Procedure(s): MR abdomen wo/w con Accession Number(s): [id number] cc: Amando Alba MD; Stephan Max MD EXAMINATION: MRI Abdomen without and with contrast HISTORY: Abnormal PET scan, possible lesion vs. liver heterogeneity COMPARISON: Correlation is made with a PET/scan from [facility] dated 08/09/2024. TECHNIQUE: Axial in and [...] 09/20/24 0711 DD/ 1607 TD/TT: 09/19/24 1637 Operator Automated Process: Reason For Referral No Information Medications Medication [...] Problem Status W/U Status Risk Notes Problem 941560894 Colon cancer screening (Z12.11) Active confirmed Problem 83152952 Encounter for ot her preprocedural examination (Z01.818) Active confirmed Problem Gastroesophageal reflux disease (K21.9) Active confirmed Problem 712257578 Gastroesophageal reflux disease without esophagitis (K21.9) Active confirmed Problem 28126561 Colitis (K52.9) Active confirmed Vital Signs Temperature 97.5 degrees Fahrenheit 04/30/2024 Blood pressure diastolic 111 mm Hg 09/06/2024 Height 61.5 in 09/06/2024 Blood pressure systolic 111 mm Hg 09/06/2024 Weight 222 lbs 09/06/2024 BMI 41.26 kg/m2 09/06/2024 Encounters Encounter Location Date Provider Diagnosis [facility] [address] [place] [address] 04/30/2024 Amando Alba Jr Gastroesophageal reflux disease without esophagitis K21.9 and Colitis K52.9 [facility] [address] [place] [address] 09/06/2024 Amando Alba Jr Abnormal PET scan, liver R94.5 [facility] [address] [place] [address] 09/07/2024 Amando Alba Jr Abnormal PET scan of liver R94.5 [facility] [address] [place] [address] 09/11/2024 Amando Alba Jr [facility] [address] [place] [address] 09/12/2024 Amando Alba Jr Abnormal PET scan, liver R94.5 [facility] [address] [place] [address] 09/20/2024 Amando Alba Jr Assessments Encounter Date Diagnosis (ICD Code) Assessment Notes Treatment Notes Treatment Clinical Notes Section Notes 04/30/2024 Gastroesophageal reflux disease without esophagitis (ICD-10 - K21.9) Gastroesophageal reflux disease material was printed At this time, Pippa appears to be doing well. We discussed gastroesophageal reflux disease today. She can continue to use bsws-poc-qwvuvlo antacids for breakthrough symptoms as she is doing. She continues on fiber for her bowel movements. She does not need mesalamine at this time. Followup will be in 12 months. 04/30/2024 Colitis (ICD-10 - K52.9) At this time, Pippa appears to be doing well. We discussed gastroesophageal reflux disease today. She can continue to use nqdl-[id number] antacids for breakthrough symptoms as she is [...] Name:Amando pulliam Jr, 05/01/2025 09:00:00 AM, [address], [address], [place], [address], Insurance Providers Payer Name Payer Address Payer Phone Subscriber Number Group Number Insured Name Patient Relationship to Insured Coverage Start Date Coverage End Date MEDICARE OF [place] [address] [place] [address] [phone] [id number] PIPPA COTTRELL Self - patient is the insured [facility] [address] [place] [phone] [id number] PIPPA COTTRELL Self - patient is the [...] intubation at time of rotator cuff surgery [facility] 11/13 Surgical History Surgery Date(Month/Year) new shoulder right new knee left hysteroscopy 08/16 rotator cuff surgery left new hip right basal cell removed on chin carpal tunnel surgery in both hands Hospitalization History Reason Date(Month/Year) distributed shock after surgery
== END 2025-02-18 09:46 | disposition home or self-care (01) ==
LOC: HO.HSMS 08:41
PROVIDERS: PCP Family Medicine; Visit Provider Physician Assistant Medical
DX: G25.81 Restless legs syndrome (principal); R53.82 Chronic fatigue, unspecified
CPT/HCPCS: 99214

== ENCOUNTER → 2025-02-18 08:40 | Outpatient (BNVA) | payer MEDICARE, OTHER, SELFPAY | PROVIDERS: PCP Family Medicine; Visit Provider Physician Assistant Medical | DX: R53.82 Chronic fatigue, unspecified (principal); G25.81 Restless legs syndrome | CPT/HCPCS: 99212 ==

== ENCOUNTER 2025-02-22 09:39 | Outpatient (REF) | payer MEDICARE, OTHER, SELFPAY ==
--- OUTSIDE RECORDS SUMMARY | 2021-03-23 14:59 | XMS_ITS | Encounter Summary ---
Author Organization [facility] Address [address] [place] [address] [place] [address] Phone Care Team Providers Care Bullet Swaging Machine Operator Name Role Phone Radha Scott MD Primary Care Provider Encounter Details Date Type Department Care Team (Late st Contact Info) Description 03/23/2021 2:59 PM EDT Hospital Encounter [facility] [address] [place] [phone] Madisyn Morel FNP [address] [place] [phone] [email or web address] Social History Tobacco Use Types Packs/Day Years Used Date Smoking Tobacco: Former Cigarettes Q uit: 06/23/1999 Smokeless Tobacco: Never Alcohol Use Standard Drinks/Week Comments Not Currently 0 (1 standard drink = 0.6 oz pur e alcohol) Education Answer Date Recorded Are you interested in more education? Not on ambre e 10/22/2022 Are you concerned about learning? [...] report originally createdby Gautam Cortes. Madisyn Morel MANAGER USER INTERFACE IMG XR UPPER EXTREMITY Nicole l Result documented in this encounter Visit Diagnoses Not on filedocumented in this encounter Care Teams Bullet Swaging Machine Operator Relationship Specialty Start Date End Date Radha Scott MD [address] [place] [phone] PCP - General Internal Medicine 05/29/20 documented as of this encounter Additional Source Comments The information contained in this document represents components of the legal health record. It is not the complete legal health record.[facility]
--- OUTSIDE RECORDS SUMMARY | 2021-03-23 15:00 | XMS_ITS | Encounter Summary ---
Author Organization [facility] Address [address] [place] [address] [place] [phone] Phone Care Team Providers Care Educational Assistant Name Role Phone Radha Scott MD Primary Care Provider Encounter Details Date Type Department Care Team (Late st Contact Info) Description 03/23/2021 3:00 PM EDT Hospital Encounter [facility] [address] [place] [phone] Madisyn Morel FNP [address] [place] [phone] [email or web address] Social History Tobacco Use Types Packs/Day Years [...] report originally createdby Gautam Cortes. Madisyn Morel OCCUPATIONAL THERAPIST'S ASSISTANT IMG XR CHEST Final Resul t documented in this encounter Visit Diagnoses Not on filedocumented in this encounter Care Teams Educational Assistant Relationship Specialty Start Date End Date Radha Scott MD [address] [place] [address] PCP - General Internal Medicine 05/29/20 documented as of this encounter Additional Source Comments The information contained in this document represents components of the legal health record. It is not the complete legal health record.[facility]
--- OUTSIDE RECORDS SUMMARY | 2024-01-16 06:00 | XMS_ITS ---
Author Organization [facility] Address [address] [place] [address] Care Team Providers Care Aviation Maintenance Technician Name Role Phone Stephan Max Primary Care Provider Unavailab Amando Bell Jr REASON FOR VISIT Patient presents today for colitis Encounters Encounter Location Date Provider Diagnosis [facility] [address] [place] [address] 01/16/2024 Amando Alba Jr Plan Of Treatment Next Appt Details Provider Name:Amando pulliam Jr, 05/01/2025 09:00:00 AM, [address], [address], [place], [address], Progress Notes * PIPPA WEAVER LDOB:1955 (69 yo F)Acc No.[id number]:01/16/2024 Progress Notes Patient: PIPPA VALDES Provider: Sophy Alba MD :1955 A ge:68 Y S ex:Female Date:01/16/2024 Address:[address], [place], [place] Pcp:Stephan Max Subjective: * Chief Complaints: * [...] 01/16/2024 Generated for Carly chao/Kash/Cristhian on: 0 02/22/2025 10:26 AM EDT
--- OUTSIDE RECORDS SUMMARY | 2025-02-22 10:26 | XMS_ITS | Clinical Summary ---
Author Organization [facility] Address [address] [place] [address] Phone Care Team Providers Care Die Barber Name Role Phone Radha Scott MD Primary [...] seven (7) days, may remove with nail croatian remover and continue cycle. 6.6 mL 3 [...] ID:Not on file Type:Indemnity Address: [place] [id number] MEDICARE PART A & B MEDICARE SUPPLEMENT MEDICARE PART A & B MEDICARE SUPPLEMENT Member Subscriber Plan / Payer (Ef fective 2019-Present) Name:Martha Cottrell Relation to Subscriber:Self Name:Martha Cottrell Payer ID:Not on file Type:Indemnity Address: [place] [id number] MEDICARE PART A & B MEDICARE SUPPLEMENT MEDICARE PART A & B MEDICARE SUPPLEMENT Member Subscriber Plan / Payer (Ef fective 2019-Present) Name:Martha Cottrell Relation to Subscriber:Self Name:Martha Cottrell Payer ID:Not on file Type:Indemnity Address: [place] [id number] MEDICARE PART A & B MEDICARE SUPPLEMENT MEDICARE PART A & B MEDICARE SUPPLEMENT Member Subscriber Plan / Payer (Ef fective 2019-Present) Name:Martha Cottrell Relation to Subscriber:Self Name:Martha Cottrell Payer ID:Not on file Type:Indemnity Address: [place] [id number] MEDICARE PART A & B [facility] MEDICARE SUPPLEMENT MEDICARE PART A & B [facility] MEDICARE SUPPLEMENT Care Teams Die Barber Relationship Specialty Start Date End Date Radha Scott MD [address] [place] [phone] PCP - General Internal Medicine 05/29/20 Additional Source Comments The information contained in this document represents components of the legal health record. It is not the complete legal health record.[facility]
--- OUTSIDE RECORDS SUMMARY | 2025-02-22 10:26 | XMS_ITS | Patient Health Record ---
Author Organization [facility] Address [address] [place] [address] Care Team Providers Care Lacquerer Name Role Phone Stephan Max Primary Care Provider UnavailAmando Patel Jr Unavailable Allergies Allergen (clinical drug ingredient) Drug/Non Drug Allergy documented on EMR Reaction Allergy Type Onset Date Status Codeine Phosphate Unknown Drug Allergy Active Results Component Value Reference Range Notes Liver Panel Reviewed date:09/11/2024 02:47:21 PM Interpretation: Performing Lab:[facility], [address] [place] [phone] Notes/Report: Bilirubin Total 0.3 0.0-1.0 mg/dL Bilirubin Direct 0.1 0.0-0.5 mg/dL Aspartate Amino Transferase 20 5-31 U/L Alanine Aminotransferase 16 0-31 U/L Total Protein 7.3 6.5-8.0 g/dL Albumin Level 4.1 3.5-5.0 g/dL Alkaline Phosphatase 70 39-117 U/L Blood Urea Nitrogen Reviewed date:09/11/2024 02:45:35 PM Interpretation: Performing Lab:[facility], [address] [place] [phone] Notes/Report: Blood Urea Nitrogen 16 9-16 mg/dL Creatinine Reviewed date:09/11/2024 02:45:33 PM Interpretation: Performing Lab:[facility], [address] [place] [phone] Notes/Report: Creatinine 0.96 0.5-1.4 mg/dL Estimated Glomerular Filt Rate 57 Chronic Kidney Disease: Estimated GFR < 60 mL/min/1.73m2 Severe Kidney Disease: Estimated GFR < 15 mL/min/1.73m2 MR abdomen wo/w con Reviewed date:09/20/2024 11:26:48 AM Interpretation: Performing Lab: Notes/Report: [address] [address] Magnetic Resonance Report Signed Patient: Pippa Cottrell MR#: [id number] : 1955 Acct:[id number] Age/Sex: 69 / F ADM Date: 09/19/24 Loc: HO.MRI Attending Dr: Amando Alba MD Ordering Physician: Amando Alba MD Date of Service: 09/19/24 Procedure(s): MR abdomen wo/w con Accession Number(s): [id number] cc: Amando Alba MD; Stephan Max MD EXAMINATION: MRI Abdomen without and with contrast HISTORY: Abnormal PET scan, possible lesion vs. liver heterogeneity COMPARISON: Correlation is made with a PET/scan from [facility] dated 08/09/2024. TECHNIQUE: Axial in and [...] 09/20/24 0711 DD/ 1607 TD/TT: 09/19/24 1637 Ammunition Specialist: Reason For Referral No Information Medications Medication [...] Problem Status W/U Status Risk Notes Problem 576507367 Colon cancer screening (Z12.11) Active confirmed Problem 94121729 Encounter for ot her preprocedural examination (Z01.818) Active confirmed Problem Gastroesophageal reflux disease (K21.9) Active confirmed Problem 656873118 Gastroesophageal reflux disease without esophagitis (K21.9) Active confirmed Problem 11465699 Colitis (K52.9) Active confirmed Vital Signs Temperature 97.5 degrees Fahrenheit 04/30/2024 Blood pressure diastolic 111 mm Hg 09/06/2024 Height 61.5 in 09/06/2024 Blood pressure systolic 111 mm Hg 09/06/2024 Weight 222 lbs 09/06/2024 BMI 41.26 kg/m2 09/06/2024 Encounters Encounter Location Date Provider Diagnosis [facility] [address] [place] [address] 04/30/2024 Amando Alba Jr Gastroesophageal reflux disease without esophagitis K21.9 and Colitis K52.9 [facility] [address] [place] [address] 09/06/2024 Amando Alba Jr Abnormal PET scan, liver R94.5 [facility] [address] [place] [address] 09/07/2024 Amando Alba Jr Abnormal PET scan of liver R94.5 [facility] [address] [place] [address] 09/11/2024 Amando Alba Jr [facility] [address] [place] [address] 09/12/2024 Amando Alba Jr Abnormal PET scan, liver R94.5 [facility] [address] [place] [address] 09/20/2024 Amando Alba Jr Assessments Encounter Date Diagnosis (ICD Code) Assessment Notes Treatment Notes Treatment Clinical Notes Section Notes 04/30/2024 Gastroesophageal reflux disease without esophagitis (ICD-10 - K21.9) Gastroesophageal reflux disease material was printed At this time, Pippa appears to be doing well. We discussed gastroesophageal reflux disease today. She can continue to use aqvl-zyf-yiywwla antacids for breakthrough symptoms as she is doing. She continues on fiber for her bowel movements. She does not need mesalamine at this time. Followup will be in 12 months. 04/30/2024 Colitis (ICD-10 - K52.9) At this time, Pippa appears to be doing well. We discussed gastroesophageal reflux disease today. She can continue to use [id number]-[id number] antacids for breakthrough symptoms as she is [...] 09:00:00 AM, [address], [address], [place], [address], Insurance Providers Payer Name Payer Address Payer Phone Subscriber Number Group Number Insured Name Patient Relationship to Insured Coverage Start Date Coverage End Date MEDICARE OF [place] [address] [place] [address] [phone] [id number] PIPPA COTTRELL Self - patient is the insured [facility] [address] [place] [address] [id number] PIPPA COTTRELL Self - patient is the [...] intubation at time of rotator cuff surgery [facility] 11/13 Surgical History Surgery Date(Month/Year) new shoulder right new knee left hysteroscopy 08/16 rotator cuff surgery left new hip right basal cell removed on chin carpal tunnel surgery in both hands Hospitalization History Reason Date(Month/Year) distributed shock after surgery
--- OUTSIDE RECORDS SUMMARY | 2025-02-22 10:26 | XMS_ITS | Clinical Summary ---
Author Organization [facility] Address [address] [place] [phone] Phone Care Team Providers Care Track Laying Supervisor Name Role Phone Unavailable Primary Care Provider [...]
--- OUTSIDE RECORDS SUMMARY | 2025-02-22 10:26 | XMS_ITS | Patient Health Record ---
Author Organization [facility] [place] Address [address] [facility] [place] [address] Care Team Providers Care Analog Device Designer Name Role Phone Radha Scott MD Primary Care Provider Ulisses Garcia Unavailable [phone] Allergies Allergen (clinical drug ingredient) Drug/Non Drug Allergy documented on EMR Reaction Allergy Type Onset Date Status codeine codeine vomiting Drug Allergy Active Reason For Referral No Information Medications Medication SIG (Take, Route, Frequency, Duration) Notes Start Date End Date Status Walking Boot/Pneumatic As directed Wear Daily; Duration: Until further notice 05/11/2017 Active Lisinopril 20 MG 1 tablet Orally Once a day Active ASO Ankle/Foot Stablizing AFO As directed Wear Daily; Duration: as needed 06/10/2017 Active Atorvastatin Calcium 10 MG 1 tablet Orally Once a day Active Econazole Nitrate 1 % 1 application to affected area Externally Once a day; Duration: 30 days 01/14/2016 Active Probiotic Orally Active Vitamin D 1000 UNIT 1 tablet Orally Once a day Active Isosorbide Dinitrate 30 MG 1 tablet Orally Twice a day Active Keflex 500 MG 1 capsule Orally charito ry 12 hrs; Duration: 10 day(s) 01/30/2016 Not-Taking buPROPion HCl 75 MG 2 tablets Orally Thr ee times a day Active Pantoprazole Sodium 40 MG 1 tablet Orall y Once a day Active PROzac 30 mg 1 capsule in the morning Orally Once a day Active Social History Tobacco Use: Social History Observation Description Date Details (start date - stop date) Former Smoker NA - NA Tobacco Use/Smoking Question Answer Notes Are you a: former smoker When did you stop smoking? 1998 Tobacco use other than smoking: Question Answer Notes Are you an other tobacco user? No Problems Problem Type SNOMED Code ICD Code Onset Dates Problem Status W/U Status Risk Notes Problem Primary osteoarthritis , left ankle and foot (M19.072) Active confirmed Plan Of Treatment Pending Test Test Name Order Date X ray : Foot, left 3V 05/11/2017 [id number] NAIL, 6 OR MORE 01/14/2016 [id number] Plate 01/14/2016 [id number] SKIN/TISSUE 01/30/2016 Insurance Providers Payer Name Payer Address Payer Phone Subscriber Number Group Number Insured Name Patient Relationship to Insured Coverage Start Date Coverage End Date [facility] [address] [facility] [address] [id number] Martha Cottrell Self - patient is the insured Medical (General) History Medical History History ICD Code Arthritis Back,Hip,and Knee pain skin cancer Depression Diverticulosis Heart disease Hiatal hernia High blood pressure Reflux Stroke Measles Mumps Chicken pox Surgical History Surgery Date(Month/Year) carpal tunnel surgery skin cancer
[2025-02-22 12:01] LABS: Hematocrit 36.7 % (37.0-47.0); Hemoglobin 12.4 g/dl (12.0-16.0); Mean Corpuscular HGB Conc 33.8 g/dl (31.0-35.0); Mean Corpuscular Hemoglobin 32.5 pg (27.0-33.0); Mean Corpuscular Volume 96.1 fL (80.0-98.0); NRBC Abs Auto 0.000 X10*3/uL (0.0-0.012); NRBC Pct Auto 0.0 /100WBC (0.0-0.2); Platelet Count 320 X10*3/uL (160-400); Red Blood Count 3.82 X10*6/uL (4.20-5.50); White Blood Count 5.8 X10*3/uL (4.8-10.8)
[2025-02-22 12:05] LABS: INTERNATIONAL NORM RATIO 0.9 (0.9-1.1); Prothrombin Time 10.0 SEC (10.9-12.4)
[2025-02-22 15:20] LABS: Anion Gap 15 (12-20); Blood Urea Nitrogen 20 mg/dL (9-16); Calcium 9.6 mg/dL (8.4-10.2); Carbon Dioxide 25 mmol/L (22-29); Chloride 108 mmol/L (96-108); Estimated Glomerular Filt Rate 49; Iron 86 mcg/dL (30-160); Percent Iron Saturation 27 % (15-50); Potassium 4.6 mmol/L (3.3-5.1); Sodium 143 mmol/L (135-145); Total Iron Binding Capacity 319 mcg/dL (228-428); Unsaturated Iron Binding 233 ug/dL
== END 2025-02-22 09:40 | disposition home or self-care (01) ==
LOC: HO.WFDLDS 09:39
PROVIDERS: Internal Medicine Cardiovascular Disease; PCP Family Medicine; Visit Provider Physician Assistant Medical
DX: R06.09 Other forms of dyspnea (principal); G47.9 Sleep disorder, unspecified; G25.81 Restless legs syndrome; R53.83 Other fatigue; Z13.6 Encounter for screening for cardiovascular disorders; Z13.0 Encounter for screening for diseases of the blood and blood-forming organs and certain disorders involving the immune mechanism; Z51.81 Encounter for therapeutic drug level monitoring
CPT/HCPCS: 36415; 80048; 83090; 83540; 83921; 85027; 85610

== ENCOUNTER 2025-02-28 09:25 | Outpatient (AMB) | payer MEDICARE, OTHER, SELFPAY ==
--- OUTSIDE RECORDS SUMMARY | 2021-03-23 14:59 | XMS_ITS | Encounter Summary ---
Author Organization [facility] Address [address] [place] [address] [place] [phone] Phone Care Team Providers Care Service Car Operator Name Role Phone Radha Scott MD Primary Care Provider Encounter Details Date Type Department Care Team (Late st Contact Info) Description 03/23/2021 2:59 PM EDT Hospital Encounter [facility] [address] [place] [phone] Madisyn Morel FNP [address] [place] [phone] [email or web address] Social History Tobacco Use Types Packs/Day [...] No acute fracture or dislocation. ATTESTATION: Isiah aM as teaching physician, have reviewed theimages for this case and if necessary edited the report originally createdby Gautam Cortes. Madisyn Morel DIGITAL COMPOSER IMG XR UPPER EXTREMITY Nicole l Result documented in this encounter Visit Diagnoses Not on filedocumented in this encounter Care Teams Service Car Operator Relationship Specialty Start Date End Date Radha Scott MD [address] [place] [phone] PCP - General Internal Medicine 05/29/20 documented as of this encounter Additional Source Comments The information contained in this document represents components of the legal health record. It is not the complete legal health record.[facility]
--- OUTSIDE RECORDS SUMMARY | 2021-03-23 15:00 | XMS_ITS | Encounter Summary ---
Author Organization [facility] Address [address] [place] [address] [place] [phone] Phone Care Team Providers Care Biotech Production Specialist Name Role Phone Radha Scott MD Primary Care Provider Encounter Details Date Type Department Care Team (Late st Contact Info) Description 03/23/2021 3:00 PM EDT Hospital Encounter [facility] [address] [place] [phone] Madisyn Morel FNP [address] [place] [phone] [email or web address] Social History Tobacco Use [...] edited the report originally createdby Gautam Cortes. Madsiyn Morel COOK CHILI IMG XR CHEST Final Resul t documented in this encounter Visit Diagnoses Not on filedocumented in this encounter Care Teams Biotech Production Specialist Relationship Specialty Start Date End Date Radha Scott MD [address] [place] [address] PCP - General Internal Medicine 05/29/20 documented as of this encounter Additional Source Comments The information contained in this document represents components of the legal health record. It is not the complete legal health record.[facility]
--- OUTSIDE RECORDS SUMMARY | 2024-01-16 06:00 | XMS_ITS ---
Author Organization [facility] Address [address] [place] [address] Care Team Providers Care Property Claims Adjuster Name Role Phone Stephan Max Primary Care Provider Unavailab Amando Bell Jr [phone] REASON FOR VISIT Patient presents today for colitis Encounters Encounter Location Date Provider Diagnosis [facility] [address] [place] [address] 01/16/2024 Amando Alba Jr Plan Of Treatment Next Appt Details Provider Name:Amando pulliam Jr, 05/01/2025 09:00:00 AM, [address], [address], [place], [address], Progress Notes * PIPPA WEAVER LDOB:1955 (69 yo F)Acc No.[id number]:01/16/2024 Progress Notes Patient: PIPPA VALDES Provider: Sophy Alba MD :1955 A ge:68 Y S ex:Female Date:01/16/2024 Address:[address], [place], [place] Pcp:Stephan Max Subjective: * Chief Complaints: * 1 . Patient presents today for colitis. * Medical History: Objective: * Vitals: Assessment: Plan: * Treatment: * * The named appointment provid er may or may not be the originator of this progress note, and it is not deemed complete until electronically signed by the appointment provider. Sign off status: Pending * Provider: Sophy Alba MD Date: 0 01/16/2024 Generated for Carly chao/Kash/Cristhian on: 0 02/28/2025 10:09 AM EDT
--- NOTE | 2025-02-28 09:31 | A.OFFPC_ITS ---
Vital Signs 02/28/25 09:38 Height 5 ft 1 in Weight 224 lb BMI 42.3 BP 122/57 L Blood Pressure Location Rt brachial Position Sitting Respiration 16 Pulse 55 Pulse Source Pulse Oximeter Temp 97.8 F Temp Source Oral Pulse Oximetry (%) 98 Oxygen Delivery Method Room Air Intake Visit Reasons: f/u HTN, chronic conditions Intake Note: patient here for follow up on HTN and chronic conditions Product Engineering Manager Required: No Is last menstrual period known: No Post menopausal: No Patient : No Allergies codeine (CODEINE) Adverse Reaction (Mild, Verified 02/28/25 09:34) NAUSEA & VOMITING Medication List - Last Reconciled 02/28/25 by Stephan Max MD albuterol sulfate 90 mcg/actuation 2 puffs inhalation Q4-6H PRN alendronate 70 mg PO QWEEK 28 days aspirin (Adult Aspirin Regimen) 81 mg PO DAILY atorvastatin 10 mg PO DAILY 90 days bupropion HCl SR 200 mg PO DAILY 90 days docusate sodium (Colace) 100 mg PO BID PRN duloxetine 30 mg PO DAILY duloxetine 60 mg PO DAILY 90 days famotidine 20 mg PO BEDTIME 90 days ferrous sulfate 200 mg (3.3333 mL) PO DAILY fluticasone furoate-vilanterol 200-25 mcg/dose (Breo Ellipta) 1 inh inhalation DAILY furosemide 20 mg PO DAILY gabapentin 300 mg (3 x 100 mg) PO BEDTIME 3 months MDD 300mg isosorbide mononitrate ER 60 mg PO QAM 90 days lisinopril 20 mg PO BID 90 days magnesium oxide 200 mg PO DAILY mecobalamin (vitamin B12) 1,000 mcg PO DAILY 3 months metoprolol tartrate 25 mg PO BID pantoprazole 40 mg PO DAILY 90 days psyllium husk (Metamucil) 1.2 grams PO DAILY Tobacco use date assessed: 12/10/24 Fall risk assessment: No Falls in past year Last assessed Fall Risk: 02/28/25 Dental Screening Dental Screen Date: 02/28/25 Did you have a dental visit in the last 12 months?: Yes Did you have a dental problem in the last 6 months where you did not have access to dental care?: No Was dental information given to patient?: Patient has dentist HPI f/u HTN, chronic conditions HPI Details 69 y/o female presents to f/u HTN, chron ic conditions. Hx of recent NSTEMI. Blood pressure today 122/57, 55p. She is on lisinopril 20mg b.i.d, metoprolol 25mg b.i.d. Pt had questions about her anemia - she notes she had been put on iron supplements from Cardiology. She reports hx of sleep apnea. Reports excessive sweating. [facility] Medical History Decreased renal function Golfers elbow Colitis CKD (chronic kidney disease) stage 3, GFR 30-59 ml/min Sleep apnea TIA (transient ischemic attack) Hx of squamous cell carcinoma HTN (hypertension) Elevated cholesterol Depression History of angina Diverticulitis GERD (gastroesophageal reflux disease) Surgical History Hx of cardiac cath History of knee replacement procedure of left knee Hx of squamous cell carcinoma excision Hx of total hip arthroplasty History of hysteroscopy History of carpal tunnel release of both wrists Hx of rotator cuff surgery Hx of colonoscopy Hx of esophagogastroduodenoscopy Family History Father Rheumatic fever Heart attack Stroke Mother Heart problem Social History Housing: House Alcohol intake: never Patient Tobacco Use Status: Former Tobacco user Cigarette Packs Per Day: 2 Years Smoked: 25 e-Cigarette/Vaping Use: Never Used Second Hand Smoke Exposure: No service: No Current occupational status: retired Current occupational exposures/hazards: No Cognitive needs: No Hearing needs: No Vision needs: Yes Questionnaire Thrive Questionnaire Date Thrive assessed: 07/19/24 I am a: Patient What is your living situation today?: I have a steady place to live Within the past 12 months, did the food you bought not last and you didn't have the money to get more?: Never true Within the past 12 months, did you worry whether your food would run out before you got money to buy more?: Never true Do you have trouble paying for medicines?: No Do you have trouble getting transportation to medical appointments?: No Do you have trouble paying your heating and electricity bill?: Yes Do you have trouble taking care of your child, family member or friend?: No Do you have trouble with day-to-day activities such as bathing, preparing meals, shopping, managing finances, etc.?: No Are you currently unemployed and looking for a job?: No Are you interested in more education?: No Please select the resources that you would like help with: Care for elder or disabled Currently or been in a relationship where the following occur: No concerns reported THRIVE Score: 1 JENELLE-7 AMB Questionnaire JENELLE-7 Date JENELLE - 7 assessed: 04/19/24 Source: Developed by Drs. Kendrick Galeano, Lucia Stone, Mateusz Montalvo and colleagues, with an educational angie from [employer]. Review of Systems Const Denies chills, Denies fatigue, Denies fever(s), Denies headache(s) and Denies weakness ENT Denies dizziness and Denies headache(s) Card Denies dyspnea Resp Denies cough, Denies dyspnea, Denies wheezing and Denies other (shortness of breath) Musc Denies numbness and Denies tingling Neuro Denies dizziness, Denies headache(s), Denies numbness, Denies tingling and Denies weakness Psych Denies anxiety and Denies depression Endo Denies fatigue Aller/Immun Denies wheezing Physical exam (Primary Care) Vital Signs: Last Vital Signs Temp 97.8 F 02/28/25 09:38 Pulse 55 02/28/25 09:38 Resp 16 02/28/25 09:38 BP 122/57 L 02/28/25 09:38 Pulse Ox 98 02/28/25 09:38 Oxygen Delivery Method Room Air 02/28/25 09:38 BMI result Body Mass Index 42.3 Tobacco/Smoking Status: Tobacco use Status Tobacco use date assessed 12/10/24 02/28/25 09:33 Patient Tobacco Use Status Former Tobacco user 02/28/25 09:33 e-Cigarette/Vaping Use Never Used 02/28/25 09:33 Thrive Assessment: Date of Thrive Assessment Date Thrive assessed 07/19/24 02/28/25 09:33 Currently or been in a relationship where the following occur: No concerns reported Const General: well developed; No acute distress Nutritional Appearance: well nourished Orientation/consciousness: patient oriented x3 HENMT Head: Yes normocephalic and Yes atraumatic Eyes General: appearance normal, both eyes and all related structures Pupils: Equal, round and reactive pupils present EOM: EOMs intact bilaterally Resp Effort & Inspection: normal respiratory effort Auscultation: clear to auscultation bilaterally Cardio Rate: regular rate Rhythm: regular rhythm Heart sounds: S1 normal heart sound present, S2 normal heart sound present, no gallops, no murmurs and no rubs Neuro General: patient oriented x3 and gait normal Cranial nerves: Yes Equal, round and reactive pupils present Psych Affect: normal affect Coding Level of Care Code Est Pt Level 4 (74688) Diagnoses Essential hypertension I10 NSTEMI (non-ST elevated myocardial infarction) I21.4 Anemia D64.9 Morbid obesity E66.01 Obstructive sleep apnea syndrome G47.33 Sleep apnea type: obstructive Excessive sweating R61 Assessment & Plan Assessment & Plan (1) Essential hypertension: Code(s): I10 - Essential (primary) hypertension Category: Medical Plan: Blood pressure is controlled. Goal is less than 130/80 Continue current medications (2) NSTEMI (non-ST elevated myocardial infarction): Code(s): I21.4 - Non-ST elevation (NSTEMI) myocardial infarction Category: Medical Plan: Stable. She is followed by Dr. Hoover and has an appointment in March (3) Anemia: Code(s): D64.9 - Anemia, unspecified Category: Medical Plan: Borderline anemia She is on iron (4) Morbid obesity: Code(s): E66.01 - Morbid (severe) obesity due to excess calories Category: Medical Plan: Has appointment with Dr. Miles Work at diet & Exercise (5) Sleep apnea: Code(s): G47.30 - Sleep apnea, unspecified Category: Medical Qualifiers: Sleep apnea type: obstructive Qualified Code(s): G47.33 - Obstructive sleep apnea (adult) (pediatric) Plan: Using CPAP Stable (6) Excessive sweating: Code(s): R61 - Generalized hyperhidrosis Category: Medical Plan: No chest pain or other associated complaints f/u w Weight management
[2025-02-28 09:38] VITALS: BP 122/57; PULSE 55; RESP 16; TEMP 36.6; O2SAT 98; BMI 42.3
--- OUTSIDE RECORDS SUMMARY | 2025-02-28 10:09 | XMS_ITS | Clinical Summary ---
Author Organization [facility] Address [address] [place] [id number] Phone Care Team Providers Care Academic Registrar Name Role Phone Radha Scott MD Primary [...] seven (7) days, may remove with nail haitian remover and continue cycle. 6.6 mL 3 [...] DEPRESSION SCREENING 1966 SMOKING Hx and SMOKELESS TOBACCO SCREENING 08/27/1967 HEPATITIS C SCREENING 1972 MAMMOGRAM 1994 COLOGUARD 08/27/1999 COLONOSCOPY 08/27/1999 COLORECTAL CANCER SCREENING 08/27/1999 FIT TEST 08/27/1999 FOBT 08/27/1999 SIGMOIDOSCOPY 08/27/1999 VIRTUAL COLONOSCOPY 08/27/1999 ZOSTER VACCINES (1 of 2) 2004 OSTEOPOROSIS SCREENING INITIAL (ONE-TIME) 08/27/2019 PNEUMOCOCCAL VACCINES (50+ years) (2 of 2 - PPSV23) 05/07/2022 05/07/2021 INFLUENZA VACCINE (#1) 2025 , 03/25/2020, 04/08/2019, Additional history exists COVID-19 VACCINE ( - season) 2025 RSV VACCINE (1 - 1-dose 75+ series) [...] Cottrell Payer ID:Not on file Type:Indemnity Address: [place] [id number] MEDICARE PART A & B Member Subscriber Plan / Payer (Ef fective 2019-Present) Name:Martha Cottrell Member ID:[id number] Relation to Subscriber:Self Name:Martha Cottrell Subscriber ID:[id number] Payer ID:[id number] Group ID:Not on file Type:Medicare Address: [employer] [address] [place] [id number] [facility] MEDICARE SUPPLEMENT MEDICARE PART A & B [facility] MEDICARE SUPPLEMENT MEDICARE PART A & B [facility] MEDICARE SUPPLEMENT MEDICARE PART A & B Member Subscriber Plan / Payer (Ef fective 2019-Present) Name:Martha Cottrell Member ID:[id number] Relation to Subscriber:Self Name:Martha Cottrell Subscriber ID:[id number] Payer ID:[id number] Group ID:Not on file Type:Medicare Address: [facility] [address] [address] [facility] MEDICARE SUPPLEMENT Care Teams Academic Registrar Relationship Specialty Start Date End Date Radha Scott MD [address] [place] [id number] PCP - General Internal Medicine 05/29/20 Additional Source Comments The information contained in this document represents components of the legal health record. It is not the complete legal health record.[facility]
--- OUTSIDE RECORDS SUMMARY | 2025-02-28 10:09 | XMS_ITS | Clinical Summary ---
Author Organization [facility] Address [address] [place] [phone] Phone Care Team Providers Care Library Serials Assistant Name Role Phone Unavailable Primary Care [...] Health Screening 08/08/2024 COVID-19 Vaccine ( season) 2025 04/06/2024, 10/07/2021, 04/06/2021, Additional history exists Influenza [...]
--- OUTSIDE RECORDS SUMMARY | 2025-02-28 10:09 | XMS_ITS | Patient Health Record ---
[facility] Address [address] [facility] [place] [address] Care Team Providers Care Senior Engineering Tech Name Role Phone Radha Scott MD Primary Care Provider Ulisses Garcia Unavailable [phone] Allergies Allergen (clinical drug ingredient) Drug/Non Drug [...] Problem Status W/U Status Risk Notes Problem Localized, primary osteoarthritis of the ankle and/or foot (216955067) Primary osteoarthrit is, left ankle and foot (M19.072) Active confirmed Plan Of Treatment Pending Test Test Name Order Date X ray : Foot, left 3V 05/11/2017 [id number] NAIL, 6 OR MORE 01/14/2016 [id number] Plate 01/14/2016 [id number] SKIN/TISSUE 01/30/2016 Insurance Providers Payer Name Payer Address Payer Phone Subscriber Number Group Number Insured Name Patient Relationship to Insured Coverage Start Date Coverage End Date [facility] [address] [place] [address] [id number] Martha Cottrell Self - patient is the insured Medical (General) History Medical History History ICD Code Arthritis Back,Hip,and Knee pain skin cancer Depression Diverticulosis Heart disease Hiatal hernia High blood pressure Reflux Stroke Measles Mumps Chicken pox Surgical History Surgery Date(Month/Year) carpal tunnel surgery skin cancer
--- OUTSIDE RECORDS SUMMARY | 2025-02-28 10:09 | XMS_ITS | Patient Health Record ---
Author Organization [facility] Address [address] [place] [address] Care Team Providers Care Neonatal Nurse Name Role Phone Stephan Max Primary Care Provider UnavailAmando Patel Jr Unavailable [phone] Allergies Allergen (clinical drug ingredient) Drug/Non Drug Allergy documented on EMR Reaction Allergy Type Onset Date Status Codeine Phosphate Unknown Drug Allergy Active Results Component Value Reference Range Notes Liver Panel Reviewed date:09/11/2024 02:47:21 PM Interpretation: Performing Lab:[facility], [address] [place] [phone] Notes/Report: Bilirubin Total 0.3 0.0-1.0 mg/dL Bilirubin Direct 0.1 0.0-0.5 mg/dL Aspartate Amino Transferase 20 5-31 U/L Alanine Aminotransferase 16 0-31 U/L Total Protein 7.3 6.5-8.0 g/dL Albumin Level 4.1 3.5-5.0 g/dL Alkaline Phosphatase 70 39-117 U/L Blood Urea Nitrogen Reviewed date:09/11/2024 02:45:35 PM Interpretation: Performing Lab:[facility], [address] [place] [phone] Notes/Report: Blood Urea Nitrogen 16 9-16 mg/dL Creatinine Reviewed date:09/11/2024 02:45:33 PM Interpretation: Performing Lab:[facility], [address] [place] [phone] Notes/Report: Creatinine 0.96 0.5-1.4 mg/dL Estimated Glomerular Filt Rate 57 Chronic Kidney Disease: Estimated GFR < 60 mL/min/1.73m2 Severe Kidney Disease: Estimated GFR < 15 mL/min/1.73m2 MR abdomen wo/w con Reviewed date:09/20/2024 11:26:48 AM Interpretation: Performing Lab: Notes/Report: [address] [address] Magnetic Resonance Report Signed Patient: Pippa Cottrell MR#: [id number] : 1955 Acct:[id number] Age/Sex: 69 / F ADM Date: 09/19/24 Loc: HO.MRI Attending Dr: Amando Alba MD Ordering Physician: Amando Alba MD Date of Service: 09/19/24 Procedure(s): MR abdomen wo/w con Accession Number(s): [id number] cc: Amando Alba MD; Stephan Max MD EXAMINATION: MRI Abdomen without and with contrast HISTORY: Abnormal PET scan, possible lesion vs. liver heterogeneity COMPARISON: Correlation is made with a PET/scan from [facility] dated 08/09/2024. TECHNIQUE: Axial in [...] 09/20/24 0711 DD/ 1607 TD/TT: 09/19/24 1637 Concrete Carpenter: Reason For Referral No Information Medications Medication [...] Problem Status W/U Status Risk Notes Problem 644860226 Colon cancer screening (Z12.11) Active confirmed Problem 19140622 Encounter for other preprocedural examination (Z01.818) Active confirmed Problem Gastroesophageal reflux disease (699101894) Gastroesophageal reflux disease (K21.9) Active confirmed Problem 802142450 Gastroesophageal reflux disease without esophagitis (K21.9) Active confirmed Problem 09880665 Colitis (K52.9) Active confirmed Vital Signs Temperature 97.5 degrees Fahrenheit 04/30/2024 Blood pressure diastolic 111 mm Hg 09/06/2024 Height 61.5 in 09/06/2024 Blood pressure systolic 111 mm Hg 09/06/2024 Weight 222 lbs 09/06/2024 BMI 41.26 kg/m2 09/06/2024 Encounters Encounter Location Date Provider Diagnosis [facility] [address] [place] [phone] 04/30/2024 Amando Alba Jr Gastroesophageal reflux disease without esophagitis K21.9 and Colitis K52.9 [facility] [address] [place] [address] 09/06/2024 Amando Alba Jr Abnormal PET scan, liver R94.5 [facility] [address] [place] [address] 09/07/2024 Amando Alba Jr Abnormal PET scan of liver R94.5 [facility] [address] [place] [address] 09/11/2024 Amando Alba Jr [facility] [address] [place] [address] 09/12/2024 Amando Alba Jr Abnormal PET scan, liver R94.5 [facility] [address] [place] [address] 09/20/2024 Amando Alba Jr Assessments Encounter Date Diagnosis (ICD Code) Assessment Notes Treatment Notes Treatment Clinical Notes Section Notes 04/30/2024 Gastroesophageal reflux disease without esophagitis (ICD-10 - K21.9) Gastroesophageal reflux disease material was printed At this time, Pippa appears to be doing well. We discussed gastroesophageal reflux disease today. She can continue to use [id number] antacids for breakthrough symptoms as she is doing. She continues on fiber for her bowel movements. She does not need mesalamine at this time. Followup will be in 12 months. 04/30/2024 Colitis (ICD-10 - K52.9) At this time, Pippa appears to be doing well. We discussed gastroesophageal reflux disease today. She can continue to use [id number] antacids for breakthrough symptoms as she is [...] COLONOSCOPY 07/28/2022 Next Appt Details Provider Name:Amando pulilam Jr, 05/01/2025 09:00:00 AM, [address] [facility], [address], [place], [address], Insurance Providers Payer Name Payer Address Payer Phone Subscriber Number Group Number Insured Name Patient Relationship to Insured Coverage Start Date Coverage End Date MEDICARE OF [place] [address] [place] [address] [id number] PIPPA COTTRELL Self - patient is the insured [facility] [address] [place] [phone] [id number] PIPPA COTTRELL Self - patient is the [...] intubation at time of rotator cuff surgery [facility] 11/13 Surgical History Surgery Date(Month/Year) new shoulder right new knee left hysteroscopy 08/16 rotator cuff surgery left new hip right basal cell removed on chin carpal tunnel surgery in both hands Hospitalization History Reason Date(Month/Year) distributed shock after surgery
== END 2025-02-28 10:06 | disposition home or self-care (01) ==
LOC: HO.HMCFM 09:26
PROVIDERS: PCP Family Medicine; Visit Provider Family Medicine
DX: I10 Essential (primary) hypertension (principal); I25.2 Old myocardial infarction; E66.01 Morbid (severe) obesity due to excess calories; Z68.41 Body mass index [BMI] 40.0-44.9, adult; D64.9 Anemia, unspecified; G47.33 Obstructive sleep apnea (adult) (pediatric); R61 Generalized hyperhidrosis

== ENCOUNTER → 2025-02-28 09:25 | Outpatient (BNVA) | payer MEDICARE, OTHER, SELFPAY | PROVIDERS: PCP Family Medicine; Visit Provider Family Medicine | DX: I10 Essential (primary) hypertension (principal); I21.4 Non-ST elevation (NSTEMI) myocardial infarction; D64.9 Anemia, unspecified; E66.01 Morbid (severe) obesity due to excess calories; G47.33 Obstructive sleep apnea (adult) (pediatric); R61 Generalized hyperhidrosis | CPT/HCPCS: 99212 ==

== ENCOUNTER 2025-04-03 15:12 | Outpatient (AMB) | payer MEDICARE, OTHER, SELFPAY ==
--- NOTE | 2025-04-03 15:45 | MHC.OFFVIS ---
Vital Signs 04/03/25 15:46 Height 5 ft 1 in Weight 224 lb 13.944 oz BMI 42.5 BP 94/62 Blood Pressure Location Lt brachial Position Sitting Pulse 56 Pulse Source Pulse Oximeter Intake Visit Reasons: 5m follow up Intake Note: 5 mth f/up Care Services Manager Required: No Accompanied by: Self / Same As Patient Allergies codeine (CODEINE) Adverse Reaction (Mild, Verified 03/15/25 10:42) NAUSEA & VOMITING Medication List - Last Reconciled 04/03/25 by Gaudencio Hoover MD albuterol sulfate 90 mcg/actuation 2 puffs inhalation Q4-6H PRN alendronate 70 mg PO QWEEK 28 days aspirin (Adult Aspirin Regimen) 81 mg PO DAILY atorvastatin 10 mg PO DAILY 90 days bupropion HCl SR 200 mg PO DAILY 90 days docusate sodium (Colace) 100 mg PO BID PRN duloxetine 30 mg PO DAILY duloxetine 60 mg PO DAILY 90 days famotidine 20 mg PO BEDTIME 90 days ferrous sulfate 200 mg (3.3333 mL) PO DAILY fluticasone furoate-vilanterol 200-25 mcg/dose (Breo Ellipta) 1 inh inhalation DAILY furosemide 20 mg PO DAILY gabapentin 300 mg (3 x 100 mg) PO BEDTIME 3 months MDD 300mg isosorbide mononitrate ER 60 mg PO QAM 90 days lisinopril 20 mg PO BID 90 days magnesium oxide 200 mg PO DAILY mecobalamin (vitamin B12) 1,000 mcg PO DAILY 3 months metoprolol tartrate 25 mg PO BID pantoprazole 40 mg PO DAILY 90 days psyllium husk (Metamucil) 1.2 grams PO DAILY HPI Comments Details: Pleasant 69 year female who is here for follow-up. She recently went in the hospital for outpatient procedure went ECG was noted to have T-wave changes. Reviewing the EKGs she had new right bundle-branch block with V1 V2 T-wave inversion. She has no chest discomfort but has chronic dyspnea on exertion but she is noticing that she is getting more short of breath with activity. She was a smoker but quit in . She has hypertension, hyperlipidemia and strong family history of coronary artery disease. She previously had a stress test in 2020 which was felt to be abnormal due to breast artifact. Blood pressure is well controlled. EKGs repeated in the office and is showing right bundle-branch block with T-wave inversion in V1 and V2. 06/13/2024: On last visit we referred her for stress testing. She was able to exercise for 6 minutes and stopped due to dyspnea. She was eventually changed to Lexiscan and perfusion imaging showed mild intensity small apical perfusion defect. She continues to be short of breath with activities. She also has restless legs. She is saying she is unable to walk a block. 07/25/2024: Here for follow-up after recent admission to [facility]. She had sudden also chest pain which woke her from sleep and she was taken to [facility] and ruled in for NSTEMI. She was started on heparin drip and underwent cardiac catheterization. Cardiac catheterization did not show any significant coronary disease. Subsequently she has was started on aspirin and echocardiography was performed which showed apical dyskinesis and changes were somewhat suggestive of stress-induced myopathy. She also had diffuse T-wave inversions with QT prolongation which also goes along with takotsubo cardiomyopathy. No obvious trigger is found because there is no new stressor in her life. 10/29/2024: Returns for follow-up. She has seen pulmonology and is on some inhalers and feeling better. Repeat echocardiography has shown improvement in ejection fraction. Diagnosis is takotsubo cardiomyopathy. 04/03/2025: She is here for follow-up. 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 She feels that she currently does not want him to go to a facility. She also has been feeling tired and has no energy. Her blood pressure is low. [facility] Medical History Decreased renal function Golfers elbow Colitis CKD (chronic kidney disease) stage 3, GFR 30-59 ml/min Sleep apnea TIA (transient ischemic attack) Hx of squamous cell carcinoma HTN (hypertension) Elevated cholesterol Depression History of angina Diverticulitis GERD (gastroesophageal reflux disease) Surgical History Hx of cardiac cath History of knee replacement procedure of left knee Hx of squamous cell carcinoma excision Hx of total hip arthroplasty History of hysteroscopy History of carpal tunnel release of both wrists Hx of rotator cuff surgery Hx of colonoscopy Hx of esophagogastroduodenoscopy Family History Father Rheumatic fever Heart attack Stroke Mother Heart problem Social History Housing: House Alcohol intake: never Patient Tobacco Use Status: Former Tobacco user Cigarette Packs Per Day: 2 Years Smoked: 25 e-Cigarette/Vaping Use: Never Used Second Hand Smoke Exposure: No service: No Current occupational status: retired Current occupational exposures/hazards: No Cognitive needs: No Hearing needs: No Vision needs: Yes Review of Systems Const Denies chills, Denies fatigue, Denies fever(s), Denies frequent falls, Denies weakness, Denies weight gain and Denies weight loss ENT Denies dizziness Card Denies chest pain, Denies leg edema, Denies lightheadedness, Denies palpitations, Denies dyspnea and Denies dyspnea on exertion Resp Denies cough, Denies dyspnea and Denies dyspnea on exertion GI Denies hematochezia Musc Denies abnormal gait, Denies muscle weakness, Denies numbness, Denies radiating pain into limb and Denies tingling Neuro Denies abnormal gait, Denies dizziness, Denies frequent falls, Denies numbness, Denies tingling and Denies weakness Endo Denies fatigue and Denies palpitations Physical Exam Vital Signs: Last Vital Signs Pulse 56 04/03/25 15:46 BP 94/62 04/03/25 15:46 BMI result Body Mass Index 42.5 GENERAL APPEARANCE: in no acute distress, pleasant. NECK: no carotid bruit. SKIN: no suspicious lesions, warm and dry. HEART: no murmurs, regular rate and rhythm. LUNGS: clear to auscultation bilaterally. ABDOMEN: soft, nontender. EXTREMITIES: no edema. PERIPHERAL PULSES: equal. NEUROLOGIC: No gross deficits, AAO X 3 Assessment & Plan Assessment & Plan (1) Takotsubo cardiomyopathy: Code(s): I51.81 - Takotsubo syndrome Category: Medical (2) RBBB: Code(s): I45.10 - Unspecified right bundle-branch block Category: Medical (3) Essential hypertension: Code(s): I10 - Essential (primary) hypertension Category: Medical (4) NSTEMI (non-ST elevated myocardial infarction): Code(s): I21.4 - Non-ST elevation (NSTEMI) myocardial infarction Category: Medical Plan Pleasant 69 year female who is here for follow-up. She had dyspnea on exertion and was started on diuretics without any improvement. Subsequently got admitted with NSTEMI to [facility] for cardiac catheterization list showed no significant coronary disease. She had apical wall motion abnormality on left ventriculography which was quite limited due to equipment dysfunction. She subsequently had echocardiography which showed apical dyskinesis preserved LV function. Findings were suggestive of takotsubo cardiomyopathy. Repeat echocardiography has shown improvement in ejection fraction. She is complaining of some weakness and fatigue. Her blood pressure is low. I have advised her to decrease the lisinopril to 20 mg daily from b.i.d.. She will check her blood pressure with the next week and report to us. If she continues to have low blood pressures and I will cut the lisinopril to half tablet daily which will be 10 mg. Thank you for allowing me to participate in the care of your patient. Please feel free to contact me if you have any questions. Medications: Changed From lisinopril 20 mg PO BID 90 days 180 tabs 0RF To lisinopril 20 mg PO DAILY 90 tabs 0RF 90 days Coding Level of Care Code Est Pt Level 4 (70184) Diagnoses Takotsubo cardiomyopathy I51.81 RBBB I45.10 Essential hypertension I10 NSTEMI (non-ST elevated myocardial infarction) I21.4
[2025-04-03 15:46] VITALS: BP 94/62; PULSE 56; BMI 42.5
== END 2025-04-03 16:10 | disposition home or self-care (01) ==
LOC: HO.HCS 15:13
PROVIDERS: PCP Family Medicine; Visit Provider Internal Medicine Cardiovascular Disease
DX: I51.81 Takotsubo syndrome (principal); I45.10 Unspecified right bundle-branch block; I10 Essential (primary) hypertension; I21.4 Non-ST elevation (NSTEMI) myocardial infarction
CPT/HCPCS: 99214

== ENCOUNTER → 2025-04-03 15:12 | Outpatient (BNVA) | payer MEDICARE, OTHER, SELFPAY | PROVIDERS: PCP Family Medicine; Visit Provider Internal Medicine Cardiovascular Disease | DX: I51.81 Takotsubo syndrome (principal); I45.10 Unspecified right bundle-branch block; I10 Essential (primary) hypertension; I21.4 Non-ST elevation (NSTEMI) myocardial infarction; Z87.891 Personal history of nicotine dependence; Z79.82 Long term (current) use of aspirin; E66.9 Obesity, unspecified; Z68.41 Body mass index [BMI] 40.0-44.9, adult | CPT/HCPCS: 99212 ==

== ENCOUNTER 2025-05-16 16:04 | Outpatient (REF) | payer MEDICARE, OTHER, SELFPAY ==
--- OUTSIDE RECORDS SUMMARY | 2021-03-23 13:59 | XMS_ITS | Encounter Summary ---
Author Organization Located Within [facility] Address [address] [place] [address] [place] [address] Phone Care Team Providers Care Public Speaking Teacher Name Role Phone Radha Scott MD Primary Care Provider Encounter Details Date Type Department Care Team (Late st Contact Info) Description 03/23/2021 2:59 PM EDT Hospital Encounter [facility] [address] [place] [phone] Madisyn Morel FNP [address] [place] [phone] [email or web address] Social History Tobacco Use Types Packs/Day Years Used Date Smoking Tobacco: Former Cigarettes Q uit: 06/23/1999 Smokeless Tobacco: Never Alcohol Use Standard Drinks/Week Comments Not Currently 0 (1 standard drink = 0.6 oz pur e alcohol) Education Answer Date Recorded Are you interested in more education? Not on amber e 10/22/2022 Are you concerned about learning? Not on file 10/22/2022 No 10/22/2022 No 10/22/2022 Digital Access Answer Date Recorded No 11/20/2022 No 11/20/2022 Reliable internet access at home? Not on file 11/20/2022 Device with a working camera? Not on file Comments Unknown Sex and Gender Information Value Date Recorded Sex Assigned at Female 10/26/2020 3:43 PM EDT Legal Sex Female 9:56 PM EDT Gender Identity Female 10/26/2020 3:43 PM EDT Sexual Orientation Not on file documented as of this encounter Plan of Treatment Not on file documented as of this encounter Procedures Procedure Name Priority Date/Time Associated Diagnosis Comments XR HAND 3 OR MORE VIEWS (LEFT) Urgent/patient waiting 03/23/2021 3:13 PM EDT Fall, initial encounter documented in this encounter Results * XR HAND 3 OR MORE VIEWS (LEFT) (03/23/2021 3:13 PM EDT) Anatomical Region Laterality Modality Hand Left Computed Radiogr aphy 03/23/2021 3:30 PM EDT Impressions 03/23/2021 3:37 PM EDT No acute fracture or dislocation. ATTESTATION: Isiah Ma as teaching physician, have reviewed the images for this case and if necessary edited the report originally created by Gautam Cortes. Narrative 03/23/2021 3:37 PM EDT EXAM:XR HAND 3 OR MORE VIEWS (LEFT) HISTORY: S/P Fall; 4,5 mcp COMPARISON: None. FINDINGS: No acute fracture or dislocation. Mild osteophytic changes of the hand, manifested by minimal radiocarpal, STT, thumb CMC and IP joint space narrowing, subchondral sclerosis and scattered marginal osteophyte formation. Mild dorsal hand and circumferential wrist soft tissue swelling. Procedure Note Isiah Zimmer MD, PhD - 03/23/2021 EXAM:XR HAND 3 OR MORE VIEWS (LEFT) HISTORY: S/P Fall; 4,5 mcp COMPARISON: None. FINDINGS: No acute fracture or dislocation. Mild osteophytic changes of the hand, manifested by minimal radiocarpal,STT, thumb CMC and IP joint space narrowing, subchondral sclerosis andscattered marginal osteophyte formation. Mild dorsal hand and circumferential wrist soft tissue swelling. IMPRESSION: No acute fracture or dislocation. ATTESTATION: Isiah Ma as teaching physician, have reviewed theimages for this case and if necessary edited the report originally createdby Gautam Cortes. Madisyn Morel FUR CLIPPER IMG XR UPPER EXTREMITY Nicole l Result documented in this encounter Visit Diagnoses Not on filedocumented in this encounter Care Teams Public Speaking Teacher Relationship Specialty Start Date End Date Radha Scott MD [address] [place] [phone] PCP - General Internal Medicine 05/29/20 documented as of this encounter Additional Source Comments The information contained in this document represents components of the legal health record. It is not the complete legal health record.[facility]
--- OUTSIDE RECORDS SUMMARY | 2021-03-23 14:00 | XMS_ITS | Encounter Summary ---
Author Organization [facility] Address [address] [place] [address] [place] [phone] Phone Care Team Providers Care Milling Machinist Name Role Phone Radha Scott MD Primary Care Provider Encounter Details Date Type Department Care Team (Late st Contact Info) Description 03/23/2021 3:00 PM EDT Hospital Encounter [facility] [address] [place] [phone] Madisyn Morel FNP [address] [place] [phone] [email or web address] Social History Tobacco Use Types Packs/Day Years [...] Name Priority Date/Time Associated Diagnosis Comments XR RIBS 3 OR MORE VIEWS WITH PA CHEST (LEFT) Urgent/patient waiting 03/23/2021 3:12 PM EDT Fall, initial encounter documented in this encounter Results * XR RIBS 3 OR MORE VIEWS WITH PA CHEST (LEFT) (03/23/2021 3:12 PM EDT) Anatomical Region Laterality Modality Chest Computed Radiogr aphy 03/23/2021 3:34 PM EDT Impressions 03/23/2021 3:38 PM EDT No displaced acute rib fracture. ATTESTATION: Isiah Ma as teaching physician, have reviewed the images for this case and if necessary edited the report originally created by Gautam Cortes. Narrative 03/23/2021 3:38 PM EDT XR RIBS 3 OR MORE VIEWS WITH PA CHEST (LEFT) COMPARISON: None. FINDINGS: No displaced rib fracture. A Metallic marker overlies left lower ribs. PA evaluation of the chest demonstrates minimal increased pulmonary interstitium without no focal consolidation, pleural effusion, pulmonary edema, or pneumothorax. Cardiomediastinal silhouette is normal. Procedure Note Isiah Zimmer MD, PhD - 03/23/2021 XR RIBS 3 OR MORE VIEWS WITH PA CHEST (LEFT) COMPARISON: None. FINDINGS: No displaced rib fracture. A Metallic marker overlies left lower ribs. PA evaluation of the chest demonstrates minimal increased pulmonaryinterstitium without no focal consolidation, pleural effusion, pulmonaryedema, or pneumothorax. Cardiomediastinal silhouette is normal. IMPRESSION: No displaced acute rib fracture. ATTESTATION: Isiah Ma as teaching physician, have reviewed theimages for this case and if necessary edited the report originally createdby Gautam Cortes. Madisyn Morel SENIOR CREDIT ANALYST IMG XR CHEST Final Resul t documented in this encounter Visit Diagnoses Not on filedocumented in this encounter Care Teams Milling Machinist Relationship Specialty Start Date End Date Radha Scott MD [address] [place] [address] PCP - General Internal Medicine 05/29/20 documented as of this encounter Additional Source Comments The information contained in this document represents components of the legal health record. It is not the complete legal health record.[facility]
--- OUTSIDE RECORDS SUMMARY | 2024-01-16 05:00 | XMS_ITS ---
Author Organization [facility] Address [address] [place] [address] Care Team Providers Care Motor Operator Name Role Phone Stephan Max Primary Care Provider UnavailAmando Patel Jr [phone] REASON FOR VISIT Patient presents today for colitis Encounters Encounter Location Date Provider Diagnosis [facility] [address] [place] [address] 01/16/2024 Amando Alba Jr Plan Of Treatment Next Appt Details Provider Name:Amando pulliam Jr, 05/05/2026 09:20:00 AM, [address], [address], [place], [address], Progress Notes * PIPPA WEAVER LDOB:1955 (69 yo F)Acc No.[id number]:01/16/2024 Progress Notes Patient: PIPPA VALDES Provider: Sophy Alba MD :1955 A ge:68 Y S ex:Female Date:01/16/2024 Address:[address], [place], [place] Pcp:Stephan Max Subjective: * Chief Complaints: * P atient presents today for colitis * The named appointment provid er may or may not be the originator of this progress note, and it is not deemed complete until electronically signed by the appointment provider. Sign off status: Pending * Provider: Sophy Alba MD Date: 0 01/16/2024 Generated for Carly chao/Kash/Cristhian on: 1 07/16/2024 08:52 PM EST
--- NOTE | ~2025-05-16 | CT_ITS ---
EXAMINATION: CT CHEST WITHOUT CONTRAST CLINICAL INFORMATION: R 91.1. Solitary pulmonary nodule. COMPARISON: September 27, 2024. TECHNIQUE: Multidetector volumetric CT imaging of the chest was done. Axial MIP volume rendering provided. Sagittal and coronal reformatted images were obtained. This CT examination was performed using dose optimization techniques as appropriate, variously including the following: *Automated exposure control *Adjustment of mA and/or kV according to patient size (this includes techniques or standardized protocols for targeted exams where dose is matched to indication/reason for exam; i.e. extremities or head) *Use of iterative reconstruction technique DLP: 279 mGy-cm FINDINGS: PIPELINE DISPATCHER: Patient's large body habitus/obesity. Metallic prosthesis right shoulder. Pulmonary nodule left lung. Satisfactory inspiration. Cardiomediastinal silhouette size is normal. Multilevel spondylosis. Degenerative changes left shoulder. LUNGS: There is a well-circumscribed, 10.5 x 10.3 x 3.4 mm ovoid shaped hyperdense nodule which measures -2.32 Hounsfield units centered in the periphery of the left upper lung lobe abutting the pleura. No bronchiectasis. No honeycombing. Respiratory airways patent. MEDIASTINUM: No lymphadenopathy. No pericardial effusion. Heart is not enlarged. Calcified plaques in the thoracic aortic arch, origin of the left subclavian and brachiocephalic trunk. Calcified plaques in the coronary arteries. No pneumomediastinum. Thyroid gland is not enlarged. CORONARY ARTERY CALCIFICATION: Calcified plaques. PLEURA: No pleural effusion. No pneumothorax. No calcified pleural plaques. No hemothorax. AXILLA: No lymphadenopathy. UPPER ABDOMEN: Small hiatal hernia. Calcified plaques in the splenic artery. OSSEOUS STRUCTURES: Multilevel cervical thoracic and upper lumbar spondylosis pronounced in the lower thoracic spine. No acute fracture. Degenerative changes in the left glenohumeral joint. Metallic prosthesis resulting in beam hardening artifact right shoulder. CT/CT chest wo IV con IMPRESSION: 10.5 x 10.3 x 3.4 mm pulmonary nodule, left upper lung lobe. Probably benign. Consider hamartoma. Coronary artery disease and atherosclerosis disease. Multilevel spondylosis. Fleischner guidelines were followed. Electronically signed by: Marcial Manning MD 05/17/2025 07:17 AM [facility]
--- OUTSIDE RECORDS SUMMARY | 2025-05-16 20:52 | XMS_ITS | Patient Health Record ---
Author Organization [facility] Address [address] [place] [address] Care Team Providers Care Block Trader Name Role Phone Stephan Max Primary Care Provider UnavailAmando Patel Jr Unavailable Allergies Allergen (clinical drug ingredient) Drug/Non Drug Allergy documented on EMR Reaction Allergy Type Onset Date Status Codeine Phosphate Unknown Drug Allergy Active Results Component Value Reference Range Flag Notes Liver Panel Reviewed date:09/11/2024 02:47:21 PM Interpretation: Performing Lab:[facility], [address] [place] [id number] Notes/Report: Bilirubin Total 0.3 0.0-1.0 mg/dL N Bilirubin Direct 0.1 0.0-0.5 mg/dL N Aspartate Amino Transferase 20 5-31 U/L N Alanine Aminotransferase 16 0-31 U/L N Total Protein 7.3 6.5-8.0 g/dL N Albumin Level 4.1 3.5-5.0 g/dL N Alkaline Phosphatase 70 39-117 U/L N Blood Urea Nitrogen Reviewed date:09/11/2024 02:45:35 PM Interpretation: Performing Lab:[facility], [address] [place] [phone] Notes/Report: Blood Urea Nitrogen 16 9-16 mg/dL N Creatinine Reviewed date:09/11/2024 02:45:33 PM Interpretation: Performing Lab:[facility], [address] [place] [phone] Notes/Report: Creatinine 0.96 0.5-1.4 mg/dL N Estimated Glomerular Filt Rate 57 Chronic Kidney Disease: Estimated GFR < 60 mL/min/1.73m2 Severe Kidney Disease: Estimated GFR < 15 mL/min/1.73m2 MR abdomen wo/w con Reviewed date:09/20/2024 11:26:48 AM Interpretation: Performing Lab: Notes/Report: [address] [address] Magnetic Resonance Report Signed Patient: Pippa Cottrell MR#: [id number] : 1955 Acct:[id number] Age/Sex: 69 / F ADM Date: 09/19/24 Loc: HO.MRI Attending Dr: Amando Alba MD Ordering Physician: Amando Alba MD Date of Service: 09/19/24 Procedure(s): MR abdomen wo/w con Accession Number(s): [id number] cc: Amando Alba MD; Stephan Max MD EXAMINATION: MRI Abdomen without and with contrast HISTORY: Abnormal PET scan, possible lesion vs. liver heterogeneity COMPARISON: Correlation is made with a PET/scan from [facility] dated 08/09/2024. TECHNIQUE: Axial in and [...] 09/20/24 0711 DD/ 1607 TD/TT: 09/19/24 1637 Eyewear Manufacturing Tech: Reason For Referral No Information Medications Medication SIG (Take, Route, Frequency, Duration) Notes Start Date End Date Status Breo Ellipta 200-25 MCG/ACT Aerosol Powder Breath Activated 1 puff Inhalation Once a day Active buPROPion HCl 100 MG Tablet 2 tablets Or ally once a day Active Iron 28 MG Tablet 1 tablet Orally Thre e times a Week Active Pantoprazole Sodium 40 MG Tablet Delayed Release 1 tablet Orally Once a day; Duration: 30 day(s) Active Metoprolol Tartrate 25 MG Tablet 1 tablet with food Orally Twice a day Active Metamucil 0.36 GM Capsule as directed Orally Active DULoxetine HCl 60 MG Capsule Delayed Release Particles 1 capsule Orally Once a day; Duration: 30 day(s) Active B12 5000 MCG Tablet Sublingual as directed Sublingual Activ e Famotidine 20 MG Tablet 1 tablet at bedt annalee as needed Orally Once a day; Duration: 30 day(s) Active Magnesium 200 MG Tablet 2 tablets with a meal Orally Once a day Active Atorvastatin Calcium 10 MG Tablet 1 tablet Orally Once a day; Duration: 30 day(s) Active Alendronate Sodium 70 MG Tablet 1 tablet 30 minutes before the first food, beverage or medicine of the day with plain water Orally Active Furosemide 20 MG Tablet 1 tablet Orally Once a day Active Lisinopril 20 MG Tablet 1 tablet Orally Once a day Active Aspirin 81 81 MG Tablet Delayed Release 1 tablet Orally Once a day Active Isosorbide Mononitrate ER 60 MG Tablet Extended Release 24 Hour 1 tablet in the morning Orally Once a day; Duration: 30 day(s) Active Docusate Sodium 100 MG Capsule 1 capsule as needed Orally Once a day Active Gabapentin 300 MG Capsule 1 capsule Oral ly Once a day Active Immunizations Vaccine Route Administration Date Status Comme nts Influenza Unknown 04/08/2022 Administered Influenza Unknown 04/16/2024 Administered Influenza Unknown 05/01/2025 Administered Influenza Unknown 05/01/2025 Administered Social History Social History Additional Details Category Social Info Options Details Miscellaneous: Marital status: 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 Problems Problem Type SNOMED Code ICD Code Onset Dates Problem Status W/U Status Risk Notes Problem Colon cancer screening (966554206) Colon cancer screening (Z12.11) Active confirmed Problem Pre-procedure evaluation check (946374856) Encounter for other preprocedural examination (Z01.818) Active confirmed Problem Gastroesophageal reflux disease (009543832) Gastroesophageal reflux disease (K21.9) Active confirmed Problem Gastroesophageal reflux disease without esophagitis (741212471) Gastroesophageal reflux disease without esophagitis (K21.9) Active confirmed Problem Colitis (03854055) Colitis (K52.9) Active confi rmed Problem Gastrointestinal tract problem (416985780) Abn findings-GI tract (R93.3) Active confirmed Vital Signs Temperature 97.2 degrees Fahrenheit 05/01/2025 Blood pressure diastolic 01 mm Hg 05/01/2025 Height 61.5 in 05/01/2025 Blood pressure systolic 001 mm Hg 05/01/2025 Weight 228.0 lbs 05/01/2025 BMI 42.38 kg/m2 05/01/2025 Encounters Encounter Location Date Provider Diagnosis [facility] [address] [place] [phone] 09/06/2024 Amando Alba Jr Abnormal PET scan, liver R94.5 [facility] [address] [place] [phone] 05/01/2025 Amando Alba Jr Gastroesophageal reflux disease without esophagitis K21.9 ; Colitis K52.9 and Abn findings-GI tract R93.3 [facility] [address] [place] [phone] 09/07/2024 Amando Alba Jr Abnormal PET scan of liver R94.5 [facility] [address] [place] [phone] 09/11/2024 Amando Alba Jr [facility] [address] [place] [address] 09/12/2024 Amando Alba Jr Abnormal PET scan, liver R94.5 [facility] [address] [place] [phone] 09/20/2024 Amando Alba Jr Assessments Encounter Date Diagnosis (ICD Code) Assessment Notes Treatment Notes Treatment Clinical Notes Section Notes 09/06/2024 Abnormal PET scan, liver (ICD-10 - [...] these results. Today's visit was 35 minutes. 05/01/2025 Gastroesophageal reflux disease without esophagitis (ICD-10 - K21.9) At this time, she is doing well. Her colitis symptoms appear to have resolved and she is off mesalamine. We do not think there are any reasons to continue this at this time in the absence of symptoms. We discussed this today. Reflux symptoms are under good control on her present regimen. We discussed diet, lifestyle modifications, and weight management regarding the treatment of reflux. She will continue these measures. Follow-up will be in 12 months, sooner if necessary. We reviewed her MRI which had been done for a possible liver mass on imaging previously no liver mass was seen. A small hiatal hernia was identified. We discussed this in detail today. No follow-up is necessary for this issue.Today's visit was 30 minutes. 05/01/2025 Colitis (ICD-10 - K52.9) At this time, she is doing well. Her colitis symptoms appear to have resolved and she is off mesalamine. We do not think there are any reasons to continue this at this time in the absence of symptoms. We discussed this today. Reflux symptoms are under good control on her present regimen. We discussed diet, lifestyle modifications, and weight management regarding the treatment of reflux. She will continue these measures. Follow-up will be in 12 months, sooner if necessary. We reviewed her MRI which had been done for a possible liver mass on imaging previously no liver mass was seen. A small hiatal hernia was identified. We discussed this in detail today. No follow-up is necessary for this issue.Today's visit was 30 minutes. 09/07/2024 Abnormal PET scan of liver (ICD-10 - R94.5) 09/12/2024 Abnormal PET scan, liver (ICD-10 - R94.5) 05/01/2025 Abn findings-GI tract (ICD-10 - R93.3) At this time, she is doing well. Her colitis symptoms appear to have resolved and she is off mesalamine. We do not think there are any reasons to continue this at this time in the absence of symptoms. We discussed this today. Reflux symptoms are under good control on her present regimen. We discussed diet, lifestyle modifications, and weight management regarding the treatment of reflux. She will continue these measures. Follow-up will be in 12 months, sooner if necessary. We reviewed her MRI which had been done for a possible liver mass on imaging previously no liver mass was seen. A small hiatal hernia was identified. We discussed this in detail today. No follow-up is necessary for this issue.Today's visit was 30 minutes. Plan Of Treatment Pending Test Test Name Order Date BUN 09/06/2024 CREATININE 09/06/2024 LIVER PROFILE 09/06/2024 MRI ABD W&WO CONTRAST 09/06/2024 MRI ABD W&WO CONTRAST 09/07/2024 MRI ABD W&WO CONTRAST 09/12/2024 Future Test Test Name Order Date UPPER GI ENDOSCOPY 08/25/2012 COLONOSCOPY 10/14/2016 UPPER GI ENDOSCOPY 07/28/2022 COLONOSCOPY 07/28/2022 Next Appt Details Provider Name:Amando pulliam , 05/05/2026 09:20:00 AM, [address], [address], [place], [address], Insurance Providers Payer Name Payer Address Payer Phone Subscriber Number Group Number Insured Name Patient Relationship to Insured Coverage Start Date Coverage End Date MEDICARE OF [place] [address] [place] [address] [id number] PIPPA COTTRELL Self - patient is the insured [facility] [address] [place] [phone] [id number] PIPPA COTTRELL Self - patient is the insured Medical (General) History Medical History History ICD Code Gastroesophageal reflux dise [facility], EGD 09/16 no H. pylori or Leggett's esophagus Diverticulitis Angina Depression Hyperlipidemia Hypertension Squamous cell carcinoma TIA 2012 with no residual deficit DON/CPAP Colonoscopy 09/16, tubular ad enomas x2, 15 cm length of segmental colitis, current therapy mesalamine. Difficult intubation at time of rotator cuff surgery [facility] 11/13 sleep apnea Surgical History Surgery Date(Month/Year) carpal tunnel surgery in both hands basal cell removed on chin new hip right rotator cuff surgery left hysteroscopy 08/16 new knee left new shoulder right Hospitalization History Reason Date(Month/Year) heart complications distributed shock after surgery
--- OUTSIDE RECORDS SUMMARY | 2025-05-16 20:52 | XMS_ITS | Clinical Summary ---
Author Organization [facility] Address [address] [place] [phone] Phone Care Team Providers Care University Intern Name Role Phone Unavailable Primary Care Provider [...] Last Done Comments Breast Cancer Screening 1955 Colorectal Cancer Screening: Colonoscopy 1955 Pneumococcal Vaccine: 50+ Years (1 of 1 - PCV) 2004 RSV Immunization Adult Patients (1 - Risk 50-74 years 1-dose series) 2004 Zoster Vaccines (1 of 2) 2004 Depression Screening 06/27/2024 Falls Risk Assessment 08/08/2024 Hepatitis C Screening [...]
--- OUTSIDE RECORDS SUMMARY | 2025-05-16 20:52 | XMS_ITS | Patient Health Record ---
Author [facility] Address [address] [address] Care Team Providers Care Public Relations Analyst Name Role Phone Radha Scott MD Primary Care Provider Ulisses Dodson Unavailable [phone] Allergies Allergen (clinical drug ingredient) Drug/Non Drug [...] primary osteoarthritis of the ankle and/or foot (087943525) Primary osteoarthrit is, left ankle and foot (M19.072) Active confirmed Plan Of Treatment Pending Test Test Name Order Date X ray : Foot, left 3V 05/11/2017 [id number] NAIL, 6 OR MORE 01/14/2016 [id number] Plate 01/14/2016 [id number] SKIN/TISSUE 01/30/2016 Insurance Providers Payer Name Payer Address Payer Phone Subscriber Number Group Number Insured Name Patient Relationship to Insured Coverage Start Date Coverage End Date [facility] [address] [place] [address] [id number] Martha Cottrell Self - patient is the insured Medical (General) History Medical History History ICD Code Arthritis Back,Hip,and Knee pain skin cancer Depression Diverticulosis Heart disease Hiatal hernia High blood pressure Reflux Stroke Measles Mumps Chicken pox Surgical History Surgery Date(Month/Year) carpal tunnel surgery skin cancer
--- OUTSIDE RECORDS SUMMARY | 2025-05-16 20:52 | XMS_ITS | Clinical Summary ---
Author Organization [facility] Address [address] [place] [phone] Phone Care Team Providers Care Senior Quality Assurance Analyst Name Role Phone Radha Scott MD [...] seven (7) days, may remove with nail peruvian remover and continue cycle. 6.6 mL 3 [...] VACCINES (50+ years) (2 of 2 - PCV20 or PCV21) 05/07/2022 05/07/2021 INFLUENZA VACCINE (#1) 2025 , 03/25/2020, 04/08/2019, Additional history exists COVID-19 VACCINE ( - 2024- season) 2025 RSV VACCINE (1 - 1-dose [...] file Insurance MEDICARE PART A & B Member Subscriber Plan / Payer (Ef fective 2019-Present) Name:Martha Cottrell Member ID:[id number] Relation to Subscriber:Self Name:Martha Cottrell Subscriber ID:[id number] Payer ID:[id number] Group ID:Not on file Type:Medicare Address: [employer] [address] MEDICARE SUPPLEMENT MEDICARE PART A & B [facility] MEDICARE SUPPLEMENT MEDICARE PART A & B MEDICARE SUPPLEMENT Member Subscriber Plan / Payer (Ef fective 2019-Present) Name:Martha Cottrell Relation to Subscriber:Self Name:Martha Cottrell Payer ID:Not on file Type:Indemnity Address: [place] [id number] MEDICARE PART A & B Member Subscriber Plan / Payer (Ef fective 2019-Present) Name:Martha Cottrell Member ID:[id number] Relation to Subscriber:Self Name:Martha Cottrell Subscriber ID:[id number] Payer ID:[id number] Group ID:Not on file Type:Medicare Address: [employer] [address] [place] [address] [place] [address] MEDICARE SUPPLEMENT MEDICARE PART A & B MEDICARE SUPPLEMENT MEDICARE PART A & B [facility] MEDICARE SUPPLEMENT MEDICARE PART A & B [facility] MEDICARE SUPPLEMENT MEDICARE PART A & B [facility] MEDICARE SUPPLEMENT MEDICARE PART A & B Member Subscriber Plan / Payer (Ef fective 2019-Present) Name:Martha Cottrell Member ID:[id number] Relation to Subscriber:Self Name:Martha Cottrell Subscriber ID:[id number] Payer ID:[id number] Group ID:Not on file Type:Medicare Address: [employer] [facility] [address] [address] [facility] MEDICARE SUPPLEMENT Care Teams Senior Quality Assurance Analyst Relationship Specialty Start Date End Date Radha Scott MD [address] [place] [id number] PCP - General Internal Medicine 05/29/20 Additional Source Comments The information contained in this document represents components of the legal health record. It is not the complete legal health record.[facility]
== END 2025-05-16 16:05 | disposition home or self-care (01) ==
LOC: HO.CT 16:04
PROVIDERS: PCP Family Medicine; Visit Provider Nurse Practitioner Family
DX: R91.1 Solitary pulmonary nodule (principal)
CPT/HCPCS: 71250

== ENCOUNTER → 2025-05-16 16:06 | Outpatient (BNV) | payer MEDICARE, OTHER, SELFPAY | PROVIDERS: PCP Family Medicine; Visit Provider Radiology Diagnostic Radiology | DX: R91.1 Solitary pulmonary nodule (principal) | CPT/HCPCS: 71250 ==

== ENCOUNTER 2025-05-28 09:39 | Outpatient (AMB) | payer MEDICARE, OTHER, SELFPAY ==
--- OUTSIDE RECORDS SUMMARY | 2021-03-23 13:59 | XMS_ITS | Encounter Summary ---
Author Organization [facility] Address [address] [place] [address] [place] [phone] Phone Care Team Providers Care Cook Tortilla Name Role Phone Radha Scott MD Primary Care Provider Encounter Details Date Type Department Care Team (Late st Contact Info) Description 03/23/2021 2:59 PM EDT Hospital Encounter [facility] [address] [place] [phone] Madisyn Morel FNP [address] [place] [phone] [email or web address] Social History Tobacco Use Types Packs/Day [...] report originally createdby Gautam Cortes. Madisyn Morel RESTAURANT ASSISTANT IMG XR UPPER EXTREMITY Nicole l Result documented in this encounter Visit Diagnoses Not on filedocumented in this encounter Care Teams Cook Tortilla Relationship Specialty Start Date End Date Radha Scott MD [address] [place] [phone] PCP - General Internal Medicine 05/29/20 documented as of this encounter Additional Source Comments The information contained in this document represents components of the legal health record. It is not the complete legal health record.[facility]
--- OUTSIDE RECORDS SUMMARY | 2021-03-23 14:00 | XMS_ITS | Encounter Summary ---
Author Organization [facility] Address [address] [place] [address] [place] [address] Phone Care Team Providers Care Fence Installer Foreman Name Role Phone Radha Scott MD Primary Care Provider Encounter Details Date Type Department Care Team (Late st Contact Info) Description 03/23/2021 3:00 PM EDT Hospital Encounter [facility] [address] [place] [phone] Madisyn Morel FNP [address] [place] [phone] [email or web address] Social History Tobacco Use Types Packs/Day Years [...] report originally createdby Gautam Cortes. Madisyn Morel STRIPPER PRINTED CIRCUIT BOARDS IMG XR CHEST Final Resul t documented in this encounter Visit Diagnoses Not on filedocumented in this encounter Care Teams Fence Installer Foreman Relationship Specialty Start Date End Date Radha Scott MD [address] [place] [address] PCP - General Internal Medicine 05/29/20 documented as of this encounter Additional Source Comments The information contained in this document represents components of the legal health record. It is not the complete legal health record.[facility]
--- NOTE | 2025-05-28 10:04 | A.OFFVIS_ITS ---
Vital Signs 05/28/25 10:05 Height 5 ft 1 in Weight 228 lb 6 oz BMI 43.1 BP 124/78 Blood Pressure Location Rt brachial Position Sitting Pulse 65 Pulse Source Pulse Oximeter Pulse Oximetry (%) 98 Oxygen Delivery Method Room Air Intake Visit Reasons: 6 mo follow up Intake Note: Patient presents follow up DON medication. Compliance in chart(90/90days, >=4hrs-100%, Average Usage-9hr 17min, Pressure-10cm, Med Leaks-0.3, AHI-6.5). Gabapentin 300mg is to much. when did take 300mg slept 13hrs. take only 1-2 and takes at dinner. Accompanied by: Self / Same As Patient Allergies codeine (CODEINE) Adverse Reaction (Mild, Verified 05/28/25 10:08) NAUSEA & VOMITING HPI Comments Details: 69 year old female presents for a f/u of DON and RLS symptoms. DON Compliance Report 01/2025-04/2025 reviewed with pt. Total use is 90/90 days, >=4hrs-100%, Avg use 9hrs 13min Median Pressure-11cm, Med Leaks- 0.2, AHI-6.6 She washes her mask, rinses hoses, changes filters and fills her reservoir with water as needed. She is followed by her vacuum technician Dr. Hoover. Since starting her cpap therapy with the full face mask she feels more refreshed when waking up in the mornings. Her quality of sleep has improved. Sometimes she still has trouble staying asleep due to the RLS symptoms of bilateral paresthesias which cause her to get out of bed and stretch her feet. She moves her legs to get comfortable, the tingling sensation improves after taking 100- 200mg gabapentin. 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 She is independent in all ADLs. She denies abnormal sleep behaviors, bruxism, acid reflux, memory deficits, morning headaches, vision changes, balance and gait difficulties. [facility], LAT[facility] Medical History Decreased renal function Golfers elbow Colitis CKD (chronic kidney disease) stage 3, GFR 30-59 ml/min Sleep apnea TIA (transient ischemic attack) Hx of squamous cell carcinoma HTN (hypertension) Elevated cholesterol Depression History of angina Diverticulitis GERD (gastroesophageal reflux disease) Surgical History Hx of cardiac cath History of knee replacement procedure of left knee Hx of squamous cell carcinoma excision Hx of total hip arthroplasty History of hysteroscopy History of carpal tunnel release of both wrists Hx of rotator cuff surgery Hx of colonoscopy Hx of esophagogastroduodenoscopy Family History Father Rheumatic fever Heart attack Stroke Mother Heart problem Social History Housing: House Alcohol intake: never Patient Tobacco Use Status: Former Tobacco user Cigarette Packs Per Day: 2 Years Smoked: 25 e-Cigarette/Vaping Use: Never Used Second Hand Smoke Exposure: No service: No Current occupational status: retired Current occupational exposures/hazards: No Cognitive needs: No Hearing needs: No Vision needs: Yes Physical Exam Vital Signs: Last Vital Signs Pulse 65 05/28/25 10:05 BP 124/78 05/28/25 10:05 Pulse Ox 98 05/28/25 10:05 Oxygen Delivery Method Room Air 05/28/25 10:05 BMI result Body Mass Index 43.1 Const General: cooperative, comfortable and no acute distress Nutritional Appearance: obese (41.2) Orientation/consciousness: patient oriented x3 HEENT Face and sinus: Yes normal facial exam and Yes face symmetric Teeth and gingiva: other ([place] score of 4) Eyes Pupils: Equal, round and reactive pupils present Neck Neck: Yes full ROM and Yes supple Resp Effort & Inspection: normal respiratory effort and able to speak in complete sentences Neuro General: patient oriented x3 and moves all extremities Cranial nerves: Yes CN's II-XII intact bilaterally, Yes Facial sensation intact/muscles of mastication intact, Yes Equal, round and reactive pupils present, Yes Normal accommodation reflex present, Yes Bilaterally intact EOM present, Yes Nystagmus not present, Yes Normal facial strength present, Yes Midline tongue present, Yes Ability to bilaterally rotate head present and Yes Ability to bilaterally elevate shoulders present Cognition (Neuro): normal cognition Gait exam (Neuro): Normal gait present Motor exam (neuro): 5/5 motor strength present throughout, Pronator motor function not present, no tremor noted and Normal motor muscle tone present throughout Coordination: [id number] test normal Psych Appearance: grossly normal Mental Status: mental status grossly normal Speech and movement: Normal speech and movement present Affect: normal affect Attitude: cooperative Thought process: Normal thought process present Thought content: Normal thought content present Insight: Good insight present (Psych) Judgement: Good judgement present (Psych) Results Reviewed Results Reviewed: CT/CT chest wo IV con IMPRESSION: 10.5 x 10.3 x 3.4 mm pulmonary nodule, left upper lung lobe. Probably benign. Consider hamartoma. Coronary artery disease and atherosclerosis disease. Multilevel spondylosis. Fleischner guidelines were followed Assessment & Plan Assessment & Plan (1) DON on CPAP: Code(s): G47.33 - Obstructive sleep apnea (adult) (pediatric) Category: Medical (2) RLS (restless legs syndrome): Code(s): G25.81 - Restless legs syndrome Category: Medical (3) Fatigue: Code(s): R53.83 - Other fatigue Category: Medical Qualifiers: Fatigue type: chronic, unspecified Qualified Code(s): R53.82 - Chronic fatigue, unspecified Plan DON on cpap therapy and compliant, has refreshing sleep, AHI is elevated slightly, will adjust her settings lower by 1-2cmH20 online. Currently at 84ujO10 will adjust to 24zpO15, as AHI is 6.5/hr. Write rx for airfit f20 full face medium mask with chin straps RLS will start 100mg - 200 mg po daily gabapentin at night- time and monitor GFR. L. lung nodule, being followed by pulmonology F/U in 3 months. Coding Level of Care Code Est Pt Level 4 (22706) Diagnoses DON on CPAP G47.33 RLS (restless legs syndrome) G25.81 Chronic fatigue R53.82 Fatigue type: chronic, unspecified
[2025-05-28 10:05] VITALS: BP 124/78; PULSE 65; O2SAT 98; BMI 43.1
--- OUTSIDE RECORDS SUMMARY | 2025-05-28 10:33 | XMS_ITS | Clinical Summary ---
Author Organization [facility] Address [address] [place] [id number] Phone Care Team Providers Care Stationary Plant Operators Name Role Phone Unavailable Primary Care Provider [...]
--- OUTSIDE RECORDS SUMMARY | 2025-05-28 10:34 | XMS_ITS | Clinical Summary ---
Author Organization [facility] Address [address] [place] [phone] Phone Care Team Providers Care Clay Caster Name Role Phone Radha Scott MD Primary [...] seven (7) days, may remove with nail french remover and continue cycle. 6.6 mL 3 [...] Payer (Ef fective 2019-Present) Name:Martha Cottrell Member ID:[id number] Relation to Subscriber:Self Name:Martha Cottrell Subscriber ID:[id number] Payer ID:[id number] Group ID:Not on file Type:Medicare Address: [employer] [address] MEDICARE SUPPLEMENT MEDICARE PART A & B [facility] MEDICARE SUPPLEMENT MEDICARE PART A & B MEDICARE SUPPLEMENT Member Subscriber Plan / Payer (Ef fective 2019-Present) Name:Martha Cottrell Relation to Subscriber:Self Name:Martha Cottrell Payer ID:Not on file Type:Indemnity Address: [place] [id number] MEDICARE PART A & B Member Subscriber Plan / Payer (Ef fective 2019-Present) Name:Martha Cottrell Member ID:[id number] Relation to Subscriber:Self Name:Martha Cottrell Subscriber ID:[id number] Payer ID:[id number] Group ID:Not on file Type:Medicare Address: [employer] [address] [place] [address] [place] [address] MEDICARE SUPPLEMENT MEDICARE PART A & B MEDICARE SUPPLEMENT MEDICARE PART A & B [facility] MEDICARE SUPPLEMENT MEDICARE PART A & B [facility] MEDICARE SUPPLEMENT MEDICARE PART A & B [facility] MEDICARE SUPPLEMENT MEDICARE PART A & B Member Subscriber Plan / Payer (Ef fective 2019-Present) Name:Martha Cottrell Member ID:[id number] Relation to Subscriber:Self Name:Martha Cottrell Subscriber ID:[id number] Payer ID:[id number] Group ID:Not on file Type:Medicare Address: [employer] [facility] [address] [address] [facility] MEDICARE SUPPLEMENT Care Teams Clay Caster Relationship Specialty Start Date End Date Radha Scott MD [address] [place] [id number] PCP - General Internal Medicine 05/29/20 Additional Source Comments The information contained in this document represents components of the legal health record. It is not the complete legal health record.[facility]
== END 2025-05-28 10:53 | disposition home or self-care (01) ==
LOC: HO.HSMS 09:39
PROVIDERS: PCP Family Medicine; Visit Provider Physician Assistant Medical
DX: G47.33 Obstructive sleep apnea (adult) (pediatric) (principal); G25.81 Restless legs syndrome; R53.82 Chronic fatigue, unspecified
CPT/HCPCS: 99214

== ENCOUNTER → 2025-05-28 09:39 | Outpatient (BNVA) | payer MEDICARE, OTHER, SELFPAY | PROVIDERS: PCP Family Medicine; Visit Provider Physician Assistant Medical | DX: G47.33 Obstructive sleep apnea (adult) (pediatric) (principal); Z99.89 Dependence on other enabling machines and devices; G25.81 Restless legs syndrome; R53.82 Chronic fatigue, unspecified; Z87.891 Personal history of nicotine dependence | CPT/HCPCS: 99212 ==

== ENCOUNTER 2025-06-04 09:14 | Outpatient (AMB) | payer MEDICARE, OTHER, SELFPAY ==
[2025-06-04 09:18] VITALS: BP 110/68; PULSE 66; O2SAT 97; BMI 42.7
--- NOTE | 2025-06-04 09:18 | MHC.OFFVIS ---
Vital Signs 06/04/25 09:18 Height 5 ft 1 in Weight 226 lb 2 oz BMI 42.7 BP 110/68 Blood Pressure Location Lt brachial Position Sitting Pulse 66 Pulse Source Pulse Oximeter Pulse Oximetry (%) 97 Oxygen Delivery Method Room Air Intake Visit Reasons: Pulmonary Nodule Allergies codeine (CODEINE) Adverse Reaction (Mild, Verified 06/04/25 09:23) NAUSEA & VOMITING HPI Comments Details: Martha Clark is pleasant 69 year old, former 50+ pack year smoker, quit with underlying asthma, h/o NSTEMI, Takotsubo cardiomyopathy, HTN, HLD, TIA, h/o sqaumous cell carcinoma s/p excision, and DON on CPAP therapy (managed by sleep medicine). She was initially referred by PCP after incidental finding of XANDER 1.0 cm x 1.1 cm pulmonary nodule on CTA from June 2023. PET scan 07/2024 demonstrated minimal FDG activity of XANDER and nonspecific activity of liver, abdominal MRI unremarkable. Repeat CT 09/2024 revealed stability of nodule measuring 11 x 10 mm XANDER and presents today to review [address] results. In regards to asthma she reports worsening dyspnea on exertion since the fall. She reports getting very winded and experiencing profuse sweating with minimal activity, such as grocery shopping. She uses her maintenance Breo 200 inhaler and requires a rescue inhaler approximately four times per week, which provides relief. She denies cough, wheezing, chest tightness, or shortness of breath at rest. Denies BLE edema or orthopnea. Her medical history is notable for obstructive sleep apnea, for which she uses a CPAP machine and cannot sleep without it; the pressure was recently increased due to ongoing events. Pulmonology History - Pulmonary nodule: Stable on serial CT scans, suspected to be a hamartoma. - Shortness of breath on exertion: Worsened since the fall. - Current treatment: Breo 200 daily and albuterol rescue inhaler approximately 4 times per week. - Obstructive sleep apnea: Treated with a CPAP, pressure recently increased. - Pulmonary function test: Last performed in July 2020. - Oxygen use: No history of requiring supplemental oxygen. [facility] Medical History Decreased renal function Golfers elbow Colitis CKD (chronic kidney disease) stage 3, GFR 30-59 ml/min Sleep apnea TIA (transient ischemic attack) Hx of squamous cell carcinoma HTN (hypertension) Elevated cholesterol Depression History of angina Diverticulitis GERD (gastroesophageal reflux disease) Surgical History Hx of cardiac cath History of knee replacement procedure of left knee Hx of squamous cell carcinoma excision Hx of total hip arthroplasty History of hysteroscopy History of carpal tunnel release of both wrists Hx of rotator cuff surgery Hx of colonoscopy Hx of esophagogastroduodenoscopy Family History Father Rheumatic fever Heart attack Stroke Mother Heart problem Social History Housing: House Alcohol intake: never Patient Tobacco Use Status: Former Tobacco user Cigarette Packs Per Day: 2 Years Smoked: 25 e-Cigarette/Vaping Use: Never Used Second Hand Smoke Exposure: No service: No Current occupational status: retired Current occupational exposures/hazards: No Cognitive needs: No Hearing needs: No Vision needs: Yes Review of Systems Const Denies chills, Denies fever(s), Denies headache(s) and Denies night sweats Eyes Denies dry eyes, Denies irritation and Denies itchy eyes ENT Reports Normal hearing present, Denies headache(s), Denies nasal congestion, Denies nasal discharge, Denies post nasal drip and Denies sore throat Card Denies chest pain, Denies chest pain at rest, Denies chest pain with activity, Denies claudication, Denies leg edema, Denies orthopnea and Denies paroxysmal nocturnal dyspnea Resp Denies chest congestion, Denies cough, Denies excessive phlegm production, Denies pain on inspiration, Denies pain with cough, Denies stridor and Denies wheezing Musc Denies myalgias Neuro Reports Normal hearing present and Denies headache(s) Ruben/Lymph Denies lymphadenopathy Aller/Immun Denies itchy eyes, Denies seasonal rhinorrhea and Denies wheezing Physical Exam Vital Signs: Last Vital Signs Pulse 66 06/04/25 09:18 BP 110/68 06/04/25 09:18 Pulse Ox 97 06/04/25 09:18 Oxygen Delivery Method Room Air 06/04/25 09:18 BMI result Body Mass Index 42.7 Const General: cooperative, healthy appearing, comfortable, no acute distress, well developed and alert Nutritional Appearance: obese Orientation/consciousness: patient oriented x3 Limitations: no limitations HEENT Head: Yes normal to inspection, Yes normocephalic and Yes atraumatic Ears: hearing grossly normal bilaterally and external ears normal Eyes General: appearance normal, both eyes and all related structures Eyelids: Yes eyelids normal Sclerae: sclerae normal EOM: EOMs intact bilaterally Neck Neck: Yes normal visual inspection and Yes no lymphadenopathy Lymphatic: no lymphadenopathy noted Chest Chest palpation & inspection: normal inspection of the chest Resp Effort & Inspection: normal respiratory effort, able to speak in complete sentences, no audible wheezes, no cough, no stridor, not tachypneic, no tripod positioning and no use of accessory muscles Auscultation: clear to auscultation bilaterally Cardio Jugular venous distension: no JVD Rate: regular rate Rhythm: regular rhythm Skin Other: warm, dry General skin exam: no rashes or lesions noted Neuro General: patient oriented x3 Cranial nerves: Yes Normal hearing present Cognition (Neuro): normal cognition Gait exam (Neuro): Normal gait present Extrem General: Yes normal to inspection, Yes capillary refill normal, Yes no clubbing, cyanosis or edema and Yes no pedal edema Psych Appearance: grossly normal and well kempt Speech and movement: Normal speech and movement present and Clear speech present Affect: normal affect Attitude: cooperative Thought process: Normal thought process present Thought content: Normal thought content present Insight: Good insight present (Psych) Judgement: Good judgement present (Psych) Results Reviewed Results Reviewed: [place] [address] CT Scan Report Signed Patient: Martha Cottrell MR#: [id number] : 1955 Acct:[id number] Age/Sex: 69 / F ADM Date: 05/16/25 Loc: HO.CT Attending Dr: Taya Morse NP Ordering Physician: Taya Morse NP Date of Service: 05/16/25 Procedure(s): CT chest wo IV con Accession Number(s): [id number] cc: Stephan Max MD; Taya Morse NP~ Report Number: [id number]: Total DLP = 279.00 mGy-cm Reason for Exam: R91.1 - Solitary pulmonary nodule EXAMINATION: CT CHEST WITHOUT CONTRAST CLINICAL INFORMATION: R 91.1. Solitary pulmonary nodule. COMPARISON: September 27, 2024. TECHNIQUE: Multidetector volumetric CT imaging of the chest was done. Axial MIP volume rendering provided. Sagittal and coronal reformatted images were obtained. This CT examination was performed using dose optimization techniques as appropriate, variously including the following: *Automated exposure control *Adjustment of mA and/or kV according to patient size (this includes techniques or standardized protocols for targeted exams where dose is matched to indication/reason for exam; i.e. extremities or head) *Use of iterative reconstruction technique DLP: 279 mGy-cm FINDINGS: CLINICAL LAB SPECIALIST: Patient's large body habitus/obesity. Metallic prosthesis right shoulder. Pulmonary nodule left lung. Satisfactory inspiration. Cardiomediastinal silhouette size is normal. Multilevel spondylosis. Degenerative changes left shoulder. LUNGS: There is a well-circumscribed, 10.5 x 10.3 x 3.4 mm ovoid shaped hyperdense nodule which measures -2.32 Hounsfield units centered in the periphery of the left upper lung lobe abutting the pleura. No bronchiectasis. No honeycombing. Respiratory airways patent. MEDIASTINUM: No lymphadenopathy. No pericardial effusion. Heart is not enlarged. Calcified plaques in the thoracic aortic arch, origin of the left subclavian and brachiocephalic trunk. Calcified plaques in the coronary arteries. No pneumomediastinum. Thyroid gland is not enlarged. CORONARY ARTERY CALCIFICATION: Calcified plaques. PLEURA: No pleural effusion. No pneumothorax. No calcified pleural plaques. No hemothorax. AXILLA: No lymphadenopathy. UPPER ABDOMEN: Small hiatal hernia. Calcified plaques in the splenic artery. OSSEOUS STRUCTURES: Multilevel cervical thoracic and upper lumbar spondylosis pronounced in the lower thoracic spine. No acute fracture. Degenerative changes in the left glenohumeral joint. Metallic prosthesis resulting in beam hardening artifact right shoulder. CT/CT chest wo IV con IMPRESSION: 10.5 x 10.3 x 3.4 mm pulmonary nodule, left upper lung lobe. Probably benign. Consider hamartoma. Coronary artery disease and atherosclerosis disease. Multilevel spondylosis. Fleischner guidelines were followed. Electronically signed by: Marcial Manning MD 05/17/2025 07:17 AM EST Dictated By: Marcial Mackenzie MD Signed By: <Electronically signed by Marcial Restrepo MD in OV> 05/17/25 0717 DD/ 09 TD/TT: 05/16/25 162 Nut Grinder: Assessment & Plan Assessment & Plan (1) Pulmonary nodule 1 cm or greater in diameter: Code(s): R91.1 - Solitary pulmonary nodule Category: Medical (2) Asthma: Code(s): J45.909 - Unspecified asthma, uncomplicated Category: Medical Plan Reviewed the results of the patient's recent chest CT scan with her. Explained that the pulmonary nodule appears stable in size and is likely a benign hamartoma, reassuring her that it is not currently a concern. We will plan to monitor it with another scan in one year. We discussed her worsening shortness of breath and the need to determine if the cause is primarily pulmonary or cardiac. Recommended an updated pulmonary function test, as her last one was several years ago. We agreed to continue her current Breo and albuterol regimen and will re-evaluate after the breathing test results are available before considering a change to an inhaler like Trelegy. Advised her to schedule a follow-up appointment in approximately three months, which should allow enough time to complete the breathing test. The patient was given return precautions, including contacting our office if her breathing worsens, if she requires her albuterol inhaler more frequently, or if she develops a respiratory illness. All questions were answered and patient is in agreement of plan. Will follow up in 3 months or sooner if needed. Patient Instructions - The spot in your lung has not grown and appears to be a harmless growth called a hamartoma. We will check it again with another CT scan in one year. - Continue taking your Breo inhaler every day and use your albuterol (rescue) inhaler when you feel short of breath. - We have ordered a breathing test for you. Our office will call you to schedule it. Please try not to use your albuterol inhaler on the day of the test. - Please follow up with your heart doctor to discuss your shortness of breath and recent weight gain. - Please schedule a follow-up appointment in our office in about three months, after your breathing test is completed. - Call our office if your breathing gets worse, you start using your rescue inhaler more often, or if you get sick. Patient was informed and verbally consented to the use of an ambient scribe for clinic note documentation during this visit. Orders: Orders PFT pulmonary function test Today J45.909 - Unspecified asthma, uncomplicated CT chest wo IV con 11 Months R91.1 - Solitary pulmonary nodule Coding Level of Care Code Est Pt Level 4 (08364) Complex visit Add On G2211 Diagnoses Pulmonary nodule 1 cm or greater in diameter R91.1 Asthma J45.909
== END 2025-06-04 09:53 | disposition home or self-care (01) ==
LOC: HO.HPSW 09:15
PROVIDERS: PCP Family Medicine; Visit Provider Nurse Practitioner Family
DX: R91.1 Solitary pulmonary nodule (principal); J45.909 Unspecified asthma, uncomplicated
CPT/HCPCS: 99214; G2211

== ENCOUNTER → 2025-06-04 09:14 | Outpatient (BNVA) | payer MEDICARE, OTHER, SELFPAY | PROVIDERS: PCP Family Medicine; Visit Provider Nurse Practitioner Family | DX: R91.1 Solitary pulmonary nodule (principal); J45.909 Unspecified asthma, uncomplicated; G47.33 Obstructive sleep apnea (adult) (pediatric); Z99.89 Dependence on other enabling machines and devices | CPT/HCPCS: 99212 ==